=== PATIENT | female | born 1955 | race American Indian/Alaskan Native ===

== ENCOUNTER 2016-07-04 14:18 | Emergency (ER) | payer MEDICAID ==
[2016-07-04 15:14] VITALS: BP 135/65
[2016-07-04] MEDS ORDERED: TORADOL IM ONE (15:30)
[2016-07-04] MEDS ORDERED: NORCO 5/325 PO ONE (16:28)
--- NOTE | 2016-07-04 17:36 | Emergency Department Report ---
Entered by LOIS DOWD, acting as scribe for GRACIELA MART PA. ED Back Pain/Injury HPI - General Chief Complaint: Extremity Injury, Lower Stated Complaint: BODY PAIN Source: patient Limitations: No Limitations - History of Present Illness Initial Comments: 60 year old female with a PMHx of diabetes mellitus, lupus, and fluctuating HTN presents to the ED c/o left low back pain that began this morning at 06:00. Patient states that she was sleeping and was awaken by the pain. Rates the pain a 10/10 in severity and sharp in quality. Notes that the back pain radiates to left foot/toes. Denies any back injury, abdominal pain, numbness, tingling, SOB , nausea, vomiting, fever, and chills. She states the pain worsens with movement and is alleviated by immobilization. Notes taking Tylenol arthritis with no relief. She reports having a Hx of back pain, but this acute episode is worse. ZAK TA Complaint: back pain -: This morning Time: 06:00 Similar Symptoms Previously: No Place: home Radiation: left leg (down to left toes) Severity: moderate Severity scale (0 -10): 10 Quality: sharp Consistency: constant Improves With: immobilization Worsens With: movement Context: other (laying in the bed) Associated Symptoms: denies: chest pain, numbness, cough, incontinence, fever/ chills, headaches, abdominal pain, nausea/vomiting, rash, shortness of breath, other (tingling) Treatments Prior to Arrival: other (Tylenol) - Related Data Previous Rx's Medication Instructions Recorded Last Taken Type Acetaminophen/Codeine [Tylenol 1 tab PO Q6H PRN #10 tab 07/04/16 Unknown Rx /Codeine # 3 tab] Naproxen [Naprosyn TAB] 500 mg PO BID #30 tablet 07/04/16 Unknown Rx Allergies Allergy/AdvReac Type Severity Reaction Status Date / Time No Known Allergies Allergy Verified 01/04/16 20:24 ED Review of Systems ROS: Stated complaint: BODY PAIN Other details as noted in HPI Comment: All other systems reviewed and negative Constitutional: denies: chills, fever, other (tingling) Respiratory: denies: cough, orthopnea, shortness of breath, SOB with exertion, SOB at rest Cardiovascular: denies: chest pain, palpitations, dyspnea on exertion, orthopnea Gastrointestinal: denies: abdominal pain, nausea, vomiting, other (incontinence) Genitourinary: denies: urgency, dysuria, frequency Musculoskeletal: back pain (low left back pain that radiates to left toes) Skin: denies: rash Neurological: denies: headache, numbness ED Past Medical Hx - Past Medical History LUPUS ED Back Pain Physical Exam - Exam General: Vital signs noted. General: Patient is well nourished, well developed, nontoxic in appearance. HEAD: Head is normocephalic and atraumatic. EYES: Extraocular movements are intact. Pupils are equal, round, and reactive to light and accommodation. EARS: Symmetrical, atraumatic, non tender, ear canal clear with moderate cerumen , tympanic membrane non inflamed. NOSE: Nose symmetrical, nontender. Nares appeared normal. MOUTH:Mouth is well hydrated and without lesions. Mucous membranes are moist. NECK: Supple. Non edematous, no carotid bruits. No lymphadenopathy. LUNGS: Symmetrical with respiration. No wheezing, rales or crackles, CTAB. HEART: Regular rate and rhythm with normal S1/S2 present. No murmurs, rubs, or gallops. EXTREMITIES/MUSCULOSKELETAL: No cyanosis, clubbing, rash, lesions or edema. Full ROM bilaterally. UE/LE Pulses 2+ bilaterally. SKIN: Warm and dry. No lesions, ulceration or induration present PSYCHIATRIC: Mood is congruent with affect. Back/Abdomen: Yes Sacroiliac Tenderness (left side), Yes Straight Leg Raise Pain (left leg), No Abdominal Tenderness, No Perithoracic Tenderness, No Perilumbar Tenderness, No Flank Tenderness Neuro: Yes Normal Sensation, Yes Motor Weakness, Yes Normal DTR's, Yes Normal Gait ED Course Vital Signs 07/04/16 15:12 Temperature 98.5 F Pulse Rate 95 H Respiratory 16 Rate Blood Pressure 135/65 O2 Sat by Pulse 100 Oximetry - Reevaluation(s) Reevaluation #1: 07/04/16 17:30 Reports that pain has improved with the Toradol injection and pain medication. Also patient was given a ice pack to place the left sacral notch area to help with the inflammation and irritation. Discussed the patient will refer her to a primary care provider. Patient has verbalized understanding ED Medical Decision Making - Medical Decision Making Patient was evaluated in fast track area of ED by this provider. Patient presented with left low back pain that began this morning at 06:00. In the ED, patient will be given a shot of Toradol 60 mg and an ice pack for pain. Patient is in no acute distress at this time. She will be discharged home. She is encouraged to return to the emergency room for any worsening symptoms. Critical care attestation.: If time is entered above; I have spent that time in minutes in the direct care of this critically ill patient, excluding procedure time. ED Disposition Clinical Impression: Back pain without sciatica Disposition: DISCHARGED TO HOME OR SELFCARE Is pt being admited?: No Does the pt Need Aspirin: No Condition: Stable Instructions: Sciatica (ED), Lumbar Radiculopathy (ED) Additional Instructions: Take pain medication as prescribed. It is very important to follow with the primary care provider. I have listed one below Prescriptions: Acetaminophen/Codeine [Tylenol /Codeine # 3 tab] 1 tab PO Q6H PRN #10 tab PRN Reason: Pain Naproxen [Naprosyn TAB] 500 mg PO BID #30 tablet Referrals: PRIMARY CARE,MD [Primary Care Provider] - 3-5 Days [facility] [Provider Group] - 3-5 Days [facility] [Provider Group] - 3-5 Days This documentation as recorded by the NOEMÍ ruelas RYAN,accurately reflects the service I personally performed and the decisions made by me,GRACIELA MART PA.
== END 2016-07-04 16:55 | disposition home or self-care (01) ==
LOC: ED 14:18
DX: M54.5 Low back pain (principal); E11.9 Type 2 diabetes mellitus without complications; I10 Essential (primary) hypertension
CPT/HCPCS: 96372; 99283; J1885

== ENCOUNTER 2017-03-18 13:36 | Emergency (ER) | payer MEDICAID ==
[2017-03-18 14:43] LABS: BUN/Creatinine Ratio 21; Blood Urea Nitrogen 17 mg/dL (7-17); Calcium 8.9 mg/dL (8.4-10.2); Hemolysis Index 8
[2017-03-18 14:57] LABS: Basophils % (Auto) 0.4 % (0.0-1.8); Eosinophils # (Auto) 0.1 K/mm3 (0.0-0.4); Eosinophils % (Auto) 0.8 % (0.0-4.3); Hematocrit 37.6 % (30.3-42.9); Hemoglobin 12.3 gm/dl (10.1-14.3); Lymphocytes # (Auto) 1.2 K/mm3 (1.2-5.4); Lymphocytes % (Auto) 11.7 % (13.4-35.0); Mean Corpuscular HGB Conc 33 % (30-34); Mean Corpuscular Hemoglobin 30 pg (28-32); Mean Corpuscular Volume 91 fl (79-97); Monocytes # (Auto) 0.5 K/mm3 (0.0-0.8); Monocytes % (Auto) 4.8 % (0.0-7.3); Platelet Count 392 K/mm3 (140-440); Red Blood Count 4.15 M/mm3 (3.65-5.03); Red Cell Distribution Width 15.9 % (13.2-15.2)
--- NOTE | 2017-03-18 15:16 | Emergency Department Report ---
ED Psych HPI - General Chief Complaint: Psych Stated Complaint: SUICIDAL Time Seen by Provider: 03/18/17 15:07 Source: patient Mode of arrival: Ambulatory - History of Present Illness Initial Comments: Patient is 61 years old female brought from [facility]. EMS report patient made a statement that she would rather be than live like this, she is brought in as a 1013. Patient stated that she does not want to hurt herself, she was just very depressed but she does not have a suicidal ideation or attempt. Patient denied any visual or auditory hallucination. MD Complaint: suicidal ideation, feels depressed -: This morning Associated Psychiatric Symptoms: depression, suicidal ideation History of same: Yes - Related Data Previous Rx's Medication Instructions Recorded Last Taken Type Acetaminophen/Codeine [Tylenol 1 tab PO Q6H PRN #10 tab 07/04/16 Unknown Rx /Codeine # 3 tab] Naproxen [Naprosyn TAB] 500 mg PO BID #30 tablet 07/04/16 Unknown Rx Allergies Allergy/AdvReac Type Severity Reaction Status Date / Time No Known Allergies Allergy Verified 01/04/16 20:24 ED Review of Systems ROS: Stated complaint: SUICIDAL Other details as noted in HPI Comment: All other systems reviewed and negative Constitutional: denies: chills, fever Respiratory: denies: cough, shortness of breath Cardiovascular: denies: chest pain, palpitations, dyspnea on exertion Gastrointestinal: denies: abdominal pain, nausea, vomiting, diarrhea, constipation Musculoskeletal: denies: back pain, joint swelling Neurological: denies: headache, weakness, numbness, paresthesias ED Past Medical Hx - Past Medical History Hx Diabetes: Yes Hx Psychiatric Treatment: Yes (DEPRESSION) Additional medical history: LUPUS - Surgical History Hx Appendectomy: Yes Additional Surgical History: BREAST / TONSILS / ABD - Social History Smoking Status: Current Every Day Smoker Substance Use Type: None - Medications Home Medications: Home Medications Medication Instructions Recorded Confirmed Last Taken Type Acetaminophen/Codeine [Tylenol 1 tab PO Q6H PRN #10 tab 07/04/16 Unknown Rx /Codeine # 3 tab] Naproxen [Naprosyn TAB] 500 mg PO BID #30 tablet 07/04/16 Unknown Rx ED Physical Exam - General Limitations: No Limitations General appearance: alert, in no apparent distress, anxious - Head Head exam: Present: atraumatic, normocephalic, normal inspection - Eye Eye exam: Present: normal appearance, PERRL - ENT ENT exam: Present: normal exam, normal orophraynx, mucous membranes moist - Neck Neck exam: Present: normal inspection - Respiratory Respiratory exam: Present: normal lung sounds bilaterally. Absent: respiratory distress, wheezes, rales, rhonchi, chest wall tenderness, accessory muscle use, decreased breath sounds, prolonged expiratory - Cardiovascular Cardiovascular Exam: Present: regular rate, normal rhythm, normal heart sounds - GI/Abdominal GI/Abdominal exam: Present: soft, normal bowel sounds. Absent: distended, tenderness, guarding, rebound, rigid, organomegaly, mass, bruit, pulsatile mass , hernia - Extremities Exam Extremities exam: Present: normal inspection, full ROM, normal capillary refill - Back Exam Back exam: Present: normal inspection, full ROM. Absent: tenderness, CVA tenderness (R), CVA tenderness (L), muscle spasm, paraspinal tenderness - Neurological Exam Neurological exam: Present: alert, oriented X3, CN II-XII intact, normal gait, reflexes normal. Absent: motor sensory deficit - Skin Skin exam: Present: warm, intact, normal color. Absent: cyanosis, diaphoretic, erythema ED Course Vital Signs 03/18/17 13:44 Temperature 98.7 F Pulse Rate 125 H Respiratory 18 Rate Blood Pressure 129/84 O2 Sat by Pulse 95 Oximetry ED Medical Decision Making - Lab Data Result diagrams: 03/18/17 14:03 03/18/17 14:03 Critical care attestation.: If time is entered above; I have spent that time in minutes in the direct care of this critically ill patient, excluding procedure time. ED Disposition Clinical Impression: Suicidal ideation, Depression, Hyperglycemia due to type 2 diabetes mellitus Disposition: DC/TX-65 PSY HOSP/PSY UNIT Is pt being admited?: No Condition: Stable Instructions: Diabetes Mellitus Type 2 in Adults (ED)
[2017-03-19] MEDS ORDERED: GLUCOPHAGE PO ONE (01:20)
[2017-03-19 02:22] LABS: Bacteria,Urine 1+ /HPF (Negative); Bilirubin,Urine NEG (Negative); Blood,Urine NEG (Negative); Color,Urine Yellow (Yellow); Mucus,Urine FEW /HPF; Nitrite,Urine NEG (Negative); Protein,Urine <15 mg/dL mg/dL (Negative)
[2017-03-19 02:26] LABS: Amphetamine Screen,Urine PRESUMPTIVE NEGATIVE; Benzodiazepines Screen,Urine PRESUMPTIVE NEGATIVE; Cannabinoid Screen,Urine PRESUMPTIVE NEGATIVE; Cocaine Screen,Urine PRESUMPTIVE NEGATIVE; Methadone Screen,Urine PRESUMPTIVE NEGATIVE; Opiate Screen,Urine PRESUMPTIVE NEGATIVE
[2017-03-19] MEDS ORDERED: TYLENOL ONE (02:35)
[2017-03-19] MEDS ORDERED: TYLENOL PO ONE (02:36)
[2017-03-19] MEDS ORDERED: GLUCOPHAGE PO SCH (08:00)
--- NOTE | 2017-03-19 10:48 | Consultation ---
History of Present Illness - Reason for Consult Consult date: 03/19/17 Reason for consult: Mental Health Evaluation Requesting physician: LUIS F YEN - Chief Complaint Chief complaint: "I have my reason why I said what I said" - History of Present Psychiatric Illness 61 y.o. white female presenting to [facility] for SI's. Today the patient is calm and cooperative during the assessment. She stated that she made a statement to her counselor about being suicidal. She stated that she "rather be than live the way she is living." She stated that she lost all her money/home to someone and now she is residing at a [facility]. She stated that her life is "up side down" at this time and she hates it. She would not confirm or deny being suicidal when asked. She denies HI's and AVH's. She denies any manic episodes and erratic sleep. She denies recreational drug use and excessive alcohol consumption (etoh). Medications and Allergies Allergies Allergy/AdvReac Type Severity Reaction Status Date / Time No Known Allergies Allergy Verified 01/04/16 20:24 Home Medications Medication Instructions Recorded Confirmed Last Taken Type Acetaminophen/Codeine [Tylenol 1 tab PO Q6H PRN #10 tab 07/04/16 03/18/17 Unknown Rx /Codeine # 3 tab] Naproxen [Naprosyn TAB] 500 mg PO BID #30 tablet 07/04/16 03/18/17 Unknown Rx Active Meds: Active Medications Metformin HCl (Glucophage) 1,000 mg PO BIDDIAB GETACHEW Last Admin: 03/19/17 08:24 Dose: 1,000 mg Past psychiatric history - Past Medical History Past Medical History: diabetes Past Surgical History: tonsillectomy, Other - past Psychiatric treatment and history Psych: Depression psychiatric treatment history: Inpatient recently at [facility]. Patient denies a fam psy hx. - Social History Social history: other (Reside at [place]) Mental Status Exam - Vital signs Last Vital Signs Temp 98.9 F 03/18/17 22:16 Pulse 94 H 03/18/17 22:16 Resp 18 03/18/17 22:16 BP 132/67 03/18/17 22:16 Pulse Ox 96 03/18/17 22:16 - Exam Narrative exam: MSE: Appearance: calm, cooperative Behavior: good eye contact Speech: regular rate and tone Mood: "depressed" Affect: congruent to mood Thought Process: circumstantial Thought Content: denies HI's and AVH's Motor Activity: ambulatory Cognition: A/O x 3 Insight: variable Judgment: variable Results Result Diagrams: 03/18/17 14:03 03/18/17 14:03 Abnormal lab results 03/18/17 03/18/17 03/18/17 Range/Units 00:00 14:03 14:03 RDW 15.9 H (13.2-15.2) % Lymph % (Auto) 11.7 L (13.4-35.0) % Seg Neutrophils % 82.3 H (40.0-70.0) % Seg Neutrophils # 8.4 H (1.8-7.7) K/mm3 Sodium 133 L (137-145) mmol/L Chloride 95.1 L (98-107) mmol/L Carbon Dioxide 17 L (22-30) mmol/L Glucose 459 H (65-100) mg/dL POC Glucose (70-105) Ur Specific [place] 1.033 H (1.003-1.030) Urine WBC (Auto) 16.0 H (0.0-6.0) /HPF U Epithel Cells (Auto) 17.0 H (0-13.0) /HPF 03/19/17 03/19/17 Range/Units 01:22 02:36 RDW (13.2-15.2) % Lymph % (Auto) (13.4-35.0) % Seg Neutrophils % (40.0-70.0) % Seg Neutrophils # (1.8-7.7) K/mm3 Sodium (137-145) mmol/L Chloride (98-107) mmol/L Carbon Dioxide (22-30) mmol/L Glucose (65-100) mg/dL POC Glucose 298 H 257 H (70-105) Ur Specific [place] (1.003-1.030) Urine WBC (Auto) (0.0-6.0) /HPF U Epithel Cells (Auto) (0-13.0) /HPF All other labs normal. Assessment and Plan Assessment and plan: Impression: MDD, Severe Type. Today the patient is calm and cooperative during the assessment. DDx: R/O Bipolar DO Recommendation/Plan: Continue 1013 with placement to [facility] today.
[2017-03-19 11:14] VITALS: BP 130/72
== END 2017-03-19 09:00 ==
LOC: ED 13:36 → EEVIPCON 13:36 → ED 03-19 09:00
DX: F32.9 Major depressive disorder, single episode, unspecified (principal); R45.851 Suicidal ideations; E11.65 Type 2 diabetes mellitus with hyperglycemia; F17.200 Nicotine dependence, unspecified, uncomplicated
CPT/HCPCS: 36415; 80048; 80307; 81001; 82962; 85025; 96372; 99285; G0480; 80320; J1815

== ENCOUNTER 2017-10-16 22:01 | Emergency (ER) | payer MEDICAID ==
[2017-10-17 04:52] VITALS: BP 150/92
[2017-10-17] MEDS ORDERED: MOTRIN PO ONE (05:09)
--- NOTE | 2017-10-17 05:30 | Emergency Department Report ---
ED ENT HPI - General Chief complaint: Earache Stated complaint: EMESIS Time Seen by Provider: 10/17/17 05:06 Source: patient Mode of arrival: Ambulatory Limitations: No Limitations - History of Present Illness Initial comments: Patient is 61-year-old female who presents for intermittent ear pain 6 months for dx of otitis media media val states I will see PCP for next 2 weeks complaint: ear pain Onset/Timin -: month(s) Location: R ear Severity: moderate Severity scale (0 -10): 5 Quality: aching, sharp Consistency: constant Improves with: none Worsens with: none, movement Context- Dental: history of dental caries, poor dental care - Related Data Previous Rx's Medication Instructions Recorded Last Taken Type Acetaminophen/Codeine [Tylenol 1 tab PO Q6H PRN #10 tab 07/04/16 Unknown Rx /Codeine # 3 tab] Naproxen [Naprosyn TAB] 500 mg PO BID #30 tablet 07/04/16 Unknown Rx Acetaminophen [Tylenol Extra 500 mg PO QID PRN #60 tablet 10/17/17 Unknown Rx Strength] Cipro/Dexameth 0.3/0.1% [Ciprodex 4 drops OT BID 7 Days #1 bottle 10/17/17 Unknown Rx OTIC] Allergies Allergy/AdvReac Type Severity Reaction Status Date / Time No Known Allergies Allergy Verified 01/04/16 20:24 ED Dental HPI - General Chief complaint: Earache Stated complaint: EMESIS Time Seen by Provider: 10/17/17 05:06 Source: patient Mode of arrival: Ambulatory Limitations: No Limitations - History of Present Illness complaint: ear pain Onset/Timin - Related Data Previous Rx's Medication Instructions Recorded Last Taken Type Acetaminophen/Codeine [Tylenol 1 tab PO Q6H PRN #10 tab 07/04/16 Unknown Rx /Codeine # 3 tab] Naproxen [Naprosyn TAB] 500 mg PO BID #30 tablet 07/04/16 Unknown Rx Acetaminophen [Tylenol Extra 500 mg PO QID PRN #60 tablet 10/17/17 Unknown Rx Strength] Cipro/Dexameth 0.3/0.1% [Ciprodex 4 drops OT BID 7 Days #1 bottle 10/17/17 Unknown Rx OTIC] Allergies Allergy/AdvReac Type Severity Reaction Status Date / Time No Known Allergies Allergy Verified 01/04/16 20:24 ED Review of Systems ROS: Stated complaint: EMESIS Other details as noted in HPI Constitutional: denies: chills, fever Eyes: denies: eye pain, eye discharge, vision change ENT: ear pain Respiratory: denies: cough, shortness of breath, wheezing Cardiovascular: denies: chest pain, palpitations Endocrine: no symptoms reported Gastrointestinal: denies: abdominal pain, nausea, diarrhea Genitourinary: denies: urgency, dysuria, discharge Musculoskeletal: denies: back pain, joint swelling, arthralgia Skin: denies: rash, lesions Neurological: denies: headache, weakness, numbness, paresthesias, confusion, abnormal gait, vertigo Psychiatric: denies: anxiety, depression Hematological/Lymphatic: denies: easy bleeding, easy bruising ED Past Medical Hx - Past Medical History Previous Medical History?: Yes Hx Diabetes: Yes Hx Psychiatric Treatment: Yes (DEPRESSION) Additional medical history: LUPUS - Surgical History Past Surgical History?: Yes Hx Appendectomy: Yes Additional Surgical History: BREAST / TONSILS / ABD - Social History Smoking Status: Former Smoker Substance Use Type: None - Medications Home Medications: Home Medications Medication Instructions Recorded Confirmed Last Taken Type Acetaminophen/Codeine [Tylenol 1 tab PO Q6H PRN #10 tab 07/04/16 03/18/17 Unknown Rx /Codeine # 3 tab] Naproxen [Naprosyn TAB] 500 mg PO BID #30 tablet 07/04/16 03/18/17 Unknown Rx Acetaminophen [Tylenol Extra 500 mg PO QID PRN #60 tablet 10/17/17 Unknown Rx Strength] Cipro/Dexameth 0.3/0.1% [Ciprodex 4 drops OT BID 7 Days #1 bottle 10/17/17 Unknown Rx OTIC] ED Physical Exam - General Limitations: No Limitations General appearance: alert, in no apparent distress - Head Head exam: Present: atraumatic, normocephalic - Eye Eye exam: Present: normal appearance, PERRL, EOMI Pupils: Present: normal accommodation - ENT ENT exam: Present: mucous membranes moist, normal external ear exam - Expanded ENT Exam Expanded TM/Canal exam: Erythema: Right TM, Canal Tenderness: Right TM Mouth exam: Present: normal external inspection, tongue normal. Absent: trismus Teeth exam: Present: normal inspection Throat exam: Positive: normal inspection, tonsillomegaly. Negative: tonsillar erythema, tonsillar exudate, R peritonsillar mass, L peritonsillar mass - Neck Neck exam: Present: normal inspection, full ROM. Absent: tenderness, meningismus, lymphadenopathy, thyromegaly - Respiratory Respiratory exam: Present: normal lung sounds bilaterally. Absent: respiratory distress, wheezes, stridor, chest wall tenderness - Cardiovascular Cardiovascular Exam: Present: regular rate, normal rhythm. Absent: systolic murmur, diastolic murmur, rubs, gallop - GI/Abdominal GI/Abdominal exam: Absent: distended, tenderness, rebound, organomegaly, mass, bruit, pulsatile mass - Rectal Rectal exam: Present: deferred - Extremities Exam Extremities exam: Present: normal inspection - Back Exam Back exam: Present: normal inspection - Neurological Exam Neurological exam: Present: alert, oriented X3, CN II-XII intact, normal gait, reflexes normal - Psychiatric Psychiatric exam: Present: normal affect, normal mood - Skin Skin exam: Present: warm, dry, intact, normal color. Absent: rash ED Course Vital Signs 10/16/17 10/17/17 10/17/17 22:47 04:51 05:20 Temperature 98.5 F Pulse Rate 100 H 89 Respiratory 20 18 18 Rate Blood Pressure 173/79 Blood Pressure 150/92 [Right] O2 Sat by Pulse 96 97 Oximetry ED Medical Decision Making - Radiology Data Radiology results: report reviewed, image reviewed - Medical Decision Making His otitis externa with URI will tx for same pt will follow up with pcp in 2-3 day for same. pt verbalized agreement and understanding of same. Critical care attestation.: If time is entered above; I have spent that time in minutes in the direct care of this critically ill patient, excluding procedure time. ED Disposition Clinical Impression: Otitis externa Qualifiers: Otitis externa type: noninfectious Noninfectious otitis externa type: reactive Chronicity: acute Laterality: right Qualified Code(s): H60.551 - Acute reactive otitis externa, right ear URI (upper respiratory infection) Qualifiers: URI type: unspecified viral URI Qualified Code(s): J06.9 - Acute upper respiratory infection, unspecified Disposition: TO HOME OR SELFCARE Is pt being admited?: No Does the pt Need Aspirin: No Condition: Good Instructions: Otitis Externa (ED), Upper Respiratory Infection (ED) Prescriptions: Acetaminophen [Tylenol Extra Strength] 500 mg PO QID PRN #60 tablet PRN Reason: Pain , Severe (7-10) Cipro/Dexameth 0.3/0.1% [Ciprodex OTIC] 4 drops OT BID 7 Days #1 bottle Referrals: [facility] [Outside] - 3-5 Days Forms: Work/School Release Form(ED) Time of Disposition: 05:48
== END 2017-10-17 06:10 | disposition home or self-care (01) ==
LOC: ED 22:01
DX: H60.551 Acute reactive otitis externa, right ear (principal); J06.9 Acute upper respiratory infection, unspecified; E11.9 Type 2 diabetes mellitus without complications; F32.9 Major depressive disorder, single episode, unspecified; M32.9 Systemic lupus erythematosus, unspecified; Z90.49 Acquired absence of other specified parts of digestive tract; Z87.891 Personal history of nicotine dependence
CPT/HCPCS: 99282

== ENCOUNTER 2018-04-28 16:12 | Emergency (ER) | payer MEDICAID ==
[2018-04-28 17:04] LABS: Basophils # (Auto) 0.1 K/mm3 (0.0-0.1); Basophils % (Auto) 1.3 % (0.0-1.8); Eosinophils # (Auto) 0.1 K/mm3 (0.0-0.4); Eosinophils % (Auto) 0.8 % (0.0-4.3); Hematocrit 40.5 % (30.3-42.9); Hemoglobin 13.5 gm/dl (10.1-14.3); Lymphocytes # (Auto) 1.7 K/mm3 (1.2-5.4); Lymphocytes % (Auto) 20.1 % (13.4-35.0); Mean Corpuscular HGB Conc 33 % (30-34); Mean Corpuscular Volume 88 fl (79-97); Monocytes # (Auto) 0.4 K/mm3 (0.0-0.8); Monocytes % (Auto) 4.1 % (0.0-7.3); Platelet Count 346 K/mm3 (140-440); Red Blood Count 4.58 M/mm3 (3.65-5.03); Red Cell Distribution Width 14.2 % (13.2-15.2)
[2018-04-28 17:16] LABS: BUN/Creatinine Ratio 20; Blood Urea Nitrogen 12 mg/dL (7-17); Calcium 8.8 mg/dL (8.4-10.2); Hemolysis Index 25
[2018-04-28] MEDS ORDERED: HumuLIN R IV ONE (17:26)
[2018-04-28] MEDS ORDERED: NACL 0.9% 1000 ML 1,000 ML IV ONE (17:26)
[2018-04-28 17:28] LABS: Bilirubin,Urine NEG (Negative); Blood,Urine MOD (Negative); Color,Urine Straw (Yellow); Mucus,Urine FEW /HPF; Protein,Urine <15 mg/dL mg/dL (Negative); Urobilinogen,Urine < 2.0 mg/dL (<2.0)
--- NOTE | 2018-04-28 18:49 | Emergency Department Report ---
ED General Adult HPI - General Chief complaint: Hyperglycemia Stated complaint: HYPERGLYCEMIA Time Seen by Provider: 04/28/18 16:54 Source: EMS Mode of arrival: Stretcher Limitations: No Limitations - History of Present Illness Initial comments: 62-year-old female presents to ED with hyperglycemia. The patient is a resident at [facility], which she says is a rooming house. Patient states that the parcel wrapper of the rooming house just started having a nurse come by to see the residents. Her glucose was checked and it was read as high, so she was brought to the ED. Patient reports history of diabetes, however states she has been off of her insulin for several months. Patient has no complaints, denies nausea, vomiting, fever, recent illness. -: This afternoon Improves with: none Worsens with: none Associated Symptoms: denies other symptoms Treatments Prior to Arrival: none - Related Data Previous Rx's Medication Instructions Recorded Last Taken Type Acetaminophen/Codeine [Tylenol 1 tab PO Q6H PRN #10 tab 07/04/16 Unknown Rx /Codeine # 3 tab] Naproxen [Naprosyn TAB] 500 mg PO BID #30 tablet 07/04/16 Unknown Rx Acetaminophen [Tylenol Extra 500 mg PO QID PRN #60 tablet 10/17/17 Unknown Rx Strength] Cipro/Dexameth 0.3/0.1% [Ciprodex 4 drops OT BID 7 Days #1 bottle 10/17/17 Unknown Rx OTIC] metFORMIN [Glucophage] 500 mg PO BID #60 tablet 04/28/18 Unknown Rx Allergies Allergy/AdvReac Type Severity Reaction Status Date / Time No Known Allergies Allergy Verified 01/04/16 20:24 ED Review of Systems ROS: Stated complaint: HYPERGLYCEMIA Other details as noted in HPI Comment: All other systems reviewed and negative Constitutional: denies: chills, fever Respiratory: denies: cough Cardiovascular: denies: chest pain Gastrointestinal: denies: abdominal pain, nausea, vomiting, diarrhea Neurological: denies: headache ED Past Medical Hx - Past Medical History Hx Diabetes: Yes Hx Psychiatric Treatment: Yes (DEPRESSION) Additional medical history: LUPUS - Surgical History Hx Appendectomy: Yes Additional Surgical History: BREAST / TONSILS / ABD - Social History Smoking Status: Never Smoker - Medications Home Medications: Home Medications Medication Instructions Recorded Confirmed Last Taken Type Acetaminophen/Codeine [Tylenol 1 tab PO Q6H PRN #10 tab 07/04/16 03/18/17 Unknown Rx /Codeine # 3 tab] Naproxen [Naprosyn TAB] 500 mg PO BID #30 tablet 07/04/16 03/18/17 Unknown Rx Acetaminophen [Tylenol Extra 500 mg PO QID PRN #60 tablet 10/17/17 Unknown Rx Strength] Cipro/Dexameth 0.3/0.1% [Ciprodex 4 drops OT BID 7 Days #1 bottle 10/17/17 Unknown Rx OTIC] metFORMIN [Glucophage] 500 mg PO BID #60 tablet 04/28/18 Unknown Rx ED Physical Exam - General Limitations: No Limitations General appearance: alert, in no apparent distress - Head Head exam: Present: atraumatic, normocephalic - Eye Eye exam: Present: normal appearance - ENT ENT exam: Present: mucous membranes moist - Neck Neck exam: Present: normal inspection - Respiratory Respiratory exam: Present: normal lung sounds bilaterally. Absent: respiratory distress - Cardiovascular Cardiovascular Exam: Present: regular rate, normal rhythm - GI/Abdominal GI/Abdominal exam: Present: soft. Absent: distended, tenderness - Extremities Exam Extremities exam: Present: normal inspection - Neurological Exam Neurological exam: Present: alert, oriented X3 - Psychiatric Psychiatric exam: Present: normal affect, normal mood - Skin Skin exam: Present: warm, dry, intact, normal color ED Course Vital Signs 04/28/18 04/28/18 04/28/18 16:21 16:30 16:38 Temperature Pulse Rate 94 H Respiratory 18 18 Rate Blood Pressure O2 Sat by Pulse 99 100 96 Oximetry 04/28/18 04/28/18 04/28/18 16:46 17:01 17:16 Temperature Pulse Rate 93 H 100 H 93 H Respiratory 20 18 16 Rate Blood Pressure 140/80 140/80 O2 Sat by Pulse 98 97 98 Oximetry 04/28/18 04/28/18 04/28/18 17:30 17:46 18:00 Temperature Pulse Rate 92 H 93 H 91 H Respiratory 13 17 22 Rate Blood Pressure 142/91 142/91 151/80 O2 Sat by Pulse 100 99 99 Oximetry 04/28/18 04/28/18 04/28/18 18:16 18:24 18:30 Temperature 98.5 F Pulse Rate 93 H 91 H Respiratory 22 16 Rate Blood Pressure 151/80 150/83 O2 Sat by Pulse 99 97 Oximetry 04/28/18 04/28/18 18:46 19:01 Temperature Pulse Rate 91 H Respiratory 22 Rate Blood Pressure 150/83 150/83 O2 Sat by Pulse 89 100 Oximetry ED Medical Decision Making - Lab Data Result diagrams: 04/28/18 16:47 04/28/18 16:47 - Medical Decision Making 62-year-old female sent to ED for asymptomatic hyperglycemia. Patient reports she isn't out of her insulin for several months. Glucose of 503 here in ED. Anion gap elevated, however, patient not acidotic, bicarbonate of 21, VBG normal. Patient given 1 L bolus of IV fluids and 10 units of insulin. Repeat Accu-Chek 289. Will give prescription for metformin 500 mg twice a day, and advised patient to follow up in outpatient setting to get back on her insulin. - Differential Diagnosis hyperglycemia, DKA Critical care attestation.: If time is entered above; I have spent that time in minutes in the direct care of this critically ill patient, excluding procedure time. ED Disposition Clinical Impression: Hyperglycemia Disposition: DC-01 TO HOME OR SELFCARE Is pt being admited?: No Condition: Stable Instructions: Diabetic Hyperglycemia (ED) Prescriptions: metFORMIN [Glucophage] 500 mg PO BID #60 tablet Referrals: LEONELA MARIE [Primary Care Provider] - 3-5 Days [facility] [Provider Group] - 3-5 Days Time of Disposition: 18:50
[2018-04-28 19:10] VITALS: BP 150/83
== END 2018-04-28 19:11 | disposition home or self-care (01) ==
LOC: ED 16:12
DX: E11.65 Type 2 diabetes mellitus with hyperglycemia (principal); F32.9 Major depressive disorder, single episode, unspecified
CPT/HCPCS: 36415; 80048; 81001; 82805; 82962; 85025; 96361; 96374; 99284; J7030; J1815

== ENCOUNTER 2018-08-30 18:24 | Emergency (ER) | payer MEDICAID ==
[2018-08-30] MEDS ORDERED: TYLENOL PO ONE (18:35)
--- NOTE | 2018-08-30 18:35 | Event Note ---
ED Screening Note Date of service: 08/30/18 Time: 18:31 ED Screening Note: 62 y/o female comes in after having GLF comes in for right knee pain, right ankle pain. This initial assessment/diagnostic orders/clinical plan/treatment(s) is/are subject to change based on patients health status, clinical progression and re- assessment by fellow clinical providers in the ED. Further treatment and workup at subsequent clinical providers discretion. Patient/guardian urged not to elope from the ED as their condition may be serious if not clinically assessed and managed. Initial orders include:
[2018-08-30 19:19] LABS: Hematocrit 36.3 % (30.3-42.9); Hemoglobin 12.7 gm/dl (10.1-14.3); Mean Corpuscular HGB Conc 35 % (30-34); Mean Corpuscular Volume 90 fl (79-97); Platelet Count 351 K/mm3 (140-440); Red Blood Count 4.05 M/mm3 (3.65-5.03); Red Cell Distribution Width 14.3 % (13.2-15.2)
[2018-08-30 19:38] LABS: Alanine Aminotransferase 11 units/L (7-56); Albumin 3.2 g/dL (3.9-5); BUN/Creatinine Ratio 23; Blood Urea Nitrogen 16 mg/dL (7-17); Calcium 9.3 mg/dL (8.4-10.2); Hemolysis Index 2
[2018-08-30 19:56] LABS: Basophils % (Manual) 0 % (0.0-1.8); Eosinophils % (Manual) 0 % (0.0-4.3); Total Cells Counted 100
[2018-08-30 19:57] LABS: Anisocytosis Few
--- NOTE | 2018-08-30 20:10 | XRay Report ---
PROCEDURE: XR ANKLE 3+V RT TECHNIQUE: ankle radiographs, AP, lateral, and oblique views. HISTORY: ankle pain GLF COMPARISONS: None . FINDINGS: There is been prior arthrodesis at the ankle joint. There is bony fusion present. Surgical screws sandra dge the distal tibia and talus. Skeletal structures are osteopenic. No acute fractures are identified . No dislocation seen. Noted is calcification along the course of the Achilles tendon. There is a pro minent plantar calcaneal enthesophyte IMPRESSION: Status post arthrodesis at the tibiotalar joint space Heel spur. Calcification noted along the course of the distal Achilles tendon Osteopenia This document is electronically signed by Bobo Weir MD., August 30 2018 08:08:06 PM ET
[2018-08-30] MEDS ORDERED: NACL 0.9% 1000 ML 1,000 ML IV ONE (21:28)
[2018-08-30] MEDS ORDERED: HumuLIN R IV ONE ×2 (21:29→22:30)
--- NOTE | 2018-08-30 21:41 | XRay Report ---
PROCEDURE: XR KNEE 3V RT TECHNIQUE: Right knee 3 views HISTORY: GLF knee pain COMPARISONS: FINDINGS: There is some mild tibiofemoral medial lateral joint space narrowing there is narrowing at the patell ofemoral joint space. No evidence for joint effusion There are retained pieces of surgical screw within the lateral aspect of the distal femur. At the adj acent lateral condyle there is a somewhat lucent appearance of the bone surrounding the surgical hard devi. No definitive cortical disruption identified. No destructive bony changes are seen. IMPRESSION: Retained hardware within the lateral aspect of the distal femur. There is some lucency surrounding th e hardware and infection cannot be excluded. Three-phase bone scan could be helpful for further evalu ation. This document is electronically signed by Bobo Weir MD., August 30 2018 09:39:23 PM ET
--- NOTE | 2018-08-30 22:04 | Emergency Department Report ---
HPI - General Chief Complaint: Fall Time Seen by Provider: 08/30/18 21:28 - HPI HPI: 62-year-old female presents to the emergency department from [place] with a complaint of right knee and ankle pain after she had a fall yesterday after she slipped on some wet floor. She has been able to ambulate but has pain with doing so. The patient also was found to have elevated blood sugar. She has a known diabetic and says that she is on insulin but has been out of his medication for "a while." She says that she takes Humulin but cannot tell me how many units or exactly what type of insulin. She denies having a primary care physician. Her blood sugar was found to be 480 by EMS. She complains of some increased thirst, increased urination, and some generalized fatigue. She has not taken or received anything for her symptoms prior to arrival. ED Past Medical Hx - Past Medical History Hx Diabetes: Yes Hx Psychiatric Treatment: Yes (DEPRESSION) Additional medical history: LUPUS - Surgical History Hx Appendectomy: Yes Additional Surgical History: BREAST / TONSILS / ABD - Social History Smoking Status: Current Some Day Smoker Substance Use Type: None - Medications Home Medications: Home Medications Medication Instructions Recorded Confirmed Last Taken Type Acetaminophen/Codeine [Tylenol 1 tab PO Q6H PRN #10 tab 07/04/16 03/18/17 Unkno wn Rx /Codeine # 3 tab] Naproxen [Naprosyn TAB] 500 mg PO BID #30 tablet 07/04/16 03/18/17 Unknown Rx Acetaminophen [Tylenol Extra 500 mg PO QID PRN #60 tablet 10/17/17 Unknown Rx Strength] Cipro/Dexameth 0.3/0.1% [Ciprodex 4 drops OT BID 7 Days #1 bottle 10/17/17 Unknown Rx OTIC] metFORMIN [Glucophage] 500 mg PO BID #60 tablet 08/31/18 Unknown Rx ED Review of Systems ROS: Stated complaint: RT KNEE/ANKLE PAIN Other details as noted in HPI Constitutional: other (fatigue). denies: fever Eyes: denies: eye pain, vision change ENT: denies: ear pain, throat pain Respiratory: denies: cough, shortness of breath Cardiovascular: denies: chest pain, palpitations Endocrine: increased thirst, increased urine Gastrointestinal: denies: abdominal pain, vomiting Genitourinary: frequency. denies: dysuria Musculoskeletal: arthralgia. denies: back pain Skin: denies: rash, lesions Neurological: denies: headache, numbness Physical Exam - Physical Exam Vital Signs: Vital Signs 08/30/18 08/30/18 18:34 18:40 Temperature 98.4 F Pulse Rate 115 H Respiratory 20 20 Rate Blood Pressure 111/69 O2 Sat by Pulse 99 Oximetry Physical Exam: GENERAL: The patient is well-developed well-nourished. HENT: Normocephalic. Atraumatic. Patient has moist mucous membranes. EYES: Extraocular motions are intact. NECK: Supple. Trachea is midline. CHEST/LUNGS: Clear to auscultation. There is no respiratory distress noted. HEART/CARDIOVASCULAR: Regular. There is no tachycardia. There is no murmur. ABDOMEN: Abdomen is soft, nontender. Patient has normal bowel sounds. There is no abdominal distention. SKIN: Skin is warm and dry. NEURO: The patient is awake, alert, and oriented. The patient is cooperative. The patient has no focal neurologic deficits. The patient has normal speech. MUSCULOSKELETAL: There is some tenderness to palpation to the anterior right knee and the right ankle but no obvious deformities. Negative anterior and posterior drawer test of the knee. No laxity with valgus or varus stress. ED Course Vital Signs 08/30/18 08/30/18 18:34 18:40 Temperature 98.4 F Pulse Rate 115 H Respiratory 20 20 Rate Blood Pressure 111/69 O2 Sat by Pulse 99 Oximetry ED Medical Decision Making - Lab Data Result diagrams: 08/30/18 19:03 08/31/18 00:12 - Radiology Data Radiology results: report reviewed, image reviewed interpreted by me: X-ray of the right ankle and knee do not show any fractures, dislocations, or any acute process. PROCEDURE: CT LOWER EXTREMITY RT WO CON TECHNIQUE: Routine axial imaging was obtained of the right knee without IV contrast with sagittal and coronal reconstructions. HISTORY: right knee pain, abnormal X-ray, r/o infection COMPARISONS: Right knee radiographs 08/30/2018 FINDINGS: There are 2 threaded screws within the lateral aspect of the distal femoral metaphysis. There is no evidence of osteomyelitis. There is mild to moderate narrowing of all 3 compartments of the knee. There is patellar spurring superiorly. There is no evidence of joint effusion or acute fracture. There is a chronic fracture deformity in the posterior aspect of the tibial metaphysis. The surrounding soft tissues do not show any acute changes. IMPRESSION: Tricompartmental arthritic changes without evidence of acute fracture or joint effusion. Residual hardware in the lateral femoral metaphysis. No evidence of infection. Remote depressed fracture posterior aspect of the tibial metaphysis. This document is electronically signed by Sandip Nassar MD., August 31 2018 12:36:24 AM ET Transcribed By: RB Dictated By: SANDIP NASSAR MD Electronically Authenticated By: SANDIP NASSAR MD Signed Date/Time: 08/31/18 0037 - Medical Decision Making Patient presents to the emergency department with complaint of right knee and ankle pain after having a fall yesterday. She is slightly tender to palpation in these areas but does not have any obvious deformities. There was no obvious fracture or dislocation to the x-ray of the knee or ankle performed. However radiology made some mention that the distal femur had some type of changes and infection could not be ruled out. For this reason a CT scan was done of the right lower extremity that once again does not show any fracture, dislocation, signs of infection, or any other acute process. The patient presented with hyperglycemia. Her first venous pH did not show any signs of acidosis. She had a blood sugar of about 450. I suspect that the patient fell and something to eat because her blood sugar went up to about 600 shortly afterwards. The patient received 2 L of IV fluid and 2 different doses of IV insulin and her blood sugar came down to about 225. The patient is unsure of her normal insulin regiment. We discussed dietary changes to make, keeping her blood sugar log, and the patient will be started on metformin until she is able to follow up outpatient with a medicine doctor to restart her insulin. She was given multiple referrals for local primary care clinics. The patient was given a knee immobilizer and crutches for her right lower extremity pain. She was given a referral for an orthopedist. The patient will return to the ER with any w orsening of her symptoms or any acute distress. - Differential Diagnosis DKA, HHNK, ankle/knee fracture, sprain/strain Critical Care Time: No Critical care attestation.: If time is entered above; I have spent that time in minutes in the direct care of this critically ill patient, excluding procedure time. ED Disposition Clinical Impression: Uncontrolled diabetes mellitus Qualifiers: Diabetes mellitus type: type 1 Glycemic state: with hyperglycemia Qualified Code(s): E10.65 - Type 1 diabetes mellitus with hyperglycemia Right knee pain Qualifiers: Chronicity: acute Qualified Code(s): M25.561 - Pain in right knee Right ankle pain Qualifiers: Chronicity: acute Qualified Code(s): M25.571 - Pain in right ankle and joints of right foot Hypertension Qualifiers: Hypertension type: essential hypertension Qualified Code(s): I10 - Essential (primary) hypertension Disposition: TO HOME OR SELFCARE Is pt being admited?: No Condition: Stable Instructions: Knee Pain (ED), Hypertension (ED), Arthralgia (ED), Diabetic Hyperglycemia (ED) Additional Instructions: Please follow up with a primary care physician in the next few days without fail. I am giving multiple local primary care clinics. I'm also giving him a referral for a local orthopedist, Dr. Evans, to follow up regarding your knee and ankle pains. I'm giving a prescription to restart metformin to help with your hyperglycemia/diabetes until you're able to follow up with a primary care physician and restart your insulin. Try and stay away from foods that are high in sugar, carbohydrates and starches. Keep a blood sugar log. Return to the emergency Department with any worsening of your symptoms or any acute distress. Prescriptions: metFORMIN [Glucophage] 500 mg PO BID #60 tablet Referrals: SANDIP EVANS MD [Staff Physician] - 2-3 Days [facility] [Outside] - 2-3 Days [facility] [Outside] - 2-3 Days [facility] [Outside] - 2-3 Days [facility] [Outside] - 2-3 Days Time of Disposition: 04:38
[2018-08-30 23:06] LABS: Bacteria,Urine 1+ /HPF (Negative); Bilirubin,Urine NEG (Negative); Blood,Urine SM (Negative); Color,Urine Straw (Yellow); Protein,Urine <15 mg/dL mg/dL (Negative); Urobilinogen,Urine < 2.0 mg/dL (<2.0)
[2018-08-31] MEDS ORDERED: NACL 0.9% 1000 ML 1,000 ML IV ONE (00:32)
[2018-08-31] MEDS ORDERED: NACL 0.9% 1000 ML 1,000 ML ONE (00:33)
--- NOTE | 2018-08-31 00:37 | Cat Scan Report ---
PROCEDURE: CT LOWER EXTREMITY RT WO CON TECHNIQUE: Routine axial imaging was obtained of the right knee without IV contrast with sagittal an d coronal reconstructions. HISTORY: right knee pain, abnormal X-ray, r/o infection COMPARISONS: Right knee radiographs 08/30/2018 FINDINGS: There are 2 threaded screws within the lateral aspect of the distal femoral metaphysis. There is no e vidence of osteomyelitis. There is mild to moderate narrowing of all 3 compartments of the knee. Ther e is patellar spurring superiorly. There is no evidence of joint effusion or acute fracture. There is a chronic fracture deformity in the posterior aspect of the tibial metaphysis. The surrounding soft tissues do not show any acute changes. IMPRESSION: Tricompartmental arthritic changes without evidence of acute fracture or joint effusion. Residual hardware in the lateral femoral metaphysis. No evidence of infection. Remote depressed fracture posterior aspect of the tibial metaphysis. This document is electronically signed by Sandip Nassar MD., August 31 2018 12:36:24 AM ET
[2018-08-31 00:54] LABS: BUN/Creatinine Ratio 22; Blood Urea Nitrogen 13 mg/dL (7-17); Calcium 8.9 mg/dL (8.4-10.2); Hemolysis Index 3
[2018-08-31] MEDS ORDERED: HumuLIN R IV ONE (01:02)
[2018-08-31 06:39] VITALS: BP 145/89
== END 2018-08-31 11:24 | disposition home or self-care (01) ==
LOC: ED 18:24
DX: E11.65 Type 2 diabetes mellitus with hyperglycemia (principal); M25.561 Pain in right knee; M25.571 Pain in right ankle and joints of right foot; I10 Essential (primary) hypertension; F32.9 Major depressive disorder, single episode, unspecified; F17.200 Nicotine dependence, unspecified, uncomplicated; Z90.49 Acquired absence of other specified parts of digestive tract; Z79.899 Other long term (current) drug therapy
CPT/HCPCS: 29505; 36415; 73562; 73610; 73700; 80048; 80053; 81001; 82140; 82805; 82947; 82962; 85007; 85025; 87086; 96361; 96374; 96376; 99284; J7030; J1815

== ENCOUNTER 2018-10-15 23:45 | Inpatient (IN) | payer MEDICAID ==
[2018-10-16 00:14] LABS: Basophils % (Auto) 0.5 % (0.0-1.8); Eosinophils # (Auto) 0.1 K/mm3 (0.0-0.4); Eosinophils % (Auto) 0.8 % (0.0-4.3); Hematocrit 36.3 % (30.3-42.9); Hemoglobin 12.5 gm/dl (10.1-14.3); Lymphocytes # (Auto) 1.4 K/mm3 (1.2-5.4); Lymphocytes % (Auto) 18.7 % (13.4-35.0); Mean Corpuscular HGB Conc 35 % (30-34); Mean Corpuscular Volume 91 fl (79-97); Monocytes # (Auto) 0.4 K/mm3 (0.0-0.8); Platelet Count 369 K/mm3 (140-440); Red Cell Distribution Width 14.2 % (13.2-15.2)
[2018-10-16 00:39] LABS: Alanine Aminotransferase 10 units/L (7-56); Albumin 3.6 g/dL (3.9-5); BUN/Creatinine Ratio 26; Blood Urea Nitrogen 18 mg/dL (7-17); Calcium 8.7 mg/dL (8.4-10.2); Hemolysis Index 2
[2018-10-16] MEDS ORDERED: D50W (25GM) Syringe IV PRN ×2 (01:37→11:57)
[2018-10-16] MEDS ORDERED: NACL 0.9% 1000 ML 1,000 ML IV ONE (01:37)
--- NOTE | 2018-10-16 01:39 | Emergency Department Report ---
ED General Adult HPI - General Chief complaint: Hyperglycemia Stated complaint: HIGH BLOOD SUGAR HIP PAIN RT KNEE AND ANKLE PAIN Time Seen by Provider: 10/16/18 01:29 Source: patient, family Mode of arrival: Wheelchair Limitations: Physical Limitation - History of Present Illness Initial comments: Patient is a 62-year-old female presents emergency room for hyperglycemia and fall. Patient states she fell 3 days ago and is complaining of right ankle pa in, right foot pain, right knee pain, right hip pain and lower back pain. 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 Patient states the pain is a 10 out of 10. Patient states the pain is better with rest and worse with movement and palpation. Patient states she been out of her diabetes medications and hasn't been seen for her diabetes for many months. -: Sudden Location: back, right, lower extremity Radiation: non-radiation Severity scale (0 -10): 10 Quality: stabbing Consistency: constant Improves with: rest Worsens with: movement Associated Symptoms: denies other symptoms. denies: confusion, chest pain, cough, diaphoresis, fever/chills, headaches, loss of appetite, malaise, nausea/vomiting, rash, seizure, shortness of breath, syncope, weakness Treatments Prior to Arrival: none - Related Data Home Medications Medication Instructions Recorded Confirmed Last Taken No Known Home Medications [No 10/16/18 10/16/18 Unknown Reported Home Medications] Allergies Allergy/AdvReac Type Severity Reaction Status Date / Time No Known Allergies Allergy Verified 08/30/18 18:27 ED Review of Systems ROS: Stated complaint: HIGH BLOOD SUGAR HIP PAIN RT KNEE AND ANKLE PAIN Other details as noted in HPI Constitutional: denies: chills, fever Eyes: denies: eye pain, eye discharge, vision change ENT: denies: ear pain, throat pain Respiratory: denies: cough, shortness of breath, wheezing Cardiovascular: denies: chest pain, palpitations Endocrine: see HPI, increased thirst, increased urine Gastrointestinal: denies: abdominal pain, nausea, diarrhea Genitourinary: denies: urgency, dysuria, discharge Musculoskeletal: back pain. denies: joint swelling, arthralgia Skin: denies: rash, lesions Neurological: denies: headache, weakness, paresthesias Psychiatric: denies: anxiety, depression Hematological/Lymphatic: denies: easy bleeding, easy bruising ED Past Medical Hx - Past Medical History Previous Medical History?: Yes Hx Diabetes: Yes Hx Psychiatric Treatment: Yes (DEPRESSION) Additional medical history: LUPUS - Surgical History Past Surgical History?: Yes Hx Appendectomy: Yes Additional Surgical History: BREAST / TONSILS / ABD - Family History Family history: no significant - Social History Smoking Status: Current Every Day Smoker Substance Use Type: None - Medications Home Medications: Home Medications Medication Instructions Recorded Confirmed Last Taken Type No Known Home Medications [No 10/16/18 10/16/18 Unknown History Reported Home Medications] ED Physical Exam - General Limitations: Physical Limitation General appearance: alert, in no apparent distress - Head Head exam: Present: atraumatic, normocephalic - Eye Eye exam: Present: normal appearance - ENT ENT exam: Present: mucous membranes moist - Neck Neck exam: Present: normal inspection - Respiratory Respiratory exam: Present: normal lung sounds bilaterally. Absent: respiratory distress - Cardiovascular Cardiovascular Exam: Present: regular rate, normal rhythm. Absent: systolic murmur, diastolic murmur, rubs, gallop - GI/Abdominal GI/Abdominal exam: Present: soft, normal bowel sounds - Extremities Exam Extremities exam: Present: tenderness (tenderness to right knee, right ankle and right hip. Right ankle swollen.) - Back Exam Back exam: Present: normal inspection. Absent: full ROM, tenderness - Neurological Exam Neurological exam: Present: alert, oriented X3 - Psychiatric Psychiatric exam: Present: normal affect, normal mood - Skin Skin exam: Present: warm, dry, intact, normal color. Absent: rash ED Course Vital Signs 10/15/18 23:52 Temperature 98.4 F Pulse Rate 109 H Respiratory 18 Rate Blood Pressure 138/73 O2 Sat by Pulse 96 Oximetry - Reevaluation(s) Reevaluation #1: I discussed chemistry results and patient will be placed on insulin drip. 10/16/18 02:06 Reevaluation #2: I discussed all results with patient. I discussed plan of care patient. Patient agrees with plan of care. Patient will be admitted to the hospitalist service. 10/16/18 03:34 - Consultations Consultation #1: Hospitalist consulted for admission. Hospitalist admit patient. 10/16/18 03:34 ED Medical Decision Making - Lab Data Result diagrams: 10/16/18 00:02 10/16/18 02:29 - Radiology Data Radiology results: report reviewed Lumbar spine-3 views INDICATION: pain. fall. Fall today with generalized low back pain COMPARISON: None. IMPRESSION: Moderate levoscoliosis centered at L3. Straightening of normal lumbar lordosis. Mild multilevel discogenic DJD and moderate multilevel facet arthropathy. No acute osseous or soft tissue abnormality. Right knee-2 views INDICATION: pain. fall. Fall today with generalized right knee pain. COMPARISON: Right knee radiographs from 08/30/2018 IMPRESSION: No acute osseous or soft tissue abnormality. Postoperative change again seen involving the lateral femoral condyle with no hardware complication. Mild tricompartmental DJD. Right hip-2 views INDICATION: pain. fall. Fall today with generalized right hip pain COMPARISON: None. 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 Right ankle-2 views INDICATION: pain. fall. Fall today with generalized right ankle pain COMPARISON: Right ankle series from 08/30/2018 IMPRESSION: Nothing acute identified. Intact tibiotalar arthrodesis with no hardware complication identified. Mature-appearing ankylosis is present. There is an old Achilles tendon injury with heterotopic ossification approximately 3 cm from the distal attachment site. There is also enthesopathic change along the calcaneal tuberosity. - Medical Decision Making Patient is a 60-year-old female presents with multiple musculoskeletal complaints and uncontrolled blood sugars. Patient is noncompliant with her diabetes. Patient found to have hyperglycemia and hyperosmolar syndrome. Patient placed on insulin drip. Patient given fluids. Patient admitted to the hospitalist service. Patient's had multiple x-rays due to her musculoskeletal complaints with a fall. Patient's x-rays were all negative for acute findings. - Differential Diagnosis HHS. Hyperglycemia. DKA. Falls. Fracture. Contusion. Critical Care Time: Yes Critical care attestation.: If time is entered above; I have spent that time in minutes in the direct care of this critically ill patient, excluding procedure time. Critical Care Time: 35 minutes ED Disposition Clinical Impression: Hyperglycemia, Noncompliance, Hip pain, right, Hyperosmolar non-ketotic state in patient with type 2 diabetes mellitus Back pain Qualifiers: Back pain location: low back pain Chronicity: acute Back pain laterality: midline Sciatica presence: without sciatica Qualified Code(s): M54.5 - Low back pain Ankle pain, right Qualifiers: Chronicity: acute Qualified Code(s): M25.571 - Pain in right ankle and joints of right foot Fall Qualifiers: Encounter type: initial encounter Qualified Code(s): W19.XXXA - Unspecified fall, initial encounter Knee pain, right Qualifiers: Chronicity: acute Qualified Code(s): M25.561 - Pain in right knee Disposition: OP ADMIT IP TO THIS HOSP Is pt being admited?: Yes Does the pt Need Aspirin: No Condition: Critical Time of Disposition: 03:37
[2018-10-16] MEDS ORDERED: HumuLIN R 100 UNITS in NACL 0.9% 99 ML IV SCH (02:00)
--- NOTE | 2018-10-16 02:33 | XRay Report ---
Right knee-2 views INDICATION: pain. fall. Fall today with generalized right knee pain. COMPARISON: Right knee radiographs from 08/30/2018 IMPRESSION: No acute osseous or soft tissue abnormality. Postoperative change again seen involvin g the lateral femoral condyle with no hardware complication. Mild tricompartmental DJD. Signer Name: Juan Alberto Donald MD Signed: 10/16/2018 2:28 AM Workstation Name: [id number]
--- NOTE | 2018-10-16 02:33 | XRay Report ---
Right hip-2 views INDICATION: pain. fall. Fall today with generalized right hip pain COMPARISON: None. 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 Signer Name: Juan Alberto Donald MD Signed: 10/16/2018 2:29 AM Workstation Name: [id number]
--- NOTE | 2018-10-16 02:34 | XRay Report ---
Lumbar spine-3 views INDICATION: pain. fall. Fall today with generalized low back pain COMPARISON: None. IMPRESSION: Moderate levoscoliosis centered at L3. Straightening of normal lumbar lordosis. Mild mu ltilevel discogenic DJD and moderate multilevel facet arthropathy. No acute osseous or soft tissue a bnormality. Signer Name: Juan Alberto Donald MD Signed: 10/16/2018 2:30 AM Workstation Name: [id number]
--- NOTE | 2018-10-16 02:36 | XRay Report ---
Right ankle-2 views INDICATION: pain. fall. Fall today with generalized right ankle pain COMPARISON: Right ankle series from 08/30/2018 IMPRESSION: Nothing acute identified. Intact tibiotalar arthrodesis with no hardware complication marissa ntified. Mature-appearing ankylosis is present. There is an old Achilles tendon injury with heterotop ic ossification approximately 3 cm from the distal attachment site. There is also enthesopathic diaz e along the calcaneal tuberosity. Signer Name: Juan Alberto Donald MD Signed: 10/16/2018 2:31 AM Workstation Name: [id number]
[2018-10-16 02:57] LABS: BUN/Creatinine Ratio 27; Blood Urea Nitrogen 16 mg/dL (7-17); Calcium 8.5 mg/dL (8.4-10.2); Hemolysis Index 9
[2018-10-16] MEDS: DILAUDID IV PRN ×4 (04:14→21:47)
[2018-10-16 04:19] LABS: Bacteria,Urine 1+ /HPF (Negative); Bilirubin,Urine NEG (Negative); Blood,Urine SM (Negative); Color,Urine Straw (Yellow); Mucus,Urine FEW /HPF; Protein,Urine <15 mg/dL mg/dL (Negative); Urobilinogen,Urine < 2.0 mg/dL (<2.0)
--- NOTE | 2018-10-16 05:44 | History and Physical Report ---
CHIEF COMPLAINT: Pain in the hip area, right knee and ankle pain. Other complaints include elevated blood sugar level. HISTORY OF PRESENT ILLNESS: The patient is a 62-year-old female who said she tripped and fell and was having pain in the buttocks area and also there was pain in the right knee and right ankle following a fall. There was no history of loss of consciousness. The patient said that prior to the fall, she feels dizzy from time to time. There was no history of chest pain or shortness of breath and the patient presented to the Emergency Room where she was evaluated and found not to have any fractures in the areas where she was having pain, but the patient was noted to have blood sugar of about 600 with no DKA diagnosis and the patient was presented for admission for hyperosmolar state. PAST MEDICAL HISTORY: Pertinent for diabetes mellitus, depression, lupus erythematosus. PAST SURGICAL HISTORY: Pertinent for appendectomy, breast surgery, tonsillar surgery, abdominal surgery. FAMILY HISTORY: Noncontributory. SOCIAL HISTORY: The patient smokes cigarettes daily, does not drink alcohol and does not use illicit drugs. MEDICATIONS: The patient is on Tylenol No. 3 one by mouth every 6 hours as needed for pain, naproxen 500 mg by mouth twice daily, Tylenol Extra Strength 500 mg by mouth q.i.d. The patient is on Ciprodex otic drop 4 drops to the ear twice daily, metformin 500 mg by mouth twice daily. ALLERGIES: There are no known drug allergies. REVIEW OF SYSTEMS: CONSTITUTIONAL: There is no fever, no chills, no diaphoresis. HEENT: There is no headache or sore throat. CARDIOVASCULAR SYSTEM: There is no chest pain or orthopnea. RESPIRATORY SYSTEM: There is no shortness of breath or cough. GASTROINTESTINAL SYSTEM: There is no nausea, no vomiting, no abdominal pain, diarrhea or constipation. NEUROLOGICAL SYSTEM: History of dizziness noted. No altered mental status. No numbness. MUSCULOSKELETAL: Pain in the buttocks area noted. Also, pain in the right knee and right ankle noted. DERMATOLOGICAL SYSTEM: There is no skin rash or itching. GENITOURINARY SYSTEM: There is no dysuria, hematuria, or flank pain. Rest of system review is normal. PHYSICAL EXAMINATION: GENERAL: At the time of exam, the patient was found to be alert, oriented x 3 and in mild to moderate distress due to pain in the buttocks area and right knee as well. VITAL SIGNS: At the initial time of presentation showed temperature of 98.4 degrees Fahrenheit, pulse of 109, respirations 18, blood pressure 138/73, O2 sat of 96% on room air. HEENT: Shows pupils to be equal, round, reactive to light and accommodating. Extraocular muscles are intact. NECK: Supple with no JVD or carotid bruit. CARDIOVASCULAR SYSTEM: Showed normal first and second heart sounds with no gallops or murmurs. RESPIRATORY SYSTEM: Showed good air entry on both sides of the lungs with no abnormal breath sounds. GASTROINTESTINAL SYSTEM: Shows abdomen to be full, soft, nontender with no organomegaly or rigidity. NEUROLOGICAL: Exam shows no focal deficit. MUSCULOSKELETAL SYSTEM: Shows tenderness in the right buttocks area with tenderness in the right knee and right ankle area, but no joint swelling. DERMATOLOGICAL SYSTEM: Showed no skin rash or bruises. GENITOURINARY SYSTEM: Showed no costovertebral angle tenderness. PERTINENT LABORATORY AND IMAGING STUDIES: The patient had x-rays of the right ankle, hip bone, right knee, and lumbar x-rays done that only showed degenerative changes, but no fracture or dislocation was noted. Lab results, the patient has CBC done with normal white count, normal hemoglobin and normal hematocrit with CBC differential showing elevated segmented neutrophil count of 74%. The patient's chemistry showed low sodium level of 130 with normal potassium level and low chloride level of 93.4 with normal CO2 of 24 and normal anion gap of 13. The patient's blood glucose level initially came up with a value of 622. Rest of chemistry shows slight decrease in albumin level of 3.6 and the patient's urine shows straw-colored clear urine with elevated urine specific gravity of 1.031, high urine WBC of 9 with moderate urine leukocyte esterase and 1+ bacteria. DIAGNOSES: 1. Hyperosmolar state or hyperosmolar syndrome. 2. Fall. 3. Sepsis. 4. Waist pain. 5. Urinary tract infection. PLAN OF CARE: 1. The patient will be admitted to ICU because of insulin drip. 2. The patient will continue the insulin drip started in the Emergency Room until blood sugar comes down to a level of below 150. 3. The patient will be on IV Dilaudid 1 mg every 4 hours as needed for pain and IV Zofran 4 mg every 8 hours as needed for nausea and vomiting. 4. The patient will be on Tylenol 650 mg by mouth every 4 hours for fever and headache and DVT prophylaxis will be through heparin 5000 units subcutaneous q.12 hours. 5. The patient will be on maintainance IV normal saline running at 150 mL an hour. 6. The patient will have serial basic metabolic panel done at 2 and 8 hours per insulin drip protocol. 7. The patient will continue normal saline until blood sugar is less than 250 mg/dL and the attending physician will be informed to decide the next fluid treatment. 8. The patient will remain n.p.o. until blood sugar is corrected. 9. The patient will be on IV Rocephin 1 gram daily for treatment of UTI. JOB# [id number] [facility]/SHAYY PARRA
[2018-10-16 06:09] LABS: BUN/Creatinine Ratio 35; Blood Urea Nitrogen 14 mg/dL (7-17); Calcium 8.4 mg/dL (8.4-10.2); Hemolysis Index 3
[2018-10-16] MEDS ORDERED: D5W/0.45% NACL/KCL 20 MEQ 20 MEQ/1,000 ML BAG IV SCH (08:00)
[2018-10-16] MEDS ORDERED: D5/0.45NS 1,000 ML IV ONE (08:09)
[2018-10-16] MEDS ORDERED: TYLENOL ONE (08:10)
[2018-10-16] MEDS: TYLENOL PO PRN (08:22)
[2018-10-16 09:02] LABS: BUN/Creatinine Ratio 43; Blood Urea Nitrogen 13 mg/dL (7-17); Calcium 8.5 mg/dL (8.4-10.2); Hemolysis Index 6
[2018-10-16] MEDS ORDERED: DILAUDID ONE (09:48)
[2018-10-16] MEDS: HEPARIN SUB-Q SCH ×2 (12:27→21:45)
[2018-10-16] MEDS: ROCEPHIN/NS 1 GM/50 ML 1 GM/50 ML BAG IV SCH (12:27)
[2018-10-16] MEDS: ZOFRAN IV PRN ×2 (12:58→21:54)
[2018-10-16 14:26] LABS: BUN/Creatinine Ratio 37; Blood Urea Nitrogen 11 mg/dL (7-17); Calcium 8.3 mg/dL (8.4-10.2); Hemolysis Index 41
[2018-10-16] MEDS: HumaLOG SUB-Q SCH ×3 (17:38→21:59)
[2018-10-16] MEDS: NACL 0.9% 1000 ML 1,000 ML IV SCH (17:40)
[2018-10-16 18:20] LABS: BUN/Creatinine Ratio 22; Blood Urea Nitrogen 11 mg/dL (7-17); Calcium 8.8 mg/dL (8.4-10.2); Hemolysis Index 3
[2018-10-16] MEDS: LANTUS SUB-Q SCH (21:59)
[2018-10-17] MEDS: DILAUDID IV PRN ×5 (01:25→21:49)
[2018-10-17] MEDS: REGLAN IV PRN ×3 (02:24→17:37)
[2018-10-17] MEDS: NACL 0.9% 1000 ML 1,000 ML IV SCH ×3 (02:25→17:37)
--- NOTE | 2018-10-17 02:59 | Progress Note ---
Assessment and Plan Assessment and plan: 62-year-old woman who tripped and fell on her buttock area, that she was feeling dizzy and weak at that time. Chest found to have DKA and admitted to the hospital Past medical history; diabetes, depression, lupus X Hyper glycemic hyperosmolar nonketotic state Continue insulins, glucose goal a1c 15 Status post fall Trauma imaging all negative UTI ruled out, urine culture negative DVT prophylaxis chemical cct 33 mins History Interval history: Review of systems Constitutional: No fevers, no malaise, no joint pains CVS: No chest pain, no orthopnea, no dyspnea on exertion, no pedal edema GI: No abdominal pain, no diarrhea, no vomiting, no constipation Respiratory: no wheezing, no coughing Hospitalist Physical - Physical exam Narrative exam: General.: Appears well, no distress, nontoxic HEENT: Moist mucous membranes, extraocular muscles intact, no lymphadenopathy Neck: supple Cardiac: S1-S2 heard Lungs: clear to auscultation bilaterally Abdomen: soft , nontender, nondistended, bowel sounds positive Extremities: no edema clubbing or cyanosis Skin: no rash or lesions Neurologic: no gross focal deficits Psych: calm, and cooperative - Constitutional Vitals: Temp Pulse Resp BP Pulse Ox 98.5 F 78 18 142/64 95 10/17/18 00:12 10/17/18 00:12 10/17/18 00:12 10/17/18 00:12 10/17/18 00:12 Results - Labs CBC & Chem 7: 10/16/18 00:02 10/17/18 05:47 Labs: Laboratory Last Values WBC 7.4 K/mm3 (4.5-11.0) 10/16/18 00:02 RBC 4.00 M/mm3 (3.65-5.03) 10/16/18 00:02 Hgb 12.5 gm/dl (10.1-14.3) 10/16/18 00:02 Hct 36.3 % (30.3-42.9) 10/16/18 00:02 MCV 91 fl (79-97) 10/16/18 00:02 MCH 31 pg (28-32) 10/16/18 00:02 MCHC 35 % (30-34) H 10/16/18 00:02 RDW 14.2 % (13.2-15.2) 10/16/18 00:02 Plt Count 369 K/mm3 (140-440) 10/16/18 00:02 Lymph % (Auto) 18.7 % (13.4-35.0) 10/16/18 00:02 Early % (Auto) 6.0 % (0.0-7.3) 10/16/18 00:02 Eos % (Auto) 0.8 % (0.0-4.3) 10/16/18 00:02 Baso % (Auto) 0.5 % (0.0-1.8) 10/16/18 00:02 Lymph # 1.4 K/mm3 (1.2-5.4) 10/16/18 00:02 Early # 0.4 K/mm3 (0.0-0.8) 10/16/18 00:02 Eos # 0.1 K/mm3 (0.0-0.4) 10/16/18 00:02 Baso # 0.0 K/mm3 (0.0-0.1) 10/16/18 00:02 Seg Neutrophils % 74.0 % (40.0-70.0) H 10/16/18 00:02 Seg Neutrophils # 5.5 K/mm3 (1.8-7.7) 10/16/18 00:02 VBG pH 7.360 (7.320-7.420) 10/16/18 00:02 Sodium 133 mmol/L (137-145) L 10/16/18 17:47 Potassium 4.2 mmol/L (3.6-5.0) 10/16/18 17:47 Chloride 98.4 mmol/L (98-107) 10/16/18 17:47 Carbon Dioxide 26 mmol/L (22-30) 10/16/18 17:47 13 mmol/L 10/16/18 17:47 BUN 11 mg/dL (7-17) 10/16/18 17:47 0.5 mg/dL (0.7-1.2) L D 10/16/18 17:47 Estimated GFR > 60 ml/min 10/16/18 17:47 22 % 10/16/18 17:47 Glucose 177 mg/dL (65-100) H 10/16/18 17:47 POC Glucose 131 (70-105) H 10/16/18 21:23 15.1 % (4-6) H 10/16/18 13:35 Calcium 8.8 mg/dL (8.4-10.2) 10/16/18 17:47 Phosphorus 3.70 mg/dL (2.5-4.5) 10/16/18 02:29 Magnesium 1.90 mg/dL (1.7-2.3) 10/16/18 02:29 0.20 mg/dL (0.1-1.2) 10/16/18 00:02 AST 8 units/L (5-40) 10/16/18 00:02 ALT 10 units/L (7-56) 10/16/18 00:02 107 units/L (35-129) 10/16/18 00:02 6.5 g/dL (6.3-8.2) 10/16/18 00:02 3.6 g/dL (3.9-5) L 10/16/18 00:02 1.2 % 10/16/18 00:02 Straw (Yellow) 10/15/18 Unknown Clear (Clear) 10/15/18 Unknown 5.0 (5.0-7.0) 10/15/18 Unknown Ur Specific [place] 1.031 (1.003-1.030) H 10/15/18 Unknown <15 mg/dl mg/dL (Negative) 10/15/18 Unknown >=500 mg/dL (Negative) 10/15/18 Unknown Tr mg/dL (Negative) 10/15/18 Unknown Sm (Negative) 10/15/18 Unknown Neg (Negative) 10/15/18 Unknown Neg (Negative) 10/15/18 Unknown < 2.0 mg/dL (<2.0) 10/15/18 Unknown Ur Leukocyte Esterase Mod (Negative) 10/15/18 Unknown 9.0 /HPF (0.0-6.0) H 10/15/18 Unknown 3.0 /HPF (0.0-6.0) 10/15/18 Unknown U Epithel Cells (Auto) 2.0 /HPF (0-13.0) 10/15/18 Unknown 1+ /HPF (Negative) 10/15/18 Unknown Few /HPF 10/15/18 Unknown Active Medications - Current Medications Current Medications: Generic Name Dose Route Start Last Admin Trade Name Freq PRN Reason Stop Dose Admin Acetaminophen 650 mg 10/16/18 04:18 10/16/18 08:22 Tylenol PO 650 mg Q4H PRN Administration Fever >101 Dextrose 50 ml 10/16/18 11:57 D50w (25gm) Syringe IV PRN PRN Hypoglycemia Heparin Sodium (Porcine) 5,000 unit 10/16/18 10:00 10/16/18 21:45 Heparin SUB-Q 5,000 unit Q12HR GETACHEW Administration Hydromorphone HCl 1 mg 10/16/18 04:15 10/17/18 01:25 Dilaudid IV 1 mg Q4H PRN Administration Pain, Moderate (4-6) Insulin Human Regular 100 100 mls @ 1 mls/hr 10/16/18 02:00 10/16/18 13:33 units/ Sodium Chloride IV 0 units/hr TITR GETACHEW 0 mls/hr Titration Protocol 1 UNITS/HR Sodium Chloride 1,000 mls @ 125 mls/hr 10/16/18 05:00 10/17/18 02:25 Nacl 0.9% 1000 Ml IV 125 mls/hr DIRECT GETACHEW Administration Ceftriaxone Sodium 1 gm in 50 mls @ 100 mls/hr 10/16/18 10:00 10/16/18 12:27 Rocephin/Ns 1 Gm/50 Ml IV 100 mls/hr Q24HR GETACHEW Administration Protocol Insulin Glargine 30 units 10/16/18 22:00 10/16/18 21:59 Lantus SUB-Q 30 units QHS GETACHEW Administration Insulin Human Lispro 5 unit 10/16/18 16:30 10/16/18 17:38 Humalog SUB-Q 5 unit AC GETACHEW Administration Insulin Human Lispro 0 unit 10/16/18 16:30 10/16/18 21:59 Humalog SUB-Q Not Given ACHS [facility] Protocol Insulin Human NPH 15 unit 10/16/18 12:00 10/16/18 13:32 Humulin N SUB-Q 15 unit 1200 GETACHEW Administration Metoclopramide HCl 10 mg 10/17/18 01:53 10/17/18 02:24 Reglan IV 10 mg Q6H PRN Administration Nausea And Vomiting Ondansetron HCl 4 mg 10/16/18 04:16 10/16/18 21:54 Zofran IV 4 mg Q8H PRN Administration Nausea And Vomiting
[2018-10-17 06:24] LABS: BUN/Creatinine Ratio 30; Blood Urea Nitrogen 9 mg/dL (7-17); Calcium 8.2 mg/dL (8.4-10.2); Hemolysis Index 8
[2018-10-17] MEDS: ZOFRAN IV PRN ×2 (07:33→18:29)
[2018-10-17] MEDS: TYLENOL PO PRN (09:16)
[2018-10-17] MEDS: HumaLOG SUB-Q SCH ×7 (09:16→21:51)
[2018-10-17] MEDS: HEPARIN SUB-Q SCH ×2 (09:17→21:51)
[2018-10-17] MEDS ORDERED: ATIVAN PO ONE (11:00)
[2018-10-17] MEDS: ROCEPHIN/NS 1 GM/50 ML 1 GM/50 ML BAG IV SCH (13:13)
--- NOTE | 2018-10-17 17:35 | Progress Note ---
Assessment and Plan Assessment and plan: 62-year-old woman who tripped and fell on her buttock area, that she was feeling dizzy and weak at that time. Chest found to have DKA and admitted to the hospital Past medical history; diabetes, depression, lupus X Hyper glycemic hyperosmolar nonketotic state Continue insulin drip, continue IV fluids We'll try to transition to subcutaneous insulin later today. a1c 15 Status post fall Trauma imaging all negative UTI Continue antibiotics, follow up urine cultures DVT prophylaxis chemical cct 33 mins History Interval history: Review of systems Constitutional: No fevers, no malaise, no joint pains CVS: No chest pain, no orthopnea, no dyspnea on exertion, no pedal edema GI: No abdominal pain, no diarrhea, no vomiting, no constipation Respiratory: no wheezing, no coughing Hospitalist Physical - Physical exam Narrative exam: General.: Appears well, no distress, nontoxic HEENT: Moist mucous membranes, extraocular muscles intact, no lymphadenopathy Neck: supple Cardiac: S1-S2 heard Lungs: clear to auscultation bilaterally Abdomen: soft , nontender, nondistended, bowel sounds positive Extremities: no edema clubbing or cyanosis Skin: no rash or lesions Neurologic: no gross focal deficits Psych: calm, and cooperative - Constitutional Vitals: Temp Pulse Resp BP Pulse Ox 98.7 F 90 18 155/62 96 10/17/18 11:29 10/17/18 11:29 10/17/18 11:29 10/17/18 11:29 10/17/18 11:29 Results - Labs CBC & Chem 7: 10/16/18 00:02 10/17/18 05:47 Labs: Laboratory Last Values WBC 7.4 K/mm3 (4.5-11.0) 10/16/18 00:02 RBC 4.00 M/mm3 (3.65-5.03) 10/16/18 00:02 Hgb 12.5 gm/dl (10.1-14.3) 10/16/18 00:02 Hct 36.3 % (30.3-42.9) 10/16/18 00:02 MCV 91 fl (79-97) 10/16/18 00:02 MCH 31 pg (28-32) 10/16/18 00:02 MCHC 35 % (30-34) H 10/16/18 00:02 RDW 14.2 % (13.2-15.2) 10/16/18 00:02 Plt Count 369 K/mm3 (140-440) 10/16/18 00:02 Lymph % (Auto) 18.7 % (13.4-35.0) 10/16/18 00:02 [place] % (Auto) 6.0 % (0.0-7.3) 10/16/18 00:02 Eos % (Auto) 0.8 % (0.0-4.3) 10/16/18 00:02 Baso % (Auto) 0.5 % (0.0-1.8) 10/16/18 00:02 Lymph # 1.4 K/mm3 (1.2-5.4) 10/16/18 00:02 [place] # 0.4 K/mm3 (0.0-0.8) 10/16/18 00:02 Eos # 0.1 K/mm3 (0.0-0.4) 10/16/18 00:02 Baso # 0.0 K/mm3 (0.0-0.1) 10/16/18 00:02 Seg Neutrophils % 74.0 % (40.0-70.0) H 10/16/18 00:02 Seg Neutrophils # 5.5 K/mm3 (1.8-7.7) 10/16/18 00:02 VBG pH 7.360 (7.320-7.420) 10/16/18 00:02 Sodium 136 mmol/L (137-145) L 10/17/18 05:47 Potassium 4.1 mmol/L (3.6-5.0) 10/17/18 05:47 Chloride 101.9 mmol/L (98-107) 10/17/18 05:47 Carbon Dioxide 24 mmol/L (22-30) 10/17/18 05:47 14 mmol/L 10/17/18 05:47 BUN 9 mg/dL (7-17) 10/17/18 05:47 0.3 mg/dL (0.7-1.2) L 10/17/18 05:47 Estimated GFR > 60 ml/min 10/17/18 05:47 30 % 10/17/18 05:47 Glucose 197 mg/dL (65-100) H 10/17/18 05:47 POC Glucose 169 (70-105) H 10/17/18 16:42 15.1 % (4-6) H 10/16/18 13:35 Calcium 8.2 mg/dL (8.4-10.2) L 10/17/18 05:47 Phosphorus 3.70 mg/dL (2.5-4.5) 10/16/18 02:29 Magnesium 1.90 mg/dL (1.7-2.3) 10/16/18 02:29 0.20 mg/dL (0.1-1.2) 10/16/18 00:02 AST 8 units/L (5-40) 10/16/18 00:02 ALT 10 units/L (7-56) 10/16/18 00:02 107 units/L (35-129) 10/16/18 00:02 6.5 g/dL (6.3-8.2) 10/16/18 00:02 3.6 g/dL (3.9-5) L 10/16/18 00:02 1.2 % 10/16/18 00:02 Straw (Yellow) 10/15/18 Unknown Clear (Clear) 10/15/18 Unknown 5.0 (5.0-7.0) 10/15/18 Unknown Ur Specific [place] 1.031 (1.003-1.030) H 10/15/18 Unknown <15 mg/dl mg/dL (Negative) 10/15/18 Unknown >=500 mg/dL (Negative) 10/15/18 Unknown Tr mg/dL (Negative) 10/15/18 Unknown Sm (Negative) 10/15/18 Unknown Neg (Negative) 10/15/18 Unknown Neg (Negative) 10/15/18 Unknown < 2.0 mg/dL (<2.0) 10/15/18 Unknown Ur Leukocyte Esterase Mod (Negative) 10/15/18 Unknown 9.0 /HPF (0.0-6.0) H 10/15/18 Unknown 3.0 /HPF (0.0-6.0) 10/15/18 Unknown U Epithel Cells (Auto) 2.0 /HPF (0-13.0) 10/15/18 Unknown 1+ /HPF (Negative) 10/15/18 Unknown Few /HPF 10/15/18 Unknown Active Medications - Current Medications Current Medications: Generic Name Dose Route Start Last Admin Trade Name Freq PRN Reason Stop Dose Admin Acetaminophen 650 mg 10/16/18 04:18 10/17/18 09:16 Tylenol PO 650 mg Q4H PRN Administration Fever >101 Dextrose 50 ml 10/16/18 11:57 D50w (25gm) Syringe IV PRN PRN Hypoglycemia Heparin Sodium (Porcine) 5,000 unit 10/16/18 10:00 10/17/18 09:17 Heparin SUB-Q 5,000 unit Q12HR GETACHEW Administration Hydromorphone HCl 1 mg 10/16/18 04:15 10/17/18 13:14 Dilaudid IV 1 mg Q4H PRN Administration Pain, Moderate (4-6) Insulin Human Regular 100 100 mls @ 1 mls/hr 10/16/18 02:00 10/16/18 13:33 units/ Sodium Chloride IV 0 units/hr TITR GETACHEW 0 mls/hr Titration Protocol 1 UNITS/HR Sodium Chloride 1,000 mls @ 125 mls/hr 10/16/18 05:00 10/17/18 09:47 Nacl 0.9% 1000 Ml IV 125 mls/hr DIRECT GETACHEW Administration Ceftriaxone Sodium 1 gm in 50 mls @ 100 mls/hr 10/16/18 10:00 10/17/18 13:13 Rocephin/Ns 1 Gm/50 Ml IV 100 mls/hr Q24HR GETACHEW Administration Protocol Insulin Glargine 30 units 10/16/18 22:00 10/16/18 21:59 Lantus SUB-Q 30 units QHS GETACHEW Administration Insulin Human Lispro 5 unit 10/16/18 16:30 10/17/18 13:13 Humalog SUB-Q 5 unit AC GETACHEW Administration Insulin Human Lispro 0 unit 10/16/18 16:30 10/17/18 13:14 Humalog SUB-Q 2 unit ACHS GETACHEW Administration Protocol Insulin Human NPH 15 unit 10/16/18 12:00 10/17/18 13:18 Humulin N SUB-Q 15 unit 1200 GETACHEW Administration Metoclopramide HCl 10 mg 10/17/18 01:53 10/17/18 10:08 Reglan IV 10 mg Q6H PRN Administration Nausea And Vomiting Ondansetron HCl 4 mg 10/16/18 04:16 10/17/18 07:33 Zofran IV 4 mg Q8H PRN Administration Nausea And Vomiting
--- NOTE | 2018-10-17 17:38 | Discharge Summary ---
Providers - Providers Date of Admission: 10/16/18 05:59 Attending physician: SHELRY AGARWAL MD Primary care physician: LEONELA MARIE Hospitalization Condition: Critical Hospital course: 62-year-old woman who tripped and fell on her buttock area, that she was feeling dizzy and weak at that time. Chest found to have DKA and admitted to the hospital Past medical history; diabetes, depression, lupus X Hyper glycemic hyperosmolar nonketotic state Continue insulins, glucose goal a1c 15 Status post fall Trauma imaging all negative UTI ruled out, urine culture negative DVT prophylaxis chemical cct 33 mins Disposition: DC-01 TO HOME OR SELFCARE Time spent for discharge: 33 mins Core Measure Documentation - Palliative Care Palliative Care/ Comfort Measures: Not Applicable - Core Measures Any of the following diagnoses?: none Exam - Constitutional Vitals: Temp Pulse Resp BP Pulse Ox 98.7 F 90 18 155/62 96 10/17/18 11:29 10/17/18 11:29 10/17/18 11:29 10/17/18 11:29 10/17/18 11:29 General appearance: Present: no acute distress, well-nourished - EENT Eyes: Present: PERRL ENT: hearing intact, clear oral mucosa - Neck Neck: Present: supple, normal ROM - Respiratory Respiratory effort: normal Respiratory: bilateral: CTA - Cardiovascular Heart Sounds: Present: S1 & S2. Absent: rub, click - Extremities Extremities: pulses symmetrical, No edema Peripheral Pulses: within normal limits - Abdominal General gastrointestinal: Present: soft, non-tender, non-distended, normal bowel sounds Female genitourinary: Present: normal - Integumentary Integumentary: Present: clear, warm, dry - Musculoskeletal Musculoskeletal: gait normal, strength equal bilaterally - Psychiatric Psychiatric: appropriate mood/affect, intact judgment & insight - Neurologic Neurologic: CNII-XII intact, moves all extremities Plan Follow up with: LEONELA MARIE MD [Primary Care Provider] - 7 Days Prescriptions: Insulin Glargine [Lantus VIAL] 30 units SUB-Q QHS #1 vial metFORMIN XR [Glucophage XR] 500 mg PO QDAY #30 tab Lispro Insulin [HumaLOG] 5 unit SUB-Q AC #1 vial
[2018-10-17] MEDS: ZESTRIL PO SCH (17:52)
[2018-10-17] MEDS: LANTUS SUB-Q SCH (21:51)
[2018-10-18] MEDS: DILAUDID IV PRN ×6 (01:40→23:09)
[2018-10-18] MEDS: TYLENOL PO PRN (07:41)
[2018-10-18] MEDS: HumaLOG SUB-Q SCH ×4 (08:17→21:07)
[2018-10-18] MEDS: ROCEPHIN/NS 1 GM/50 ML 1 GM/50 ML BAG IV SCH (10:05)
[2018-10-18] MEDS: HEPARIN SUB-Q SCH ×2 (10:05→21:05)
[2018-10-18] MEDS: ZESTRIL PO SCH (10:06)
[2018-10-18] MEDS: ZOFRAN IV PRN ×2 (10:06→23:17)
[2018-10-18] MEDS ORDERED: DILAUDID IV STA (13:20)
[2018-10-18] MEDS: NACL 0.9% 1000 ML 1,000 ML IV SCH ×2 (13:39→23:09)
[2018-10-18] MEDS: REGLAN IV PRN (13:46)
[2018-10-18] MEDS: NORCO 10/325 PO PRN ×2 (15:21→20:33)
--- NOTE | 2018-10-18 15:54 | Progress Note ---
Assessment and Plan Assessment and plan: 62-year-old woman who tripped and fell on her buttock area, that she was feeling dizzy and weak at that time. Chest found to have DKA and admitted to the hospital Past medical history; diabetes, depression, lupus X Hyper glycemic hyperosmolar nonketotic state Continue insulins, glucose goal a1c 15 Status post fall Trauma imaging all negative RIght hip pain obtain CT R hip, pain meds UTI ruled out, urine culture negative DVT prophylaxis chemical skin wounds, per pt was spattered with hot grease -cont wound care History Interval history: she is complaining of severe R hip pain Review of systems Constitutional: No fevers, no malaise, no joint pains CVS: No chest pain, no orthopnea, no dyspnea on exertion, no pedal edema GI: No abdominal pain, no diarrhea, no vomiting, no constipation Respiratory: no wheezing, no coughing Hospitalist Physical - Physical exam Narrative exam: General.: Appears well, no distress, nontoxic HEENT: Moist mucous membranes, extraocular muscles intact, no lymphadenopathy Neck: supple Cardiac: S1-S2 heard Lungs: clear to auscultation bilaterally Abdomen: soft , nontender, nondistended, bowel sounds positive Extremities: no edema clubbing or cyanosis, unsteady gait Skin: no rash, multiple wounds scattered on UE and trunk Neurologic: no gross focal deficits Psych: calm, and cooperative - Constitutional Vitals: Temp Pulse Resp BP Pulse Ox 98.5 F 92 H 18 146/44 96 10/18/18 06:54 10/18/18 10:06 10/18/18 06:54 10/18/18 10:06 10/18/18 06:54 General appearance: Present: no acute distress, well-nourished Results - Labs CBC & Chem 7: 10/16/18 00:02 10/17/18 05:47 Labs: Laboratory Last Values WBC 7.4 K/mm3 (4.5-11.0) 10/16/18 00:02 RBC 4.00 M/mm3 (3.65-5.03) 10/16/18 00:02 Hgb 12.5 gm/dl (10.1-14.3) 10/16/18 00:02 Hct 36.3 % (30.3-42.9) 10/16/18 00:02 MCV 91 fl (79-97) 10/16/18 00:02 MCH 31 pg (28-32) 10/16/18 00:02 MCHC 35 % (30-34) H 10/16/18 00:02 RDW 14.2 % (13.2-15.2) 10/16/18 00:02 Plt Count 369 K/mm3 (140-440) 10/16/18 00:02 Lymph % (Auto) 18.7 % (13.4-35.0) 10/16/18 00:02 [place] % (Auto) 6.0 % (0.0-7.3) 10/16/18 00:02 Eos % (Auto) 0.8 % (0.0-4.3) 10/16/18 00:02 Baso % (Auto) 0.5 % (0.0-1.8) 10/16/18 00:02 Lymph # 1.4 K/mm3 (1.2-5.4) 10/16/18 00:02 [place] # 0.4 K/mm3 (0.0-0.8) 10/16/18 00:02 Eos # 0.1 K/mm3 (0.0-0.4) 10/16/18 00:02 Baso # 0.0 K/mm3 (0.0-0.1) 10/16/18 00:02 Seg Neutrophils % 74.0 % (40.0-70.0) H 10/16/18 00:02 Seg Neutrophils # 5.5 K/mm3 (1.8-7.7) 10/16/18 00:02 VBG pH 7.360 (7.320-7.420) 10/16/18 00:02 Sodium 136 mmol/L (137-145) L 10/17/18 05:47 Potassium 4.1 mmol/L (3.6-5.0) 10/17/18 05:47 Chloride 101.9 mmol/L (98-107) 10/17/18 05:47 Carbon Dioxide 24 mmol/L (22-30) 10/17/18 05:47 14 mmol/L 10/17/18 05:47 BUN 9 mg/dL (7-17) 10/17/18 05:47 0.3 mg/dL (0.7-1.2) L 10/17/18 05:47 Estimated GFR > 60 ml/min 10/17/18 05:47 30 % 10/17/18 05:47 Glucose 197 mg/dL (65-100) H 10/17/18 05:47 POC Glucose 231 (70-105) H 10/18/18 11:39 15.1 % (4-6) H 10/16/18 13:35 Calcium 8.2 mg/dL (8.4-10.2) L 10/17/18 05:47 Phosphorus 3.70 mg/dL (2.5-4.5) 10/16/18 02:29 Magnesium 1.90 mg/dL (1.7-2.3) 10/16/18 02:29 0.20 mg/dL (0.1-1.2) 10/16/18 00:02 AST 8 units/L (5-40) 10/16/18 00:02 ALT 10 units/L (7-56) 10/16/18 00:02 107 units/L (35-129) 10/16/18 00:02 6.5 g/dL (6.3-8.2) 10/16/18 00:02 3.6 g/dL (3.9-5) L 10/16/18 00:02 1.2 % 10/16/18 00:02 Straw (Yellow) 10/15/18 Unknown Clear (Clear) 10/15/18 Unknown 5.0 (5.0-7.0) 10/15/18 Unknown Ur Specific [place] 1.031 (1.003-1.030) H 10/15/18 Unknown <15 mg/dl mg/dL (Negative) 10/15/18 Unknown >=500 mg/dL (Negative) 10/15/18 Unknown Tr mg/dL (Negative) 10/15/18 Unknown Sm (Negative) 10/15/18 Unknown Neg (Negative) 10/15/18 Unknown Neg (Negative) 10/15/18 Unknown < 2.0 mg/dL (<2.0) 10/15/18 Unknown Ur Leukocyte Esterase Mod (Negative) 10/15/18 Unknown 9.0 /HPF (0.0-6.0) H 10/15/18 Unknown 3.0 /HPF (0.0-6.0) 10/15/18 Unknown U Epithel Cells (Auto) 2.0 /HPF (0-13.0) 10/15/18 Unknown 1+ /HPF (Negative) 10/15/18 Unknown Few /HPF 10/15/18 Unknown Active Medications - Current Medications Current Medications: Generic Name Dose Route Start Last Admin Trade Name Freq PRN Reason Stop Dose Admin Acetaminophen 650 mg 10/16/18 04:18 10/18/18 07:41 Tylenol PO 650 mg Q4H PRN Administration Fever >101 Acetaminophen/Hydrocodone Bitart 1 each 10/18/18 15:09 10/18/18 15:21 [place] 10/325 PO 1 each Q6H PRN Administration Pain, Moderate (4-6) Dextrose 50 ml 10/16/18 11:57 D50w (25gm) Syringe IV PRN PRN Hypoglycemia Heparin Sodium (Porcine) 5,000 unit 10/16/18 10:00 10/18/18 10:05 Heparin SUB-Q 5,000 unit Q12HR GETACHEW Administration Hydromorphone HCl 1 mg 10/16/18 04:15 10/18/18 10:04 Dilaudid IV 1 mg Q4H PRN Administration Pain, Moderate (4-6) Insulin Human Regular 100 100 mls @ 1 mls/hr 10/16/18 02:00 10/16/18 13:33 units/ Sodium Chloride IV 0 units/hr TITR GETACHEW 0 mls/hr Titration Protocol 1 UNITS/HR Sodium Chloride 1,000 mls @ 125 mls/hr 10/16/18 05:00 10/18/18 13:39 Nacl 0.9% 1000 Ml IV 125 mls/hr DIRECT GETACHEW Administration Ceftriaxone Sodium 1 gm in 50 mls @ 100 mls/hr 10/16/18 10:00 10/18/18 10:05 Rocephin/Ns 1 Gm/50 Ml IV 100 mls/hr Q24HR GETACHEW Administration Protocol Insulin Glargine 30 units 10/16/18 22:00 10/17/18 21:51 Lantus SUB-Q 30 units QHS GETACHEW Administration Insulin Human Lispro 0 unit 10/16/18 16:30 10/18/18 13:16 Humalog SUB-Q 3 unit ACHS GETACHEW Administration Protocol Lisinopril 20 mg 10/17/18 18:00 10/18/18 10:06 Zestril PO 20 mg QDAY GETACHEW Administration Metoclopramide HCl 10 mg 10/17/18 01:53 10/18/18 13:46 Reglan IV 10 mg Q6H PRN Administration Nausea And Vomiting Ondansetron HCl 4 mg 10/16/18 04:16 10/18/18 10:06 Zofran IV 4 mg Q8H PRN Administration Nausea And Vomiting
--- NOTE | 2018-10-18 18:24 | Cat Scan Report ---
CT lower extremity RT w con INDICATION: severe Right hip pain sp fall. TECHNIQUE: All CT scans at this location are performed using the following dose modulation technique: Automated exposure control. CONTRAST: None. COMPARISON: Plain films right hip 10/16/2018. FINDINGS: Alignment is satisfactory without bony injury. Degenerative change at the right hip is mode rate. Swelling is noted at the soft tissues laterally. IMPRESSION: 1. Moderate DJD right hip. 2. Negative for bony injury. 3. Soft tissue injury laterally. Signer Name: Delmar Juarez MD Signed: 10/18/2018 6:19 PM Workstation Name: [id number]
[2018-10-18] MEDS: LANTUS SUB-Q SCH (21:05)
[2018-10-18] MEDS ORDERED: ATIVAN IV ONE (22:36)
[2018-10-19] MEDS ORDERED: ATIVAN ONE (01:10)
[2018-10-19] MEDS: DILAUDID IV PRN ×2 (05:02→18:19)
[2018-10-19] MEDS: REGLAN IV PRN ×2 (05:05→16:43)
[2018-10-19] MEDS: NACL 0.9% 1000 ML 1,000 ML IV SCH (06:32)
[2018-10-19] MEDS: ZOFRAN IV PRN (09:08)
[2018-10-19] MEDS: NORCO 10/325 PO PRN ×2 (09:11→16:43)
--- NOTE | 2018-10-19 10:58 | Progress Note ---
Assessment and Plan Assessment and plan: Patient is a 62 yo woman with a history of bipolar disorder with SI on prior admission here, DM type 2, tobacco dependency and Lupus who presented to ER after mechanical fall. She was found to be in DKA/HONK and admitted to the hospital. She admits to being out of DM medications. Headache, nausea with head turning, vertigo like symptoms: consulted Neurology, added Vertigo Hyperglycemic hyperosmolar nonketotic state: Continue insulins, glucose goal, a1c 15 Status post fall: Trauma imaging all negative Right hip pains: PT pending Skin acharya; wound care following, local treatment initiated UTI ruled out, urine culture negative: stopped iv rocephin DVT prophylaxis chemical: sq heparin Disposition: continue inpatient care, PT evaluation pending, Neurology consulted due to new symptoms. History Interval history: Patient was seen and examined. Follow-up on current diagnosis Uncontrolled DM. No overnight events reported to me. Patient denies any chest pain, shortness breath. Imaging, nursing note, chart, labs and old chart reviewed. Discussed with patient. She c/of left sided frontal headache behind her eyes, room spinning and nausea. Hospitalist Physical - Physical exam Narrative exam: Gen: WDWN, NAD, Awake, Alert, Orientated HEENT: NCAT, EOMI, PERRL, OP Clear Neck: supple, no adenopathy, no thyromegaly, no JVD CVS/Heart: RRR, normal S1S2, pulses present bilaterally Chest/Lungs: CTA B, Symmetrical chest expansion, good air entry bilaterally GI/Abdomen: soft, NTND, good bowel sounds, no guarding or rebound /Bladder: no suprapubic tenderness, no CVA or paraspinal tenderness Extermity/Skin: no c/c/e, multiple glease splatter acharya scattered on UE and trunk MSK: FROM x 4 Neuro: CN 2-12 grossly intact, no new focal deficits Psych: calm - Constitutional Vitals: Temp Pulse Resp BP Pulse Ox 98 F 66 16 122/50 96 10/19/18 05:00 10/19/18 05:00 10/19/18 09:11 10/19/18 05:00 10/19/18 05:00 General appearance: Present: no acute distress, well-nourished Results - Labs CBC & Chem 7: 10/16/18 00:02 10/17/18 05:47 Labs: Laboratory Last Values WBC 7.4 K/mm3 (4.5-11.0) 10/16/18 00:02 RBC 4.00 M/mm3 (3.65-5.03) 10/16/18 00:02 Hgb 12.5 gm/dl (10.1-14.3) 10/16/18 00:02 Hct 36.3 % (30.3-42.9) 10/16/18 00:02 MCV 91 fl (79-97) 10/16/18 00:02 MCH 31 pg (28-32) 10/16/18 00:02 MCHC 35 % (30-34) H 10/16/18 00:02 RDW 14.2 % (13.2-15.2) 10/16/18 00:02 Plt Count 369 K/mm3 (140-440) 10/16/18 00:02 Lymph % (Auto) 18.7 % (13.4-35.0) 10/16/18 00:02 [place] % (Auto) 6.0 % (0.0-7.3) 10/16/18 00:02 Eos % (Auto) 0.8 % (0.0-4.3) 10/16/18 00:02 Baso % (Auto) 0.5 % (0.0-1.8) 10/16/18 00:02 Lymph # 1.4 K/mm3 (1.2-5.4) 10/16/18 00:02 [place] # 0.4 K/mm3 (0.0-0.8) 10/16/18 00:02 Eos # 0.1 K/mm3 (0.0-0.4) 10/16/18 00:02 Baso # 0.0 K/mm3 (0.0-0.1) 10/16/18 00:02 Seg Neutrophils % 74.0 % (40.0-70.0) H 10/16/18 00:02 Seg Neutrophils # 5.5 K/mm3 (1.8-7.7) 10/16/18 00:02 VBG pH 7.360 (7.320-7.420) 10/16/18 00:02 Sodium 136 mmol/L (137-145) L 10/17/18 05:47 Potassium 4.1 mmol/L (3.6-5.0) 10/17/18 05:47 Chloride 101.9 mmol/L (98-107) 10/17/18 05:47 Carbon Dioxide 24 mmol/L (22-30) 10/17/18 05:47 14 mmol/L 10/17/18 05:47 BUN 9 mg/dL (7-17) 10/17/18 05:47 0.3 mg/dL (0.7-1.2) L 10/17/18 05:47 Estimated GFR > 60 ml/min 10/17/18 05:47 30 % 10/17/18 05:47 Glucose 197 mg/dL (65-100) H 10/17/18 05:47 POC Glucose 245 (70-105) H 10/18/18 20:58 15.1 % (4-6) H 10/16/18 13:35 Calcium 8.2 mg/dL (8.4-10.2) L 10/17/18 05:47 Phosphorus 3.70 mg/dL (2.5-4.5) 10/16/18 02:29 Magnesium 1.90 mg/dL (1.7-2.3) 10/16/18 02:29 0.20 mg/dL (0.1-1.2) 10/16/18 00:02 AST 8 units/L (5-40) 10/16/18 00:02 ALT 10 units/L (7-56) 10/16/18 00:02 107 units/L (35-129) 10/16/18 00:02 6.5 g/dL (6.3-8.2) 10/16/18 00:02 3.6 g/dL (3.9-5) L 10/16/18 00:02 1.2 % 10/16/18 00:02 Straw (Yellow) 10/15/18 Unknown Clear (Clear) 10/15/18 Unknown 5.0 (5.0-7.0) 10/15/18 Unknown Ur Specific [place] 1.031 (1.003-1.030) H 10/15/18 Unknown <15 mg/dl mg/dL (Negative) 10/15/18 Unknown >=500 mg/dL (Negative) 10/15/18 Unknown Tr mg/dL (Negative) 10/15/18 Unknown Sm (Negative) 10/15/18 Unknown Neg (Negative) 10/15/18 Unknown Neg (Negative) 10/15/18 Unknown < 2.0 mg/dL (<2.0) 10/15/18 Unknown Ur Leukocyte Esterase Mod (Negative) 10/15/18 Unknown 9.0 /HPF (0.0-6.0) H 10/15/18 Unknown 3.0 /HPF (0.0-6.0) 10/15/18 Unknown U Epithel Cells (Auto) 2.0 /HPF (0-13.0) 10/15/18 Unknown 1+ /HPF (Negative) 10/15/18 Unknown Few /HPF 10/15/18 Unknown Active Medications - Current Medications Current Medications: Generic Name Dose Route Start Last Admin Trade Name Freq PRN Reason Stop Dose Admin Acetaminophen 650 mg 10/16/18 04:18 10/18/18 07:41 Tylenol PO 650 mg Q4H PRN Administration Fever >101 Acetaminophen/Hydrocodone Bitart 1 each 10/18/18 15:09 10/19/18 09:11 [place] 10/325 PO 1 each Q6H PRN Administration Pain, Moderate (4-6) Dextrose 50 ml 10/16/18 11:57 D50w (25gm) Syringe IV PRN PRN Hypoglycemia Heparin Sodium (Porcine) 5,000 unit 10/16/18 10:00 10/18/18 21:05 Heparin SUB-Q 5,000 unit Q12HR GETACHEW Administration Hydralazine HCl 10 mg 10/18/18 22:06 Apresoline IV Q4H PRN Blood Pressure Hydromorphone HCl 1 mg 10/16/18 04:15 10/19/18 05:02 Dilaudid IV 1 mg Q4H PRN Administration Pain, Moderate (4-6) Insulin Human Regular 100 100 mls @ 1 mls/hr 10/16/18 02:00 10/16/18 13:33 units/ Sodium Chloride IV 0 units/hr TITR GETACHEW 0 mls/hr Titration Protocol 1 UNITS/HR Sodium Chloride 1,000 mls @ 125 mls/hr 10/16/18 05:00 10/19/18 06:32 Nacl 0.9% 1000 Ml IV 125 mls/hr DIRECT GETACHEW Administration Ceftriaxone Sodium 1 gm in 50 mls @ 100 mls/hr 10/16/18 10:00 10/18/18 10:05 Rocephin/Ns 1 Gm/50 Ml IV 100 mls/hr Q24HR GETACHEW Administration Protocol Insulin Glargine 30 units 10/16/18 22:00 10/18/18 21:05 Lantus SUB-Q 30 units QHS GETACHEW Administration Insulin Human Lispro 0 unit 10/16/18 16:30 10/18/18 21:07 Humalog SUB-Q 3 unit ACHS GETACHEW Administration Protocol Lisinopril 20 mg 10/17/18 18:00 10/18/18 10:06 Zestril PO 20 mg QDAY GETACHEW Administration Metoclopramide HCl 10 mg 10/17/18 01:53 10/19/18 05:05 Reglan IV 10 mg Q6H PRN Administration Nausea And Vomiting Ondansetron HCl 4 mg 10/16/18 04:16 10/19/18 09:08 Zofran IV 4 mg Q8H PRN Administration Nausea And Vomiting
[2018-10-19] MEDS ORDERED: ANTIVERT PO PRN (11:06)
[2018-10-19] MEDS: HumaLOG SUB-Q SCH ×4 (11:34→22:18)
[2018-10-19] MEDS: HEPARIN SUB-Q SCH ×2 (11:42→22:14)
[2018-10-19] MEDS: ZESTRIL PO SCH (11:42)
--- NOTE | 2018-10-19 16:34 | Consultation ---
Medications and Allergies Allergies Allergy/AdvReac Type Severity Reaction Status Date / Time No Known Allergies Allergy Verified 08/30/18 18:27 Home Medications Medication Instructions Recorded Confirmed Last Taken Type Insulin Glargine [Lantus VIAL] 30 units SUB-Q QHS #1 vial 10/17/18 Unknown Rx Lispro Insulin [HumaLOG] 5 unit SUB-Q AC #1 vial 10/17/18 Unknown Rx metFORMIN XR [Glucophage XR] 500 mg PO QDAY #30 tab 10/17/18 Unknown Rx Active Meds: Active Medications Acetaminophen (Tylenol) 650 mg PO Q4H PRN PRN Reason: Fever >101 Last Admin: 10/18/18 07:41 Dose: 650 mg Documented by: Acetaminophen/Hydrocodone Bitart ([place] 10/325) 1 each PO Q6H PRN PRN Reason: Pain, Moderate (4-6) Last Admin: 10/19/18 09:11 Dose: 1 each Documented by: Dextrose (D50w (25gm) Syringe) 50 ml IV PRN PRN PRN Reason: Hypoglycemia Heparin Sodium (Porcine) (Heparin) 5,000 unit SUB-Q Q12HR [facility] Last Admin: 10/19/18 11:42 Dose: 5,000 unit Documented by: Hydralazine HCl (Apresoline) 10 mg IV Q4H PRN PRN Reason: Blood Pressure Hydromorphone HCl (Dilaudid) 1 mg IV Q4H PRN PRN Reason: Pain, Moderate (4-6) Last Admin: 10/19/18 05:02 Dose: 1 mg Documented by: [facility]ulin [facility]) [facility] Last Admin: 10/18/18 21:05 Dose: 30 units Documented by: Insulin Human Lispro (Humalog) 0 unit SUB-Q [facility]; Protocol Last Admin: 10/19/18 11:42 Dose: Not Given Documented by: Lisinopril (Zestril) 20 mg PO QDAY [facility] Last Admin: 10/19/18 11:42 Dose: 20 mg Documented by: Meclizine HCl (Antivert) 25 mg PO Q8H PRN PRN Reason: Vertigo Metoclopramide HCl (Reglan) 10 mg IV Q6H PRN PRN Reason: Nausea And Vomiting Last Admin: 10/19/18 05:05 Dose: 10 mg Documented by: Ondansetron HCl (Zofran) 4 mg IV Q8H PRN PRN Reason: N/V unrelieved by Cheng Last Admin: 10/19/18 09:08 Dose: 4 mg Documented by: Physical Examination - Vital Signs Vital Signs: Vital Signs Temp Pulse Resp BP Pulse Ox 98.4 F 109 H 18 138/73 96 10/15/18 23:52 10/15/18 23:52 10/15/18 23:52 10/15/18 23:52 10/15/18 23:52 Results - Laboratory Findings CBC and BMP: 10/16/18 00:02 10/17/18 05:47 Abnormal Lab Findings: Abnormal Labs 10/15/18 10/16/18 10/16/18 Unknown 00:02 00:02 MCHC 35 H Seg Neutrophils % 74.0 H Sodium Potassium Chloride BUN Creatinine Glucose POC Glucose > 500 H Hemoglobin A1c Calcium Albumin Ur Specific [place] 1.031 H Urine WBC (Auto) 9.0 H 10/16/18 10/16/18 10/16/18 00:02 02:29 02:30 MCHC Seg Neutrophils % Sodium 129 L 130 L Potassium Chloride 93.1 L 93.4 L BUN 18 H Creatinine 0.6 L Glucose 601 H* 622 H* POC Glucose > 500 H Hemoglobin A1c Calcium Albumin 3.6 L Ur Specific [place] Urine WBC (Auto) 10/16/18 10/16/18 10/16/18 03:41 05:03 05:42 MCHC Seg Neutrophils % Sodium Potassium Chloride BUN Creatinine 0.4 L Glucose 243 H POC Glucose > 500 H 338 H Hemoglobin A1c Calcium Albumin Ur Specific [place] Urine WBC (Auto) 10/16/18 10/16/18 10/16/18 05:58 07:34 08:26 MCHC Seg Neutrophils % Sodium 134 L Potassium 3.4 L Chloride BUN Creatinine 0.3 L Glucose 245 H POC Glucose 280 H 253 H Hemoglobin A1c Calcium Albumin Ur Specific [place] Urine WBC (Auto) 10/16/18 10/16/18 10/16/18 09:03 10:57 12:10 MCHC Seg Neutrophils % Sodium Potassium Chloride BUN Creatinine Glucose POC Glucose 215 H 128 H 149 H Hemoglobin A1c Calcium Albumin Ur Specific [place] Urine WBC (Auto) 10/16/18 10/16/18 10/16/18 13:35 13:35 17:15 MCHC Seg Neutrophils % Sodium 134 L Potassium Chloride BUN Creatinine 0.3 L Glucose 195 H POC Glucose 226 H Hemoglobin A1c 15.1 H Calcium 8.3 L Albumin Ur Specific [place] Urine WBC (Auto) 10/16/18 10/16/18 10/17/18 17:47 21:23 05:47 MCHC Seg Neutrophils % Sodium 133 L 136 L Potassium Chloride BUN Creatinine 0.5 L D 0.3 L Glucose 177 H 197 H POC Glucose 131 H Hemoglobin A1c Calcium 8.2 L Albumin Ur Specific [place] Urine WBC (Auto) 10/17/18 10/17/18 10/17/18 07:57 11:35 16:42 MCHC Seg Neutrophils % Sodium Potassium Chloride BUN Creatinine Glucose POC Glucose 182 H 181 H 169 H Hemoglobin A1c Calcium Albumin Ur Specific [place] Urine WBC (Auto) 10/17/18 10/18/18 10/18/18 21:56 08:03 11:39 MCHC Seg Neutrophils % Sodium Potassium Chloride BUN Creatinine Glucose POC Glucose 225 H 108 H 231 H Hemoglobin A1c Calcium Albumin Ur Specific [place] Urine WBC (Auto) 10/18/18 10/18/18 16:47 20:58 MCHC Seg Neutrophils % Sodium Potassium Chloride BUN Creatinine Glucose POC Glucose 237 H 245 H Hemoglobin A1c Calcium Albumin Ur Specific [place] Urine WBC (Auto) Assessment and Plan Neurology consult report. 62 yr old with history of diabetes,hypertension who was admitted three days ago because of a fall when she hurt her hip and back.Work up after admission showed that she had diabetic ketoacidosis. Patient reported vertigo today on turning her head to the side and persistent back pain with radiation to theback of her left buttock and back of the left thigh.Also complains of rt hip pain and weakness. Physical examination. Patient is alert and appropriate. has insight into her problems and answers questions appropriately. Heart-normal rate and rythm. Carotids- Both palpable, No bruit Cranial nerves . all within normal limit, Motor: weak left plantar flexion reflex : Absent on the left ankle, significantly decreased on the right side. Sensory: Decreased sensation to pin prick on left l5 and s1 dermatomes. Tender right hip Straight leg raising (SLR) limited to 45 degree on the left. Barane's manuver is positive on the right side. IMPRESSION. 1. BENIGN POSITIONAL VERTIGO 2. LEFT LUMBO SACRAL RADICULOPATHY INVOLVING L5 AND S1 NERVE ROOT. 3, pROBABLE RIGHT HIP FRACTURE. RECOMMENDATION. 1. PLEASE START HER ON MECLIZINE 25 MG PO TID 2. MRI OF LUMBO SACRA SPINE AND BOTH HIPS. 3. FLEXERIL 5MG PO BID ALONG WITH DICLOFENAC 300MG PO BID FOR TWO DAYS THEN NEEDED. 4, FURTHER RECOMMENDATION TO FOLLOW AFTER MRI IS DONE
[2018-10-19] MEDS: LANTUS SUB-Q SCH (22:18)
[2018-10-20] MEDS: DILAUDID IV PRN ×3 (00:21→21:47)
[2018-10-20] MEDS: APRESOLINE IV PRN ×3 (00:21→06:58)
[2018-10-20] MEDS: NORCO 10/325 PO PRN ×2 (04:01→10:04)
[2018-10-20] MEDS: TYLENOL PO PRN (08:04)
[2018-10-20] MEDS: ZOFRAN IV PRN (08:06)
[2018-10-20] MEDS: HumaLOG SUB-Q SCH ×4 (09:11→22:32)
[2018-10-20] MEDS: HEPARIN SUB-Q SCH ×2 (09:12→21:53)
[2018-10-20] MEDS: ZESTRIL PO SCH (09:12)
[2018-10-20] MEDS: ROCEPHIN/NS 1 GM/50 ML 1 GM/50 ML BAG IV SCH (10:21)
[2018-10-20] MEDS ORDERED: ATIVAN IV NR (12:12)
--- NOTE | 2018-10-20 12:23 | Progress Note ---
Assessment and Plan Assessment and plan: Patient is a 62 yo woman with a history of bipolar disorder with SI on prior admission here, DM type 2, tobacco dependency and Lupus who presented to ER after mechanical fall. She was found to be in DKA/HONK and admitted to the hospital. She admits to being out of DM medications. Headache, nausea with head turning, BPPV suspected per Neurology: start Antivert, flexeril and diclofenac per Neurologist recommendations Hyperglycemic hyperosmolar nonketotic state: Continue insulins, a1c 15.1 Status post fall with L5, S1 radiculopathy per Neurology: MRI LS spine pending Right hip pains: MRI pelvis/Ls pending Skin acharya; wound care following, local treatment initiated UTI ruled out, urine culture negative: stopped iv rocephin DVT prophylaxis chemical: sq heparin Disposition: continue inpatient care, MRI LS/pelvis pending, anticipate discharge tomorrow IV Ativan for sedation as patient states she is claustrophobic and must have something to know her out for the test. CCT 32 minutes History Interval history: Patient was seen and examined. Follow-up on current diagnosis Uncontrolled DM. No overnight events reported to me. Patient denies any chest pain, shortness breath. Imaging, nursing note, chart, labs and old chart reviewed. Discussed with patient. She c/of left sided frontal headache behind her eyes, room spinning and nausea. Hospitalist Physical - Physical exam Narrative exam: Gen: WDWN, NAD, Awake, Alert, Orientated HEENT: NCAT, EOMI, PERRL, OP Clear Neck: supple, no adenopathy, no thyromegaly, no JVD CVS/Heart: RRR, normal S1S2, pulses present bilaterally Chest/Lungs: CTA B, Symmetrical chest expansion, good air entry bilaterally GI/Abdomen: soft, NTND, good bowel sounds, no guarding or rebound /Bladder: no suprapubic tenderness, no CVA or paraspinal tenderness Extermity/Skin: no c/c/e, multiple glease splatter acharya scattered on UE and trunk MSK: FROM x 4 Neuro: CN 2-12 grossly intact, no new focal deficits Psych: calm - Constitutional Vitals: Temp Pulse Resp BP Pulse Ox 98.1 F 86 20 181/75 96 10/20/18 05:57 10/20/18 06:58 10/20/18 05:57 10/20/18 09:12 10/20/18 05:57 General appearance: Present: no acute distress, well-nourished Results - Labs CBC & Chem 7: 10/16/18 00:02 10/17/18 05:47 Labs: Laboratory Last Values WBC 7.4 K/mm3 (4.5-11.0) 10/16/18 00:02 RBC 4.00 M/mm3 (3.65-5.03) 10/16/18 00:02 Hgb 12.5 gm/dl (10.1-14.3) 10/16/18 00:02 Hct 36.3 % (30.3-42.9) 10/16/18 00:02 MCV 91 fl (79-97) 10/16/18 00:02 MCH 31 pg (28-32) 10/16/18 00:02 MCHC 35 % (30-34) H 10/16/18 00:02 RDW 14.2 % (13.2-15.2) 10/16/18 00:02 Plt Count 369 K/mm3 (140-440) 10/16/18 00:02 Lymph % (Auto) 18.7 % (13.4-35.0) 10/16/18 00:02 [place] % (Auto) 6.0 % (0.0-7.3) 10/16/18 00:02 Eos % (Auto) 0.8 % (0.0-4.3) 10/16/18 00:02 Baso % (Auto) 0.5 % (0.0-1.8) 10/16/18 00:02 Lymph # 1.4 K/mm3 (1.2-5.4) 10/16/18 00:02 [place] # 0.4 K/mm3 (0.0-0.8) 10/16/18 00:02 Eos # 0.1 K/mm3 (0.0-0.4) 10/16/18 00:02 Baso # 0.0 K/mm3 (0.0-0.1) 10/16/18 00:02 Seg Neutrophils % 74.0 % (40.0-70.0) H 10/16/18 00:02 Seg Neutrophils # 5.5 K/mm3 (1.8-7.7) 10/16/18 00:02 VBG pH 7.360 (7.320-7.420) 10/16/18 00:02 Sodium 136 mmol/L (137-145) L 10/17/18 05:47 Potassium 4.1 mmol/L (3.6-5.0) 10/17/18 05:47 Chloride 101.9 mmol/L (98-107) 10/17/18 05:47 Carbon Dioxide 24 mmol/L (22-30) 10/17/18 05:47 14 mmol/L 10/17/18 05:47 BUN 9 mg/dL (7-17) 10/17/18 05:47 0.3 mg/dL (0.7-1.2) L 10/17/18 05:47 Estimated GFR > 60 ml/min 10/17/18 05:47 30 % 10/17/18 05:47 Glucose 197 mg/dL (65-100) H 10/17/18 05:47 POC Glucose 267 (70-105) H 10/20/18 11:29 15.1 % (4-6) H 10/16/18 13:35 Calcium 8.2 mg/dL (8.4-10.2) L 10/17/18 05:47 Phosphorus 3.70 mg/dL (2.5-4.5) 10/16/18 02:29 Magnesium 1.90 mg/dL (1.7-2.3) 10/16/18 02:29 0.20 mg/dL (0.1-1.2) 10/16/18 00:02 AST 8 units/L (5-40) 10/16/18 00:02 ALT 10 units/L (7-56) 10/16/18 00:02 107 units/L (35-129) 10/16/18 00:02 6.5 g/dL (6.3-8.2) 10/16/18 00:02 3.6 g/dL (3.9-5) L 10/16/18 00:02 1.2 % 10/16/18 00:02 Straw (Yellow) 10/15/18 Unknown Clear (Clear) 10/15/18 Unknown 5.0 (5.0-7.0) 10/15/18 Unknown Ur Specific [place] 1.031 (1.003-1.030) H 10/15/18 Unknown <15 mg/dl mg/dL (Negative) 10/15/18 Unknown >=500 mg/dL (Negative) 10/15/18 Unknown Tr mg/dL (Negative) 10/15/18 Unknown Sm (Negative) 10/15/18 Unknown Neg (Negative) 10/15/18 Unknown Neg (Negative) 10/15/18 Unknown < 2.0 mg/dL (<2.0) 10/15/18 Unknown Ur Leukocyte Esterase Mod (Negative) 10/15/18 Unknown 9.0 /HPF (0.0-6.0) H 10/15/18 Unknown 3.0 /HPF (0.0-6.0) 10/15/18 Unknown U Epithel Cells (Auto) 2.0 /HPF (0-13.0) 10/15/18 Unknown 1+ /HPF (Negative) 10/15/18 Unknown Few /HPF 10/15/18 Unknown Active Medications - Current Medications Current Medications: Generic Name Dose Route Start Last Admin Trade Name Freq PRN Reason Stop Dose Admin Acetaminophen 650 mg 10/16/18 04:18 10/20/18 08:04 Tylenol PO 650 mg Q4H PRN Administration Fever >101 Acetaminophen/Hydrocodone Bitart 1 each 10/18/18 15:09 10/20/18 10:04 [place] 10/325 PO 1 each Q6H PRN Administration Pain, Moderate (4-6) Cyclobenzaprine HCl 5 mg 10/20/18 14:00 Flexeril PO 10/21/18 14:01 TID GETACHEW Dextrose 50 ml 10/16/18 11:57 D50w (25gm) Syringe IV PRN PRN Hypoglycemia Diclofenac Sodium 50 mg 10/20/18 14:00 Voltaren PO 10/21/18 14:01 TID GETACHEW Heparin Sodium (Porcine) 5,000 unit 10/16/18 10:00 10/20/18 09:12 Heparin SUB-Q 5,000 unit Q12HR GETACHEW Administration Hydralazine HCl 10 mg 10/18/18 22:06 10/20/18 06:58 Apresoline IV 10 mg Q4H PRN Administration Blood Pressure Hydromorphone HCl 1 mg 10/16/18 04:15 10/20/18 00:21 Dilaudid IV 1 mg Q4H PRN Administration Pain, Moderate (4-6) Insulin Glargine 30 units 10/16/18 22:00 10/19/18 22:18 Lantus SUB-Q 30 units QHS GETACHEW Administration Insulin Human Lispro 0 unit 10/16/18 16:30 10/20/18 09:11 Humalog SUB-Q Not Given [facility] Protocol Lisinopril 20 mg 10/17/18 18:00 10/20/18 09:12 Zestril PO 20 mg QDAY GETACHEW Administration Lorazepam 1 mg 10/20/18 12:12 Ativan IV 10/20/18 12:13 ONCE ONE Meclizine HCl 25 mg 10/20/18 14:00 Antivert PO TID GETACHEW Metoclopramide HCl 10 mg 10/17/18 01:53 10/19/18 16:43 Reglan IV 10 mg Q6H PRN Administration Nausea And Vomiting Ondansetron HCl 4 mg 10/16/18 04:16 10/20/18 08:06 Zofran IV 4 mg Q8H PRN Administration N/V unrelieved by Cheng Pantoprazole Sodium 40 mg 10/20/18 13:[address] [facility]
[2018-10-20] MEDS: PROTONIX PO SCH (12:49)
[2018-10-20] MEDS: REGLAN IV PRN (12:50)
[2018-10-20] MEDS: FLEXERIL PO SCH ×2 (13:27→21:48)
[2018-10-20] MEDS: ANTIVERT PO SCH ×2 (13:29→21:49)
[2018-10-20] MEDS: VOLTAREN PO SCH ×2 (16:04→21:46)
[2018-10-20] MEDS: LANTUS SUB-Q SCH (22:31)
--- NOTE | 2018-10-20 23:19 | Cat Scan Report ---
CT lumbar spine without contrast INDICATION: MAIN: low back pains with neuro deficits, pt states she fell 2 days ago back pain. TECHNIQUE: Axial imaging performed through the lumbar spine without the use of contrast. Sagittal a nd coronal reconstructed images were also reviewed. All CT scans at this location are performed usin g CT dose reduction for ALARA by means of automated exposure control. COMPARISON: None FINDINGS: Alignment: Mild levoscoliosis centered at L3. Normal AP alignment. Bones: There is no acute osseous abnormality. Mild multilevel discogenic DJD is present. There is also moderate multilevel facet arthropathy. Soft tissues: No acute or significant incidental soft tissue abnormality. IMPRESSION: No acute abnormality. Scoliotic curvature and DJD as above. Signer Name: Juan Alberto Donald MD Signed: 10/20/2018 11:14 PM Workstation Name: [id number]
--- NOTE | 2018-10-20 23:29 | Cat Scan Report ---
CT bony pelvis without contrast INDICATION : MAIN: low back pains with neuro deficits patient state she fell 2 days ago and has back pain. TECHNIQUE: Axial imaging performed through the pelvis without the use of contrast. All CT scans at this location are performed using CT dose reduction for ALARA by means of automated exposure control. COMPARISON: CT right hip from 10/18/2018 FINDINGS: There is moderately advanced degenerative arthrosis in both hips and in the lumbar spine, w ith no acute osseous abnormality identified. Normal alignment. There is generalized soft tissue swell ing in the pelvis which is greatest about the right hip. No significant incidental soft tissue findin g within the pelvis. IMPRESSION: Degenerative changes in the pelvis with no acute osseous normality. Generalized soft tiss ue swelling greatest overlying the right hip laterally. Signer Name: Juan Alberto Donald MD Signed: 10/20/2018 11:24 PM Workstation Name: [id number]
[2018-10-21] MEDS: NORCO 10/325 PO PRN ×3 (03:45→20:35)
[2018-10-21 05:09] LABS: Hematocrit 32.3 % (30.3-42.9); Hemoglobin 11.2 gm/dl (10.1-14.3); Mean Corpuscular HGB Conc 35 % (30-34); Mean Corpuscular Volume 90 fl (79-97); Platelet Count 324 K/mm3 (140-440); Red Blood Count 3.58 M/mm3 (3.65-5.03); Red Cell Distribution Width 13.7 % (13.2-15.2)
[2018-10-21 05:30] LABS: BUN/Creatinine Ratio 33; Blood Urea Nitrogen 10 mg/dL (7-17); Calcium 8.5 mg/dL (8.4-10.2); Hemolysis Index 1
[2018-10-21] MEDS: HumaLOG SUB-Q SCH ×4 (08:00→22:36)
[2018-10-21] MEDS ORDERED: ATIVAN IV NR (08:00)
[2018-10-21] MEDS: ZESTRIL PO SCH (10:08)
[2018-10-21] MEDS: FLEXERIL PO SCH ×2 (10:08→14:06)
[2018-10-21] MEDS: PROTONIX PO SCH (10:09)
[2018-10-21] MEDS: HEPARIN SUB-Q SCH ×2 (10:09→22:37)
[2018-10-21] MEDS: ANTIVERT PO SCH ×3 (10:09→22:35)
[2018-10-21] MEDS: REGLAN IV PRN (10:09)
[2018-10-21] MEDS: DILAUDID IV PRN ×3 (10:09→19:10)
[2018-10-21] MEDS: VOLTAREN PO SCH ×2 (10:21→14:06)
--- NOTE | 2018-10-21 16:47 | Progress Note ---
Assessment and Plan Assessment and plan: Patient is a 62 yo woman with a history of bipolar disorder with SI on prior admission here, DM type 2, tobacco dependency and Lupus who presented to ER after mechanical fall. She was found to be in DKA/HONK and admitted to the hospital. She admits to being out of DM medications. Intractable nausea: change reglan to around the clock/ACHS Headache, nausea with head turning, BPPV suspected per Neurology: start Antivert, flexeril and diclofenac per Neurologist recommendations Hyperglycemic hyperosmolar nonketotic state: Continue insulins, a1c 15.1 Status post fall with L5, S1 radiculopathy per Neurology: MRI LS spine pending==>unable to do because of severe clastrophobia even with 1mg iv ativan, CT did not show any fractures Right hip pains: MRI pelvis/Ls ==>unable to do because of severe clastrophobia even with 1mg iv ativan, CT did not show any fractures Skin acharya; wound care following, local treatment initiated UTI ruled out, urine culture negative: stopped iv rocephin DVT prophylaxis chemical: sq heparin Disposition: continue inpatient care, still symptomatic Vertigo, anticipate discharge tomorrow History Interval history: Patient was seen and examined. Follow-up on current diagnosis Uncontrolled DM. No overnight events reported to me. Patient denies any chest pain, shortness breath. Imaging, nursing note, chart, labs and old chart reviewed. Discussed with patient. Still c/o, room spinning and nausea. Hospitalist Physical - Physical exam Narrative exam: Gen: WDWN, NAD, Awake, Alert, Orientated HEENT: NCAT, EOMI, PERRL, OP Clear Neck: supple, no adenopathy, no thyromegaly, no JVD CVS/Heart: RRR, normal S1S2, pulses present bilaterally Chest/Lungs: CTA B, Symmetrical chest expansion, good air entry bilaterally GI/Abdomen: soft, NTND, good bowel sounds, no guarding or rebound /Bladder: no suprapubic tenderness, no CVA or paraspinal tenderness Extermity/Skin: no c/c/e, multiple glease splatter acharya scattered on UE and trunk MSK: FROM x 4 Neuro: CN 2-12 grossly intact, no new focal deficits Psych: calm - Constitutional Vitals: Temp Pulse Resp BP Pulse Ox 98.9 F 85 18 172/85 95 10/21/18 11:36 10/21/18 11:36 10/21/18 11:36 10/21/18 11:36 10/21/18 11:36 General appearance: Present: no acute distress, well-nourished Results - Labs CBC & Chem 7: 10/21/18 04:46 10/21/18 04:46 Labs: Laboratory Last Values WBC 5.0 K/mm3 (4.5-11.0) 10/21/18 04:46 RBC 3.58 M/mm3 (3.65-5.03) L 10/21/18 04:46 Hgb 11.2 gm/dl (10.1-14.3) 10/21/18 04:46 Hct 32.3 % (30.3-42.9) 10/21/18 04:46 MCV 90 fl (79-97) 10/21/18 04:46 MCH 31 pg (28-32) 10/21/18 04:46 MCHC 35 % (30-34) H 10/21/18 04:46 RDW 13.7 % (13.2-15.2) 10/21/18 04:46 Plt Count 324 K/mm3 (140-440) 10/21/18 04:46 Lymph % (Auto) 18.7 % (13.4-35.0) 10/16/18 00:02 [place] % (Auto) 6.0 % (0.0-7.3) 10/16/18 00:02 Eos % (Auto) 0.8 % (0.0-4.3) 10/16/18 00:02 Baso % (Auto) 0.5 % (0.0-1.8) 10/16/18 00:02 Lymph # 1.4 K/mm3 (1.2-5.4) 10/16/18 00:02 [place] # 0.4 K/mm3 (0.0-0.8) 10/16/18 00:02 Eos # 0.1 K/mm3 (0.0-0.4) 10/16/18 00:02 Baso # 0.0 K/mm3 (0.0-0.1) 10/16/18 00:02 Seg Neutrophils % 74.0 % (40.0-70.0) H 10/16/18 00:02 Seg Neutrophils # 5.5 K/mm3 (1.8-7.7) 10/16/18 00:02 VBG pH 7.360 (7.320-7.420) 10/16/18 00:02 Sodium 138 mmol/L (137-145) 10/21/18 04:46 Potassium 3.8 mmol/L (3.6-5.0) 10/21/18 04:46 Chloride 102.6 mmol/L (98-107) 10/21/18 04:46 Carbon Dioxide 29 mmol/L (22-30) 10/21/18 04:46 10 mmol/L 10/21/18 04:46 BUN 10 mg/dL (7-17) 10/21/18 04:46 0.3 mg/dL (0.7-1.2) L 10/21/18 04:46 Estimated GFR > 60 ml/min 10/21/18 04:46 33 % 10/21/18 04:46 Glucose 106 mg/dL (65-100) H 10/21/18 04:46 POC Glucose 185 (70-105) H 10/21/18 16:26 15.1 % (4-6) H 10/16/18 13:35 Calcium 8.5 mg/dL (8.4-10.2) 10/21/18 04:46 Phosphorus 3.70 mg/dL (2.5-4.5) 10/16/18 02:29 Magnesium 1.90 mg/dL (1.7-2.3) 10/16/18 02:29 0.20 mg/dL (0.1-1.2) 10/16/18 00:02 AST 8 units/L (5-40) 10/16/18 00:02 ALT 10 units/L (7-56) 10/16/18 00:02 107 units/L (35-129) 10/16/18 00:02 6.5 g/dL (6.3-8.2) 10/16/18 00:02 3.6 g/dL (3.9-5) L 10/16/18 00:02 1.2 % 10/16/18 00:02 Straw (Yellow) 10/15/18 Unknown Clear (Clear) 10/15/18 Unknown 5.0 (5.0-7.0) 10/15/18 Unknown Ur Specific [place] 1.031 (1.003-1.030) H 10/15/18 Unknown <15 mg/dl mg/dL (Negative) 10/15/18 Unknown >=500 mg/dL (Negative) 10/15/18 Unknown Tr mg/dL (Negative) 10/15/18 Unknown Sm (Negative) 10/15/18 Unknown Neg (Negative) 10/15/18 Unknown Neg (Negative) 10/15/18 Unknown < 2.0 mg/dL (<2.0) 10/15/18 Unknown Ur Leukocyte Esterase Mod (Negative) 10/15/18 Unknown 9.0 /HPF (0.0-6.0) H 10/15/18 Unknown 3.0 /HPF (0.0-6.0) 10/15/18 Unknown U Epithel Cells (Auto) 2.0 /HPF (0-13.0) 10/15/18 Unknown 1+ /HPF (Negative) 10/15/18 Unknown Few /HPF 10/15/18 Unknown Active Medications - Current Medications Current Medications: Generic Name Dose Route Start Last Admin Trade Name Freq PRN Reason Stop Dose Admin Acetaminophen 650 mg 10/16/18 04:18 10/20/18 08:04 Tylenol PO 650 mg Q4H PRN Administration Fever >101 Acetaminophen/Hydrocodone Bitart 1 each 10/18/18 15:09 10/21/18 13:06 [place] 10/325 PO 1 each Q6H PRN Administration Pain, Moderate (4-6) Dextrose 50 ml 10/16/18 11:57 D50w (25gm) Syringe IV PRN PRN Hypoglycemia Heparin Sodium (Porcine) 5,000 unit 10/16/18 10:00 10/21/18 10:09 Heparin SUB-Q 5,000 unit Q12HR GETACHEW Administration Hydralazine HCl 10 mg 10/18/18 22:06 10/20/18 06:58 Apresoline IV 10 mg Q4H PRN Administration Blood Pressure Hydromorphone HCl 1 mg 10/16/18 04:15 10/21/18 14:06 Dilaudid IV 1 mg Q4H PRN Administration Pain, Moderate (4-6) Insulin Glargine 30 units 10/16/18 22:00 10/20/18 22:31 Lantus SUB-Q 30 units QHS GETACHEW Administration Insulin Human Lispro 0 unit 10/16/18 16:30 10/21/18 13:06 Humalog SUB-Q 2 unit ACHS GETACHEW Administration Protocol Lisinopril 20 mg 10/17/18 18:00 10/21/18 10:08 Zestril PO 20 mg QDAY GETACHEW Administration Lorazepam 1 mg 10/21/18 08:00 Ativan IV 10/21/18 23:59 [employer] NR Meclizine HCl 25 mg 10/20/18 14:00 10/21/18 14:07 Antivert PO 25 mg TID GETACHEW Administration Metoclopramide HCl 10 mg 10/21/18 22:00 Reglan PO ACHS GETACHEW Ondansetron HCl 4 mg 10/16/18 04:16 10/20/18 08:06 Zofran IV 4 mg Q8H PRN Administration N/V unrelieved by Reglan Pantoprazole Sodium 40 mg 10/20/18 13:00 10/21/18 10:09 Protonix PO 40 mg QDAY GETACHEW Administration
[2018-10-21] MEDS: APRESOLINE IV PRN (19:10)
[2018-10-21] MEDS: ZOFRAN IV PRN (19:12)
[2018-10-21] MEDS: XANAX PO SCH (22:35)
[2018-10-21] MEDS: REGLAN PO SCH (22:35)
[2018-10-21] MEDS: LANTUS SUB-Q SCH (22:37)
[2018-10-22] MEDS: DILAUDID IV PRN ×2 (00:15→06:41)
[2018-10-22] MEDS: NORCO 10/325 PO PRN (04:43)
[2018-10-22 05:54] LABS: Hematocrit 34.4 % (30.3-42.9); Hemoglobin 11.5 gm/dl (10.1-14.3); Mean Corpuscular HGB Conc 34 % (30-34); Mean Corpuscular Volume 90 fl (79-97); Platelet Count 335 K/mm3 (140-440); Red Blood Count 3.81 M/mm3 (3.65-5.03); Red Cell Distribution Width 13.9 % (13.2-15.2)
[2018-10-22 06:21] LABS: BUN/Creatinine Ratio 28; Blood Urea Nitrogen 11 mg/dL (7-17); Calcium 8.8 mg/dL (8.4-10.2); Hemolysis Index 2
[2018-10-22] MEDS: HumaLOG SUB-Q SCH (08:09)
[2018-10-22] MEDS: XANAX PO SCH (09:38)
[2018-10-22] MEDS: REGLAN PO SCH (09:38)
[2018-10-22 09:39] VITALS: BP 135/62
[2018-10-22] MEDS: PROTONIX PO SCH (09:39)
[2018-10-22] MEDS: HEPARIN SUB-Q SCH (09:39)
[2018-10-22] MEDS: ZESTRIL PO SCH (09:39)
[2018-10-22] MEDS: ANTIVERT PO SCH (09:40)
--- NOTE | 2018-10-22 10:39 | Discharge Summary ---
Providers - Providers Date of Admission: 10/16/18 05:59 Date of discharge: 10/22/18 Attending physician: SABI LEONARDO 10/18/18 08:59 Physical Therapy Evaluation and Treat [CONS] Urgent Comment: Reason For Exam: s/p fall 10/18/18 09:00 Occupational Therapy Evaluate and Treat [CONS] Urgent Comment: Reason For Exam: s/p fall 10/18/18 09:01 Consult to Wound/ET Nurse [CONS] Routine Reason For Exam: wound eval 10/19/18 11:02 Consult to Physician [CONS] Routine Comment: Consulting Provider: VENKATESH NÚÑEZ Physician Instructions: Reason For Exam: Headaches, vertigo symptoms, nausea with head turn Primary care physician: LEONELA MARIE Hospitalization Condition: Stable Hospital course: Patient is a 62 yo woman with a history of bipolar disorder with SI on prior admission here, DM type 2, tobacco dependency and Lupus who presented to ER after mechanical fall. She was found to be in DKA/HONK and admitted to the hospital. She admits to being out of DM medications. Discharge Diagnoses: Intractable nausea: changed reglan to around the clock/ACHS which relieved the nausea, d/w patient the potential side effect of Reglan, she voiced understanding and agrees, she doesn't to take for long Headache, nausea with head turning, BPPV suspected per Neurology: started Antivert, flexeril and diclofenac per Neurologist recommendations Hyperglycemic hyperosmolar nonketotic state: Continue insulins, a1c 15.1, extensive counseling done, Tobacco dependency: counseled on stopping. Status post fall with L5, S1 radiculopathy per Neurology: MRI LS spine pending==>unable to do because of severe clastrophobia even with 1mg iv ativan, CT did not show any fractures Right hip pains: MRI pelvis/Ls ==>unable to do because of severe clastrophobia even with 1mg iv ativan, CT did not show any fractures Skin acharya; wound care following, local treatment initiated UTI ruled out, urine culture negative: stopped iv rocephin Anxiety disorder, helped by Xanax DVT prophylaxis chemical: treated with sq heparin Disposition: TO HOME OR SELFCARE Time spent for discharge: 35 minutes Core Measure Documentation - Palliative Care Palliative Care/ Comfort Measures: Not Applicable - Core Measures Any of the following diagnoses?: none - VTE Discharge Requirements Deep Vein Thrombosis/Pulmonary Embolism Present on Admission: No Has pt received <5 days of overlap therapy or INR<2.0: No Anticoagulant overlap therapy prescribed at discharge: No Contraindication No Overlap Therapy order at DC: Not Indicated Exam - Physical Exam Narrative exam: Gen: WDWN, NAD, Awake, Alert, Orientated HEENT: NCAT, EOMI, PERRL, OP Clear Neck: supple, no adenopathy, no thyromegaly, no JVD CVS/Heart: RRR, normal S1S2, pulses present bilaterally Chest/Lungs: CTA B, Symmetrical chest expansion, good air entry bilaterally GI/Abdomen: soft, NTND, good bowel sounds, no guarding or rebound /Bladder: no suprapubic tenderness, no CVA or paraspinal tenderness Extermity/Skin: no c/c/e, multiple glease splatter acharya scattered on UE and trunk MSK: FROM x 4 Neuro: CN 2-12 grossly intact, no new focal deficits Psych: calm - Constitutional Vitals: Temp Pulse Resp BP Pulse Ox 97.8 F 92 H 18 135/62 98 10/22/18 05:37 10/22/18 09:39 10/22/18 06:41 10/22/18 09:39 10/22/18 05:37 Plan Activity: up only with assistance, fall precautions, other (no strenous activities) Diet: diabetic (take Reglan 30 minutes prior to meals) Special Instructions: physical therapy Additional Instructions: See stomach doctor/GI for chronic nausea, need evaluation for Gastroparesis Follow up with: LEONELA MARIE MD [Primary Care Provider] - 7 Days DERRELL KEMP MD [Staff Physician] - 7 Days Prescriptions: Insulin Glargine [Lantus VIAL] 30 units SUB-Q QHS #1 vial Meclizine [Antivert] 25 mg PO TID PRN #15 tablet PRN Reason: Vertigo Lispro Insulin [HumaLOG] 1 dose SUB-Q ACHS PRN #1000 units PRN Reason: Hyperglycemia Lispro Insulin [HumaLOG] 5 unit SUB-Q AC #1 vial HYDROcodone/APAP 10-325 [Wenden 10-325 mg TAB] 1 each PO Q6H PRN #20 tablet PRN Reason: Pain , Severe (7-10) Pantoprazole [Protonix TAB] 40 mg PO QDAY #30 tablet Metoclopramide [Reglan TAB] 10 mg PO ACHS #30 tablet ALPRAZolam [Xanax TAB] 1 mg PO BID PRN #30 tablet PRN Reason: Anxiety Lisinopril [Zestril TAB] 20 mg PO QDAY #30 tablet
== END 2018-10-22 12:30 | disposition home health service (06) | DRG 871 ==
LOC: ED 23:45 → UNDOADMIN 10-16 05:17 → CC1 10-16 05:17 → 3A 10-16 15:30
PROVIDERS: ADMIT Internal Medicine; ATTEND Internal Medicine
DX: A41.9 Sepsis, unspecified organism (principal); E11.00 Type 2 diabetes mellitus with hyperosmolarity without nonketotic hyperglycemic-hyperosmolar coma (NKHHC); M25.551 Pain in right hip; E87.1 Hypo-osmolality and hyponatremia; I16.0 Hypertensive urgency; F31.9 Bipolar disorder, unspecified; H81.10 Benign paroxysmal vertigo, unspecified ear; M54.17 Radiculopathy, lumbosacral region; F40.240 Claustrophobia; F41.9 Anxiety disorder, unspecified; T30.0 Burn of unspecified body region, unspecified degree; M54.5 Low back pain; F17.210 Nicotine dependence, cigarettes, uncomplicated; W01.0XXA Fall on same level from slipping, tripping and stumbling without subsequent striking against object, initial encounter; Y93.89 Activity, other specified; Z79.4 Long term (current) use of insulin; Z71.89 Other specified counseling; Z71.6 Tobacco abuse counseling; Z79.899 Other long term (current) drug therapy; Z90.49 Acquired absence of other specified parts of digestive tract; Z91.14 Patient's other noncompliance with medication regimen; Y92.89 Other specified places as the place of occurrence of the external cause; Y99.8 Other external cause status
CPT/HCPCS: 36415; 72100; 72131; 72192; 80048; 80053; 81001; 82805; 82962; 83036; 83735; 84100; 85025; 85027; 87086; 87116; 96361; 96365; G0378; J0360; J0696; J1170; J1644; J1815; J2060; J2405; J2765; J7030; Q9967

== ENCOUNTER 2018-10-25 14:27 | Emergency (ER) | payer MEDICAID ==
[2018-10-25 16:13] LABS: Basophils % (Auto) 0.7 % (0.0-1.8); Eosinophils # (Auto) 0.1 K/mm3 (0.0-0.4); Eosinophils % (Auto) 1.1 % (0.0-4.3); Hematocrit 35.4 % (30.3-42.9); Hemoglobin 12.4 gm/dl (10.1-14.3); Lymphocytes # (Auto) 1.3 K/mm3 (1.2-5.4); Lymphocytes % (Auto) 18.5 % (13.4-35.0); Mean Corpuscular HGB Conc 35 % (30-34); Mean Corpuscular Volume 89 fl (79-97); Monocytes # (Auto) 0.4 K/mm3 (0.0-0.8); Monocytes % (Auto) 5.9 % (0.0-7.3); Platelet Count 362 K/mm3 (140-440); Red Blood Count 3.98 M/mm3 (3.65-5.03); Red Cell Distribution Width 13.6 % (13.2-15.2)
[2018-10-25 16:33] LABS: BUN/Creatinine Ratio 35; Blood Urea Nitrogen 14 mg/dL (7-17); Calcium 8.8 mg/dL (8.4-10.2); Hemolysis Index 4
[2018-10-25] MEDS ORDERED: MORPHINE IV ONE (16:55)
[2018-10-25] MEDS ORDERED: ZOFRAN IV ONE (16:55)
[2018-10-25] MEDS ORDERED: HumuLIN R IV ONE (16:55)
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
[2018-10-25 17:15] LABS: Alanine Aminotransferase 24 units/L (7-56); Albumin 3.3 g/dL (3.9-5)
[2018-10-25 17:17] LABS: Bilirubin,Direct < 0.2 mg/dL (0-0.2)
--- NOTE | 2018-10-25 17:53 | XRay Report ---
LEFT FEMUR 2 VIEWS INDICATION / CLINICAL INFORMATION: fall left leg pain COMPARISON: Right hip Stated 10/16/2018 FINDINGS: BONES / JOINT(S): No acute fracture or subluxation. Moderate degenerative changes noted in the left h ip joint. There is mild degenerative change knee joint as well. SOFT TISSUES: No significant abnormality. ADDITIONAL FINDINGS: None. Signer Name: Miguel Mosher MD Signed: 10/25/2018 5:49 PM Workstation Name: [id number]
--- NOTE | 2018-10-25 17:54 | XRay Report ---
LEFT HIP 3 VIEWS INDICATION / CLINICAL INFORMATION: fall left hip pain COMPARISON: Right hip radiographs dated 10/16/2018 FINDINGS: BONES / JOINT(S): No acute fracture or subluxation. Moderate degenerative changes noted in the hip niesha ints. There is degenerative change in the lower lumbar spine. SOFT TISSUES: No significant abnormality. ADDITIONAL FINDINGS: None. Signer Name: Miguel Mosher MD Signed: 10/25/2018 5:50 PM Workstation Name: [id number]
[2018-10-25 18:17] LABS: INR 0.94 (0.87-1.13); Partial Thromboplastin Time 23.9 Sec. (24.2-36.6)
[2018-10-25] MEDS ORDERED: MORPHINE ONE (19:21)
[2018-10-25] MEDS ORDERED: MORPHINE IM ONE (19:26)
--- NOTE | 2018-10-25 19:31 | Cat Scan Report ---
Nonenhanced CT scan of the brain: INDICATION: Fell down; syncope TECHNIQUE: Routine CT head without contrast. Sagittal and coronal reformatted images were obtained. A ll CT scans at this location are performed using CT dose reduction for ALARA by means of automated ex posure control. COMPARISON: CT scan from 07/03/2017 could not be retrieved. FINDINGS: BRAIN / INTRACRANIAL CONTENTS: No acute hemorrhage, mass effect, midline shift, hydrocephalus, or acu te, large territorial infarct. Mild to moderate cortical involution is seen. Volume loss is also seen in the cerebellar hemispheres. Focal area of encephalomalacia is seen near the left postcentral gyru s. Periventricular and deep hemispheric white matter are normal. CRANIOCERVICAL JUNCTION: No significant abnormality. ORBITS: No significant abnormality of visualized orbits. SINUSES / MASTOIDS: No significant abnormality of the visualized paranasal sinuses or mastoid air sonam ls. ADDITIONAL FINDINGS: None. IMPRESSION: I do not see an acute parenchymal lesion in the brain. I do not see intracranial sequela from the tr auma. Signer Name: Xiomara Cheng MD Signed: 10/25/2018 7:27 PM Workstation Name: [id number]
--- NOTE | 2018-10-25 19:43 | Cat Scan Report ---
CTA CHEST WITH IV CONTRAST INDICATION: Acute onset chest pain with dyspnea. Syncope. TECHNIQUE: Axial CT images were obtained through the chest after injection of 100 mL IV contrast. 3 plane MIP re constructions were produced. All CT scans at this location are performed using CT dose reduction for ALARA by means of automated exposure control. COMPARISON: None available. FINDINGS: PULMONARY ARTERIES: No pulmonary emboli. AORTA AND ARTERIES: No acute abnormality. MEDIASTINUM: No mass, lymphadenopathy or other significant abnormality. The heart is normal in size w ithout a pericardial effusion. The trachea and main bronchi are patent and normal in caliber. LUNGS: No suspicious consolidation, nodule or mass. No pneumothorax or pleural effusion. ADDITIONAL FINDINGS: None. IMPRESSION: 1. No CT evidence for pulmonary embolism. 2. No acute intrathoracic findings. Signer Name: Benton Castillo MD Signed: 10/25/2018 7:38 PM Workstation Name: [id number]
--- NOTE | 2018-10-25 19:44 | Cat Scan Report ---
CT ABDOMEN AND PELVIS WITH IV CONTRAST INDICATION: fall syncope, luq pain, left hip pain. COMPARISON: None available. TECHNIQUE: Axial CT images were obtained through the abdomen and pelvis after 100 mL IV contrast. All CT scans a t this location are performed using CT dose reduction for ALARA by means of automated exposure contro l. FINDINGS -- ABDOMEN: Lung Bases: No acute abnormality. Liver: Normal. Gallbladder: Removed. Bile Ducts: Normal. Pancreas: Normal. Spleen: Normal. Adrenals: Normal. Right Kidney and Proximal Ureter: Normal. Left Kidney and Proximal Ureter: Normal. Stomach and Bowel: Normal. Lymph Nodes: No significant adenopathy. Aorta: No significant abnormality. IVC: Normal. Additional Findings: None. FINDINGS -- PELVIS: Urinary Bladder and Distal Ureters: Normal. Reproductive Organs: No acute abnormality. Appendix: Normal. Bowel: Large stool burden identified throughout the colon. Free Fluid: None. Lymph Nodes: No significant adenopathy. Additional Findings: None. Skeletal System: No acute abnormality. IMPRESSION: 1. No acute process in the abdomen or pelvis. Large stool burden identified throughout the colon incl uding severe rectal impaction. No small bowel obstruction. No free intra-abdominal fluid or free air. Signer Name: Benton Castillo MD Signed: 10/25/2018 7:40 PM Workstation Name: [id number]
[2018-10-25] MEDS ORDERED: ZOFRAN ODT PO PRN (22:47)
[2018-10-25] MEDS: LANTUS SUB-Q SCH (23:19)
[2018-10-25] MEDS: TYLENOL PO PRN (23:20)
[2018-10-26] MEDS: IBUPROFEN PO PRN ×3 (01:01→17:45)
[2018-10-26] MEDS: TYLENOL PO PRN (06:50)
[2018-10-26] MEDS: HumaLOG SUB-Q SCH ×3 (09:44→18:47)
[2018-10-26] MEDS: LANTUS SUB-Q SCH (22:40)
[2018-10-27 04:52] VITALS: BP 179/95
== END 2018-10-27 04:53 | disposition other institution (70) ==
LOC: ED 14:27
DX: E11.65 Type 2 diabetes mellitus with hyperglycemia (principal); M79.605 Pain in left leg; R07.89 Other chest pain; R10.12 Left upper quadrant pain; F17.200 Nicotine dependence, unspecified, uncomplicated; I10 Essential (primary) hypertension; F32.9 Major depressive disorder, single episode, unspecified; M32.9 Systemic lupus erythematosus, unspecified; F41.9 Anxiety disorder, unspecified; R55 Syncope and collapse; Z90.49 Acquired absence of other specified parts of digestive tract; Z79.4 Long term (current) use of insulin
CPT/HCPCS: 36415; 70450; 71275; 73502; 73552; 74177; 80048; 80076; 82550; 82962; 83690; 83735; 84484; 85025; 85379; 85610; 85730; 93005; 93010; 96372; 96374; 96375; 99285; J2270; J2405; Q9967; J1815

== ENCOUNTER 2019-03-25 14:58 | Emergency (ER) | payer MEDICAID ==
[2019-03-25] MEDS ORDERED: SODIUM CHLORIDE 0.9% 1000 ML 1,000 ML IV ONE (17:32)
[2019-03-25] MEDS ORDERED: ONDANSETRON 4 MG/2 ML INJ IV ONE (17:32)
--- NOTE | 2019-03-25 17:37 | Emergency Department Report ---
<MARCELINO FERRARO - Last Filed: 03/25/19 21:15> ED General Adult HPI - General Chief complaint: Dental/Oral Stated complaint: JAW PAIN Time Seen by Provider: 03/25/19 16:58 Source: patient Mode of arrival: Wheelchair Limitations: No Limitations - History of Present Illness Initial comments: This is a 63-year-old female who presents to the emergency room with dysphasia, sore throat, nausea, vomiting, and abdominal pain that started this morning. 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 Past medical history history of diabetes, hypertension, major depression, and lupus. Patient states she is currently not taking anything for symptomatic relief. She denies chest pain, shortness of breath, diarrhea. -: This morning Location: abdomen Quality: aching Consistency: constant Improves with: none Worsens with: none Associated Symptoms: diaphoresis, fever/chills, malaise, nausea/vomiting. denies: chest pain, headaches, shortness of breath, syncope Treatments Prior to Arrival: none - Related Data Previous Rx's Medication Instructions Recorded Last Taken Type Insulin Glargine [Lantus VIAL] 30 units SUB-Q QHS #1 vial 10/17/18 Unknown Rx Lispro Insulin [HumaLOG] 5 unit SUB-Q AC #1 vial 10/17/18 Unknown Rx Acetaminophen [Non-Aspirin Extra 500 mg PO Q6HR PRN #30 tablet 10/25/18 Unknown Rx Strength] Ibuprofen [Motrin] 600 mg PO Q8H PRN #30 tablet 10/25/18 Unknown Rx Ondansetron [Zofran Odt] 4 mg PO Q8HR PRN #20 tab.rapdis 10/25/18 Unknown Rx Polyethylene Glycol 3350 [Miralax 17 gm PO QDAY #30 packet 10/25/18 Unknown Rx 3350] Allergies Allergy/AdvReac Type Severity Reaction Status Date / Time No Known Allergies Allergy Verified 03/25/19 15:18 ED Review of Systems Constitutional: chills. denies: fever ENT: throat pain, congestion, other. denies: ear pain Respiratory: denies: cough, shortness of breath, wheezing Cardiovascular: denies: chest pain, palpitations Endocrine: no symptoms reported Gastrointestinal: abdominal pain, nausea, vomiting. denies: diarrhea Musculoskeletal: denies: back pain, joint swelling, arthralgia Skin: denies: rash, lesions Neurological: headache. denies: weakness, paresthesias Psychiatric: denies: anxiety, depression ED Past Medical Hx - Past Medical History Previous Medical History?: Yes Hx Hypertension: Yes Hx Diabetes: Yes Hx Psychiatric Treatment: Yes (DEPRESSION) Additional medical history: LUPUS - Surgical History Past Surgical History?: Yes Hx Appendectomy: Yes Additional Surgical History: BREAST / TONSILS / ABD - Social History Smoking Status: Current Every Day Smoker Substance Use Type: None - Medications Home Medications: Home Medications Medication Instructions Recorded Confirmed Last Taken Type Insulin Glargine [Lantus VIAL] 30 units SUB-Q QHS #1 vial 10/17/18 10/25/18 Unknown Rx Lispro Insulin [HumaLOG] 5 unit SUB-Q AC #1 vial 10/17/18 10/25/18 Unknown Rx Acetaminophen [Non-Aspirin Extra 500 mg PO Q6HR PRN #30 tablet 10/25/18 Unknown Rx Strength] Ibuprofen [Motrin] 600 mg PO Q8H PRN #30 tablet 10/25/18 Unknown Rx Ondansetron [Zofran Odt] 4 mg PO Q8HR PRN #20 tab.rapdis 10/25/18 Unknown Rx Polyethylene Glycol 3350 [Miralax 17 gm PO QDAY #30 packet 10/25/18 Unknown Rx 3350] ED Physical Exam - General Limitations: No Limitations General appearance: alert, in no apparent distress - ENT ENT exam: Present: mucous membranes moist, TM's normal bilaterally, normal external ear exam, other (4-5 cm nodule palpated on the right thyroid, ttp). Absent: normal orophraynx (patient unable to tolerate exam 2/2 pain) - Neck Neck exam: Present: lymphadenopathy (enlarged anterior cervical nodules, mobile, ttp) - Respiratory Respiratory exam: Present: normal lung sounds bilaterally. Absent: respiratory distress - Cardiovascular Cardiovascular Exam: Present: regular rate, normal rhythm. Absent: systolic murmur, diastolic murmur, rubs, gallop - GI/Abdominal GI/Abdominal exam: Present: soft, tenderness (left upper quadrant tenderness), normal bowel sounds. Absent: distended, guarding, rebound, rigid - Back Exam Back exam: Present: normal inspection - Neurological Exam Neurological exam: Present: alert, oriented X3, normal gait - Psychiatric Psychiatric exam: Present: normal affect, normal mood - Skin Skin exam: Present: warm, dry, intact, normal color. Absent: rash ED Medical Decision Making - Lab Data Result diagrams: 03/25/19 17:46 03/25/19 17:46 - Radiology Data Radiology results: report reviewed CT neck w con INDICATION / CLINICAL INFORMATION: 63 years Female; nodule and dysphasia. TECHNIQUE: Contiguous thin cut axial images obtained through the neck following IV contrast. Sagittal and coronal reconstructions performed by the technologist. All CT scans at this location are performed using CT dose reduction for ALARA by means of automated exposure control. COMPARISON: None available. FINDINGS: There appears to be a floor mouth abscess deep to the mylohyoid muscle-greater on the left than the right, located anteriorly just inferior to the sublingual region. Gas bubbles are seen throughout this region, suggesting a gas forming organism. There may be extension through the mylohyoid on the left inferiorly and into the anterior belly of the digastric. The fluid collection extends posteriorly to the anterior margin of the mandibular gland on the left. There are corresponding, mildly enhancing level 1 and level 2 lymph nodes are identified. No signs of suppurative node identified. Cellulitic change seen in the adjacent submental soft tissues. MUCOSAL SPACE: Otherwise, the nasopharynx, oropharynx and vallecula, oral cavity and floor of mouth, hypopharynx, and larynx are grossly normal. LYMPH NODES: Mildly prominent level 3 and level 4 lymph nodes noted as well. SALIVARY GLANDS: Parotid, submandibular, and visualized sublingual glands are within normal limits. THYROID GLAND: There is a well-circumscribed cyst/nodule seen at the junction of the right thyroid lobe and isthmus, measuring 22 mm in maximum dimension. Other cysts/nodules seen in the thyroid lobes - multinodular goiter might be consideration. There is also a nodule along the inferior margin of the left thyroid lobe which demonstrates calcification. This finding could be related to a thyroid lobe nodule or perhaps parathyroid adenoma. Correlation with ultrasound may be of benefit. PARANASAL SINUSES: Visualized paranasal sinuses and mastoid air cells are essentially clear. SPINE: Disc space narrowing seen at C6-7. Mild osseous foraminal narrowing seen bilaterally at this level from uncinate hypertrophy. VASCULAR STRUCTURES: Vascular structures are grossly normal in appearance. Surrounding soft tissues are otherwise grossly normal. IMPRESSION: 1. Findings concerning for a floor of mouth abscess as described above with gas- forming organism present. Reactive adenopathy and cellulitic change noted. 2. Findings in and around the thyroid gland as described above. Ultrasound might be helpful for further evaluation, if clinically warranted. CT of the abdomen and pelvis with contrast INDICATION: Abdominal pain COMPARISON: 10/25/2018 FINDINGS: There are surgical clips at the GE junction and there may have been prior gastric bypass. Gallbladder has been removed. No biliary tree dilation. Small hepatic cyst is noted. The spleen and pancreas are unremarkable. Bilateral adrenal nodules are again noted unchanged. Kidneys show no significant abnormalities. No fluid or adenopathy in the upper abdomen. In the left midabdomen in the region of the prior small bowel surgery presumably for the gastric bypass there is an area of intussusception of small bowel although there is no definite obstruction at this time. CT of the pelvis shows evidence of hysterectomy. There is no pelvic fluid or adenopathy. No diverticulosis or diverticulitis. No significant skeletal lesion. IMPRESSION: Left mid abdominal small bowel intussusception but this is of quest ionable clinical significance as there is no apparent bowel obstruction this time. Otherwise negative study. Automated exposure control was utilized to diminish radiation dose. - Medical Decision Making This is a 63 y.o. F. that presents to the ER with dysphasia, sore throat, nausea, vomiting, and abdominal pain that started this morning. Labs, CT of abdomen, CT of neck obtained. Given regular insulin and normal saline bolus 1L. Reviewed CT of abdomen and neck. Consulted attending Vero Sue who agreed to continue care. ED Disposition Clinical Impression: Submental abscess, Lymphadenitis, acute, Hyperglycemia Disposition: [id number]/TX-70 ANOTHER TYPE HLTHCARE Condition: Stable Referrals: PRIMARY CARE, [Primary Care Provider] - 3-5 Days <DESI BENNETT - Last Filed: 03/25/19 22:20> ED Review of Systems ROS: Stated complaint: JAW PAIN Other details as noted in HPI ED Course Vital Signs 03/25/19 03/25/19 21:57 22:00 Temperature 98.9 F Pulse Rate 113 H Respiratory 18 17 Rate Blood Pressure 154/83 [Left] O2 Sat by Pulse 98 Oximetry ED Medical Decision Making - Lab Data Result diagrams: 03/25/19 17:46 03/25/19 17:46 - Medical Decision Making Patient: JOEL HODGE MR#: [id number] : 1955 Acct:[id number] Age/Sex: 63 / F ADM Date: 03/25/19 Loc: ED Attending Dr: Ordering Physician: NADIYA FAN Date of Service: 03/25/19 Procedure(s): CT neck w con Accession Number(s): [id number] cc: NADIYA FAN CT neck w con INDICATION / CLINICAL INFORMATION: 63 years Female; nodule and dysphasia. TECHNIQUE: Contiguous thin cut axial images obtained through the neck following IV contrast. Sagittal and coronal reconstructions performed by the technologist. All CT scans at this location are performed using CT dose reduction for ALARA by means of automated exposure control. COMPARISON: None available. FINDINGS: There appears to be a floor mouth abscess deep to the mylohyoid muscle-greater on the left than the right, located anteriorly just inferior to the sublingual region. Gas bubbles are seen throughout this region, suggesting a gas forming organism. There may be extension through the mylohyoid on the left inferiorly and into the anterior belly of the digastric. The fluid collection extends posteriorly to the anterior margin of the mandibular gland on the left. There are corresponding, mildly enhancing level 1 and level 2 lymph nodes are identified. No signs of suppurative node identified. Cellulitic change seen in the adjacent submental soft tissues. MUCOSAL SPACE: Otherwise, the nasopharynx, oropharynx and vallecula, oral cavity and floor of mouth, hypopharynx, and larynx are grossly normal. LYMPH NODES: Mildly prominent level 3 and level 4 lymph nodes noted as well. SALIVARY GLANDS: Parotid, submandibular, and visualized sublingual glands are within normal limits. THYROID GLAND: There is a well-circumscribed cyst/nodule seen at the junction of the right thyroid lobe and isthmus, measuring 22 mm in maximum dimension. Other cysts/nodules seen in the thyroid lobes - multinodular goiter might be consideration. There is also a nodule along the inferior margin of the left thyroid lobe which demonstrates calcification. This finding could be related to a thyroid lobe nodule or perhaps parathyroid adenoma. Correlation with ultrasound may be of benefit. PARANASAL SINUSES: Visualized paranasal sinuses and mastoid air cells are essentially clear. SPINE: Disc space narrowing seen at C6-7. Mild osseous foraminal narrowing seen bilaterally at this level from uncinate hypertrophy. VASCULAR STRUCTURES: Vascular structures are grossly normal in appearance. Surrounding soft tissues are otherwise grossly normal. IMPRESSION: 1. Findings concerning for a floor of mouth abscess as described above with gas-forming organism present. Reactive adenopathy and cellulitic change noted. 2. Findings in and around the thyroid gland as described above. Ultrasound might be helpful for further evaluation, if clinically warranted. Signer Name: Shaka Brannon MD, III Signed: 03/25/2019 8:43 PM Workstation Name: [email or web address] Patient is a 63-year-old female with past medical history of diabetes who presented with a sore throat. Per the initial evaluation the patient was not willing or able to open her mouth initially however she did have a large amount of swelling in the submandibular region. Patient did not have a muffled voice so the patient was allowed to go the CT. This week and with the mid-level not worried about the patient's airway since the patient was again not having a muffled voice and was able to drink fluids. Patient's CT does show that she has a abscess to the floor the mouth just deep to the myelo hyoid muscle region greater on the left than the right with some cellulitic changes in the adjacent submental soft tissue. The nasopharynx, oropharynx, vallecula, oral cavity, h ypopharynx, and larynx are grossly normal. There are enhancing lymph nodes present. Patient has been monitored here for approximately 6 hours is again still maintaining her airway and able to swallow fluids. Decision was made not to attempt to intubate the patient at this time. Patient will be transferred to [facility] at the [facility]. Patient was started on vancomycin and Zosyn. Patient given pain medications and IV fluids. Despite the patient being hypoglycemic did think the patient would benefit from a small dose of steroids. Patient given 5 mg of Decadron. Patient be transferred. Patient is having no abdominal pain this time. I think the incidental finding of intussusception is a nonfactor at this time. Critical Care Time: Yes (30) Critical care attestation.: If time is entered above; I have spent that time in minutes in the direct care of this critically ill patient, excluding procedure time. ED Disposition Is pt being admited?: No Does the pt Need Aspirin: No Time of Disposition: 22:20
[2019-03-25 17:53] LABS: Hematocrit 42.4 % (30.3-42.9); Hemoglobin 14.3 gm/dl (10.1-14.3); Mean Corpuscular HGB Conc 34 % (30-34); Mean Corpuscular Volume 91 fl (79-97); Platelet Count 377 K/mm3 (140-440); Red Blood Count 4.68 M/mm3 (3.65-5.03); Red Cell Distribution Width 13.7 % (13.2-15.2)
[2019-03-25 18:16] LABS: Alanine Aminotransferase 8 units/L (7-56); Albumin 3.6 g/dL (3.9-5); BUN/Creatinine Ratio 32; Blood Urea Nitrogen 16 mg/dL (7-17); Calcium 10.4 mg/dL (8.4-10.2); Hemolysis Index 11
[2019-03-25 18:31] LABS: Basophils % (Manual) 0 % (0.0-1.8); Eosinophils % (Manual) 0 % (0.0-4.3); Total Cells Counted 100
[2019-03-25 18:32] LABS: RBC Morphology Normal
[2019-03-25] MEDS ORDERED: INSULIN REGULAR, HUMAN 100 UNITS/1 ML IV ONE (19:27)
--- NOTE | 2019-03-25 20:42 | Cat Scan Report ---
CT of the abdomen and pelvis with contrast INDICATION: Abdominal pain COMPARISON: 10/25/2018 FINDINGS: There are surgical clips at the GE junction and there may have been prior gastric bypass. G allbladder has been removed. No biliary tree dilation. Small hepatic cyst is noted. The spleen and pa ncreas are unremarkable. Bilateral adrenal nodules are again noted unchanged. Kidneys show no signifi cant abnormalities. No fluid or adenopathy in the upper abdomen. In the left midabdomen in the region of the prior small bowel surgery presumably for the gastric bypass there is an area of intussuscepti on of small bowel although there is no definite obstruction at this time. CT of the pelvis shows evidence of hysterectomy. There is no pelvic fluid or adenopathy. No diverticu losis or diverticulitis. No significant skeletal lesion. IMPRESSION: Left mid abdominal small bowel intussusception but this is of questionable clinical signi ficance as there is no apparent bowel obstruction this time. Otherwise negative study. Automated exposure control was utilized to diminish radiation dose. Signer Name: Ivan Honeycutt MD Signed: 03/25/2019 8:37 PM Workstation Name: [id number]
--- NOTE | 2019-03-25 20:47 | Cat Scan Report ---
CT neck w con INDICATION / CLINICAL INFORMATION: 63 years Female; nodule and dysphasia. TECHNIQUE: Contiguous thin cut axial images obtained through the neck following IV contrast. Sagittal and bryant l reconstructions performed by the technologist. All CT scans at this location are performed using CT dose reduction for ALARA by means of automated exposure control. COMPARISON: None available. FINDINGS: There appears to be a floor mouth abscess deep to the mylohyoid muscle-greater on the left than the right, located anteriorly just inferior to the sublingual region. Gas bubbles are seen throu ghout this region, suggesting a gas forming organism. There may be extension through the mylohyoid on the left inferiorly and into the anterior belly of the digastric. The fluid collection extends poste riorly to the anterior margin of the mandibular gland on the left. There are corresponding, mildly enhancing level 1 and level 2 lymph nodes are identified. No signs o f suppurative node identified. Cellulitic change seen in the adjacent submental soft tissues. MUCOSAL SPACE: Otherwise, the nasopharynx, oropharynx and vallecula, oral cavity and floor of mouth, hypopharynx, and larynx are grossly normal. LYMPH NODES: Mildly prominent level 3 and level 4 lymph nodes noted as well. SALIVARY GLANDS: Parotid, submandibular, and visualized sublingual glands are within normal limits. THYROID GLAND: There is a well-circumscribed cyst/nodule seen at the junction of the right thyroid lo be and isthmus, measuring 22 mm in maximum dimension. Other cysts/nodules seen in the thyroid lobes - multinodular goiter might be consideration. There is also a nodule along the inferior margin of the left thyroid lobe which demonstrates calcification. This finding could be related to a thyroid lobe n odule or perhaps parathyroid adenoma. Correlation with ultrasound may be of benefit. PARANASAL SINUSES: Visualized paranasal sinuses and mastoid air cells are essentially clear. SPINE: Disc space narrowing seen at C6-7. Mild osseous foraminal narrowing seen bilaterally at this l evel from uncinate hypertrophy. VASCULAR STRUCTURES: Vascular structures are grossly normal in appearance. Surrounding soft tissues are otherwise grossly normal. IMPRESSION: 1. Findings concerning for a floor of mouth abscess as described above with gas-forming organism pres ent. Reactive adenopathy and cellulitic change noted. 2. Findings in and around the thyroid gland as described above. Ultrasound might be helpful for [facility] er evaluation, if clinically warranted. Signer Name: Shaka Brannon MD, III Signed: 03/25/2019 8:43 PM Workstation Name: [id number]
[2019-03-25] MEDS ORDERED: VANCOMYCIN/NS 1 GM/250 ML 1 GM/250 ML BAG IV ONE (21:10)
[2019-03-25] MEDS ORDERED: SODIUM CHLORIDE 0.9% 1000 ML IV SOLN IV ONE (21:10)
[2019-03-25] MEDS ORDERED: PIPERACIL/TAZOBACTA 4.5/NS 100 4.5 GM/100 ML VIAL IV SCH (21:10)
[2019-03-25] MEDS ORDERED: MORPHINE 4 MG/1 ML INJ IV ONE ×2 (21:18→21:55)
[2019-03-25] MEDS ORDERED: dexAMETHasone 20 MG/5 ML VIAL IV ONE (21:55)
[2019-03-25] MEDS ORDERED: VANCOMYCIN PHARMACY TO DOSE IV SCH (22:00)
[2019-03-25] MEDS ORDERED: HYDROmorphone 1 MG/1 ML INJ IV ONE (22:31)
[2019-03-26 00:49] VITALS: BP 142/82
== END 2019-03-26 00:25 | disposition other institution (70) ==
LOC: ED 14:58
DX: L04.9 Acute lymphadenitis, unspecified (principal); L02.01 Cutaneous abscess of face; I10 Essential (primary) hypertension; E11.65 Type 2 diabetes mellitus with hyperglycemia; F17.200 Nicotine dependence, unspecified, uncomplicated; R11.2 Nausea with vomiting, unspecified; Z79.899 Other long term (current) drug therapy; Z98.890 Other specified postprocedural states; Z90.49 Acquired absence of other specified parts of digestive tract
CPT/HCPCS: 36415; 70491; 74177; 80053; 82140; 82962; 83690; 85007; 85025; 87040; 96361; 96365; 96367; 96375; 99285; J1100; J1170; J2270; J2405; J2543; J3370; J7030; Q9967; J1815

== ENCOUNTER 2019-06-01 23:46 | Emergency (ER) | payer MEDICAID ==
[2019-06-02 00:16] VITALS: BP 183/106
[2019-06-02 01:11] LABS: Basophils # (Auto) 0.1 K/mm3 (0.0-0.1); Basophils % (Auto) 1.3 % (0.0-1.8); Eosinophils # (Auto) 0.1 K/mm3 (0.0-0.4); Eosinophils % (Auto) 1.3 % (0.0-4.3); Hematocrit 34.6 % (30.3-42.9); Hemoglobin 12.4 gm/dl (10.1-14.3); Lymphocytes # (Auto) 2.2 K/mm3 (1.2-5.4); Lymphocytes % (Auto) 38.8 % (13.4-35.0); Mean Corpuscular HGB Conc 36 % (30-34); Mean Corpuscular Volume 90 fl (79-97); Monocytes # (Auto) 0.4 K/mm3 (0.0-0.8); Monocytes % (Auto) 6.4 % (0.0-7.3); Platelet Count 339 K/mm3 (140-440); Red Blood Count 3.87 M/mm3 (3.65-5.03)
[2019-06-02] MEDS ORDERED: ONDANSETRON 4 MG/2 ML INJ IV ONE (01:24)
[2019-06-02] MEDS ORDERED: SODIUM CHLORIDE 0.9% 1000 ML 1,000 ML IV ONE (01:24)
[2019-06-02] MEDS ORDERED: HYDROmorphone 2 MG/1 ML INJ IV ONE (01:24)
--- NOTE | 2019-06-02 01:24 | Emergency Department Report ---
ED Abdominal Pain HPI - General Chief Complaint: Abdominal Pain Stated Complaint: HIGH BLOOD SUGAR Time Seen by Provider: 06/02/19 01:19 Source: patient Mode of arrival: Ambulatory Limitations: No Limitations - History of Present Illness Initial Comments: Patient is a 63-year-old female that presents emergency room with complaints of abdominal pain. Patient states abdominal pain is bilateral lower quadrant. Patient states is a 6 out of 10. Patient states the pain is nonradiating. Patient denies vomiting and diarrhea. Patient denies fever and chills. Patient denies cough. Patient complains of nausea. Patient states the pain is better with rest and worse with palpation and movement. Patient also complains of her blood sugar being high for 2 days. Patient states she is an insulin-dependent diabetic. Patient denies recent travel. Patient denies recent international travel. Patient denies exposure to the novel coronavirus. Patient denies sick contacts. Patient denies fever and chills. Patient denies cough. Patient denies diarr hea. Patient denies coming in contact with anybody with symptoms of the novel coronavirus. MD Complaint: abdominal pain -: Sudden Location: LLQ, RLQ Radiation: none Migration to: no migration Severity: severe Severity scale (0 -10): 6 Quality: stabbing Consistency: constant Improves With: rest Worsens With: movement, other Associated Symptoms: nausea. denies: vomiting, diarrhea, fever, chills, c onstipation, dysuria, hematemesis, hematochezia, melena, hematuria, anorexia, syncope - Related Data LMP (females 10-50): unknown Previous Rx's Medication Instructions Recorded Last Taken Type Insulin Glargine [Lantus VIAL] 30 units SUB-Q QHS #1 vial 10/17/18 Unknown Rx Lispro Insulin [HumaLOG] 5 unit SUB-Q AC #1 vial 10/17/18 Unknown Rx Acetaminophen [Non-Aspirin Extra 500 mg PO Q6HR PRN #30 tablet 10/25/18 Unknown Rx Strength] Ibuprofen [Motrin] 600 mg PO Q8H PRN #30 tablet 10/25/18 Unknown Rx polyethylene glycoL 3350 [Miralax 17 gm PO QDAY #30 packet 10/25/18 Unknown Rx 3350] Acetaminophen/Codeine [Tylenol 1 tab PO Q4HR PRN #12 tablet 06/02/19 Unknown Rx /Codeine # 3 tab] Ondansetron [Zofran ODT TAB] 4 mg PO Q8HR PRN #20 tab.rapdis 06/02/19 Unknown Rx Allergies Allergy/AdvReac Type Severity Reaction Status Date / Time No Known Allergies Allergy Verified 03/25/19 15:18 ED Review of Systems ROS: Stated complaint: HIGH BLOOD SUGAR Other details as noted in HPI Constitutional: denies: chills, fever Eyes: denies: eye pain, eye discharge, vision change ENT: denies: ear pain, throat pain Respiratory: denies: cough, shortness of breath, wheezing Cardiovascular: denies: chest pain, palpitations Endocrine: no symptoms reported Gastrointestinal: abdominal pain, nausea. denies: vomiting, diarrhea Genitourinary: denies: urgency, dysuria, discharge Musculoskeletal: denies: back pain, joint swelling, arthralgia Skin: denies: rash, lesions Neurological: denies: headache, weakness, paresthesias Psychiatric: denies: anxiety, depression Hematological/Lymphatic: denies: easy bleeding, easy bruising ED Past Medical Hx - Past Medical History Previous Medical History?: Yes Hx Hypertension: Yes Hx Diabetes: Yes Hx Psychiatric Treatment: Yes (DEPRESSION) Additional medical history: LUPUS - Surgical History Past Surgical History?: Yes Hx Appendectomy: Yes Additional Surgical History: BREAST / TONSILS / ABD - Family History Family history: no significant - Social History Smoking Status: Never Smoker Substance Use Type: None - Medications Home Medications: Home Medications Medication Instructions Recorded Confirmed Last Taken Type Insulin Glargine [Lantus VIAL] 30 units SUB-Q QHS #1 vial 10/17/18 10/25/18 Unknown Rx Lispro Insulin [HumaLOG] 5 unit SUB-Q AC #1 vial 10/17/18 10/25/18 Unknown Rx Acetaminophen [Non-Aspirin Extra 500 mg PO Q6HR PRN #30 tablet 10/25/18 Unknown Rx Strength] Ibuprofen [Motrin] 600 mg PO Q8H PRN #30 tablet 10/25/18 Unknown Rx polyethylene glycoL 3350 [Miralax 17 gm PO QDAY #30 packet 10/25/18 Unknown Rx 3350] Acetaminophen/Codeine [Tylenol 1 tab PO Q4HR PRN #12 tablet 06/02/19 Unknown Rx /Codeine # 3 tab] Ondansetron [Zofran ODT TAB] 4 mg PO Q8HR PRN #20 tab.rapdis 06/02/19 Unknown Rx ED Physical Exam - General Limitations: No Limitations General appearance: alert, in no apparent distress - Head Head exam: Present: atraumatic, normocephalic - Eye Eye exam: Present: normal appearance - ENT ENT exam: Present: mucous membranes moist - Neck Neck exam: Present: normal inspection - Respiratory Respiratory exam: Present: normal lung sounds bilaterally. Absent: respiratory distress - Cardiovascular Cardiovascular Exam: Present: regular rate, normal rhythm. Absent: systolic murmur, diastolic murmur, rubs, gallop - GI/Abdominal GI/Abdominal exam: Present: soft, tenderness (Bilateral lower quadrant tenderness), normal bowel sounds - Extremities Exam Extremities exam: Present: normal inspection - Back Exam Back exam: Present: normal inspection - Neurological Exam Neurological exam: Present: alert, oriented X3 - Psychiatric Psychiatric exam: Present: normal affect, normal mood - Skin Skin exam: Present: warm, dry, intact, normal color. Absent: rash ED Course Vital Signs 06/02/19 00:15 Temperature 97.6 F Pulse Rate 96 H Respiratory 18 Rate Blood Pressure 183/106 O2 Sat by Pulse 100 Oximetry - Reevaluation(s) Reevaluation #1: Patient states her pain is better. Patient states her nausea is better. I discussed all results and clinical findings with patient. I discussed plan of care with patient. Patient agrees with plan of care. Patient is stable for discharge. Patient will be discharged home. Patient given discharge instructions. Patient voiced understanding of discharge instructions. 06/02/19 04:20 ED Medical Decision Making - Lab Data Result diagrams: 06/02/19 00:26 06/02/19 00:26 - Radiology Data Radiology results: report reviewed CT ABDOMEN AND PELVIS WITH CONTRAST INDICATION / CLINICAL INFORMATION: Pt complains of mid and lower abd pain with nausea and vomiting x 3 days. Omnipaque 300 / 100ml's was used for this exam.. TECHNIQUE: Axial CT images were obtained through the abdomen and pelvis after IV contrast. All CT scans at this location are performed using CT dose reduction for ALARA by means of automated exposure control. COMPARISON: CT dated 05/27/2019 and 03/25/2019 FINDINGS: LOWER CHEST: No significant abnormality. LIVER: No significant abnormality. GALLBLADDER: Surgically absent. BILE DUCTS: No significant abnormality. PANCREAS: No significant abnormality. SPLEEN: No significant abnormality. ADRENALS: Left adrenal nodules are unchanged. RIGHT KIDNEY and URETER: No significant abnormality. LEFT KIDNEY and URETER: No significant abnormality. STOMACH and SMALL BOWEL: Gastric bypass appears unchanged. No small bowel dilation. COLON: No significant abnormality. APPENDIX: No abnormal appendix identified. PERITONEUM: No free fluid. No free air. No fluid collection. LYMPH NODES: No significant adenopathy. AORTA and ARTERIES: No significant abnormality. IVC and VEINS: No significant abnormality. URINARY BLADDER: No significant abnormality. REPRODUCTIVE ORGANS: Uterus is absent. No significant adnexal abnormality. ADDITIONAL FINDINGS: None. SKELETAL SYSTEM: No significant abnormality. IMPRESSION: 1. No inflammatory process or bowel obstruction. No intussusception identified on the current study. - Medical Decision Making Patient is a 63-year-old female that presents emergency room with lower abdominal pain. Patient clinical findings are consistent with a gastroenteritis. Patient labs are unremarkable except for dehydration. Patient given fluids and nausea medication in the ER. Patient's symptoms improved. Patient responded well to treatment. Patient CT is negative for acute findings. Patient stable for discharge. Patient discharged home. Patient given discharge instructions. Critical care attestation.: If time is entered above; I have spent that time in minutes in the direct care of this critically ill patient, excluding procedure time. ED Disposition Clinical Impression: Hyperglycemia, Gastroenteritis, Dehydration Abdominal pain Qualifiers: Abdominal location: lower abdomen, unspecified Qualified Code(s): R10.30 - Lo wer abdominal pain, unspecified Disposition: - TO HOME OR SELFCARE Is pt being admited?: No Does the pt Need Aspirin: No Condition: Stable Instructions: Traveler's Diarrhea (ED), Gastroenteritis (ED), Acute Nausea and Vomiting (ED), Abdominal Pain (ED), Diabetes Mellitus Type 2 in Adults (ED) Additional Instructions: Patient to follow-up with primary care in 2 to 3 days. Patient to rest. Patient to increase water. Patient to eat a brat diet. patient to take Tylenol or ibuprofen as needed for pain. Patient to take meds as directed. Patient to return to the ER if condition worsens, changes or new symptoms arise.. Patient to continue her diabetes medications. Patient to monitor blood sugars at home. Patient to take blood sugar logs to her follow-ups. Patient to eat a diabetic diet. Prescriptions: Acetaminophen/Codeine [Tylenol /Codeine # 3 tab] 1 tab PO Q4HR PRN #12 tablet PRN Reason: Pain Ondansetron [Zofran ODT TAB] 4 mg PO Q8HR PRN #20 tab.rapdis PRN Reason: Nausea Referrals: PRIMARY CARE,MD [Primary Care Provider] - 2-3 Days Time of Disposition: 04:20
[2019-06-02 01:31] LABS: Alanine Aminotransferase 8 units/L (7-56); BUN/Creatinine Ratio 40; Blood Urea Nitrogen 24 mg/dL (7-17); Hemolysis Index 10
--- NOTE | 2019-06-02 04:15 | Cat Scan Report ---
CT ABDOMEN AND PELVIS WITH CONTRAST INDICATION / CLINICAL INFORMATION: Pt complains of mid and lower abd pain with nausea and vomiting x 3 days. Omnipaque 300 / 100ml's was used for this exam.. TECHNIQUE: Axial CT images were obtained through the abdomen and pelvis after IV contrast. All CT scans at this location are performed using CT dose reduction for ALARA by means of automated exposure control. COMPARISON: CT dated 05/27/2019 and 03/25/2019 FINDINGS: LOWER CHEST: No significant abnormality. LIVER: No significant abnormality. GALLBLADDER: Surgically absent. BILE DUCTS: No significant abnormality. PANCREAS: No significant abnormality. SPLEEN: No significant abnormality. ADRENALS: Left adrenal nodules are unchanged. RIGHT KIDNEY and URETER: No significant abnormality. LEFT KIDNEY and URETER: No significant abnormality. STOMACH and SMALL BOWEL: Gastric bypass appears unchanged. No small bowel dilation. COLON: No significant abnormality. APPENDIX: No abnormal appendix identified. PERITONEUM: No free fluid. No free air. No fluid collection. LYMPH NODES: No significant adenopathy. AORTA and ARTERIES: No significant abnormality. IVC and VEINS: No significant abnormality. URINARY BLADDER: No significant abnormality. REPRODUCTIVE ORGANS: Uterus is absent. No significant adnexal abnormality. ADDITIONAL FINDINGS: None. SKELETAL SYSTEM: No significant abnormality. IMPRESSION: 1. No inflammatory process or bowel obstruction. No intussusception identified on the current study. Signer Name: Ria Bah MD Signed: 06/02/2019 4:11 AM Workstation Name: [id number]
== END 2019-06-02 06:00 | disposition home or self-care (01) ==
LOC: ED 23:46
DX: E86.0 Dehydration (principal); K52.9 Noninfective gastroenteritis and colitis, unspecified; E11.65 Type 2 diabetes mellitus with hyperglycemia; I10 Essential (primary) hypertension; F32.9 Major depressive disorder, single episode, unspecified; M32.9 Systemic lupus erythematosus, unspecified; Z79.4 Long term (current) use of insulin; Z79.899 Other long term (current) drug therapy
CPT/HCPCS: 36415; 74177; 80053; 83690; 85025; 96361; 96374; 96375; 99284; J1170; J2405; J7030; Q9967

== ENCOUNTER 2019-11-21 07:53 | Inpatient (IN) | payer MEDICAID ==
[2019-11-21] MEDS ORDERED: MORPHINE 4 MG/1 ML INJ IV ONE ×2 (08:52→12:16)
[2019-11-21] MEDS ORDERED: ONDANSETRON 4 MG/2 ML INJ IV ONE ×2 (08:52→12:16)
[2019-11-21] MEDS ORDERED: SODIUM CHLORIDE 0.9% 1000 ML 1,000 ML IV ONE (08:52)
--- NOTE | 2019-11-21 08:57 | Emergency Department Report ---
ED Abdominal Pain HPI - General Chief Complaint: Weakness Stated Complaint: WEAKNESS 3XDAYS Time Seen by Provider: 11/21/19 08:41 Source: patient Mode of arrival: Stretcher Limitations: No Limitations - History of Present Illness Initial Comments: 64-year-old female with a past medical history of diabetes on insulin and pills, hypertension, depression, lupus, previous gastric bypass, appendectomy, and cholecystectomy presents to the hospital complains of 1 week of mid abdominal pain, nausea and vomiting with decreased food intake. Patient is tolerating water. She complains of having generalized weakness. Pain is in the mid to lower abdomen described as a constant sharp stabbing pain with periods of dull aching that fluctuates in intensity. Pain is a 10/10 in intensity at times. She denies fever, diarrhea, or dysuria. Patient has not able to check her glucose levels because she does not have a glucometer. Patient denies previous history of bowel obstruction. - Related Data Previous Rx's Medication Instructions Recorded Last Taken Type Insulin Glargine [Lantus VIAL] 30 units SUB-Q QHS #1 vial 10/17/18 Unknown Rx Lispro Insulin [HumaLOG] 5 unit SUB-Q AC #1 vial 10/17/18 Unknown Rx Acetaminophen [Non-Aspirin Extra 500 mg PO Q6HR PRN #30 tablet 10/25/18 Unknown Rx Strength] Ibuprofen [Motrin] 600 mg PO Q8H PRN #30 tablet 10/25/18 Unknown Rx polyethylene glycoL 3350 [Miralax 17 gm PO QDAY #30 packet 10/25/18 Unknown Rx 3350] Acetaminophen/Codeine [Tylenol 1 tab PO Q4HR PRN #12 tablet 06/02/19 Unknown Rx /Codeine # 3 tab] Ondansetron [Zofran ODT TAB] 4 mg PO Q8HR PRN #20 tab.rapdis 06/02/19 Unknown Rx Allergies Allergy/AdvReac Type Severity Reaction Status Date / Time No Known Allergies Allergy Verified 03/25/19 15:18 ED Review of Systems ROS: Stated complaint: WEAKNESS 3XDAYS Other details as noted in HPI Comment: All other systems reviewed and negative ED Past Medical Hx - Past Medical History Previous Medical History?: Yes Hx Hypertension: Yes Hx Diabetes: Yes Hx Psychiatric Treatment: Yes (DEPRESSION) Additional medical history: LUPUS - Surgical History Past Surgical History?: Yes Hx Cholecystectomy: Yes Hx Appendectomy: Yes Additional Surgical History: BREAST / TONSILS / ABD. Hysterectomy, gastric bypass - Social History Smoking Status: Current Some Day Smoker Substance Use Type: None - Medications Home Medications: Home Medications Medication Instructions Recorded Confirmed Last Taken Type Insulin Glargine [Lantus VIAL] 30 units SUB-Q QHS #1 vial 10/17/18 10/25/18 Unknown Rx Lispro Insulin [HumaLOG] 5 unit SUB-Q AC #1 vial 10/17/18 10/25/18 Unknown Rx Acetaminophen [Non-Aspirin Extra 500 mg PO Q6HR PRN #30 tablet 10/25/18 Unknown Rx Strength] Ibuprofen [Motrin] 600 mg PO Q8H PRN #30 tablet 10/25/18 Unknown Rx polyethylene glycoL 3350 [Miralax 17 gm PO QDAY #30 packet 10/25/18 Unknown Rx 3350] Acetaminophen/Codeine [Tylenol 1 tab PO Q4HR PRN #12 tablet 06/02/19 Unknown Rx /Codeine # 3 tab] Ondansetron [Zofran ODT TAB] 4 mg PO Q8HR PRN #20 tab.rapdis 06/02/19 Unknown Rx ED Physical Exam - General Limitations: No Limitations - Other Other exam information: General: Moderate distress secondary to pain Head: Atraumatic Eyes: normal appearance ENT: Moist mucous membranes Neck: Normal appearance, no midline tenderness Chest: Clear to auscultation bilaterally CV: Regular rate and rhythm Abdomen: Soft, normal bowel sounds, right upper quadrant and mid abdominal scars noted from previous surgeries. Mid abdominal tenderness to palpation without rebound or guarding. Abdomen is soft and nondistended Back: Normal inspection Extremity: Normal inspection, full range of motion Neuro: Alert O x 3, no facial asymmetry, speech clear, no gross motor sensory deficit Psych: Appropriate behavior Skin: No rash ED Course Vital Signs 11/21/19 11/21/19 08:10 09:43 Temperature 98.4 F Pulse Rate 95 H Respiratory 16 18 Rate Blood Pressure 200/99 [Left] O2 Sat by Pulse 98 99 Oximetry - Reevaluation(s) Reevaluation #1: 11/21/19 12:16 Patient has had some improvement in pain after morphine and Zofran but has persistent nausea and still having intermittent sharp abdominal pain. ED Medical Decision Making - Lab Data Result diagrams: 11/21/19 09:08 11/21/19 09:05 Lab Results 11/21/19 11/21/19 11/21/19 Range/Units 08:59 09:05 09:08 WBC 7.7 (4.5-11.0) K/mm3 RBC 3.65 (3.65-5.03) M/mm3 Hgb 12.3 (10.1-14.3) gm/dl Hct 33.1 (30.3-42.9) % MCV 91 (79-97) fl MCH 34 H (28-32) pg MCHC 37 H (30-34) % RDW 12.3 L (13.2-15.2) % Plt Count 296 (140-440) K/mm3 Lymph % (Auto) 23.4 (13.4-35.0) % Floyd % (Auto) 5.7 (0.0-7.3) % Eos % (Auto) 1.4 (0.0-4.3) % Baso % (Auto) 1.1 (0.0-1.8) % Lymph # 1.8 (1.2-5.4) K/mm3 Floyd # 0.4 (0.0-0.8) K/mm3 Eos # 0.1 (0.0-0.4) K/mm3 Baso # 0.1 (0.0-0.1) K/mm3 Seg Neutrophils % 68.4 (40.0-70.0) % Seg Neutrophils # 5.3 (1.8-7.7) K/mm3 Sodium 135 L (137-145) mmol/L Potassium 4.4 (3.6-5.0) mmol/L Chloride 100.8 (98-107) mmol/L Carbon Dioxide 21 L (22-30) mmol/L Anion Gap 18 mmol/L BUN 7 (7-17) mg/dL Creatinine 0.4 L (0.6-1.2) mg/dL Estimated GFR > 60 ml/min BUN/Creatinine Ratio 18 % Glucose 199 H (65-100) mg/dL POC Glucose 213 H (70-105) Calcium 8.9 (8.4-10.2) mg/dL Magnesium 1.80 (1.7-2.3) mg/dL Total Bilirubin 0.20 (0.1-1.2) mg/dL AST 12 (5-40) units/L ALT 12 (7-56) units/L Alkaline Phosphatase 76 (35-129) units/L Troponin T < 0.010 (0.00-0.029) ng/mL Total Protein 6.3 (6.3-8.2) g/dL Albumin 3.3 L (3.9-5) g/dL Albumin/Globulin Ratio 1.1 % Lipase 22 (13-60) units/L Urine Color (Yellow) Urine Turbidity (Clear) Urine pH (5.0-7.0) Ur Specific [place] (1.003-1.030) Urine Protein (Negative) mg/dL Urine Glucose (UA) (Negative) mg/dL Urine Ketones (Negative) mg/dL Urine Blood (Negative) Urine Nitrite (Negative) Urine Bilirubin (Negative) Urine Urobilinogen (<2.0) mg/dL Ur Leukocyte Esterase (Negative) Urine WBC (Auto) (0.0-6.0) /HPF Urine RBC (Auto) (0.0-6.0) /HPF U Epithel Cells (Auto) (0-13.0) /HPF Urine Mucus /HPF // Range/Units 09:43 WBC (4.5-11.0) K/mm3 RBC (3.65-5.03) M/mm3 Hgb (10.1-14.3) gm/dl Hct (30.3-42.9) % MCV (79-97) fl MCH (28-32) pg MCHC (30-34) % RDW (13.2-15.2) % Plt Count (140-440) K/mm3 Lymph % (Auto) (13.4-35.0) % Floyd % (Auto) (0.0-7.3) % Eos % (Auto) (0.0-4.3) % Baso % (Auto) (0.0-1.8) % Lymph # (1.2-5.4) K/mm3 Floyd # (0.0-0.8) K/mm3 Eos # (0.0-0.4) K/mm3 Baso # (0.0-0.1) K/mm3 Seg Neutrophils % (40.0-70.0) % Seg Neutrophils # (1.8-7.7) K/mm3 Sodium (137-145) mmol/L Potassium (3.6-5.0) mmol/L Chloride (98-107) mmol/L Carbon Dioxide (22-30) mmol/L Anion Gap mmol/L BUN (7-17) mg/dL Creatinine (0.6-1.2) mg/dL Estimated GFR ml/min BUN/Creatinine Ratio % Glucose (65-100) mg/dL POC Glucose (70-105) Calcium (8.4-10.2) mg/dL Magnesium (1.7-2.3) mg/dL Total Bilirubin (0.1-1.2) mg/dL AST (5-40) units/L ALT (7-56) units/L Alkaline Phosphatase (35-129) units/L Troponin T (0.00-0.029) ng/mL Total Protein (6.3-8.2) g/dL Albumin (3.9-5) g/dL Albumin/Globulin Ratio % Lipase (13-60) units/L Urine Color Straw (Yellow) Urine Turbidity Clear (Clear) Urine pH 7.0 (5.0-7.0) Ur Specific [place] 1.004 (1.003-1.030) Urine Protein <15 mg/dl (Negative) mg/dL Urine Glucose (UA) Neg (Negative) mg/dL Urine Ketones Neg (Negative) mg/dL Urine Blood Neg (Negative) Urine Nitrite Neg (Negative) Urine Bilirubin Neg (Negative) Urine Urobilinogen < 2.0 (<2.0) mg/dL Ur Leukocyte Esterase Neg (Negative) Urine WBC (Auto) < 1.0 (0.0-6.0) /HPF Urine RBC (Auto) 3.0 (0.0-6.0) /HPF U Epithel Cells (Auto) < 1.0 (0-13.0) /HPF Urine Mucus Few /HPF - EKG Data -: EKG Interpreted by [place] EKG shows normal: sinus rhythm, ST-T waves (No STEMI) Rate: normal (93) - Radiology Data Radiology results: report reviewed CT ABDOMEN AND PELVIS WITH CONTRAST INDICATION / CLINICAL INFORMATION: MAIN. TECHNIQUE: Axial CT images were obtained through the abdomen and pelvis after 100 cc Omni [address] scans at this location are performed using CT dose reduction for ALARA by means of automated exposure control. COMPARISON: CT abdomen pelvis 06/02/2019 and priors FINDINGS: LOWER CHEST: Mild small airways infection or inflammation in the left lung base overall stable when compared to 06/02/2019. HEPATOBILIARY: No significant abnormality. PANCREAS: No significant abnormality. SPLEEN: No significant abnormality. ADRENALS: Unchanged left adrenal nodules. Unchanged mild nodular thickening of the right adrenal gland. GENITOURINARY: No significant abnormality. GASTROINTESTINAL/MESENTERY: Postoperative change of gastric bypass with small hiatal hernia. There is mild dilatation of the distal small bowel loops with air-fluid levels. No significant bowel inflammation. Appendix is surgically absent. No free air or free fluid. RETROPERITONEUM: No significant adenopathy. REPRODUCTIVE ORGANS: No significant abnormality. VASCULAR: Mild atherosclerotic calcification without acute abnormality. SKELETAL SYSTEM: Mild levoconvex lumbar scoliosis. ADDITIONAL FINDINGS: Mild anasarca. IMPRESSION: 1. Findings concerning for early/developing ileus or small bowel obstruction in the distal small bowel, as detailed above. 2. Additional findings as above. - Medical Decision Making Patient has had multiple previous abdominal surgeries and has persistent nausea and vomiting as well as pain. CT suggestive of ileus versus small bowel obstruction. Case discussed with general surgeon who will consult during admission. Hospitalist to admit. Critical Care Time: No Critical care attestation.: If time is entered above; I have spent that time in minutes in the direct care of this critically ill patient, excluding procedure time. ED Disposition Clinical Impression: Small bowel obstruction, History of gastric bypass, Diabetes Disposition: OP ADMIT IP TO THIS HOSP Is pt being admited?: Yes Condition: Stable Time of Disposition: 12:23 (Dr Trevino/[facility])
[2019-11-21 09:57] LABS: Basophils # (Auto) 0.1 K/mm3 (0.0-0.1); Basophils % (Auto) 1.1 % (0.0-1.8); Eosinophils # (Auto) 0.1 K/mm3 (0.0-0.4); Eosinophils % (Auto) 1.4 % (0.0-4.3); Lymphocytes # (Auto) 1.8 K/mm3 (1.2-5.4); Lymphocytes % (Auto) 23.4 % (13.4-35.0); Mean Corpuscular HGB Conc 37 % (30-34); Mean Corpuscular Volume 91 fl (79-97); Monocytes # (Auto) 0.4 K/mm3 (0.0-0.8); Monocytes % (Auto) 5.7 % (0.0-7.3); Platelet Count 296 K/mm3 (140-440); Red Blood Count 3.65 M/mm3 (3.65-5.03); Red Cell Distribution Width 12.3 % (13.2-15.2)
[2019-11-21 09:58] LABS: Bilirubin,Urine NEG (Negative); Blood,Urine NEG (Negative); Color,Urine Straw (Yellow); Mucus,Urine FEW /HPF; Protein,Urine <15 mg/dL mg/dL (Negative); Urobilinogen,Urine < 2.0 mg/dL (<2.0); WBC,Urine < 1.0 /HPF (0.0-6.0)
[2019-11-21 10:01] LABS: Hematocrit 33.1 % (30.3-42.9); Hemoglobin 12.3 gm/dl (10.1-14.3)
[2019-11-21 10:21] LABS: Alanine Aminotransferase 12 units/L (7-56); Albumin 3.3 g/dL (3.9-5)
[2019-11-21 11:03] LABS: Blood Urea Nitrogen 7 mg/dL (7-17); Calcium 8.9 mg/dL (8.4-10.2); Hemolysis Index 29
[2019-11-21 11:07] LABS: BUN/Creatinine Ratio 18
--- NOTE | 2019-11-21 12:11 | Cat Scan Report ---
CT ABDOMEN AND PELVIS WITH CONTRAST INDICATION / CLINICAL INFORMATION: MAIN. TECHNIQUE: Axial CT images were obtained through the abdomen and pelvis after 100 cc Omni [address] scans at this location are performed using CT dose reduction for ALARA by means of automated expos ure control. COMPARISON: CT abdomen pelvis 06/02/2019 and priors FINDINGS: LOWER CHEST: Mild small airways infection or inflammation in the left lung base overall stable when c ompared to 06/02/2019. HEPATOBILIARY: No significant abnormality. PANCREAS: No significant abnormality. SPLEEN: No significant abnormality. ADRENALS: Unchanged left adrenal nodules. Unchanged mild nodular thickening of the right adrenal glan d. GENITOURINARY: No significant abnormality. GASTROINTESTINAL/MESENTERY: Postoperative change of gastric bypass with small hiatal hernia. There is mild dilatation of the distal small bowel loops with air-fluid levels. No significant bowel inflamma tion. Appendix is surgically absent. No free air or free fluid. RETROPERITONEUM: No significant adenopathy. REPRODUCTIVE ORGANS: No significant abnormality. VASCULAR: Mild atherosclerotic calcification without acute abnormality. SKELETAL SYSTEM: Mild levoconvex lumbar scoliosis. ADDITIONAL FINDINGS: Mild anasarca. IMPRESSION: 1. Findings concerning for early/developing ileus or small bowel obstruction in the distal small alejandro l, as detailed above. 2. Additional findings as above. Signer Name: Sandip Rebolledo MD Signed: 11/21/2019 12:06 PM Workstation Name: [id number]
--- NOTE | 2019-11-21 15:10 | History and Physical Report ---
History of Present Illness Date of examination: 11/21/19 Date of admission: 11/21/19 12:26 Chief complaint: Abdominal pain History of present illness: 64 year-old female with a past medical history of diabetes on insulin and pills, hypertension, depression, lupus, previous gastric bypass, appendectomy, and cholecystectomy presents to the hospital complains of 1 week of mid abdominal pain, nausea and vomiting with decreased food intake. She complains of having generalized weakness. Pain is in the mid to lower abdomen described as a constant sharp stabbing pain with periods of dull aching that fluctuates in intensity. Pain is a 10/10 in intensity at times. She denies fever, diarrhea, or dysuria. Patient has not able to check her glucose levels because she does not have a glucometer. Patient denies previous history of bowel obstruction. Here in the ED, she was hemodynamically stable. her CT abdomen shows ileus vs partial small bowel obstruction and she was admitted. Surgery was consulted in the ED> Past History Past Medical History: diabetes Past Surgical History: bowel surgery, Other Medications and Allergies Allergies Allergy/AdvReac Type Severity Reaction Status Date / Time No Known Allergies Allergy Verified 03/25/19 15:18 Home Medications Medication Instructions Recorded Confirmed Last Taken Type Insulin Glargine [Lantus VIAL] 30 units SUB-Q QHS #1 vial 10/17/18 10/25/18 Unknown Rx Lispro Insulin [HumaLOG] 5 unit SUB-Q AC #1 vial 10/17/18 10/25/18 Unknown Rx Acetaminophen [Non-Aspirin Extra 500 mg PO Q6HR PRN #30 tablet 10/25/18 Unknown Rx Strength] Ibuprofen [Motrin] 600 mg PO Q8H PRN #30 tablet 10/25/18 Unknown Rx polyethylene glycoL 3350 [Miralax 17 gm PO QDAY #30 packet 10/25/18 Unknown Rx 3350] Acetaminophen/Codeine [Tylenol 1 tab PO Q4HR PRN #12 tablet 06/02/19 Unknown Rx /Codeine # 3 tab] Ondansetron [Zofran ODT TAB] 4 mg PO Q8HR PRN #20 tab.rapdis 06/02/19 Unknown Rx Active Meds: Active Medications Acetaminophen (Tylenol) 650 mg PO Q4H PRN PRN Reason: Pain MILD(1-3)/Fever >100.5/LEONG Ondansetron HCl (Zofran) 4 mg IV Q8H PRN PRN Reason: Nausea And Vomiting Sodium Chloride (Sodium Chloride Flush Syringe 10 Ml) 10 ml IV BID GETACHEW Sodium Chloride (Sodium Chloride Flush Syringe 10 Ml) 10 ml IV PRN PRN PRN Reason: LINE FLUSH Review of Systems Gastrointestinal: abdominal pain Exam - Constitutional Vitals: Temp Pulse Resp BP Pulse Ox 98.4 F 95 H 18 200/99 99 11/21/19 08:10 11/21/19 08:10 11/21/19 09:43 11/21/19 08:10 11/21/19 09:43 General appearance: Present: no acute distress, well-nourished - EENT Eyes: Present: PERRL ENT: hearing intact, clear oral mucosa - Neck Neck: Present: supple, normal ROM - Respiratory Respiratory effort: normal Respiratory: bilateral: CTA - Cardiovascular Heart Sounds: Present: S1 & S2. Absent: rub, click - Extremities Extremities: pulses symmetrical, No edema Peripheral Pulses: within normal limits - Abdominal General gastrointestinal: Present: soft, tender (periumbilical region), non- distended, normal bowel sounds Female genitourinary: Present: normal - Integumentary Integumentary: Present: clear, warm, dry - Musculoskeletal Musculoskeletal: gait normal, strength equal bilaterally - Psychiatric Psychiatric: appropriate mood/affect, intact judgment & insight - Neurologic Neurologic: CNII-XII intact, moves all extremities HEART Score - HEART Score Troponin: Troponin T < 0.010 ng/mL (0.00-0.029) 11/21/19 09:05 Results - Labs CBC & Chem 7: 11/21/19 09:08 11/21/19 09:05 Labs: Laboratory Last Values WBC 7.7 K/mm3 (4.5-11.0) 11/21/19 09:08 RBC 3.65 M/mm3 (3.65-5.03) 11/21/19 09:08 Hgb 12.3 gm/dl (10.1-14.3) 11/21/19 09:08 Hct 33.1 % (30.3-42.9) 11/21/19 09:08 MCV 91 fl (79-97) 11/21/19 09:08 MCH 34 pg (28-32) H 11/21/19 09:08 MCHC 37 % (30-34) H 11/21/19 09:08 RDW 12.3 % (13.2-15.2) L 11/21/19 09:08 Plt Count 296 K/mm3 (140-440) 11/21/19 09:08 Lymph % (Auto) 23.4 % (13.4-35.0) 11/21/19 09:08 [place] % (Auto) 5.7 % (0.0-7.3) 11/21/19 09:08 Eos % (Auto) 1.4 % (0.0-4.3) 11/21/19 09:08 Baso % (Auto) 1.1 % (0.0-1.8) 11/21/19 09:08 Lymph # 1.8 K/mm3 (1.2-5.4) 11/21/19 09:08 [place] # 0.4 K/mm3 (0.0-0.8) 11/21/19 09:08 Eos # 0.1 K/mm3 (0.0-0.4) 11/21/19 09:08 Baso # 0.1 K/mm3 (0.0-0.1) 11/21/19 09:08 Seg Neutrophils % 68.4 % (40.0-70.0) 11/21/19 09:08 Seg Neutrophils # 5.3 K/mm3 (1.8-7.7) 11/21/19 09:08 Sodium 135 mmol/L (137-145) L 11/21/19 09:05 Potassium 4.4 mmol/L (3.6-5.0) 11/21/19 09:05 Chloride 100.8 mmol/L (98-107) 11/21/19 09:05 Carbon Dioxide 21 mmol/L (22-30) L 11/21/19 09:05 Anion Gap 18 mmol/L 11/21/19 09:05 BUN 7 mg/dL (7-17) 11/21/19 09:05 Creatinine 0.4 mg/dL (0.6-1.2) L 11/21/19 09:05 Estimated GFR > 60 ml/min 11/21/19 09:05 BUN/Creatinine Ratio 18 % 11/21/19 09:05 Glucose 199 mg/dL (65-100) H 11/21/19 09:05 POC Glucose 213 (70-105) H 11/21/19 08:59 Calcium 8.9 mg/dL (8.4-10.2) 11/21/19 09:05 Magnesium 1.80 mg/dL (1.7-2.3) 11/21/19 09:05 Total Bilirubin 0.20 mg/dL (0.1-1.2) 11/21/19 09:05 AST 12 units/L (5-40) 11/21/19 09:05 ALT 12 units/L (7-56) 11/21/19 09:05 Alkaline Phosphatase 76 units/L (35-129) 11/21/19 09:05 Troponin T < 0.010 ng/mL (0.00-0.029) 11/21/19 09:05 Total Protein 6.3 g/dL (6.3-8.2) 11/21/19 09:05 Albumin 3.3 g/dL (3.9-5) L 11/21/19 09:05 Albumin/Globulin Ratio 1.1 % 11/21/19 09:05 Lipase 22 units/L (13-60) 11/21/19 09:05 Urine Color Straw (Yellow) 11/21/19 09:43 Urine Turbidity Clear (Clear) 11/21/19 09:43 Urine pH 7.0 (5.0-7.0) 11/21/19 09:43 Ur Specific [place] 1.004 (1.003-1.030) 11/21/19 09:43 Urine Protein <15 mg/dl mg/dL (Negative) 11/21/19 09:43 Urine Glucose (UA) Neg mg/dL (Negative) 11/21/19 09:43 Urine Ketones Neg mg/dL (Negative) 11/21/19 09:43 Urine Blood Neg (Negative) 11/21/19 09:43 Urine Nitrite Neg (Negative) 11/21/19 09:43 Urine Bilirubin Neg (Negative) 11/21/19 09:43 Urine Urobilinogen < 2.0 mg/dL (<2.0) 11/21/19 09:43 Ur Leukocyte Esterase Neg (Negative) 11/21/19 09:43 Urine WBC (Auto) < 1.0 /HPF (0.0-6.0) 11/21/19 09:43 Urine RBC (Auto) 3.0 /HPF (0.0-6.0) 11/21/19 09:43 U Epithel Cells (Auto) < 1.0 /HPF (0-13.0) 11/21/19 09:43 Urine Mucus Few /HPF 11/21/19 09:43 Assessment and Plan - Patient Problems (1) Small bowel obstruction Current Visit: Yes Status: Acute Plan to address problem: She is tolerating liquid. Will continue clear liquid diet for now If she vomits, will place NG tube and make NPO Surgery consulted. (2) Diabetes Current Visit: Yes Status: Acute Plan to address problem: Lispro sliding scale for now (3) Hypertension Current Visit: Yes Status: Acute Plan to address problem: She is not sure about her medications. Called her contact Macario on [phone] and did not get a response Will start her on amlodipine for now (4) DVT prophylaxis Current Visit: Yes Status: Acute Plan to address problem: Heparin
[2019-11-21] MEDS ORDERED: DEXTROSE 50% IN WATER (25GM) 50 ML SYRINGE IV PRN (15:18)
[2019-11-21] MEDS: ACETAMINOPHEN 325 MG TAB PO PRN (15:52)
[2019-11-21] MEDS: PROCHLORPERAZINE EDISYLATE 10 MG/2 ML VIAL IV PRN (15:53)
[2019-11-21] MEDS: INSULIN LISPRO 100 UNIT/ML VIAL 3 mL SUB-Q SCH (15:57)
[2019-11-21] MEDS: D5W/0.9% NACL 1,000 ML IV SCH (16:01)
--- NOTE | 2019-11-21 16:24 | Consultation ---
History of Present Illness Consult date: 11/21/19 Reason for consult: other (Nausea) Chief complaint: Nausea, abdominal pain - History of present illness History of present illness: 64-year-old female with a past surgical history of appendectomy, open ch olecystectomy, open Alexandra-en-Y gastric bypass who presents to the emergency room with 7 days of ongoing nausea and retching. The patient states she is also experiencing point tenderness at the periumbilical region. The pain is sharp and does not radiate. Is made worse by palpation. She denies fevers or chills, chest pain, shortness of breath. She does have a headache. She feels like she may have had symptoms like this in the past but not does not remember when. She has been having normal bowel movements without constipation, diarrhea, hematochezia, melena. She states that even though she is nauseated, she feels hungry and is requesting for something to eat or drink. She denies any sick contacts or inciting events leading up to this illness. CT scan performed in the emergency room showed the possibility of a small bowel obstruction versus ileus. Surgery consulted for evaluation. Past History Past Medical History: diabetes, GERD, other (Peptic ulcer disease) Past Surgical History: appendectomy, cholecystectomy, Other (Gastric bypass) Social history: smoking Family history: no significant family history Medications and Allergies Allergies Allergy/AdvReac Type Severity Reaction Status Date / Time No Known Allergies Allergy Verified 03/25/19 15:18 Home Medications Medication Instructions Recorded Confirmed Last Taken Type Insulin Glargine [Lantus VIAL] 30 units SUB-Q QHS #1 vial 10/17/18 10/25/18 Unknown Rx Lispro Insulin [HumaLOG] 5 unit SUB-Q AC #1 vial 10/17/18 10/25/18 Unknown Rx Acetaminophen [Non-Aspirin Extra 500 mg PO Q6HR PRN #30 tablet 10/25/18 Unknown Rx Strength] Ibuprofen [Motrin] 600 mg PO Q8H PRN #30 tablet 10/25/18 Unknown Rx polyethylene glycoL 3350 [Miralax 17 gm PO QDAY #30 packet 10/25/18 Unknown Rx 3350] Acetaminophen/Codeine [Tylenol 1 tab PO Q4HR PRN #12 tablet 06/02/19 Unknown Rx /Codeine # 3 tab] Ondansetron [Zofran ODT TAB] 4 mg PO Q8HR PRN #20 tab.rapdis 06/02/19 Unknown Rx Active Meds: Active Medications Acetaminophen (Tylenol) 650 mg PO Q4H PRN PRN Reason: Pain MILD(1-3)/Fever >100.5/LEONG Last Admin: 11/21/19 15:52 Dose: 650 mg Documented by: Dextrose (D50w (25gm) Syringe) 50 ml IV Q30MIN PRN; Protocol PRN Reason: Hypoglycemia Dextrose/Sodium Chloride (D5ns) 1,000 mls @ 125 mls/hr IV DIRECT GETACHEW Last Admin: 11/21/19 16:01 Dose: 125 mls/hr Documented by: Insulin Human Lispro (Humalog) 0 unit SUB-Q AC EGTACHEW; Protocol Last Admin: 11/21/19 15:57 Dose: Not Given Documented by: Ondansetron HCl (Zofran) 4 mg IV Q8H PRN PRN Reason: Nausea And Vomiting Prochlorperazine Edisylate (Compazine) 5 mg IV Q6H PRN PRN Reason: Nausea And Vomiting Last Admin: 11/21/19 15:53 Dose: 5 mg Documented by: Sodium Chloride (Sodium Chloride Flush Syringe 10 Ml) 10 ml IV BID GETACHEW Sodium Chloride (Sodium Chloride Flush Syringe 10 Ml) 10 ml IV PRN PRN PRN Reason: LINE FLUSH Review of Systems All systems: negative (10 point ROS performed and negative except for that listed in HPI) Exam Vital Signs Temp Pulse Resp BP Pulse Ox 98.4 F 95 H 16 200/99 98 11/21/19 08:10 11/21/19 08:10 11/21/19 08:10 11/21/19 08:10 11/21/19 08:10 Narrative exam: Gen.: Awake, alert, oriented 3. No apparent distress ENT: Trachea midline. No lymphadenopathy. No scleral icterus or conjunctival pallor CV: S1, S2 present Respiratory: No audible wheezes Abdomen: Soft, nondistended, point tenderness at umbilicus. No hernia, rash, masses seen. Well-healed surgical scars. No rebound, rigidity, guarding Extremities: No clubbing, cyanosis, edema Results - Labs 11/21/19 09:08 11/21/19 09:05 Abnormal lab results 09/11/21/19 11/21/19 Range/Units 08:59 09:05 09:08 MCH 34 H (28-32) pg MCHC 37 H (30-34) % RDW 12.3 L (13.2-15.2) % Sodium 135 L (137-145) mmol/L Carbon Dioxide 21 L (22-30) mmol/L Creatinine 0.4 L (0.6-1.2) mg/dL Glucose 199 H (65-100) mg/dL POC Glucose 213 H (70-105) Albumin 3.3 L (3.9-5) g/dL 11/21/19 Range/Units 16:12 MCH (28-32) pg MCHC (30-34) % RDW (13.2-15.2) % Sodium (137-145) mmol/L Carbon Dioxide (22-30) mmol/L Creatinine (0.6-1.2) mg/dL Glucose (65-100) mg/dL POC Glucose 137 H (70-105) Albumin (3.9-5) g/dL Diabetes panel 11/21/19 Range/Units 09:05 Sodium 135 L (137-145) mmol/L Potassium 4.4 (3.6-5.0) mmol/L Chloride 100.8 (98-107) mmol/L Carbon Dioxide 21 L (22-30) mmol/L BUN 7 (7-17) mg/dL Creatinine 0.4 L (0.6-1.2) mg/dL Glucose 199 H (65-100) mg/dL Calcium 8.9 (8.4-10.2) mg/dL AST 12 (5-40) units/L ALT 12 (7-56) units/L Alkaline Phosphatase 76 (35-129) units/L Total Protein 6.3 (6.3-8.2) g/dL Albumin 3.3 L (3.9-5) g/dL Calcium panel 11/21/19 Range/Units 09:05 Calcium 8.9 (8.4-10.2) mg/dL Albumin 3.3 L (3.9-5) g/dL Pituitary panel 11/21/19 Range/Units 09:05 Sodium 135 L (137-145) mmol/L Potassium 4.4 (3.6-5.0) mmol/L Chloride 100.8 (98-107) mmol/L Carbon Dioxide 21 L (22-30) mmol/L BUN 7 (7-17) mg/dL Creatinine 0.4 L (0.6-1.2) mg/dL Glucose 199 H (65-100) mg/dL Calcium 8.9 (8.4-10.2) mg/dL Adrenal panel 11/21/19 Range/Units 09:05 Sodium 135 L (137-145) mmol/L Potassium 4.4 (3.6-5.0) mmol/L Chloride 100.8 (98-107) mmol/L Carbon Dioxide 21 L (22-30) mmol/L BUN 7 (7-17) mg/dL Creatinine 0.4 L (0.6-1.2) mg/dL Glucose 199 H (65-100) mg/dL Calcium 8.9 (8.4-10.2) mg/dL Total Bilirubin 0.20 (0.1-1.2) mg/dL AST 12 (5-40) units/L ALT 12 (7-56) units/L Alkaline Phosphatase 76 (35-129) units/L Total Protein 6.3 (6.3-8.2) g/dL Albumin 3.3 L (3.9-5) g/dL - Imaging CT scan - abdomen: report reviewed, image reviewed CT scan - pelvis: report reviewed, image reviewed Assessment and Plan 64-year-old female with abdominal pain, history of multiple abdominal surgeries Patient is stable. Her CT scan abdomen and pelvis was reviewed with radiologist Dr. Villa -very mildly dilated small bowel loops up to 2.8 cm in diameter in the right lower quadrant without surrounding inflammation. The colon is filled with air and stool. There is no mesenteric swirling or pathology at the Alexandra-en-Y anastomoses. Plan: 1. start CLD 2. IVF 3. prn pain control 4. prn nausea control 5. PPI IV - Pt with hx of gastric ulcers, now with smoking for last 1 year, making her high risk for ulcers. 6. Smoking cessation discussed with patient Further recommendations pending clinical course. Thank you for this consultation. Please call with any questions or concerns. Evaluation and treatment of this patient was during the time of the national and state emergency arising from COVID19 coronavirus pandemic. Treatment and procedures performed meet the current and available best practice and guidelines for patient during the COVID pandemic.
[2019-11-21] MEDS: PANTOPRAZOLE 40 MG INJ IV SCH (20:17)
[2019-11-21] MEDS: amLODIPine 10 MG TAB PO SCH (22:44)
[2019-11-22] MEDS: ACETAMINOPHEN 325 MG TAB PO PRN (01:41)
[2019-11-22] MEDS: D5W/0.9% NACL 1,000 ML IV SCH ×2 (01:46→09:10)
[2019-11-22 06:30] LABS: Basophils # (Auto) 0.1 K/mm3 (0.0-0.1); Basophils % (Auto) 1.1 % (0.0-1.8); Eosinophils # (Auto) 0.1 K/mm3 (0.0-0.4); Eosinophils % (Auto) 2.1 % (0.0-4.3); Hematocrit 31.7 % (30.3-42.9); Hemoglobin 11.2 gm/dl (10.1-14.3); Lymphocytes # (Auto) 1.7 K/mm3 (1.2-5.4); Lymphocytes % (Auto) 28.3 % (13.4-35.0); Mean Corpuscular HGB Conc 35 % (30-34); Mean Corpuscular Volume 92 fl (79-97); Monocytes # (Auto) 0.5 K/mm3 (0.0-0.8); Monocytes % (Auto) 7.9 % (0.0-7.3); Platelet Count 271 K/mm3 (140-440); Red Blood Count 3.44 M/mm3 (3.65-5.03); Red Cell Distribution Width 12.8 % (13.2-15.2)
[2019-11-22 06:38] LABS: Alanine Aminotransferase 14 units/L (7-56); Albumin 3.3 g/dL (3.9-5); BUN/Creatinine Ratio 13; Blood Urea Nitrogen 5 mg/dL (7-17); Calcium 8.5 mg/dL (8.4-10.2); Hemolysis Index 10
[2019-11-22] MEDS: ONDANSETRON 4 MG/2 ML INJ IV PRN ×2 (09:10→22:25)
[2019-11-22] MEDS: PANTOPRAZOLE 40 MG INJ IV SCH ×2 (09:12→22:13)
[2019-11-22] MEDS ORDERED: HYDROmorphone 1 MG/1 ML INJ IV ONE (09:30)
--- NOTE | 2019-11-22 10:15 | Progress Note ---
Assessment and Plan 64 yo F with abdominal pain Pt stable. Having BMs and passing flatus. Ct reviewed - no bowel obstruction. Pt with hx of gastric bypass and is a persistent smoker. Plan: 1. CLD 2. PPI 3. GI consult. Pt high risk for ulcer disease considering smoking and hx of RNYGB 4. prn pain and nausea control Further recs pending clinical course. Thank you, please call with questions. Subjective Date of service: 11/22/19 Narrative: Pt seen and examined. States she tolerated a clear liquid diet. However, she still c/o nausea. She is now having pain on the left side of her abdomen which does not radiate, stabbing in nature. Pain seems to improve with dilaudid. No f/c. She is having Bms and passing flatus. Patient was found to be smoking in her room last night. Objective Vital Signs - 12hr 11/21/19 11/22/19 11/22/19 23:18 00:37 05:13 Temperature 98.9 F 98.7 F Pulse Rate 87 100 H Pulse Rate [ 81 Right Brachial] Respiratory 18 18 18 Rate Blood Pressure 153/64 166/76 O2 Sat by Pulse 98 96 97 Oximetry 11/22/19 07:09 Temperature 98.6 F Pulse Rate 97 H Pulse Rate [ Right Brachial] Respiratory 18 Rate Blood Pressure 178/77 O2 Sat by Pulse 99 Oximetry - General physical appearance Narrative Exam: Gen: AAOx3. NAD ENT: poor dentition CV: S1, S2+ Resp: even and unlabored Abd: soft, ND, + LUQ TTP. No r/r/g. Well healed surgical scars Ext: no c/c/e - Labs 11/22/19 05:32 11/22/19 05:32 Diabetes panel 11/21/19 11/22/19 Range/Units 09:05 05:32 Sodium 135 L 137 (137-145) mmol/L Potassium 4.4 4.0 (3.6-5.0) mmol/L Chloride 100.8 101.4 (98-107) mmol/L Carbon Dioxide 21 L 25 (22-30) mmol/L BUN 7 5 L (7-17) mg/dL Creatinine 0.4 L 0.4 L (0.6-1.2) mg/dL Glucose 199 H 188 H (65-100) mg/dL Calcium 8.9 8.5 (8.4-10.2) mg/dL AST 12 13 (5-40) units/L ALT 12 14 (7-56) units/L Alkaline Phosphatase 76 72 (35-129) units/L Total Protein 6.3 5.6 L (6.3-8.2) g/dL Albumin 3.3 L 3.3 L (3.9-5) g/dL Calcium panel 11/21/19 11/22/19 Range/Units 09:05 05:32 Calcium 8.9 8.5 (8.4-10.2) mg/dL Albumin 3.3 L 3.3 L (3.9-5) g/dL Pituitary panel 11/21/19 11/22/19 Range/Units 09:05 05:32 Sodium 135 L 137 (137-145) mmol/L Potassium 4.4 4.0 (3.6-5.0) mmol/L Chloride 100.8 101.4 (98-107) mmol/L Carbon Dioxide 21 L 25 (22-30) mmol/L BUN 7 5 L (7-17) mg/dL Creatinine 0.4 L 0.4 L (0.6-1.2) mg/dL Glucose 199 H 188 H (65-100) mg/dL Calcium 8.9 8.5 (8.4-10.2) mg/dL Adrenal panel 11/21/19 11/22/19 Range/Units 09:05 05:32 Sodium 135 L 137 (137-145) mmol/L Potassium 4.4 4.0 (3.6-5.0) mmol/L Chloride 100.8 101.4 (98-107) mmol/L Carbon Dioxide 21 L 25 (22-30) mmol/L BUN 7 5 L (7-17) mg/dL Creatinine 0.4 L 0.4 L (0.6-1.2) mg/dL Glucose 199 H 188 H (65-100) mg/dL Calcium 8.9 8.5 (8.4-10.2) mg/dL Total Bilirubin 0.20 0.30 (0.1-1.2) mg/dL AST 12 13 (5-40) units/L ALT 12 14 (7-56) units/L Alkaline Phosphatase 76 72 (35-129) units/L Total Protein 6.3 5.6 L (6.3-8.2) g/dL Albumin 3.3 L 3.3 L (3.9-5) g/dL
[2019-11-22] MEDS ORDERED: HYDROmorphone 1 MG/1 ML INJ IV STA (10:35)
[2019-11-22] MEDS: amLODIPine 10 MG TAB PO SCH (10:47)
[2019-11-22] MEDS: INSULIN LISPRO 100 UNIT/ML VIAL 3 mL SUB-Q SCH ×3 (10:47→17:18)
[2019-11-22] MEDS: SUCRALFATE 1 GM/10 ML ORAL LIQD PO SCH ×2 (12:47→17:17)
--- NOTE | 2019-11-22 13:58 | Gastroenterology Consultation ---
History of Present Illness - Reason for Consult Consult date: 11/22/19 Abdominal pain Requesting physician: ADITI ISABEL - History of Present Illness Is a pleasant 64-year-old female who presents for abdominal pain She reports for the last few days she has been having abdominal pain which is severe, sharp, constant, worse with eating and palpation, better with nothing, located in the upper/right upper quadrant as well as mid abdomen, nonradiating, associate with nausea but no vomiting denies fevers chills diarrhea and no abdominal distention. Of note patient is a smoker and has a history gastric surgery and reports a history of peptic ulcer disease Obtained/updated/reviewed patient's current medications Past History Past Medical History: diabetes, other (Peptic ulcer disease) Past Surgical History: bowel surgery, Other Social history: smoking Family history: no significant family history Medications and Allergies Allergies Allergy/AdvReac Type Severity Reaction Status Date / Time No Known Allergies Allergy Verified 03/25/19 15:18 Home Medications Medication Instructions Recorded Confirmed Last Taken Type Insulin Glargine [Lantus VIAL] 30 units SUB-Q QHS #1 vial 10/17/18 10/25/18 Unknown Rx Lispro Insulin [HumaLOG] 5 unit SUB-Q AC #1 vial 10/17/18 10/25/18 Unknown Rx Acetaminophen [Non-Aspirin Extra 500 mg PO Q6HR PRN #30 tablet 10/25/18 Unknown Rx Strength] Ibuprofen [Motrin] 600 mg PO Q8H PRN #30 tablet 10/25/18 Unknown Rx polyethylene glycoL 3350 [Miralax 17 gm PO QDAY #30 packet 10/25/18 Unknown Rx 3350] Acetaminophen/Codeine [Tylenol 1 tab PO Q4HR PRN #12 tablet 06/02/19 Unknown Rx /Codeine # 3 tab] Ondansetron [Zofran ODT TAB] 4 mg PO Q8HR PRN #20 tab.rapdis 06/02/19 Unknown Rx Active Meds: Active Medications Acetaminophen (Tylenol) 650 mg PO Q4H PRN PRN Reason: Pain MILD(1-3)/Fever >100.5/LEONG Last Admin: 11/22/19 01:41 Dose: 650 mg Documented by: Amlodipine Besylate (Amlodipine) 10 mg PO QDAY GETACHEW Last Admin: 11/22/19 10:47 Dose: 10 mg Documented by: Dextrose (D50w (25gm) Syringe) 50 ml IV Q30MIN PRN; Protocol PRN Reason: Hypoglycemia Hydromorphone HCl (Dilaudid) 0.5 mg IV Q3H PRN PRN Reason: Pain , Severe (7-10) Dextrose/Sodium Chloride (D5ns) 1,000 mls @ 125 mls/hr IV DIRECT [facility] Last Admin: 11/22/19 09:10 Dose: 125 mls/hr Documented by: Insulin Human Lispro (Humalog) 0 unit SUB-Q AC [facility]; Protocol Last Admin: 11/22/19 12:51 Dose: Not Given Documented by: Ondansetron HCl (Zofran) 4 mg IV Q8H PRN PRN Reason: Nausea And Vomiting Last Admin: 11/22/19 09:10 Dose: 4 mg Documented by: Pantoprazole Sodium (Protonix) 40 mg IV QDAY [facility] Last Admin: 11/22/19 09:12 Dose: 40 mg Documented by: Prochlorperazine Edisylate (Compazine) 5 mg IV Q6H PRN PRN Reason: Nausea And Vomiting Last Admin: 11/21/19 15:53 Dose: 5 mg Documented by: Sodium Chloride (Sodium Chloride Flush Syringe 10 Ml) 10 ml IV BID [facility] Last Admin: 11/22/19 10:51 Dose: 10 ml Documented by: Sodium Chloride (Sodium Chloride Flush Syringe 10 Ml) 10 ml IV PRN PRN PRN Reason: LINE FLUSH Sucralfate (Carafate) 1 gm PO Q6HR [facility] Last Admin: 11/22/19 12:47 Dose: 1 gm Documented by: Review of Systems - Review of Systems All systems: negative (10 Systems reviewed and negative except as mentioned above in the history of present illness) Exam - Constitutional Vital Signs: Temp Pulse Resp BP Pulse Ox 98.0 F 81 18 138/64 98 11/22/19 11:09 11/22/19 11:09 11/22/19 11:18 11/22/19 11:09 11/22/19 11:09 General appearance: no acute distress - EENT Eyes: EOM intact ENT: hearing intact - Neck Neck: supple - Respiratory Respiratory effort: normal - Cardiovascular Rhythm: regular - Gastrointestinal General gastrointestinal: Present: soft, tender - Integumentary Integumentary: Present: dry - Musculoskeletal Musculoskeletal: normal - Neurologic Neurological: alert and oriented x3 - Psychiatric Psychiatric: appropriate mood/affect - Labs CBC & Chem 7: 11/22/19 05:32 11/22/19 05:32 Lab Results: Laboratory Results - last 24 hr 11/21/19 11/21/19 11/22/19 16:12 22:23 05:32 WBC 6.0 RBC 3.44 L Hgb 11.2 Hct 31.7 MCV 92 MCH 33 H MCHC 35 H RDW 12.8 L Plt Count 271 Lymph % (Auto) 28.3 [place] % (Auto) 7.9 H Eos % (Auto) 2.1 Baso % (Auto) 1.1 Lymph # 1.7 [place] # 0.5 Eos # 0.1 Baso # 0.1 Seg Neutrophils % 60.6 Seg Neutrophils # 3.6 Sodium Potassium Chloride Carbon Dioxide Anion Gap BUN Creatinine Estimated GFR BUN/Creatinine Ratio Glucose POC Glucose 137 H 173 H Calcium Total Bilirubin AST ALT Alkaline Phosphatase Total Protein Albumin Albumin/Globulin Ratio 11/22/19 11/22/19 05:32 07:23 WBC RBC Hgb Hct MCV MCH MCHC RDW Plt Count Lymph % (Auto) [place] % (Auto) Eos % (Auto) Baso % (Auto) Lymph # [place] # Eos # Baso # Seg Neutrophils % Seg Neutrophils # Sodium 137 Potassium 4.0 Chloride 101.4 Carbon Dioxide 25 Anion Gap 15 BUN 5 L Creatinine 0.4 L Estimated GFR > 60 BUN/Creatinine Ratio 13 Glucose 188 H POC Glucose 206 H Calcium 8.5 Total Bilirubin 0.30 AST 13 ALT 14 Alkaline Phosphatase 72 Total Protein 5.6 L Albumin 3.3 L Albumin/Globulin Ratio 1.4 Assessment and Plan Given physical exam it is not classic for bowel obstruction and she has multiple risk factors for peptic ulcer disease agree with further evaluation with upper endoscopy given severity patient symptoms. We will arrange next available In meantime continue proton pump inhibitor - Patient Problems (1) Upper abdominal pain Current Visit: Yes Status: Acute (2) Epigastric abdominal pain Current Visit: Yes Status: Acute (3) History of gastric bypass Current Visit: Yes Status: Acute
[2019-11-22] MEDS ORDERED: LIDOCAINE MPF (2%) 20 MG/1 ML VIAL 5 ML ONE (15:00)
--- NOTE | 2019-11-22 15:04 | Anesthesia Consultation ---
Anesthesia Consult and Med Hx Date of service: 11/22/19 - Airway Anesthetic Teeth Evaluation: Poor ROM Head & Neck: Adequate Mental/Hyoid Distance: Adequate Mallampati Class: Class II Intubation Access Assessment: Probably Good - Pulmonary Exam CTA: Yes - Cardiac Exam Cardiac Exam: RRR - Pre-Operative Health Status ASA Pre-Surgery Classification: ASA3 Proposed Anesthetic Plan: MAC - Pulmonary Hx Smoking: Yes (quit for 25yrs then restarted recently <1/2PPD) Hx Respiratory Symptoms: No - Cardiovascular System Hx Hypertension: Yes (received amlodipine today) Hx Heart Attack/AMI: No Hx Percutaneous Transluminal Coronary Angioplasty (PTCA): No Hx Cardia Arrhythmia: No - Central Nervous System CVA: No Hx Psychiatric Problems: Yes - Gastrointestinal Hx Ulcer: Yes Hx Gastroesophageal Reflux Disease: Yes - Endocrine Hx Renal Disease: No Hx Liver Disease: No Hx Non-Insulin Dependent Diabetes: Yes Hx Thyroid Disease: No - Hematic Hx Anemia: Yes - Other Systems Hx Obesity: No - Additional Comments Anesthesia Medical History Comments: No hx anesthetic complications.
--- NOTE | 2019-11-22 15:04 | Anesthesia Day of Surgery ---
Anesthesia Day of Surgery - Day of Surgery Patient Examined: Yes Patient H&P Reviewed: Yes Patient is NPO: Yes
[2019-11-22] MEDS ORDERED: SODIUM CHLORIDE 0.9% 1000 ML 1,000 ML ONE (15:09)
[2019-11-22] MEDS ORDERED: MIDAZOLAM 2 MG/2 ML INJ ONE (15:23)
[2019-11-22] MEDS ORDERED: fentaNYL 100 MCG/2 ML INJ ONE (15:23)
[2019-11-22] MEDS ORDERED: propofoL 200 MG/20 ML VIAL IV ONE (15:35)
--- NOTE | 2019-11-22 15:51 | Operative Report ---
Operative Report Operative Report: DOS: 11/22/19 SURGEON: Cristofer Scott MD EGD REPORT PREOPERATIVE DIAGNOSIS and POSTOPERATIVE DIAGNOSIS: Abdominal pain ESTIMATED BLOOD LOSS: None DESCRIPTION OF PROCEDURE: A high-resolution EGD scope was passed through the oropharynx, esophagus, stomach, and second portion of duodenum. The scope was carefully withdrawn. Retroflexion was performed in the stomach. At the end of the procedure, the scope was cleaned using normal technique. Vital signs monitored continuously throughout. SEDATION: Provided by Anesthesiology Services. COMPLICATIONS: None. FINDINGS: * Anatomy consistent with history of gastric bypass surgery * Visualized small bowel normal with no abnormalities * Gastroenteric anastomosis healthy with no ulcers. A single visible suture was present with some mild surrounding irritation otherwise normal * Gastric remnant was normal with no ulcers and no significant gastritis * Irregular Z line 41 cm in the incisors * Remainder of exam was unremarkable RECOMMENDATIONS: * Resume clear liquid diet and supportive care will reassess patient in the morning * No peptic ulcer disease as source of patient's symptoms may be simple enteritis versus less likely adhesion related process but clinically patient is not obstructed * Patient is already status post cholecystectomy and LFTs normal so biliary source unlikely
--- NOTE | 2019-11-22 17:43 | Post Anesthesia Evaluation ---
- Post Anesthesia Evaluation Patient Participated: Yes Airway Patent: Yes Stable Respiratory Function: Yes Nausea/Vomiting: No Temp > 96.8F: Yes Pain Manageable: Yes Adequeate Hydration: Yes Anesthesia Complications: No
--- NOTE | 2019-11-22 18:02 | Progress Note ---
Assessment and Plan Day #2 (1) Small bowel obstruction Current Visit: Yes Status: Acute Plan to address problem: She is tolerating liquid. Will continue clear liquid diet for now If she vomits, will place NG tube and make NPO Surgery consulted. Patient had bariatric surgery in the past Patient does not know who the bariatric surgeon was or weight that she had the bariatric surgery. (2) Diabetes Current Visit: Yes Status: Acute Plan to address problem: Lispro sliding scale for now (3) Hypertension Current Visit: Yes Status: Acute Plan to address problem: She is not sure about her medications. Called her contact Macario on [phone] and did not get a response Will start her on amlodipine for now (4) DVT prophylaxis Current Visit: Yes Status: Acute Plan to address problem: Heparin Subjective Date of service: 11/22/19 Principal diagnosis: Small bowel obstruction Interval history: 64 year-old female with a past medical history of diabetes on insulin and pills, hypertension, depression, lupus, previous gastric bypass, appendectomy, and cholecystectomy presents to the hospital complains of 1 week of mid abdominal pain, nausea and vomiting with decreased food intake. She complains of having generalized weakness. Pain is in the mid to lower abdomen described as a constant sharp stabbing pain with periods of dull aching that fluctuates in intensity. Pain is a 10/10 in intensity at times. She denies fever, diarrhea, or dysuria. Patient has not able to check her glucose levels because she does not have a glucometer. Patient denies previous history of bowel obstruction. Patient continues to be in abdominal pain and nauseous Objective - Constitutional Vitals: Vital Signs - 12hr 11/22/19 11/22/19 11/22/19 07:09 11:09 11:18 Temperature 98.6 F 98.0 F Pulse Rate 97 H 81 Respiratory 18 18 18 Rate Blood Pressure 178/77 138/64 O2 Sat by Pulse 99 98 Oximetry 11/22/19 11/22/19 11/22/19 14:45 15:39 15:45 Temperature 97.7 F 97.8 F Pulse Rate 92 H 67 68 Respiratory 22 20 21 Rate Blood Pressure 173/81 143/59 110/59 O2 Sat by Pulse 97 100 100 Oximetry 11/22/19 11/22/19 16:00 16:11 Temperature 98.4 F Pulse Rate 78 89 Respiratory 15 19 Rate Blood Pressure 117/58 153/71 O2 Sat by Pulse 96 84 Oximetry General appearance: Present: no acute distress, well-nourished - EENT Eyes: PERRL, EOM intact ENT: hearing intact, clear oral mucosa Ears: bilateral: normal - Neck Neck: supple, normal ROM - Respiratory Respiratory effort: normal Respiratory: bilateral: CTA - Breasts Breasts: normal - Cardiovascular Heart rate: 78 Rhythm: regular Heart Sounds: Present: S1 & S2. Absent: gallop, rub Extremities: pulses intact, No edema, normal color, Full ROM - Gastrointestinal General gastrointestinal: Present: soft, non-tender, non-distended, normal bowel sounds - Genitourinary Female genitourinary: normal - Integumentary Integumentary: clear, warm, dry - Musculoskeletal Musculoskeletal: 1, strength equal bilaterally - Neurologic Neurologic: moves all extremities - Psychiatric Psychiatric: memory intact, appropriate mood/affect, intact judgment & insight - Labs CBC & Chem 7: 11/25/19 09:51 11/25/19 09:51 Labs: Abnormal lab results 11/21/19 11/22/19 11/22/19 Range/Units 22:23 05:32 05:32 RBC 3.44 L (3.65-5.03) M/mm3 MCH 33 H (28-32) pg MCHC 35 H (30-34) % RDW 12.8 L (13.2-15.2) % Forrest % (Auto) 7.9 H (0.0-7.3) % BUN 5 L (7-17) mg/dL Creatinine 0.4 L (0.6-1.2) mg/dL Glucose 188 H (65-100) mg/dL POC Glucose 173 H (70-105) Total Protein 5.6 L (6.3-8.2) g/dL Albumin 3.3 L (3.9-5) g/dL 11/22/19 Range/Units 07:23 RBC (3.65-5.03) M/mm3 MCH (28-32) pg MCHC (30-34) % RDW (13.2-15.2) % Forrest % (Auto) (0.0-7.3) % BUN (7-17) mg/dL Creatinine (0.6-1.2) mg/dL Glucose (65-100) mg/dL POC Glucose 206 H (70-105) Total Protein (6.3-8.2) g/dL Albumin (3.9-5) g/dL HEART Score - HEART Score Troponin: Troponin T < 0.010 ng/mL (0.00-0.029) 11/21/19 09:05
[2019-11-22] MEDS: SODIUM CHLORIDE 0.9% 1000 ML 1,000 ML IV SCH (22:13)
[2019-11-22] MEDS: HYDROmorphone 1 MG/1 ML INJ IV PRN (22:25)
[2019-11-23] MEDS: SUCRALFATE 1 GM/10 ML ORAL LIQD PO SCH ×5 (00:54→23:30)
[2019-11-23] MEDS: HYDROmorphone 1 MG/1 ML INJ IV PRN ×3 (04:36→23:30)
[2019-11-23] MEDS: PROCHLORPERAZINE EDISYLATE 10 MG/2 ML VIAL IV PRN (04:37)
[2019-11-23] MEDS: PANTOPRAZOLE 40 MG INJ IV SCH ×3 (05:40→18:32)
[2019-11-23 06:35] LABS: Basophils % (Auto) 0.2 % (0.0-1.8); Eosinophils # (Auto) 0.1 K/mm3 (0.0-0.4); Eosinophils % (Auto) 2.3 % (0.0-4.3); Hematocrit 32.8 % (30.3-42.9); Hemoglobin 11.7 gm/dl (10.1-14.3); Lymphocytes # (Auto) 1.7 K/mm3 (1.2-5.4); Lymphocytes % (Auto) 28.1 % (13.4-35.0); Mean Corpuscular HGB Conc 36 % (30-34); Mean Corpuscular Volume 92 fl (79-97); Monocytes # (Auto) 0.4 K/mm3 (0.0-0.8); Monocytes % (Auto) 7.5 % (0.0-7.3); Platelet Count 286 K/mm3 (140-440); Red Blood Count 3.58 M/mm3 (3.65-5.03); Red Cell Distribution Width 12.9 % (13.2-15.2)
[2019-11-23 06:59] LABS: Alanine Aminotransferase 15 units/L (7-56); Albumin 3.5 g/dL (3.9-5); Blood Urea Nitrogen 4 mg/dL (7-17); Calcium 8.8 mg/dL (8.4-10.2); Hemolysis Index 5
[2019-11-23 07:07] LABS: BUN/Creatinine Ratio 8
[2019-11-23] MEDS: INSULIN LISPRO 100 UNIT/ML VIAL 3 mL SUB-Q SCH ×3 (08:22→17:53)
--- NOTE | 2019-11-23 10:45 | Gastroenterology Progress Note ---
Assessment and Plan Unclear etiology for the patient's symptoms as no source on EGD yesterday Given pain is focused in the right upper quadrant even though LFT and CT were negative will order right upper quadrant ultrasound to ensure no evidence for biliary obstruction to be thorough Also in differential diagnosis is progressing ileus/partial obstruction that is not apparent on PE, so will order acute abdominal series In the meantime regarding patient's pain that is uncontrolled we will add on baclofen in case there is a functional component - Patient Problems (1) Upper abdominal pain Current Visit: Yes Status: Acute (2) Epigastric abdominal pain Current Visit: Yes Status: Acute (3) History of gastric bypass Current Visit: Yes Status: Acute Subjective Date of service: 11/23/19 Principal diagnosis: abd pain Interval history: Patient reports still having severe abdominal pain right upper quadrant radiating to the entire belly associated with nausea constant severe worse with eating and palpation better with nothing duration days stable Objective - Constitutional Vitals: Temp Pulse Resp BP Pulse Ox 98.6 F 76 18 144/74 100 11/23/19 07:00 11/23/19 07:00 11/23/19 07:00 11/23/19 07:00 11/23/19 07:00 General appearance: other (Mildly uncomfortable) - EENT Eyes: EOM intact ENT: hearing intact - Neck Neck: supple - Respiratory Respiratory effort: normal - Gastrointestinal General gastrointestinal: Present: tender - Labs CBC & Chem 7: 11/23/19 06:04 11/23/19 06:04 Labs: Laboratory Results - last 24 hr 11/22/19 11/22/19 11/23/19 16:24 21:30 06:04 WBC 6.0 RBC 3.58 L Hgb 11.7 Hct 32.8 MCV 92 MCH 33 H MCHC 36 H RDW 12.9 L Plt Count 286 Lymph % (Auto) 28.1 Walton % (Auto) 7.5 H Eos % (Auto) 2.3 Baso % (Auto) 0.2 Lymph # 1.7 Walton # 0.4 Eos # 0.1 Baso # 0.0 Seg Neutrophils % 61.9 Seg Neutrophils # 3.7 Sodium Potassium Chloride Carbon Dioxide Anion Gap BUN Creatinine Estimated GFR BUN/Creatinine Ratio Glucose POC Glucose 134 H 165 H Calcium Total Bilirubin AST ALT Alkaline Phosphatase Total Protein Albumin Albumin/Globulin Ratio 09/16/20 06:04 WBC RBC Hgb Hct MCV MCH MCHC RDW Plt Count Lymph % (Auto) Walton % (Auto) Eos % (Auto) Baso % (Auto) Lymph # Walton # Eos # Baso # Seg Neutrophils % Seg Neutrophils # Sodium 137 Potassium 3.8 Chloride 100.4 Carbon Dioxide 26 Anion Gap 14 BUN 4 L Creatinine 0.5 L Estimated GFR > 60 BUN/Creatinine Ratio 8 Glucose 144 H POC Glucose Calcium 8.8 Total Bilirubin 0.30 AST 14 ALT 15 Alkaline Phosphatase 87 Total Protein 6.3 Albumin 3.5 L Albumin/Globulin Ratio 1.3
--- NOTE | 2019-11-23 13:17 | XRay Report ---
ABDOMEN 2 VIEW(S) INDICATION / CLINICAL INFORMATION: abd pain. COMPARISON: Multiple previous CTs of the abdomen and pelvis FINDINGS: TUBES / LINES: None. BOWEL GAS PATTERN: No significant abnormality. Slightly prominent loops of jejunum in the left upper quadrant that previous to jejunal anastomosis is noted and unchanged since previous exam. Slightly pr ominent distal small bowel loops have resolved. There is normal gas throughout the colon. No convinci ng obstructive pattern is appreciated. FREE AIR / EXTRALUMINAL GAS: None seen. ADDITIONAL FINDINGS: No significant additional findings. IMPRESSION: No significant abnormality. Signer Name: Gaston Villa Jr, MD Signed: 11/23/2019 1:13 PM Workstation Name: [id number]
--- NOTE | 2019-11-23 13:38 | Progress Note ---
Assessment and Plan 64 yo F with abdominal pain, history of Alexandra-en-Y gastric bypass Patient with persistent pain. EGD yesterday was unremarkable. Reviewed abdominal x-ray done today along with a CT scan of the abdomen and pelvis from 2019 independently and with in-house radiologist Dr. Villa. 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 She does have mild dilatation of the s mall bowel proximal to that anastomosis without evidence of obstruction. Plan: 1. CLD 2. PPI 3. It is likely that the patient has been having transient deception at the JJ anastomosis of her Alexandra-en-Y gastric bypass. This is likely causing her pain. As the pain has not resolved, recommend transfer to facility with bariatric surgery to evaluate the patient for a exploration and possible revision of her anastomosis. 4. GI recommendations appreciated Discussed with Dr. Aldana who will start the transfer process. Patient notified of recommendations. Patient asked me to call her friends in the building that she lives in as she has no NOK. I called Mr. Macario Murphy at the number listed in [employer] as patient does not have the phone number on hand. The phone number is nonfunctional. Thank you, please call with questions. Subjective Date of service: 11/23/19 Narrative: Patient seen and examined. States that her pain is persistent, sharp, localized to the upper abdomen. It starts in the periumbilical area and then radiates across bilateral upper quadrants. The pain is quite severe at times. She has not had any vomiting but complains of persistent nausea. However she is tolerating small portions of the clear liquid diet. No fevers or chills. Complains of a headache. Objective Vital Signs - 12hr 11/23/19 11/23/19 11/23/19 04:22 07:00 11:14 Temperature 98.2 F 98.6 F 98.2 F Pulse Rate 94 H 76 100 H Respiratory 16 18 20 Rate Blood Pressure 157/78 144/74 Blood Pressure 144/86 [Left] O2 Sat by Pulse 100 100 98 Oximetry - General physical appearance Narrative Exam: Gen.: Awake, alert, oriented 3. In moderate distress due to pain ENT: Trachea midline. No lymphadenopathy. No scleral icterus or conjunctival pallor CV: S1, S2 present Respiratory: No audible wheezes Abdomen: Soft, nondistended, tenderness to palpation in the left upper quadrant periumbilical area and right upper quadrant. Positive voluntary guardin, no rebound, rigidity. Well-healed surgical scars Extremities: No clubbing, cyanosis, edema - Labs 11/23/19 06:04 11/23/19 06:04 Diabetes panel 11/23/19 Range/Units 06:04 Sodium 137 (137-145) mmol/L Potassium 3.8 (3.6-5.0) mmol/L Chloride 100.4 (98-107) mmol/L Carbon Dioxide 26 (22-30) mmol/L BUN 4 L (7-17) mg/dL Creatinine 0.5 L (0.6-1.2) mg/dL Glucose 144 H (65-100) mg/dL Calcium 8.8 (8.4-10.2) mg/dL AST 14 (5-40) units/L ALT 15 (7-56) units/L Alkaline Phosphatase 87 (35-129) units/L Total Protein 6.3 (6.3-8.2) g/dL Albumin 3.5 L (3.9-5) g/dL Calcium panel 11/23/19 Range/Units 06:04 Calcium 8.8 (8.4-10.2) mg/dL Albumin 3.5 L (3.9-5) g/dL Pituitary panel 11/23/19 Range/Units 06:04 Sodium 137 (137-145) mmol/L Potassium 3.8 (3.6-5.0) mmol/L Chloride 100.4 (98-107) mmol/L Carbon Dioxide 26 (22-30) mmol/L BUN 4 L (7-17) mg/dL Creatinine 0.5 L (0.6-1.2) mg/dL Glucose 144 H (65-100) mg/dL Calcium 8.8 (8.4-10.2) mg/dL Adrenal panel 11/23/19 Range/Units 06:04 Sodium 137 (137-145) mmol/L Potassium 3.8 (3.6-5.0) mmol/L Chloride 100.4 (98-107) mmol/L Carbon Dioxide 26 (22-30) mmol/L BUN 4 L (7-17) mg/dL Creatinine 0.5 L (0.6-1.2) mg/dL Glucose 144 H (65-100) mg/dL Calcium 8.8 (8.4-10.2) mg/dL Total Bilirubin 0.30 (0.1-1.2) mg/dL AST 14 (5-40) units/L ALT 15 (7-56) units/L Alkaline Phosphatase 87 (35-129) units/L Total Protein 6.3 (6.3-8.2) g/dL Albumin 3.5 L (3.9-5) g/dL
[2019-11-23] MEDS: BACLOFEN 10 MG TAB PO SCH ×2 (14:16→21:18)
[2019-11-23] MEDS: amLODIPine 10 MG TAB PO SCH (14:17)
[2019-11-23] MEDS ORDERED: LORazepam 2 MG/ML VIAL IV PRN (20:08)
[2019-11-23] MEDS: ONDANSETRON 4 MG/2 ML INJ IV PRN (23:30)
[2019-11-24] MEDS: HYDROmorphone 1 MG/1 ML INJ IV PRN (05:41)
[2019-11-24] MEDS: SUCRALFATE 1 GM/10 ML ORAL LIQD PO SCH ×4 (05:43→23:30)
[2019-11-24] MEDS: PANTOPRAZOLE 40 MG INJ IV SCH (06:04)
--- NOTE | 2019-11-24 07:36 | Progress Note ---
Assessment and Plan (1) Small bowel obstruction Current Visit: Yes Status: Acute Plan to address problem: Patient continues to be in pain Surgery follow-up appreciated Patient is transferred to [facility] system for further care of her bariatric surgery problem Dr. Dela Cruz is out of town for active duty with the bariatric surgeon in the [facility] (2) Diabetes Current Visit: Yes Status: Acute Plan to address problem: Lispro sliding scale for now (3) Hypertension Current Visit: Yes Status: Acute Plan to address problem: She is not sure about her medications. Called her contact Macario on [phone] and did not get a response Will start her on amlodipine for now (4) DVT prophylaxis Current Visit: Yes Status: Acute Plan to address problem: Heparin Subjective Date of service: 11/23/19 Principal diagnosis: abd pain Interval history: 64 year-old female with a past medical history of diabetes on insulin and pills, hypertension, depression, lupus, previous gastric bypass, appendectomy, and cholecystectomy presents to the hospital complains of 1 week of mid abdominal pain, nausea and vomiting with decreased food intake. She complains of having generalized weakness. Pain is in the mid to lower abdomen described as a constant sharp stabbing pain with periods of dull aching that fluctuates in intensity. Pain is a 10/10 in intensity at times. She denies fever, diarrhea, or dysuria. Patient has not able to check her glucose levels because she does not have a glucometer. Patient denies previous history of bowel obstruction. Patient continues to be in abdominal pain and nauseous Patient continues to be in pain Patient has intermittent JJ intussusception Patient needs bariatric surgery follow-up Try transferring the patient to [place] but bradycardia is on diversion Objective - Constitutional Vitals: Vital Signs - 12hr 11/23/19 11/24/19 21:21 05:13 Temperature 97.8 F 97.4 F L Pulse Rate 100 H 86 Respiratory 18 18 Rate Blood Pressure 167/73 Blood Pressure 146/75 [Left] O2 Sat by Pulse 98 99 Oximetry General appearance: Present: no acute distress, well-nourished - EENT Eyes: PERRL, EOM intact ENT: hearing intact, clear oral mucosa Ears: bilateral: normal - Neck Neck: supple, normal ROM - Respiratory Respiratory effort: normal Respiratory: bilateral: CTA - Breasts Breasts: normal - Cardiovascular Rhythm: regular Heart Sounds: Present: S1 & S2. Absent: gallop, rub Extremities: pulses intact, No edema, normal color, Full ROM - Gastrointestinal General gastrointestinal: Present: soft, non-tender, non-distended, normal bowel sounds - Genitourinary Female genitourinary: normal - Integumentary Integumentary: clear, warm, dry - Musculoskeletal Musculoskeletal: 1, strength equal bilaterally - Neurologic Neurologic: moves all extremities - Psychiatric Psychiatric: memory intact, appropriate mood/affect, intact judgment & insight - Labs CBC & Chem 7: 11/25/19 09:51 11/25/19 09:51 Labs: Abnormal lab results 11/23/19 11/23/19 11/23/19 Range/Units 07:16 11:39 16:34 POC Glucose 146 H 185 H 168 H (70-105) 11/23/19 Range/Units 23:42 POC Glucose 133 H (70-105) HEART Score - HEART Score Troponin: Troponin T < 0.010 ng/mL (0.00-0.029) 11/21/19 09:05
--- NOTE | 2019-11-24 08:37 | Ultrasound Report ---
LIMITED RUQ ABDOMINAL ULTRASOUND INDICATION: ruq abd pain. COMPARISON: CT abdomen pelvis 11/21/2019. FINDINGS: Pancreas: Visualized portions show no significant abnormality. Abdominal Aorta: No significant abnormality. IVC: No significant abnormality. Liver: The liver measures 12.6 cm in length. No significant abnormality. Normal hepatopedal blood fl ow in the main portal vein. Gallbladder: Surgically absent. Bile ducts: No significant abnormality. Common bile duct measures 6.6 mm. Right kidney: No significant abnormality visualized.. Free fluid: None. Additional Findings: None. IMPRESSION: No abnormality identified.. Signer Name: Gaston Villa Jr, MD Signed: 11/24/2019 8:33 AM Workstation Name: [id number]
--- NOTE | 2019-11-24 09:19 | Gastroenterology Progress Note ---
Assessment and Plan Negative EGD Appreciated Surgery input, patient to be transferred to facility with bariatric service for further management for poss surgical issue - Patient Problems (1) Upper abdominal pain Current Visit: Yes Status: Acute (2) Epigastric abdominal pain Current Visit: Yes Status: Acute (3) History of gastric bypass Current Visit: Yes Status: Acute Subjective Principal diagnosis: abd pain Interval history: Patient reports still having severe abdominal pain right upper quadrant radiating to the entire belly associated with nausea constant severe worse with eating and palpation better with nothing duration days stable, not better with the meds I have given her Xray neg. US read pending Appreciate surgery input Objective - Constitutional Vitals: Temp Pulse Resp BP Pulse Ox 98.3 F 86 18 126/67 98 11/24/19 07:33 11/24/19 07:33 11/24/19 07:33 11/24/19 07:33 11/24/19 07:33 General appearance: mild distress - EENT Eyes: EOM intact - Respiratory Respiratory effort: normal - Cardiovascular Rhythm: regular - Gastrointestinal General gastrointestinal: Present: soft, tender - Labs CBC & Chem 7: 11/23/19 06:04 11/23/19 06:04 Labs: Laboratory Results - last 24 hr 11/23/19 11/23/19 11/23/19 07:16 11:39 15:55 POC Glucose 146 H 185 H Lipase 14 11/23/19 11/23/19 11/24/19 16:34 23:42 07:49 POC Glucose 168 H 133 H 165 H Lipase
[2019-11-24] MEDS: INSULIN LISPRO 100 UNIT/ML VIAL 3 mL SUB-Q SCH ×3 (10:05→17:06)
[2019-11-24] MEDS: BACLOFEN 10 MG TAB PO SCH ×3 (10:07→19:46)
[2019-11-24] MEDS: amLODIPine 10 MG TAB PO SCH (10:07)
[2019-11-24] MEDS ORDERED: LORazepam 1 MG TAB PO PRN (12:43)
[2019-11-24] MEDS: oxyCODONE /ACETAMINOPHEN 5-325MG TAB PO PRN ×2 (13:42→19:46)
--- NOTE | 2019-11-24 16:05 | Progress Note ---
Assessment and Plan (1) Small bowel obstruction Current Visit: Yes Status: Acute Plan to address problem: Transfer initiated to [facility] in [place]. No bariatric surgeon is willing to accept. They want her to go to her original bariatric surgeon. Patient is not aware of her bariatric surgery's name and also the facility at which she got the bariatric surgery. (2) Diabetes Current Visit: Yes Status: Acute Plan to address problem: Lispro sliding scale for now (3) Hypertension Current Visit: Yes Status: Acute Plan to address problem: She is not sure about her medications. Called her contact Macario on [phone] and did not get a response Will start her on amlodipine for now (4) DVT prophylaxis Current Visit: Yes Status: Acute Plan to address problem: Heparin Subjective Date of service: 11/24/19 Principal diagnosis: abd pain Interval history: Transfer initiated to [facility], [place] and with no avail. [place] patient continues to be in pain because of the JJ intussusception which is intermittent in nature. But not in much pain. Pain is about 5 on a scale of 1- 10. Responding to pain medication. Objective - Constitutional Vitals: Vital Signs - 12hr 11/24/19 11/24/19 11/24/19 05:13 07:33 10:07 Temperature 97.4 F L 98.3 F Pulse Rate 86 86 86 Respiratory 18 18 Rate Blood Pressure 167/73 126/67 126/67 O2 Sat by Pulse 99 98 Oximetry 11/24/19 11:06 Temperature 98.7 F Pulse Rate 87 Respiratory 18 Rate Blood Pressure 150/69 O2 Sat by Pulse 98 Oximetry General appearance: Present: no acute distress, well-nourished - EENT Eyes: PERRL, EOM intact ENT: hearing intact, clear oral mucosa Ears: bilateral: normal - Neck Neck: supple, normal ROM - Respiratory Respiratory effort: normal Respiratory: bilateral: CTA - Breasts Breasts: normal - Cardiovascular Heart rate: 78 Rhythm: regular Heart Sounds: Present: S1 & S2. Absent: gallop, rub Extremities: pulses intact, No edema, normal color, Full ROM - Gastrointestinal General gastrointestinal: Present: soft, non-tender, non-distended, normal bowel sounds - Genitourinary Female genitourinary: normal - Integumentary Integumentary: clear, warm, dry - Musculoskeletal Musculoskeletal: 1, strength equal bilaterally - Neurologic Neurologic: moves all extremities - Psychiatric Psychiatric: memory intact, appropriate mood/affect, intact judgment & insight - Labs CBC & Chem 7: 11/25/19 09:51 11/25/19 09:51 Labs: Abnormal lab results 11/23/19 11/23/19 11/24/19 Range/Units 16:34 23:42 07:49 POC Glucose 168 H 133 H 165 H (70-105) 11/24/19 Range/Units 11:22 POC Glucose 224 H (70-105) HEART Score - HEART Score Troponin: Troponin T < 0.010 ng/mL (0.00-0.029) 11/21/19 09:05
[2019-11-24] MEDS: PANTOPRAZOLE 40 MG TAB PO SCH (21:26)
[2019-11-25] MEDS: SUCRALFATE 1 GM/10 ML ORAL LIQD PO SCH ×3 (05:42→18:23)
[2019-11-25] MEDS: oxyCODONE /ACETAMINOPHEN 5-325MG TAB PO PRN ×2 (05:47→16:25)
[2019-11-25] MEDS: BACLOFEN 10 MG TAB PO SCH (08:38)
[2019-11-25] MEDS: INSULIN LISPRO 100 UNIT/ML VIAL 3 mL SUB-Q SCH ×2 (08:39→12:36)
[2019-11-25] MEDS ORDERED: oxyCODONE /ACETAMINOPHEN 5-325MG TAB PO PRN (09:28)
[2019-11-25] MEDS: PANTOPRAZOLE 40 MG TAB PO SCH (10:15)
[2019-11-25] MEDS: ONDANSETRON 4 MG/2 ML INJ IV PRN ×2 (10:15→18:22)
[2019-11-25] MEDS: HYDROmorphone 1 MG/1 ML INJ IV PRN ×2 (10:16→18:22)
--- NOTE | 2019-11-25 10:18 | Progress Note ---
Assessment and Plan 64 yo F with abdominal pain, history of Alexandra-en-Y gastric bypass s/p EGD- unremarkable Pt stable. Tolerating diet, no evidence of obstruction. Pt not accepted for transfer to [facility]. Plan: 1. continue Full liquid diet 2. c/w PPI 3. GI recommendations appreciated 4. prn pain control - continue oral percocet, bentyl 5. Patient will need evaluation by bariatric surgeon for possible exploration and revision of anastamosis. We do not have bariatric surgery available at [facility] at this time. She is not obstructed. If patient's pain is better controlled on oral pain medications, ok to dc and have patient follow up at facility with bariatrics. I have made an appointment to have patient follow up with Bariatric surgery at [place] at next available appt - December 12@830am. Dr Dye[address], [place] [address], [phone] 6. social work consult - pt states she is unable to arrange transportation on her own for doctors appointments 7. smoking cessation D/W Dr. Aldana Thank you, please call with questions. Subjective Date of service: 11/25/19 Narrative: Pt seen and examined. Tolerating full liquid diet. NO n/v. Still c/o abdominal discomfort mainly in upper abdomen. No f/c. States pain is somewhat controlled with pain medications. Objective Vital Signs - 12hr 11/24/19 11/25/19 11/25/19 23:13 05:59 06:55 Temperature 97.5 F L 97.7 F 97.7 F Pulse Rate 87 95 H 84 Respiratory 18 18 18 Rate Blood Pressure 180/81 181/82 170/86 O2 Sat by Pulse 99 97 98 Oximetry - General physical appearance Narrative Exam: Gen: AAOx3. CV: S1, S2+ Resp: even and unlabored Abd: soft, ND, mild TTP in LUQ and epigastrum. No r/r/g Ext: no c/c/e. Multiple scabs and abrasions over b/l UE and LE - Labs 11/23/19 06:04 11/23/19 06:04
[2019-11-25] MEDS: SODIUM CHLORIDE 0.9% 1000 ML 1,000 ML IV SCH (10:19)
[2019-11-25] MEDS: amLODIPine 10 MG TAB PO SCH (10:19)
--- NOTE | 2019-11-25 10:19 | Event Note ---
Date: 11/25/19 Late note: Pt was seen and examined on 11/24/19. Note not charted. Pt was having discomfort in her abdomen, unchanged. No n/v. Tolerating clear liquid diet and asking for something more substantial to eat. No f/c. VSS. Labs unremarkable. Abdominal exam was unchanged. Patient not accepted for transfer to [place] as hospital is on diversion. Dr. Aldana attempted to transfer to [facility].
[2019-11-25 11:10] LABS: Basophils % (Auto) 1.1 % (0.0-1.8); Eosinophils # (Auto) 0.1 K/mm3 (0.0-0.4); Eosinophils % (Auto) 1.8 % (0.0-4.3); Hematocrit 35.2 % (30.3-42.9); Hemoglobin 12.3 gm/dl (10.1-14.3); Lymphocytes % (Auto) 24.8 % (13.4-35.0); Mean Corpuscular HGB Conc 35 % (30-34); Mean Corpuscular Volume 94 fl (79-97); Monocytes # (Auto) 0.4 K/mm3 (0.0-0.8); Monocytes % (Auto) 9.2 % (0.0-7.3); Platelet Count 268 K/mm3 (140-440); Red Blood Count 3.73 M/mm3 (3.65-5.03); Red Cell Distribution Width 13.2 % (13.2-15.2)
[2019-11-25 11:34] LABS: Alanine Aminotransferase 13 units/L (7-56); Albumin 3.2 g/dL (3.9-5); BUN/Creatinine Ratio 10; Blood Urea Nitrogen 4 mg/dL (7-17); Calcium 8.7 mg/dL (8.4-10.2); Hemolysis Index 17
--- NOTE | 2019-11-25 14:24 | Discharge Summary ---
Providers - Providers Date of Admission: 11/23/19 08:10 Date of discharge: 11/25/19 Attending physician: BENITA MULLER 11/21/19 12:17 Consult to Physician [CONS] Urgent Comment: Consulting Provider: ADITI ISABEL Physician Instructions: Reason For Exam: illeus vs sbo 11/22/19 10:46 Consult to Physician [CONS] Routine Comment: Hx gastric bypass Consulting Provider: MANPREET RYAN Physician Instructions: Reason For Exam: LUQ abdominal pain, ?ulcer 11/25/19 10:11 Consult to Case Management [CONS] Routine Services Needed at Discharge: [facility] Notified:: n/a Additional Physician Instructions: needs assistance with making appointments and obtaining transportation to appointments. [facility] Condition: Stable Hospital course: (1) Small bowel obstruction Current Visit: Yes Status: Acute Plan to address problem: She is tolerating liquid. Will continue clear liquid diet for now Patient is intermittent JJ intussusception. Past CAT scan was reviewed. Tried transferring to [facility] and [facility]. The hospitals refused Patient tolerating clear liquids Patient is doing well on pain medications Patient to follow-up with Dr. Dye at [place]. Appointment was made for December 12 at 8:30 AM. Patient to be given information. (2) Diabetes Current Visit: Yes Status: Acute Plan to address problem: Reasonably well-controlled (3) Hypertension Current Visit: Yes Status: Acute Plan to address problem: Blood pressure well controlled (4) DVT prophylaxis Current Visit: Yes Status: Acute Plan to address problem: Heparin Disposition: - TO HOME OR SELFCARE - Discharge Diagnoses (1) Small bowel obstruction Status: Acute (2) History of gastric bypass Status: Chronic Comment: Patient has intermittent JJ intussusception which needs to be resolved by bariatric surgeon Dr. Dela Cruz the bariatric surgeon at [facility] is on active duty. However patient is to be referred to Dr. Dye at [facility]. (3) T2DM (type 2 diabetes mellitus) Status: Acute (4) DVT prophylaxis Status: Acute Core Measure Documentation - Palliative Care Palliative Care/ Comfort Measures: Not Applicable - Core Measures Any of the following diagnoses?: none Exam - Constitutional Vitals: Temp Pulse Resp BP Pulse Ox 98.3 F 89 18 152/79 97 11/25/19 12:48 11/25/19 12:48 11/25/19 12:48 11/25/19 12:48 11/25/19 12:48 General appearance: Present: no acute distress, well-nourished - EENT Eyes: Present: PERRL ENT: hearing intact, clear oral mucosa - Neck Neck: Present: supple, normal ROM - Respiratory Respiratory effort: normal Respiratory: bilateral: CTA - Cardiovascular Heart rate: 78 Rhythm: regular Heart Sounds: Present: S1 & S2. Absent: rub, click - Extremities Extremities: pulses symmetrical, No edema Peripheral Pulses: within normal limits - Abdominal General gastrointestinal: Present: soft, non-tender, non-distended, normal bowel sounds Female genitourinary: Present: normal - Integumentary Integumentary: Present: clear, warm, dry - Musculoskeletal Musculoskeletal: gait normal, strength equal bilaterally - Psychiatric Psychiatric: appropriate mood/affect, intact judgment & insight - Neurologic Neurologic: CNII-XII intact, moves all extremities Plan Activity: no restrictions Diet: clear liquids Care Plan Goals: Patient to follow-up with Dr. Dye bariatric surgeon at [facility] on December 12 at 8:[address] Isabel made an appointment to have patient follow up with Bariatric surgery at [place] at next available appt - December 12@830am. Dr Dye,[address] [place], [place] [address], [phone] Follow up with: PEÑA MODI MD [Primary Care Provider] - 7 Days
[2019-11-25 16:34] VITALS: BP 148/76
== END 2019-11-25 18:20 | disposition home or self-care (01) | DRG 389 ==
LOC: ED 07:53 → 3B-SURG 12:26 → OBSVTOIN 11-23 08:10
PROVIDERS: ADMIT Internal Medicine; ATTEND Internal Medicine
PROC: 0DJ08ZZ Inspection of Upper Intestinal Tract, Via Natural or Artificial Opening Endoscopic (ICD-10-PCS; principal; 2019-11-22)
DX: K56.609 Unspecified intestinal obstruction, unspecified as to partial versus complete obstruction (principal); E87.1 Hypo-osmolality and hyponatremia; Z98.84 Bariatric surgery status; E11.9 Type 2 diabetes mellitus without complications; I10 Essential (primary) hypertension; F32.9 Major depressive disorder, single episode, unspecified; Z90.49 Acquired absence of other specified parts of digestive tract; Z90.710 Acquired absence of both cervix and uterus; M32.9 Systemic lupus erythematosus, unspecified; F17.200 Nicotine dependence, unspecified, uncomplicated; Z79.4 Long term (current) use of insulin
CPT/HCPCS: 36415; 74019; 74177; 76705; 80053; 81001; 82962; 83690; 83735; 84484; 85025; 93005; 96374; 96375; G0378; C9113; J0780; J1170; J2060; J2250; J2270; J2405; J2704; J3010; J7030; J7042; Q9967

== ENCOUNTER 2019-12-01 04:26 | Observation (INO) | payer MEDICAID ==
[2019-12-01] MEDS ORDERED: ONDANSETRON 4 MG/2 ML INJ IV ONE ×2 (04:47→12:46)
[2019-12-01] MEDS ORDERED: SODIUM CHLORIDE 0.9% 1000 ML 1,000 ML IV ONE ×3 (04:47→08:55)
[2019-12-01] MEDS ORDERED: HYDROmorphone 1 MG/1 ML INJ IV ONE ×3 (04:47→12:10)
--- NOTE | 2019-12-01 04:48 | Emergency Department Report ---
Chief Complaint: Abdominal Pain Stated Complaint: ABD PAIN - HPI History of Present Illness: Patient is a 64-year-old female that presents emergency room with complaints of upper abdominal pain x1 week. Patient states that the abdominal pain is a 10 out of 10. Patient states the pain is better with rest and worse with movement. Patient states she has history of lupus and diabetes. Patient states that she is not able to be on her lupus medication because she does not have a doctor. - ROS Review of Systems: ROS done - Exam Vital Signs: Vital Signs 12/01/19 12/01/19 04:49 05:21 Temperature 98.9 F Pulse Rate 96 H Respiratory 16 Rate Blood Pressure 192/112 O2 Sat by Pulse 98 99 Oximetry Physical Exam: The patient appeared well nourished and normally developed. Vital signs as documented. Head exam is unremarkable. No scleral icterus or corneal arcus noted. Neck is without jugular venous distension, thyromegaly, supple neck. Lungs are clear to auscultation and percussion. Cardiac exam reveals the Rhythm is regular. First and second heart sounds normal. No murmurs, rubs or gallops. Abdominal exam reveals normal bowel sounds, upper abdomen tenderness to palpation.. MSE screening note: Focused history and physical exam performed. Due to findings the following was ordered: Patient will have an IV started, given fluids, Dilaudid and Zofran. , CBC CMP and UA will be ordered. ED Medical Decision Making - Lab Data Result diagrams: 12/01/19 04:50 ED Disposition for MSE Condition: Stable Instructions: Abdominal Pain (ED) Referrals: PRIMARY CARE, [Primary Care Provider] - 3-5 Days
[2019-12-01 05:24] LABS: Basophils % (Auto) 0.5 % (0.0-1.8); Eosinophils # (Auto) 0.1 K/mm3 (0.0-0.4); Eosinophils % (Auto) 1.6 % (0.0-4.3); Hematocrit 33.1 % (30.3-42.9); Hemoglobin 11.4 gm/dl (10.1-14.3); Lymphocytes # (Auto) 2.1 K/mm3 (1.2-5.4); Lymphocytes % (Auto) 29.3 % (13.4-35.0); Mean Corpuscular HGB Conc 35 % (30-34); Mean Corpuscular Volume 93 fl (79-97); Monocytes # (Auto) 0.5 K/mm3 (0.0-0.8); Monocytes % (Auto) 6.7 % (0.0-7.3); Platelet Count 276 K/mm3 (140-440); Red Blood Count 3.57 M/mm3 (3.65-5.03); Red Cell Distribution Width 12.7 % (13.2-15.2)
[2019-12-01 05:37] LABS: Alanine Aminotransferase 18 units/L (7-56); Albumin 3.8 g/dL (3.9-5); Blood Urea Nitrogen 16 mg/dL (7-17); Calcium 7.9 mg/dL (8.4-10.2); Hemolysis Index 5
[2019-12-01 05:46] LABS: BUN/Creatinine Ratio 32
[2019-12-01] MEDS ORDERED: PANTOPRAZOLE 40 MG INJ IV ONE (06:49)
[2019-12-01] MEDS ORDERED: PIPERACILLIN/TAZOBACTAM 3.375 3.375 GM/50 ML BAG IV ONE (06:49)
[2019-12-01 07:15] LABS: Bilirubin,Urine NEG (Negative); Blood,Urine MOD (Negative); Color,Urine Yellow (Yellow); Mucus,Urine FEW /HPF; Protein,Urine <15 mg/dL mg/dL (Negative)
--- NOTE | 2019-12-01 07:22 | XRay Report ---
CHEST 1 VIEW 12/01/2019 6:59 AM INDICATION / CLINICAL INFORMATION: hypertension. COMPARISON: 05/27/2019 FINDINGS: SUPPORT DEVICES: None. HEART / MEDIASTINUM: Cardiac silhouette remains enlarged. LUNGS / PLEURA: No significant pulmonary or pleural abnormality. No pneumothorax. ADDITIONAL FINDINGS: No significant additional findings. IMPRESSION: 1. Stable cardiomegaly without CHF Signer Name: Deon Smith MD Signed: 12/01/2019 7:18 AM Workstation Name: [id number]
[2019-12-01 08:12] LABS: Creatine Kinase MB 1.9 ng/mL (0.0-4.0)
[2019-12-01 08:21] LABS: INR 0.94 (0.87-1.13)
[2019-12-01 08:22] LABS: Partial Thromboplastin Time 26.3 Sec. (24.2-36.6)
--- NOTE | 2019-12-01 08:35 | Cat Scan Report ---
CT ABDOMEN AND PELVIS WITH CONTRAST HISTORY: Diffuse abd pain mult prior surgs. COMPARISON: CT abdomen/pelvis from 11/21/2019 TECHNIQUE: CT images of the abdomen and pelvis were obtained following administration of intravenous contrast. All CT scans at this location are performed using CT dose reduction for ALARA by means of automated exposure control. CONTRAST: 100 ml of intravenous contrast administered. FINDINGS: Lungs/bones: There is minimal basilar atelectasis. Degenerative changes are present in the spine and pelvis with no acute osseous abnormality identified. Abdomen/pelvis: The gallbladder is surgically absent. There is mild intrahepatic and extrahepatic bi liary duct dilatation which is stable and can be seen postcholecystectomy. No obstructing stone or ob vious mass is identified. The liver is otherwise unremarkable. Gastric bypass changes are also noted. The spleen, pancreas, and kidneys appear unremarkable. Left adrenal angiomyolipoma again noted and th ere is mild bilateral nodular thickening. Urinary bladder is unremarkable. Uterus is surgically absent. No pelvic free fluid. No acute colonic abnormality identified. A few mildly prominent distal small bowel loops are present but these loops c ontain contrast and there is no obvious obstruction. IMPRESSION: 1. No acute abnormality identified. 2. Incidental and postoperative findings as above. Signer Name: Juan Alberto Donald MD Signed: 12/01/2019 8:31 AM Workstation Name: [id number]
--- NOTE | 2019-12-01 08:51 | Emergency Department Report ---
ED General Adult HPI - General Chief complaint: Abdominal Pain Stated complaint: ABD PAIN Time Seen by Provider: 12/01/19 05:06 Source: patient, EMS Mode of arrival: Stretcher Limitations: No Limitations - History of Present Illness Initial comments: This is a 64-year-old lady who is a terrible historian. She states that she has had multiple abdominal surgeries for unknown indication. She has had no recent surgery. She cannot tell me how long ago the surgeries were but they were apparently distant. She complains of intermittent upper abdominal pain of one- week duration. Pain is dull. She has been able to eat. She denies fever or chills. She denies vomiting or diarrhea she states she has had a normal bowel movement last. She does not complain of abdominal distention. She denies hematochezia or hematemesis. She does not give a history of GI bleeding. She is apparently a type II diabetic and noncompliant with medication. Blood press ure was elevated. She states she is noncompliant with treatment. She takes no current medications. -: week(s) Location: abdomen Radiation: non-radiation Severity scale (0 -10): 9 Quality: aching Consistency: intermittent Improves with: none Worsens with: none Associated Symptoms: denies other symptoms Treatments Prior to Arrival: none - Related Data Previous Rx's Medication Instructions Recorded Last Taken Type Insulin Glargine [Lantus VIAL] 30 units SUB-Q QHS #1 vial 10/17/18 Unknown Rx Baclofen [Lioresal] 5 mg PO TID #90 tablet 11/25/19 Unknown Rx Lispro Insulin [HumaLOG] 5 unit SUB-Q AC 30 Days #1 vial 11/25/19 Unknown Rx Metoclopramide [Reglan] 10 mg PO TID #60 tab 11/25/19 Unknown Rx Ondansetron [Zofran ODT TAB] 4 mg PO Q8HR PRN #20 tab.rapdis 11/25/19 Unknown Rx Oxycodone HCl/Acetaminophen 1 each PO Q6HR PRN #24 tablet 11/25/19 Unknown Rx [Percocet 7.5/325 mg] amLODIPine 10 mg PO QDAY #30 tablet 11/25/19 Unknown Rx polyethylene glycoL 3350 [Miralax 17 gm PO QDAY #30 packet 11/25/19 Unknown Rx 3350] Allergies Allergy/AdvReac Type Severity Reaction Status Date / Time No Known Allergies Allergy Verified 03/25/19 15:18 ED Review of Systems ROS: Stated complaint: ABD PAIN Other details as noted in HPI Constitutional: denies: chills, fever Eyes: denies: eye pain, eye discharge, vision change ENT: denies: ear pain, throat pain Respiratory: denies: cough, shortness of breath, wheezing Cardiovascular: denies: chest pain, palpitations Endocrine: no symptoms reported Gastrointestinal: abdominal pain. denies: nausea, vomiting, diarrhea Genitourinary: denies: urgency, dysuria, discharge Musculoskeletal: denies: back pain, joint swelling, arthralgia Skin: denies: rash, lesions Neurological: denies: headache, weakness, paresthesias Psychiatric: denies: anxiety, depression Hematological/Lymphatic: denies: easy bleeding, easy bruising ED Past Medical Hx - Past Medical History Previous Medical History?: Yes Hx Hypertension: Yes (received amlodipine today) Hx Heart Attack/AMI: No Hx Congestive Heart Failure: No Hx Diabetes: Yes Hx Liver Disease: No Hx Renal Disease: No Hx Psychiatric Treatment: Yes (DEPRESSION) Hx Asthma: No Hx COPD: No Additional medical history: LUPUS - Surgical History Past Surgical History?: Yes Hx Cholecystectomy: Yes Hx Appendectomy: Yes Additional Surgical History: BREAST / TONSILS / ABD. Hysterectomy, gastric bypass - Social History Smoking Status: Current Every Day Smoker - Medications Home Medications: Home Medications Medication Instructions Recorded Confirmed Last Taken Type Insulin Glargine [Lantus VIAL] 30 units SUB-Q QHS #1 vial 10/17/18 11/22/19 Unknown Rx Baclofen [Lioresal] 5 mg PO TID #90 tablet 11/25/19 Unknown Rx Lispro Insulin [HumaLOG] 5 unit SUB-Q AC 30 Days #1 vial 11/25/19 Unknown Rx Metoclopramide [Reglan] 10 mg PO TID #60 tab 11/25/19 Unknown Rx Ondansetron [Zofran ODT TAB] 4 mg PO Q8HR PRN #20 tab.rapdis 11/25/19 Unknown Rx Oxycodone HCl/Acetaminophen 1 each PO Q6HR PRN #24 tablet 11/25/19 Unknown Rx [Percocet 7.5/325 mg] amLODIPine 10 mg PO QDAY #30 tablet 11/25/19 Unknown Rx polyethylene glycoL 3350 [Miralax 17 gm PO QDAY #30 packet 11/25/19 Unknown Rx 3350] ED Physical Exam - General Limitations: No Limitations General appearance: alert, in no apparent distress - Head Head exam: Present: atraumatic, normocephalic - Eye Eye exam: Present: normal appearance. Absent: scleral icterus - ENT ENT exam: Present: mucous membranes moist - Neck Neck exam: Present: normal inspection - Respiratory Respiratory exam: Present: normal lung sounds bilaterally. Absent: respiratory distress - Cardiovascular Cardiovascular Exam: Present: regular rate, normal rhythm. Absent: systolic murmur, diastolic murmur, rubs, gallop - GI/Abdominal GI/Abdominal exam: Present: soft, normal bowel sounds, other (Multiple previous surgical scars). Absent: distended, tenderness, guarding, rebound, rigid - Extremities Exam Extremities exam: Present: normal inspection - Back Exam Back exam: Present: normal inspection - Neurological Exam Neurological exam: Present: alert, oriented X3, CN II-XII intact. Absent: motor sensory deficit - Psychiatric Psychiatric exam: Present: normal affect, normal mood - Skin Skin exam: Present: warm, dry, intact, normal color. Absent: rash ED Course Vital Signs 12/01/19 12/01/19 12/01/19 04:49 05:21 05:46 Temperature 98.9 F Pulse Rate 96 H Respiratory 16 18 Rate Blood Pressure 192/112 Blood Pressure [Right] O2 Sat by Pulse 98 99 Oximetry 12/01/19 12/01/19 12/01/19 06:05 06:30 07:30 Temperature Pulse Rate 85 73 92 H Respiratory 16 12 18 Rate Blood Pressure 158/72 Blood Pressure 167/82 146/50 [Right] O2 Sat by Pulse 99 98 96 Oximetry 12/01/19 08:06 Temperature Pulse Rate Respiratory 20 Rate Blood Pressure Blood Pressure [Right] O2 Sat by Pulse 96 Oximetry - Reevaluation(s) Reevaluation #1: Patient was given Protonix and empiric IV antibiotics to cover intra-abdominal infection. She was given analgesia. Her pain was relieved. CT showed nothing acute. Chest x-ray showed nothing acute. Urinalysis showed a trace leukoesterase but an unimpressive sediment. Her lactic acid level was found to be 3.4. We are left with a lady with a benign abdominal exam and a substantially elevated lactic acid level. I do not think she has mesenteric ischemia. However she does have some risk factors. She has been cultured. I discussed her case with the hospitalist staff. They will admit her on observation status. I will order a repeat lactic acid level and give her a fluid bolus. 12/01/19 08:59 ED Medical Decision Making - Lab Data Result diagrams: 12/01/19 04:50 12/01/19 04:50 Laboratory Results - last 24 hr 12/01/19 12/01/19 12/01/19 04:50 04:50 07:06 WBC 7.1 RBC 3.57 L Hgb 11.4 Hct 33.1 MCV 93 MCH 32 MCHC 35 H RDW 12.7 L Plt Count 276 Lymph % (Auto) 29.3 [place] % (Auto) 6.7 Eos % (Auto) 1.6 Baso % (Auto) 0.5 Lymph # (Auto) 2.1 [place] # (Auto) 0.5 Eos # (Auto) 0.1 Baso # (Auto) 0.0 Seg Neutrophils % 61.9 Seg Neutrophils # 4.4 PT INR APTT Sodium 140 Potassium 3.5 L Chloride 105.0 Carbon Dioxide 24 Anion Gap 15 BUN 16 Creatinine 0.5 L Estimated GFR > 60 BUN/Creatinine Ratio 32 Glucose 167 H Lactic Acid Calcium 7.9 L Total Bilirubin 0.20 AST 20 ALT 18 Alkaline Phosphatase 80 Total Creatine Kinase CK-MB (CK-2) CK-MB (CK-2) Rel Index Troponin T NT-Pro-B Natriuret Pep Total Protein 5.6 L Albumin 3.8 L Albumin/Globulin Ratio 2.1 Urine Color Yellow Urine Turbidity Clear Urine pH 5.0 Ur Specific [place] 1.015 Urine Protein <15 mg/dl Urine Glucose (UA) Neg Urine Ketones Neg Urine Blood Mod Urine Nitrite Neg Urine Bilirubin Neg Urine Urobilinogen 2.0 Ur Leukocyte Esterase Tr Urine WBC (Auto) 2.0 Urine RBC (Auto) 3.0 U Epithel Cells (Auto) 4.0 Urine Mucus Few Blood Type Antibody Screen 12/01/19 12/01/19 12/01/19 07:28 07:28 07:28 WBC RBC Hgb Hct MCV MCH MCHC RDW Plt Count Lymph % (Auto) [place] % (Auto) Eos % (Auto) Baso % (Auto) Lymph # (Auto) [place] # (Auto) Eos # (Auto) Baso # (Auto) Seg Neutrophils % Seg Neutrophils # PT 12.7 INR 0.94 APTT 26.3 Sodium Potassium Chloride Carbon Dioxide Anion Gap BUN Creatinine Estimated GFR BUN/Creatinine Ratio Glucose Lactic Acid 3.40 H* Calcium Total Bilirubin AST ALT Alkaline Phosphatase Total Creatine Kinase CK-MB (CK-2) CK-MB (CK-2) Rel Index Troponin T NT-Pro-B Natriuret Pep 660.5 Total Protein Albumin Albumin/Globulin Ratio Urine Color Urine Turbidity Urine pH Ur Specific [place] Urine Protein Urine Glucose (UA) Urine Ketones Urine Blood Urine Nitrite Urine Bilirubin Urine Urobilinogen Ur Leukocyte Esterase Urine WBC (Auto) Urine RBC (Auto) U Epithel Cells (Auto) Urine Mucus Blood Type Antibody Screen 12/01/19 12/01/19 07:28 07:37 WBC RBC Hgb Hct MCV MCH MCHC RDW Plt Count Lymph % (Auto) [place] % (Auto) Eos % (Auto) Baso % (Auto) Lymph # (Auto) Dade # (Auto) Eos # (Auto) Baso # (Auto) Seg Neutrophils % Seg Neutrophils # PT INR APTT Sodium Potassium Chloride Carbon Dioxide Anion Gap BUN Creatinine Estimated GFR BUN/Creatinine Ratio Glucose Lactic Acid Calcium Total Bilirubin AST ALT Alkaline Phosphatase Total Creatine Kinase 51 CK-MB (CK-2) 1.9 CK-MB (CK-2) Rel Index 3.7 Troponin T < 0.010 NT-Pro-B Natriuret Pep Total Protein Albumin Albumin/Globulin Ratio Urine Color Urine Turbidity Urine pH Ur Specific [place] Urine Protein Urine Glucose (UA) Urine Ketones Urine Blood Urine Nitrite Urine Bilirubin Urine Urobilinogen Ur Leukocyte Esterase Urine WBC (Auto) Urine RBC (Auto) U Epithel Cells (Auto) Urine Mucus Blood Type A POSITIVE Antibody Screen Negative - EKG Data -: EKG Interpreted by De EKG shows normal: sinus rhythm, axis (Somewhat right axis deviation), intervals, QRS complexes, ST-T waves Rate: normal - EKG Data When compared to previous EKG there are: no significant change Interpretation: no acute changes - Radiology Data Radiology results: report reviewed, image reviewed FINDINGS: Lungs/bones: There is minimal basilar atelectasis. Degenerative changes are present in the spine and pelvis with no acute osseous abnormality identified. Abdomen/pelvis: The gallbladder is surgically absent. There is mild intrahepatic and extrahepatic biliary duct dilatation which is stable and can be seen postcholecystectomy. No obstructing stone or obvious mass is identified. The liver is otherwise unremarkable. Gastric bypass changes are also noted. The spleen, pancreas, and kidneys appear unremarkable. Left adrenal angiom yolipoma again noted and there is mild bilateral nodular thickening. Urinary bladder is unremarkable. Uterus is surgically absent. No pelvic free fluid. No acute colonic abnormality identified. A few mildly prominent distal small bowel loops are present but these loops contain contrast and there is no obvious obstruction. IMPRESSION: 1. No acute abnormality identified. 2. Incidental and postoperative findings as above. Critical care attestation.: If time is entered above; I have spent that time in minutes in the direct care of this critically ill patient, excluding procedure time. ED Disposition Clinical Impression: Lactic acidosis, Uncontrolled hypertension Abdominal pain Qualifiers: Abdominal location: upper abdomen, unspecified Qualified Code(s): R10.10 - Upper abdominal pain, unspecified Hyperglycemia due to type 2 diabetes mellitus Qualifiers: Diabetes mellitus termite technician insulin use: without termite technician use Qualified Code(s): E11.65 - Type 2 diabetes mellitus with hyperglycemia Disposition: OP ADMIT IP TO THIS HOSP Is pt being admited?: Yes Does the pt Need Aspirin: No Condition: Stable Instructions: Diabetes Mellitus Type 2 in Adults (ED), Abdominal Pain (ED), Hypertension (ED) Referrals: PRIMARY CARE, [Primary Care Provider] - 3-5 Days Time of Disposition: 09:02
--- NOTE | 2019-12-01 09:04 | History and Physical Report ---
History of Present Illness Date of examination: 12/01/19 Date of admission: 12/01/19 Chief complaint: Abdominal pain History of present illness: 64-year-old morbidly obese female patient with significant past medical history of gastric bypass surgery , recently admitted with small bowel obstruction , presented to the emergency room with intermittent upper abdominal pain of one- week duration . Planes of nausea no vomiting or diarrhea history of hematemesis melena or GI bleeding. No history suggestive of fever with chills or rigors no urinary symptoms Initial work-up in the emergency room with CT abdomen and pelvis,no acute abnormality, incidental and postoperative findings noted Chest x-ray stable cardiomegaly without CHF, lactic acidosis Patient was recently admitted with small bowel obstruction-like symptoms , was advised to see bariatric surgeon in [facility] Has an appointment on 12/13/2019. patient denies any abdominal distention, complains of mild discomfort Patient also has history of diabetes mellitus on insulin Past History Past Medical History: diabetes, hypertension, other (History of small bowel obstruction) Past Surgical History: Other (Gastric bypass surgery) Social history: smoking. denies: alcohol abuse, IV drug use Family history: no significant family history Medications and Allergies Allergies Allergy/AdvReac Type Severity Reaction Status Date / Time No Known Allergies Allergy Verified 03/25/19 15:18 Home Medications Medication Instructions Recorded Confirmed Last Taken Type Insulin Glargine [Lantus VIAL] 30 units SUB-Q QHS #1 vial 10/17/18 11/22/19 Unknown Rx Baclofen [Lioresal] 5 mg PO TID #90 tablet 11/25/19 Unknown Rx Lispro Insulin [HumaLOG] 5 unit SUB-Q AC 30 Days #1 vial 11/25/19 Unknown Rx Metoclopramide [Reglan] 10 mg PO TID #60 tab 11/25/19 Unknown Rx Ondansetron [Zofran ODT TAB] 4 mg PO Q8HR PRN #20 tab.rapdis 11/25/19 Unknown Rx Oxycodone HCl/Acetaminophen 1 each PO Q6HR PRN #24 tablet 11/25/19 Unknown Rx [Percocet 7.5/325 mg] amLODIPine 10 mg PO QDAY #30 tablet 11/25/19 Unknown Rx polyethylene glycoL 3350 [Miralax 17 gm PO QDAY #30 packet 11/25/19 Unknown Rx 3350] Active Meds: Active Medications Sodium Chloride (Nacl 0.9% 1000 Ml) 1,000 mls @ 125 mls/hr IV ONCE ONE Stop: 12/01/19 14:48 Last Admin: 12/01/19 07:48 Dose: 125 mls/hr Documented by: Sodium Chloride (Nacl 0.9% 1000 Ml) 1,000 mls @ 999 mls/hr IV BOLUS ONE Stop: 12/01/19 09:55 Review of Systems Constitutional: weakness, no weight loss, no weight gain, no fever, no chills Ears, nose, mouth and throat: no nasal congestion, no nasal discharge Cardiovascular: no chest pain, no orthopnea, no palpitations, no shortness of breath Respiratory: no cough, no shortness of breath Gastrointestinal: abdominal pain, nausea, no vomiting, no diarrhea, no hematemesis, no melena Genitourinary Female: no pelvic pain, no dysuria Musculoskeletal: no myalgias, no arthritis Integumentary: no rash, no lesions Neurological: weakness, no paralysis, no seizures, no syncope Psychiatric: no anxiety, no depression Endocrine: no cold intolerance, no heat intolerance, no polydipsia, no polyuria Hematologic/Lymphatic: no easy bruising, no easy bleeding Allergic/Immunologic: no urticaria, no allergic rhinitis Exam - Constitutional Vitals: Temp Pulse Resp BP Pulse Ox 98.9 F 92 H 20 146/50 96 12/01/19 04:49 12/01/19 07:30 12/01/19 08:06 12/01/19 07:30 12/01/19 08:06 General appearance: Present: mild distress, well-nourished - EENT Eyes: Present: PERRL, EOM intact - Neck Neck: Present: supple, normal ROM - Respiratory Respiratory effort: normal Respiratory: bilateral: diminished, negative: rales, rhonchi, wheezing - Cardiovascular Rhythm: regular Heart Sounds: Present: S1 & S2 - Extremities Extremities: no ischemia, No edema - Abdominal General gastrointestinal: Present: soft, tender (Vague tenderness no guarding no rigidity), non-distended, normal bowel sounds - Integumentary Integumentary: Present: clear, warm - Musculoskeletal Musculoskeletal: strength equal bilaterally, generalized weakness - Psychiatric Psychiatric: appropriate mood/affect, cooperative - Neurologic Neurologic: moves all extremities HEART Score - HEART Score Troponin: Troponin T < 0.010 ng/mL (0.00-0.029) 12/01/19 07:28 Results - Labs CBC & Chem 7: 12/01/19 04:50 12/01/19 04:50 Labs: Abnormal lab results 12/01/19 12/01/19 12/01/19 Range/Units 04:50 04:50 07:28 RBC 3.57 L (3.65-5.03) M/mm3 MCHC 35 H (30-34) % RDW 12.7 L (13.2-15.2) % Potassium 3.5 L (3.6-5.0) mmol/L Creatinine 0.5 L (0.6-1.2) mg/dL Glucose 167 H (65-100) mg/dL Lactic Acid 3.40 H* (0.7-2.0) mmol/L Calcium 7.9 L (8.4-10.2) mg/dL Total Protein 5.6 L (6.3-8.2) g/dL Albumin 3.8 L (3.9-5) g/dL Assessment and Plan --Abdominal pain; History of gastric bypass surgery in the past History of small bowel obstruction during previous admission CT abdomen and pelvis no acute abnormalities Clear liquid diet, advance as tolerated Surgery/GI consult if needed --Type 2 diabetes mellitus; Accu-Chek sliding scale coverage ADA diet Long-acting insulin as needed --Lactic acidosis; IV fluids No evidence of infection, no fever, no WBC Urinalysis within normal limits --Hypertension; moderate control Closely monitor blood pressures, adjust antihypertensives PRN medications --Ongoing tobacco use; Smoking cessation counseling, advised nicotine patch as needed --Possible obstructive sleep apnea; CPAP/BiPAP at night as needed Patient needs outpatient sleep studies to rule out IVELISSE if not already done --DVT prophylaxis; Lovenox We will closely monitor the patient and adjust the management as needed Possible discharge in 1 to 2 days if symptoms resolve and is stable Plan of care reviewed with the patient and her nurse
[2019-12-01] MEDS ORDERED: HYDROmorphone 1 MG/1 ML INJ ONE (12:11)
[2019-12-01] MEDS ORDERED: ONDANSETRON 4 MG/2 ML INJ ONE (12:49)
[2019-12-01] MEDS ORDERED: MORPHINE 2 MG/1 ML INJ ONE (12:54)
[2019-12-01] MEDS: MORPHINE 2 MG/1 ML INJ IV PRN ×2 (12:55→22:30)
[2019-12-01] MEDS ORDERED: ONDANSETRON 4 MG/2 ML INJ IV PRN (12:56)
[2019-12-01] MEDS: METOCLOPRAMIDE 10 MG TAB PO SCH ×2 (14:15→22:30)
[2019-12-01] MEDS: oxyCODONE /ACETAMINOPHEN 5-325MG TAB PO PRN ×2 (14:16→22:41)
[2019-12-01] MEDS: INSULIN LISPRO 100 UNIT/ML VIAL 3 mL SUB-Q SCH ×3 (14:16→22:43)
[2019-12-01] MEDS: SODIUM CHLORIDE 0.9% 1000 ML 1,000 ML IV SCH (14:24)
[2019-12-01] MEDS: amLODIPine 10 MG TAB PO SCH (14:30)
[2019-12-02] MEDS: MORPHINE 2 MG/1 ML INJ IV PRN ×2 (00:04→10:11)
[2019-12-02] MEDS: oxyCODONE /ACETAMINOPHEN 5-325MG TAB PO PRN ×2 (06:36→12:56)
[2019-12-02] MEDS: SODIUM CHLORIDE 0.9% 1000 ML 1,000 ML IV SCH (06:39)
[2019-12-02] MEDS: INSULIN LISPRO 100 UNIT/ML VIAL 3 mL SUB-Q SCH ×2 (07:57→13:35)
[2019-12-02] MEDS: METOCLOPRAMIDE 10 MG TAB PO SCH ×3 (08:40→17:29)
[2019-12-02] MEDS ORDERED: POLYETHYLENE GLYCOL 3350 17 GM POWDER PO SCH (10:00)
[2019-12-02] MEDS: amLODIPine 10 MG TAB PO SCH (10:12)
--- NOTE | 2019-12-02 10:12 | Discharge Summary ---
Providers - Providers Date of Admission: 12/01/19 09:04 Date of discharge: 12/02/19 Attending physician: CAT DOMINGO Primary care physician: SLEEVE SETTER LOCKSTITCH Hospitalization Condition: Stable Disposition: DC-01 TO HOME OR SELFCARE Time spent for discharge: 32 min Core Measure Documentation - Palliative Care Palliative Care/ Comfort Measures: Not Applicable - Core Measures Any of the following diagnoses?: none Exam - Constitutional Vitals: Temp Pulse Resp BP Pulse Ox 98.9 F 103 H 20 184/86 99 12/02/19 05:23 12/02/19 05:23 12/02/19 05:23 12/02/19 05:23 12/02/19 05:23 Plan Additional Instructions: Patient to follow-up with Dr. Dye bariatric surgeon at [facility] on December 12 at 8:[address] Alcantar made an appointment to have patient follow up with Bariatric surgery at [place] at next available appt - December 12@830am. Dr Dye,[address] [place] [address] Dr DIAZ, [place] [address], [phone] Follow up with: PRIMARY CARE, [Primary Care Provider] - 3-5 Days Prescriptions: amLODIPine 10 mg PO QDAY #30 tablet oxyCODONE /ACETAMINOPHEN [Percocet 5/325 mg] 1 tab PO BID PRN #6 tablet PRN Reason: Pain, Moderate (4-6) Ondansetron [Zofran ODT TAB] 4 mg PO Q8HR PRN #20 tab.rapdis PRN Reason: Nausea
[2019-12-02 10:17] VITALS: BP 168/70
== END 2019-12-02 18:15 | disposition home or self-care (01) ==
LOC: ED 04:26 → 3A 09:04
PROVIDERS: ADMIT Internal Medicine; ATTEND Internal Medicine
DX: R10.9 Unspecified abdominal pain (principal); E11.65 Type 2 diabetes mellitus with hyperglycemia; I10 Essential (primary) hypertension; E87.2 Acidosis; F32.9 Major depressive disorder, single episode, unspecified; F17.200 Nicotine dependence, unspecified, uncomplicated; Z98.84 Bariatric surgery status; Z98.890 Other specified postprocedural states; Z79.4 Long term (current) use of insulin; Z90.49 Acquired absence of other specified parts of digestive tract; Z79.899 Other long term (current) drug therapy
CPT/HCPCS: 36415; 71045; 74177; 80053; 81001; 82140; 82550; 82553; 82962; 83880; 84484; 85025; 85610; 85730; 86850; 86900; 86901; 93005; 96361; 96365; 96372; 96375; 96376; 99285; C9113; G0378; J1170; J2270; J2405; J2543; J7030; Q9967; 96374

== ENCOUNTER 2019-12-15 05:07 | Emergency (ER) | payer MEDICAID ==
[2019-12-15 06:21] LABS: Basophils # (Auto) 0.1 K/mm3 (0.0-0.1); Basophils % (Auto) 0.8 % (0.0-1.8); Eosinophils # (Auto) 0.1 K/mm3 (0.0-0.4); Eosinophils % (Auto) 1.6 % (0.0-4.3); Hematocrit 34.7 % (30.3-42.9); Hemoglobin 11.9 gm/dl (10.1-14.3); Lymphocytes # (Auto) 2.1 K/mm3 (1.2-5.4); Lymphocytes % (Auto) 27.6 % (13.4-35.0); Mean Corpuscular HGB Conc 34 % (30-34); Mean Corpuscular Volume 93 fl (79-97); Monocytes # (Auto) 0.4 K/mm3 (0.0-0.8); Monocytes % (Auto) 5.9 % (0.0-7.3); Platelet Count 364 K/mm3 (140-440); Red Blood Count 3.74 M/mm3 (3.65-5.03); Red Cell Distribution Width 13.3 % (13.2-15.2)
[2019-12-15 06:31] LABS: Bilirubin,Urine NEG (Negative); Blood,Urine NEG (Negative); Color,Urine Straw (Yellow); Mucus,Urine FEW /HPF; Protein,Urine <15 mg/dL mg/dL (Negative); Urobilinogen,Urine < 2.0 mg/dL (<2.0)
[2019-12-15 06:39] LABS: Alanine Aminotransferase 15 units/L (7-56); Albumin 3.7 g/dL (3.9-5); Blood Urea Nitrogen 14 mg/dL (7-17); Calcium 9.4 mg/dL (8.4-10.2); Hemolysis Index 8
[2019-12-15 06:41] LABS: BUN/Creatinine Ratio 28
[2019-12-15] MEDS ORDERED: SODIUM CHLORIDE 0.9% 1000 ML 1,000 ML IV ONE (08:57)
[2019-12-15] MEDS ORDERED: METOCLOPRAMIDE 10 MG/2 ML INJ IV ONE (08:57)
[2019-12-15] MEDS ORDERED: diphenhydrAMINE 50 MG/ML VIAL IV ONE ×2 (08:57→12:14)
[2019-12-15] MEDS ORDERED: KETOROLAC 30 MG/1 ML INJ IV ONE (08:57)
--- NOTE | 2019-12-15 09:04 | Emergency Department Report ---
ED General Adult HPI - General Chief complaint: Abdominal Pain Stated complaint: EMESIS Time Seen by Provider: 12/15/19 08:48 Source: patient, EMS Mode of arrival: Ambulatory Limitations: No Limitations - History of Present Illness Initial comments: Patient is a 64-year-old female presents emergency room with complaints of a frontal headache that began yesterday. She states that she has associated nausea and had approximately 2-3 episodes of vomiting. She states that she took some Tylenol with some relief but the headache returned. She denies any diarrhea, fever, neck stiffness, vision changes, numbness, weakness. She states that she had a normal bowel movement yesterday and has been having normal bowel movements. She is able to pass gas without difficulty. She has a past medical history of DM, hypertension, depression, lupus, previous gastric bypass, appendectomy, and cholecystectomy. pt is non complaint with her medications, she states she does not know what she is supposed to take for her blood pressure, in her MAR it states she is on amlodipine 10 mg daily. She denies any allergies to medications. - Related Data Previous Rx's Medication Instructions Recorded Last Taken Type Insulin Glargine [Lantus VIAL] 30 units SUB-Q QHS #1 vial 10/17/18 Unknown Rx Baclofen [Lioresal] 5 mg PO TID #90 tablet 11/25/19 Unknown Rx Lispro Insulin [HumaLOG] 5 unit SUB-Q AC 30 Days #1 vial 11/25/19 Unknown Rx Metoclopramide [Reglan TAB] 10 mg PO TID #60 tab 11/25/19 Unknown Rx Oxycodone HCl/Acetaminophen 1 each PO Q6HR PRN #24 tablet 11/25/19 Unknown Rx [Percocet 7.5/325 mg] polyethylene glycoL 3350 [Miralax 17 gm PO QDAY #30 packet 11/25/19 Unknown Rx 3350] Ondansetron [Zofran ODT TAB] 4 mg PO Q8HR PRN #20 tab.rapdis 12/02/19 Unknown Rx oxyCODONE /ACETAMINOPHEN [Percocet 1 tab PO BID PRN #6 tablet 12/02/19 Unknown Rx 5/325 mg] Butalb/Acetaminophen/Caffeine 1 cap PO Q8HR PRN #10 cap 12/15/19 Unknown Rx [Fioricet 50-300-40 mg CAP] Famotidine [Pepcid] 40 mg PO QHS #30 tablet 12/15/19 Unknown Rx Ondansetron [Zofran Odt] 4 mg PO Q8HR PRN #10 tab.rapdis 12/15/19 Unknown Rx amLODIPine 10 mg PO QDAY #30 tablet 12/15/19 Unknown Rx Allergies Allergy/AdvReac Type Severity Reaction Status Date / Time No Known Allergies Allergy Verified 03/25/19 15:18 ED Review of Systems ROS: Stated complaint: EMESIS Other details as noted in HPI Comment: All other systems reviewed and negative ED Past Medical Hx - Past Medical History Hx Hypertension: Yes Hx Heart Attack/AMI: No Hx Congestive Heart Failure: No Hx Diabetes: Yes Hx Liver Disease: No Hx Renal Disease: No Hx Psychiatric Treatment: Yes (DEPRESSION) Hx Asthma: No Hx COPD: No Additional medical history: LUPUS - Surgical History Hx Cholecystectomy: Yes Hx Appendectomy: Yes Additional Surgical History: BREAST / TONSILS / ABD. Hysterectomy, gastric bypass - Social History Smoking Status: Current Some Day Smoker Substance Use Type: None - Medications Home Medications: Home Medications Medication Instructions Recorded Confirmed Last Taken Type Insulin Glargine [Lantus VIAL] 30 units SUB-Q QHS #1 vial 10/17/18 11/22/19 Unknown Rx Baclofen [Lioresal] 5 mg PO TID #90 tablet 11/25/19 Unknown Rx Lispro Insulin [HumaLOG] 5 unit SUB-Q AC 30 Days #1 vial 11/25/19 Unknown Rx Metoclopramide [Reglan TAB] 10 mg PO TID #60 tab 11/25/19 Unknown Rx Oxycodone HCl/Acetaminophen 1 each PO Q6HR PRN #24 tablet 11/25/19 Unknown Rx [Percocet 7.5/325 mg] polyethylene glycoL 3350 [Miralax 17 gm PO QDAY #30 packet 11/25/19 Unknown Rx 3350] Ondansetron [Zofran ODT TAB] 4 mg PO Q8HR PRN #20 tab.rapdis 12/02/19 Unknown Rx oxyCODONE /ACETAMINOPHEN [Percocet 1 tab PO BID PRN #6 tablet 12/02/19 Unknown Rx 5/325 mg] Butalb/Acetaminophen/Caffeine 1 cap PO Q8HR PRN #10 cap 12/15/19 Unknown Rx [Fioricet 50-300-40 mg CAP] Famotidine [Pepcid] 40 mg PO QHS #30 tablet 12/15/19 Unknown Rx Ondansetron [Zofran Odt] 4 mg PO Q8HR PRN #10 tab.rapdis 12/15/19 Unknown Rx amLODIPine 10 mg PO QDAY #30 tablet 12/15/19 Unknown Rx ED Physical Exam - General Limitations: No Limitations General appearance: alert, in no apparent distress - Head Head exam: Present: atraumatic, normocephalic - Eye Eye exam: Present: normal appearance, PERRL, EOMI. Absent: conjunctival injection, nystagmus, periorbital swelling, periorbital tenderness Pupils: Present: normal accommodation - ENT ENT exam: Present: mucous membranes moist - Neck Neck exam: Present: full ROM. Absent: meningismus - Respiratory Respiratory exam: Present: normal lung sounds bilaterally. Absent: respiratory distress, wheezes, rales, rhonchi, stridor, chest wall tenderness, accessory muscle use, decreased breath sounds, prolonged expiratory - Cardiovascular Cardiovascular Exam: Present: regular rate, normal rhythm, normal heart sounds. Absent: systolic murmur, diastolic murmur, rubs, gallop - GI/Abdominal GI/Abdominal exam: Present: soft, normal bowel sounds. Absent: distended, tenderness, guarding, rebound, rigid - Neurological Exam Neurological exam: Present: alert, oriented X3, CN II-XII intact, normal gait, other (normal finger to nose, normal heel to gary, 5/5 muscle strength in the BUE/BLE, sensation intact throughout, no focal neuro deficit). Absent: motor sensory deficit - Psychiatric Psychiatric exam: Present: normal affect, normal mood - Skin Skin exam: Present: warm, dry, intact ED Course Vital Signs 12/15/19 12/15/19 12/15/19 05:10 10:30 11:00 Temperature 98.1 F Pulse Rate 107 H Respiratory 18 20 20 Rate Blood Pressure 193/95 Blood Pressure [Right] O2 Sat by Pulse 97 Oximetry 12/15/19 12/15/19 12/15/19 12:10 13:38 15:00 Temperature 97.9 F Pulse Rate 92 H 90 88 Respiratory 20 20 Rate Blood Pressure 194/110 214/100 Blood Pressure 194/110 [Right] O2 Sat by Pulse 99 Oximetry ED Medical Decision Making - Lab Data Result diagrams: 12/15/19 05:26 12/15/19 05:26 Lab Results 12/15/19 12/15/19 12/15/19 Range/Units 05:26 05:26 Unknown WBC 7.5 (4.5-11.0) K/mm3 RBC 3.74 (3.65-5.03) M/mm3 Hgb 11.9 (10.1-14.3) gm/dl Hct 34.7 (30.3-42.9) % MCV 93 (79-97) fl MCH 32 (28-32) pg MCHC 34 (30-34) % RDW 13.3 (13.2-15.2) % Plt Count 364 (140-440) K/mm3 Lymph % (Auto) 27.6 (13.4-35.0) % [place] % (Auto) 5.9 (0.0-7.3) % Eos % (Auto) 1.6 (0.0-4.3) % Baso % (Auto) 0.8 (0.0-1.8) % Lymph # (Auto) 2.1 (1.2-5.4) K/mm3 [place] # (Auto) 0.4 (0.0-0.8) K/mm3 Eos # (Auto) 0.1 (0.0-0.4) K/mm3 Baso # (Auto) 0.1 (0.0-0.1) K/mm3 Seg Neutrophils % 64.1 (40.0-70.0) % Seg Neutrophils # 4.8 (1.8-7.7) K/mm3 Sodium 136 L (137-145) mmol/L Potassium 3.9 (3.6-5.0) mmol/L Chloride 97.1 L (98-107) mmol/L Carbon Dioxide 25 (22-30) mmol/L Anion Gap 18 mmol/L BUN 14 (7-17) mg/dL Creatinine 0.5 L (0.6-1.2) mg/dL Estimated GFR > 60 ml/min BUN/Creatinine Ratio 28 % Glucose 231 H (65-100) mg/dL Calcium 9.4 (8.4-10.2) mg/dL Total Bilirubin 0.30 (0.1-1.2) mg/dL AST 12 (5-40) units/L ALT 15 (7-56) units/L Alkaline Phosphatase 101 (35-129) units/L Total Protein 6.7 (6.3-8.2) g/dL Albumin 3.7 L (3.9-5) g/dL Albumin/Globulin Ratio 1.2 % Urine Color Straw (Yellow) Urine Turbidity Clear (Clear) Urine pH 7.0 (5.0-7.0) Ur Specific [place] 1.008 (1.003-1.030) Urine Protein <15 mg/dl (Negative) mg/dL Urine Glucose (UA) 50 (Negative) mg/dL Urine Ketones Neg (Negative) mg/dL Urine Blood Neg (Negative) Urine Nitrite Neg (Negative) Urine Bilirubin Neg (Negative) Urine Urobilinogen < 2.0 (<2.0) mg/dL Ur Leukocyte Esterase Tr (Negative) Urine WBC (Auto) 1.0 (0.0-6.0) /HPF Urine RBC (Auto) 1.0 (0.0-6.0) /HPF U Epithel Cells (Auto) 2.0 (0-13.0) /HPF Urine Mucus Few /HPF - Medical Decision Making Patient is a 64-year-old female presents emergency room with complaints of a frontal headache that began yesterday. She states that she has associated nausea and had approximately 2-3 episodes of vomiting. She states that she took some Tylenol with some relief but the headache returned. She denies any diarrhea, fever, neck stiffness, vision changes, numbness, weakness. She states that she had a normal bowel movement yesterday and has been having normal bowel movements. She is able to pass gas without difficulty. She has a past medical history of DM, hypertension, depression, lupus, previous gastric bypass, appendectomy, and cholecystectomy. pt is non complaint with her medications, she states she does not know what she is supposed to take for her blood pressure, in her MAR it states she is on amlodipine 10 mg daily. She denies any allergies to medications. Initial vitals with elevated heart rate and blood pressure which improved upon repeat. No abdominal tenderness on exam, no guarding, no rebound, no rigidity, no normal bowel sounds, no peritoneal signs, no focal neuro deficits. Labs with very mild dehydration, elevated blood glucose at 231. UA without evidence of UTI. Patient given pain medications, antiemetics, antihypertensives and symptoms improved and patient was feeling much better and ready to go home. Appears patient is noncompliant with her home medications. Patient given prescription for her blood pressure medication amlodipine and discussed the importance of taking her medication and of monitoring her blood pressure. Patient also given prescription for Zofran, fioricet and Pepcid. Advised patient Please take medication as prescribed. Increase your fluid intake. Eat a bland liquid diet and slowly advance your diet as tolerated. Follow-up with your primary care doctor. Follow-up with a GI doctor. Return to emergency room for new or worsening symptoms. - Differential Diagnosis migraine, LEONG, gastritis, gastroenteritis, GERD, PUD, dehydration, JAISON, UTI Critical care attestation.: If time is entered above; I have spent that time in minutes in the direct care of this critically ill patient, excluding procedure time. ED Disposition Clinical Impression: Non compliance w medication regimen, Hyperglycemia Headache Qualifiers: Headache type: unspecified Headache chronicity pattern: acute headache Intractability: not intractable Qualified Code(s): R51.9 - Headache, unspecified Nausea and vomiting Qualifiers: Vomiting type: unspecified Vomiting Intractability: non-intractable Qualified Code(s): R11.2 - Nausea with vomiting, unspecified Hypertension Qualifiers: Hypertension type: unspecified Qualified Code(s): I10 - Essential (primary) hypertension Disposition: DC-01 TO HOME OR SELFCARE Is pt being admited?: No Does the pt Need Aspirin: No Condition: Stable Instructions: Acute Headache (ED), Acute Nausea and Vomiting (ED), Hypertension (ED) Additional Instructions: Please take medication as prescribed. Increase your fluid intake. Eat a bland liquid diet and slowly advance your diet as tolerated. Follow-up with your primary care doctor. Follow-up with a GI doctor. Return to emergency room for new or worsening symptoms. Prescriptions: Famotidine [Pepcid] 40 mg PO QHS #30 tablet amLODIPine 10 mg PO QDAY #30 tablet Butalb/Acetaminophen/Caffeine [Fioricet 50-300-40 mg CAP] 1 cap PO Q8HR PRN #10 cap PRN Reason: headache Ondansetron [Zofran Odt] 4 mg PO Q8HR PRN #10 tab.rapdis PRN Reason: Nausea And Vomiting Referrals: PRIMARY CAREMD [Primary Care Provider] - 2-3 Days LEONELA MARIE MD [Staff Physician] - 2-3 Days [facility] [Provider Group] - 2-3 Days [facility] [Provider Group] - 2-3 Days Time of Disposition: 18:04 Print Language: URDU
[2019-12-15] MEDS ORDERED: amLODIPine 5 MG TAB PO ONE (12:14)
[2019-12-15] MEDS ORDERED: ONDANSETRON 4 MG/2 ML INJ IV ONE (12:14)
[2019-12-15] MEDS ORDERED: oxyCODONE /ACETAMINOPHEN 5-325MG TAB PO ONE (14:40)
[2019-12-15 18:54] VITALS: BP 164/92
== END 2019-12-15 18:44 | disposition home or self-care (01) ==
LOC: ED 05:07
DX: R51.9 Headache, unspecified (principal); R11.2 Nausea with vomiting, unspecified; E11.65 Type 2 diabetes mellitus with hyperglycemia; I10 Essential (primary) hypertension; F32.9 Major depressive disorder, single episode, unspecified; F17.200 Nicotine dependence, unspecified, uncomplicated; Z91.14 Patient's other noncompliance with medication regimen; Z90.49 Acquired absence of other specified parts of digestive tract; Z98.890 Other specified postprocedural states; Z90.710 Acquired absence of both cervix and uterus; Z79.4 Long term (current) use of insulin; Z79.899 Other long term (current) drug therapy
CPT/HCPCS: 36415; 80053; 81001; 85025; 96361; 96374; 96375; 96376; 99284; J1200; J1885; J2405; J2765; J7030

== ENCOUNTER 2020-01-04 21:20 | Emergency (ER) | payer MEDICAID ==
[2020-01-05 03:24] VITALS: BP 135/69
== END 2020-01-05 03:35 | disposition left against medical advice (07) ==
LOC: ED 21:20
DX: R10.9 Unspecified abdominal pain (principal); R51.9 Headache, unspecified; Z53.21 Procedure and treatment not carried out due to patient leaving prior to being seen by health care provider

== ENCOUNTER 2020-03-06 21:33 | Emergency (ER) | payer MEDICAID ==
[2020-03-07] MEDS ORDERED: ACETAMINOPHEN 325 MG TAB PO ONE (05:32)
[2020-03-07 06:08] VITALS: BP 138/59
[2020-03-07] MEDS ORDERED: dexAMETHasone 4 MG/ML VIAL IM ONE (10:59)
[2020-03-07] MEDS ORDERED: traMADol 50 MG TAB PO ONE (10:59)
[2020-03-07 11:23] LABS: Basophils % (Auto) 0.6 % (0.0-1.8); Eosinophils # (Auto) 0.1 K/mm3 (0.0-0.4); Eosinophils % (Auto) 1.7 % (0.0-4.3); Hematocrit 29.1 % (30.3-42.9); Hemoglobin 9.9 gm/dl (10.1-14.3); Mean Corpuscular HGB Conc 34 % (30-34); Mean Corpuscular Volume 94 fl (79-97); Monocytes # (Auto) 0.5 K/mm3 (0.0-0.8); Monocytes % (Auto) 7.3 % (0.0-7.3); Platelet Count 365 K/mm3 (140-440); Red Blood Count 3.09 M/mm3 (3.65-5.03); Red Cell Distribution Width 12.5 % (13.2-15.2)
[2020-03-07 11:47] LABS: Alanine Aminotransferase 31 units/L (7-56); Albumin 3.5 g/dL (3.9-5); Blood Urea Nitrogen 15 mg/dL (7-17); Calcium 8.8 mg/dL (8.4-10.2); Hemolysis Index 8
[2020-03-07 11:48] LABS: BUN/Creatinine Ratio 25
--- NOTE | 2020-03-07 12:13 | Emergency Department Report ---
ED General Adult HPI - General Chief complaint: Extremity Injury, Lower Stated complaint: LEG PAIN Time Seen by Provider: 03/07/20 10:58 Source: patient Mode of arrival: Stretcher Limitations: No Limitations - History of Present Illness Initial comments: Patient is a 64-year-old female presents emergency room with complaints of a lupus flare. She states that she has bilateral lower extremity pain that began a couple days ago. She states that she had similar symptoms a few months ago when she had a lupus flare. She is not on any medication for lupus. She denies any fall or injury. She states that she has not noticed any leg swelling. She denies any chest pain or shortness of breath. She denies any fever, cough, vomiting, diarrhea. PMHx DM and HTN. she states her blood glucose has been well controlled on insulin. No allergies to medications. Severity scale (0 -10): 9 - Related Data Previous Rx's Medication Instructions Recorded Last Taken Type Insulin Glargine [Lantus VIAL] 30 units SUB-Q QHS #1 vial 10/17/18 Unknown Rx Baclofen [Lioresal] 5 mg PO TID #90 tablet 11/25/19 Unknown Rx Lispro Insulin [HumaLOG] 5 unit SUB-Q AC 30 Days #1 vial 11/25/19 Unknown Rx Metoclopramide [Reglan TAB] 10 mg PO TID #60 tab 11/25/19 Unknown Rx Oxycodone HCl/Acetaminophen 1 each PO Q6HR PRN #24 tablet 11/25/19 Unknown Rx [Percocet 7.5/325 mg] polyethylene glycoL 3350 [Miralax 17 gm PO QDAY #30 packet 11/25/19 Unknown Rx 3350] Ondansetron [Zofran ODT TAB] 4 mg PO Q8HR PRN #20 tab.rapdis 12/02/19 Unknown Rx oxyCODONE /ACETAMINOPHEN [Percocet 1 tab PO BID PRN #6 tablet 12/02/19 Unknown Rx 5/325 mg] Butalb/Acetaminophen/Caffeine 1 cap PO Q8HR PRN #10 cap 12/15/19 Unknown Rx [Fioricet 50-300-40 mg CAP] Famotidine [Pepcid] 40 mg PO QHS #30 tablet 12/15/19 Unknown Rx Ondansetron [Zofran Odt] 4 mg PO Q8HR PRN #10 tab.rapdis 12/15/19 Unknown Rx amLODIPine 10 mg PO QDAY #30 tablet 12/15/19 Unknown Rx Acetaminophen [Tylenol] 650 mg PO Q8HR PRN #20 capsule 03/07/20 Unknown Rx Furosemide [Lasix TAB] 40 mg PO QDAY #5 tablet 03/07/20 Unknown Rx methOCARBAMOL [Robaxin TAB] 500 mg PO BID PRN #14 tab 03/07/20 Unknown Rx traMADoL [Ultram 50 MG tab] 50 mg PO Q6HR PRN #12 tablet 03/07/20 Unknown Rx Allergies Allergy/AdvReac Type Severity Reaction Status Date / Time No Known Allergies Allergy Verified 03/25/19 15:18 ED Review of Systems ROS: Stated complaint: LEG PAIN Other details as noted in HPI Comment: All other systems reviewed and negative ED Past Medical Hx - Past Medical History Previous Medical History?: Yes Hx Hypertension: Yes Hx Heart Attack/AMI: No Hx Congestive Heart Failure: No Hx Diabetes: Yes Hx Liver Disease: No Hx Renal Disease: No Hx Psychiatric Treatment: Yes (DEPRESSION) Hx Asthma: No Hx COPD: No Additional medical history: LUPUS. Chronic Pain - Surgical History Past Surgical History?: Yes Hx Cholecystectomy: Yes Hx Appendectomy: Yes Additional Surgical History: BREAST / TONSILS / ABD. Hysterectomy, gastric bypass - Social History Smoking Status: Current Every Day Smoker Substance Use Type: None - Medications Home Medications: Home Medications Medication Instructions Recorded Confirmed Last Taken Type Insulin Glargine [Lantus VIAL] 30 units SUB-Q QHS #1 vial 10/17/18 11/22/19 Unknown Rx Baclofen [Lioresal] 5 mg PO TID #90 tablet 11/25/19 Unknown Rx Lispro Insulin [HumaLOG] 5 unit SUB-Q AC 30 Days #1 vial 11/25/19 Unknown Rx Metoclopramide [Reglan TAB] 10 mg PO TID #60 tab 11/25/19 Unknown Rx Oxycodone HCl/Acetaminophen 1 each PO Q6HR PRN #24 tablet 11/25/19 Unknown Rx [Percocet 7.5/325 mg] polyethylene glycoL 3350 [Miralax 17 gm PO QDAY #30 packet 11/25/19 Unknown Rx 3350] Ondansetron [Zofran ODT TAB] 4 mg PO Q8HR PRN #20 tab.rapdis 12/02/19 Unknown Rx oxyCODONE /ACETAMINOPHEN [Percocet 1 tab PO BID PRN #6 tablet 12/02/19 Unknown Rx 5/325 mg] Butalb/Acetaminophen/Caffeine 1 cap PO Q8HR PRN #10 cap 12/15/19 Unknown Rx [Fioricet 50-300-40 mg CAP] Famotidine [Pepcid] 40 mg PO QHS #30 tablet 12/15/19 Unknown Rx Ondansetron [Zofran Odt] 4 mg PO Q8HR PRN #10 tab.rapdis 12/15/19 Unknown Rx amLODIPine 10 mg PO QDAY #30 tablet 12/15/19 Unknown Rx Acetaminophen [Tylenol] 650 mg PO Q8HR PRN #20 capsule 03/07/20 Unknown Rx Furosemide [Lasix TAB] 40 mg PO QDAY #5 tablet 03/07/20 Unknown Rx methOCARBAMOL [Robaxin TAB] 500 mg PO BID PRN #14 tab 03/07/20 Unknown Rx traMADoL [Ultram 50 MG tab] 50 mg PO Q6HR PRN #12 tablet 03/07/20 Unknown Rx ED Physical Exam - General Limitations: No Limitations General appearance: alert, in no apparent distress - Head Head exam: Present: atraumatic, normocephalic - Eye Eye exam: Present: normal appearance - ENT ENT exam: Present: mucous membranes moist - Respiratory Respiratory exam: Present: normal lung sounds bilaterally. Absent: respiratory distress, wheezes, rales, rhonchi, stridor, chest wall tenderness, accessory muscle use, decreased breath sounds, prolonged expiratory - Cardiovascular Cardiovascular Exam: Present: regular rate, normal rhythm, normal heart sounds. Absent: systolic murmur, diastolic murmur, rubs, gallop - Extremities Exam Extremities exam: Present: other (generalized ttp of the BLE, there is mild pitting edema bilaterally, no skin changes, no erythema, no increased warmth, neurovascularly intact) - Neurological Exam Neurological exam: Present: alert, oriented X3 - Psychiatric Psychiatric exam: Present: normal affect, normal mood - Skin Skin exam: Present: warm, dry, intact ED Course Vital Signs 03/07/20 05:24 Temperature 98.6 F Pulse Rate 86 Respiratory 16 Rate Blood Pressure 138/59 O2 Sat by Pulse 96 Oximetry ED Medical Decision Making - Lab Data Result diagrams: 03/07/20 11:10 03/07/20 11:10 Lab Results 03/07/20 03/07/20 03/07/20 Range/Units 11:10 11:10 11:10 WBC 6.8 (4.5-11.0) K/mm3 RBC 3.09 L (3.65-5.03) M/mm3 Hgb 9.9 L (10.1-14.3) gm/dl Hct 29.1 L (30.3-42.9) % MCV 94 (79-97) fl MCH 32 (28-32) pg MCHC 34 (30-34) % RDW 12.5 L (13.2-15.2) % Plt Count 365 (140-440) K/mm3 Lymph % (Auto) 29.0 (13.4-35.0) % [place] % (Auto) 7.3 (0.0-7.3) % Eos % (Auto) 1.7 (0.0-4.3) % Baso % (Auto) 0.6 (0.0-1.8) % Lymph # (Auto) 2.0 (1.2-5.4) K/mm3 [place]er # (Auto) 0.5 (0.0-0.8) K/mm3 Eos # (Auto) 0.1 (0.0-0.4) K/mm3 Baso # (Auto) 0.0 (0.0-0.1) K/mm3 Seg Neutrophils % 61.4 (40.0-70.0) % Seg Neutrophils # 4.2 (1.8-7.7) K/mm3 Sodium 134 L (137-145) mmol/L Potassium 5.2 H (3.6-5.0) mmol/L Chloride 102.0 (98-107) mmol/L Carbon Dioxide 24 (22-30) mmol/L Anion Gap 13 mmol/L BUN 15 (7-17) mg/dL Creatinine 0.6 (0.6-1.2) mg/dL Estimated GFR > 60 ml/min BUN/Creatinine Ratio 25 % Glucose 195 H (65-100) mg/dL Calcium 8.8 (8.4-10.2) mg/dL Total Bilirubin 0.20 (0.1-1.2) mg/dL AST 24 (5-40) units/L ALT 31 (7-56) units/L Alkaline Phosphatase 85 (35-129) units/L C-Reactive Protein 0.10 (0.00-1.30) mg/dL NT-Pro-B Natriuret Pep 222.5 (0-900) pg/mL Total Protein 6.4 (6.3-8.2) g/dL Albumin 3.5 L (3.9-5) g/dL Albumin/Globulin Ratio 1.2 % - Radiology Data Radiology results: report reviewed Doppler ultrasound bilateral lower extremities Impression: No sonographic evidence for DVT in either lower extremity. Radiologist Ivan Pearl MD - Medical Decision Making Patient is a 64-year-old female presents emergency room with complaints of a lupus flare. She states that she has bilateral lower extremity pain that began a couple days ago. She states that she had similar symptoms a few months ago when she had a lupus flare. She is not on any medication for lupus. She denies any fall or injury. She states that she has not noticed any leg swelling. She denies any chest pain or shortness of breath. She denies any fever, cough, vomiting, diarrhea. PMHx DM and HTN. she states her blood glucose has been well controlled on insulin. No allergies to medications. Vitals are stable. On exam:generalized ttp of the BLE, there is mild pitting edema bilaterally, no skin changes, no erythema, no increased warmth, neurovascularly intact. Labs are stable, very mild hyperkalemia at 5.2, CRP is normal. Doppler ultrasound bilateral lower extremities. Impression: No sonographic evidence for DVT in either lower extremity. Discussed all findings with patient and answered questions. She has no signs of septic joint or cellulitis. No signs of significant PAD given that she has normal distal pulses. And dexamethasone IM while in the emergency department and symptoms improved. Patient given short course of Lasix, tramadol, Tylenol, Robaxin. Discussed the importance of follow-up with patient. Discussed return precautions. Advised patient Please take medication as prescribed. Do not drive or operate machinery while taking pain medication. Follow-up with a primary care doctor. Return to emergency room for any new or worsening symptoms. - Differential Diagnosis Arthritis, rheumatoid, lupus, DVT, CHF, PVD Critical care attestation.: If time is entered above; I have spent that time in minutes in the direct care of this critically ill patient, excluding procedure time. ED Disposition Clinical Impression: Bilateral leg pain, Leg swelling Disposition: TO HOME OR SELFCARE Is pt being admited?: No Does the pt Need Aspirin: No Condition: Stable Additional Instructions: Please take medication as prescribed. Do not drive or operate machinery while taking pain medication. Follow-up with a primary care doctor. Return to emergency room for any new or worsening symptoms. Prescriptions: Furosemide [Lasix TAB] 40 mg PO QDAY #5 tablet methOCARBAMOL [Robaxin TAB] 500 mg PO BID PRN #14 tab PRN Reason: pain Acetaminophen [Tylenol] 650 mg PO Q8HR PRN #20 capsule PRN Reason: pain traMADoL [Ultram 50 MG tab] 50 mg PO Q6HR PRN #12 tablet PRN Reason: Pain Referrals: PRIMARY MD JOVAN [Primary Care Provider] - 2-3 Days LEONELA MARIE MD [Staff Physician] - 2-3 Days [facility] [Provider Group] - 2-3 Days [facility] [Outside] - 2-3 Days Time of Disposition: 13:01 Print Language: MALAY
--- NOTE | 2020-03-07 12:53 | Vascular Lab Report ---
DUPLEX DOPPLER LOWER EXTREMITY VEINS, BILATERAL INDICATION / CLINICAL INFORMATION: BLE pain and swelling. TECHNIQUE: Duplex doppler imaging was performed through the veins of both lower extremities using venous shauna xiomara and other maneuvers. COMPARISON: None available. FINDINGS: RIGHT COMMON FEMORAL VEIN: Negative. RIGHT FEMORAL VEIN: Negative. RIGHT POPLITEAL VEIN: Negative. RIGHT CALF VEINS: Negative. LEFT COMMON FEMORAL VEIN: Negative. LEFT FEMORAL VEIN: Negative. LEFT POPLITEAL VEIN: Negative. LEFT CALF VEINS: Negative. ADDITIONAL FINDINGS: None. IMPRESSION: 1. No sonographic evidence for DVT in either lower extremity. Signer Name: Ivan Pearl MD Signed: 03/07/2020 12:49 PM Workstation Name: [id number]
== END 2020-03-07 14:13 | disposition home or self-care (01) ==
LOC: ED 21:33
DX: M79.604 Pain in right leg (principal); M79.605 Pain in left leg; M79.89 Other specified soft tissue disorders; F32.9 Major depressive disorder, single episode, unspecified; I10 Essential (primary) hypertension; E11.9 Type 2 diabetes mellitus without complications; F17.200 Nicotine dependence, unspecified, uncomplicated; Z90.49 Acquired absence of other specified parts of digestive tract; Z98.890 Other specified postprocedural states; Z79.899 Other long term (current) drug therapy; Z90.710 Acquired absence of both cervix and uterus
CPT/HCPCS: 36415; 80053; 83880; 85025; 86140; 93970; 96372; 99284; J1100

== ENCOUNTER 2020-03-18 17:59 | Emergency (ER) | payer MEDICAID ==
[2020-03-18 18:06] VITALS: BP 121/63
--- NOTE | 2020-03-18 18:25 | Event Note ---
ED Screening Note ED Screening Note: Patient presents for a lupus flare that began today States that she has pain in her right thigh and her right knee No fall or injury This initial assessment/diagnostic orders/clinical plan/treatment(s) is/are subject to change based on patients health status, clinical progression and re- assessment by fellow clinical providers in the ED. Further treatment and workup at subsequent clinical providers discretion. Patient/guardian urged not to elope from the ED as their condition may be serious if not clinically assessed and managed. Initial orders include: Labs, UA
[2020-03-18 19:11] LABS: Basophils # (Auto) 0.1 K/mm3 (0.0-0.1); Basophils % (Auto) 1.1 % (0.0-1.8); Eosinophils # (Auto) 0.1 K/mm3 (0.0-0.4); Eosinophils % (Auto) 1.3 % (0.0-4.3); Hematocrit 30.4 % (30.3-42.9); Hemoglobin 10.2 gm/dl (10.1-14.3); Lymphocytes # (Auto) 1.7 K/mm3 (1.2-5.4); Lymphocytes % (Auto) 24.7 % (13.4-35.0); Mean Corpuscular HGB Conc 33 % (30-34); Mean Corpuscular Volume 95 fl (79-97); Monocytes # (Auto) 0.6 K/mm3 (0.0-0.8); Monocytes % (Auto) 8.8 % (0.0-7.3); Platelet Count 299 K/mm3 (140-440); Red Blood Count 3.21 M/mm3 (3.65-5.03); Red Cell Distribution Width 13.2 % (13.2-15.2)
[2020-03-18 19:34] LABS: Alanine Aminotransferase 16 units/L (7-56); Albumin 3.6 g/dL (3.9-5); Blood Urea Nitrogen 17 mg/dL (7-17); Calcium 8.5 mg/dL (8.4-10.2); Hemolysis Index 3
[2020-03-18 19:36] LABS: BUN/Creatinine Ratio 28
[2020-03-18] MEDS ORDERED: dexAMETHasone 20 MG/5 ML VIAL IM ONE (20:48)
[2020-03-18] MEDS ORDERED: traMADol 50 MG TAB PO ONE (21:00)
--- NOTE | 2020-03-18 21:28 | Emergency Department Report ---
ED General Adult HPI - General Chief complaint: Pain General Stated complaint: BODY PAIN Time Seen by Provider: 03/18/20 18:24 Source: patient, EMS Mode of arrival: Wheelchair Limitations: No Limitations - History of Present Illness Initial comments: 64-year-old female presents with complaints of right knee pain x1 week. She states that she has a history of lupus and that she believes she is having a lupus flare. She reports that she normally gets pain in her legs with her lupus flare, however the pain is just tender to her knee today. Patient was seen here with similar complaints 03/06/2020 and had a normal Doppler ultrasound of the legs performed. CRP at that time was also normal. She denies any fever/chills/sweats, redness or warmth to the joint, or recent injuries. Patient rates her current pain as a 10/10 in severity and states it worsens with weightbearing and ambulation. No numbness/tingling/weakness in her leg per pa tient. Severity scale (0 -10): 4 - Related Data Previous Rx's Medication Instructions Recorded Last Taken Type Insulin Glargine [Lantus VIAL] 30 units SUB-Q QHS #1 vial 10/17/18 Unknown Rx Baclofen [Lioresal] 5 mg PO TID #90 tablet 11/25/19 Unknown Rx Lispro Insulin [HumaLOG] 5 unit SUB-Q AC 30 Days #1 vial 11/25/19 Unknown Rx Metoclopramide [Reglan TAB] 10 mg PO TID #60 tab 11/25/19 Unknown Rx Oxycodone HCl/Acetaminophen 1 each PO Q6HR PRN #24 tablet 11/25/19 Unknown Rx [Percocet 7.5/325 mg] polyethylene glycoL 3350 [Miralax 17 gm PO QDAY #30 packet 11/25/19 Unknown Rx 3350] Ondansetron [Zofran ODT TAB] 4 mg PO Q8HR PRN #20 tab.rapdis 12/02/19 Unknown Rx oxyCODONE /ACETAMINOPHEN [Percocet 1 tab PO BID PRN #6 tablet 12/02/19 Unknown Rx 5/325 mg] Butalb/Acetaminophen/Caffeine 1 cap PO Q8HR PRN #10 cap 12/15/19 Unknown Rx [Fioricet 50-300-40 mg CAP] Famotidine [Pepcid] 40 mg PO QHS #30 tablet 12/15/19 Unknown Rx Ondansetron [Zofran Odt] 4 mg PO Q8HR PRN #10 tab.rapdis 12/15/19 Unknown Rx amLODIPine 10 mg PO QDAY #30 tablet 12/15/19 Unknown Rx Acetaminophen [Tylenol] 650 mg PO Q8HR PRN #20 capsule 03/07/20 Unknown Rx Furosemide [Lasix TAB] 40 mg PO QDAY #5 tablet 03/07/20 Unknown Rx methOCARBAMOL [Robaxin TAB] 500 mg PO BID PRN #14 tab 03/07/20 Unknown Rx traMADoL [Ultram 50 MG tab] 50 mg PO Q6HR PRN #12 tablet 03/07/20 Unknown Rx Allergies Allergy/AdvReac Type Severity Reaction Status Date / Time No Known Allergies Allergy Verified 03/18/20 18:04 ED Review of Systems ROS: Stated complaint: BODY PAIN Other details as noted in HPI Constitutional: denies: chills, fever, malaise Respiratory: denies: cough, shortness of breath Gastrointestinal: denies: abdominal pain Genitourinary: denies: urgency, dysuria, frequency, hematuria, discharge Musculoskeletal: arthralgia. denies: back pain, joint swelling Skin: denies: lesions, change in color Neurological: denies: weakness, numbness, paresthesias ED Past Medical Hx - Past Medical History Hx Hypertension: Yes Hx Heart Attack/AMI: No Hx Congestive Heart Failure: No Hx Diabetes: Yes Hx Liver Disease: No Hx Renal Disease: No Hx Psychiatric Treatment: Yes (DEPRESSION) Hx Asthma: No Hx COPD: No Additional medical history: LUPUS. Chronic Pain - Surgical History Hx Cholecystectomy: Yes Hx Appendectomy: Yes Additional Surgical History: BREAST / TONSILS / ABD. Hysterectomy, gastric bypass - Social History Smoking Status: Current Every Day Smoker Substance Use Type: None - Medications Home Medications: Home Medications Medication Instructions Recorded Confirmed Last Taken Type Insulin Glargine [Lantus VIAL] 30 units SUB-Q QHS #1 vial 10/17/18 11/22/19 Unknown Rx Baclofen [Lioresal] 5 mg PO TID #90 tablet 11/25/19 Unknown Rx Lispro Insulin [HumaLOG] 5 unit SUB-Q AC 30 Days #1 vial 11/25/19 Unknown Rx Metoclopramide [Reglan TAB] 10 mg PO TID #60 tab 11/25/19 Unknown Rx Oxycodone HCl/Acetaminophen 1 each PO Q6HR PRN #24 tablet 11/25/19 Unknown Rx [Percocet 7.5/325 mg] polyethylene glycoL 3350 [Miralax 17 gm PO QDAY #30 packet 11/25/19 Unknown Rx 3350] Ondansetron [Zofran ODT TAB] 4 mg PO Q8HR PRN #20 tab.rapdis 12/02/19 Unknown Rx oxyCODONE /ACETAMINOPHEN [Percocet 1 tab PO BID PRN #6 tablet 12/02/19 Unknown Rx 5/325 mg] Butalb/Acetaminophen/Caffeine 1 cap PO Q8HR PRN #10 cap 12/15/19 Unknown Rx [Fioricet 50-300-40 mg CAP] Famotidine [Pepcid] 40 mg PO QHS #30 tablet 12/15/19 Unknown Rx Ondansetron [Zofran Odt] 4 mg PO Q8HR PRN #10 tab.rapdis 12/15/19 Unknown Rx amLODIPine 10 mg PO QDAY #30 tablet 12/15/19 Unknown Rx Acetaminophen [Tylenol] 650 mg PO Q8HR PRN #20 capsule 03/07/20 Unknown Rx Furosemide [Lasix TAB] 40 mg PO QDAY #5 tablet 03/07/20 Unknown Rx methOCARBAMOL [Robaxin TAB] 500 mg PO BID PRN #14 tab 03/07/20 Unknown Rx traMADoL [Ultram 50 MG tab] 50 mg PO Q6HR PRN #12 tablet 03/07/20 Unknown Rx ED Physical Exam - General Limitations: No Limitations General appearance: alert, in no apparent distress - Head Head exam: Present: atraumatic, normocephalic - Eye Eye exam: Present: normal appearance. Absent: scleral icterus - ENT ENT exam: Present: mucous membranes moist - Neck Neck exam: Present: normal inspection, full ROM - Respiratory Respiratory exam: Present: normal lung sounds bilaterally. Absent: respiratory distress - Cardiovascular Cardiovascular Exam: Present: regular rate, normal rhythm - Expanded Lower Extremity Exam Right Knee exam: Present: full ROM, tenderness (Tenderness to palpation noted over the anterior portion of the knee). Absent: swelling, abrasion, laceration, ecchymosis, deformity, dislocation, erythema, effusion Lower Leg exam: Present: full ROM. Absent: tenderness, swelling, ecchymosis Ankle exam: Present: full ROM Neuro vascular tendon exam: Present: no vascular compromise. Absent: pulse deficit, sensory deficit, extremity cold to touch - Back Exam Back exam: Present: full ROM ED Course Vital Signs 03/18/20 18:06 Temperature 97.9 F Pulse Rate 99 H Respiratory 20 Rate Blood Pressure 121/63 O2 Sat by Pulse 98 Oximetry ED Medical Decision Making - Lab Data Result diagrams: 03/18/20 18:42 03/18/20 18:42 - Radiology Data Radiology results: report reviewed EXAMINATION: Right knee radiograph, 3 views, 03/18/2020 CLINICAL INFORMATION: Right knee pain COMPARISON: Right knee radiograph, 10/16/2018 FINDINGS: There is no evidence of acute fracture. Postsurgical changes to the lateral femoral condyle are again noted. There is moderate bony degenerative change. Bony structures appear demineralized. IMPRESSION: 1. Stable postsurgical and degenerative changes of the right knee. - Medical Decision Making 64-year-old female presents with complaints of right knee pain x1 week. She states that she has a history of lupus and that she believes she is having a lupus flare. She reports that she normally gets pain in her legs with her lupus flare, however the pain is just tender to her knee today. Patient was seen here with similar complaints 03/06/2020 and had a normal Doppler ultrasound of the legs performed. CRP at that time was also normal. She denies any fever/chills/sweats, redness or warmth to the joint, or recent injuries. Patient rates her current pain as a 10/10 in severity and states it worsens with weightbearing and ambulation. No numbness/tingling/weakness in her leg per patient. Patient left AGAINST MEDICAL ADVICE prior to x-ray of the knee results, however x-ray does not show any acute bony abnormalities. Patient's pain significantly improved with Decadron and tramadol. She is able to ambulate via help of the wheelchair Critical care attestation.: If time is entered above; I have spent that time in minutes in the direct care of this critically ill patient, excluding procedure time. ED Disposition Clinical Impression: Right knee pain Qualifiers: Chronicity: acute Qualified Code(s): M25.561 - Pain in right knee Disposition: -07 LEFT AGAINST MED ADVICE Is pt being admited?: No Condition: Stable Instructions: Acute Knee Pain, Adult Referrals: PEÑA MODI MD [Primary Care Provider] - 3-5 Days
--- NOTE | 2020-03-18 21:32 | XRay Report ---
EXAMINATION: Right knee radiograph, 3 views, 03/18/2020 CLINICAL INFORMATION: Right knee pain COMPARISON: Right knee radiograph, 10/16/2018 FINDINGS: There is no evidence of acute fracture. Postsurgical changes to the lateral femoral condyle are again noted. There is moderate bony degenerative change. Bony structures appear demineralized. IMPRESSION: 1. Stable postsurgical and degenerative changes of the right knee. Signer Name: Kesha Sawant MD Signed: 03/18/2020 9:28 PM Workstation Name: [id number]
== END 2020-03-18 21:43 | disposition left against medical advice (07) ==
LOC: ED 17:59
DX: M25.561 Pain in right knee (principal); I10 Essential (primary) hypertension; E11.9 Type 2 diabetes mellitus without complications; F32.9 Major depressive disorder, single episode, unspecified; F17.200 Nicotine dependence, unspecified, uncomplicated; Z90.49 Acquired absence of other specified parts of digestive tract; Z79.4 Long term (current) use of insulin; Z79.899 Other long term (current) drug therapy
CPT/HCPCS: 36415; 73564; 80053; 84703; 85025; 96372; 99284; J1100

== ENCOUNTER 2020-03-25 19:33 | Emergency (ER) | payer MEDICAID ==
--- NOTE | 2020-03-25 20:34 | Event Note ---
ED Screening Note Date of service: 03/25/20 Time: 20:29 ED Screening Note: 64-year-old female presents to the emergency room for abdominal pain and just not feeling good. Patient has a history of diabetes chronic epigastric pain. Patient states that she does not have a doctor and does not take any medications. Patient states that she states that a [facility] and she only does what they tell her to do. Patient admits to nausea and vomiting. This initial assessment/diagnostic orders/clinical plan/treatment(s) is/are subject to change based on patients health status, clinical progression and re- assessment by fellow clinical providers in the ED. Further treatment and workup at subsequent clinical providers discretion. Patient/guardian urged not to elope from the ED as their condition may be serious if not clinically assessed and managed. Initial orders include:
[2020-03-25 20:35] VITALS: BP 142/83
[2020-03-25 21:09] LABS: Alanine Aminotransferase 13 units/L (7-56); Albumin 3.6 g/dL (3.9-5); BUN/Creatinine Ratio 30; Blood Urea Nitrogen 12 mg/dL (7-17); Calcium 8.5 mg/dL (8.4-10.2); Hemolysis Index 9
[2020-03-25 21:22] LABS: Basophils # (Auto) 0.1 K/mm3 (0.0-0.1); Basophils % (Auto) 0.8 % (0.0-1.8); Eosinophils # (Auto) 0.1 K/mm3 (0.0-0.4); Eosinophils % (Auto) 1.5 % (0.0-4.3); Hematocrit 29.9 % (30.3-42.9); Lymphocytes # (Auto) 1.7 K/mm3 (1.2-5.4); Lymphocytes % (Auto) 19.5 % (13.4-35.0); Mean Corpuscular HGB Conc 33 % (30-34); Mean Corpuscular Volume 93 fl (79-97); Monocytes # (Auto) 0.6 K/mm3 (0.0-0.8); Monocytes % (Auto) 7.4 % (0.0-7.3); Platelet Count 328 K/mm3 (140-440); Red Cell Distribution Width 12.9 % (13.2-15.2)
--- NOTE | 2020-03-25 21:22 | XRay Report ---
CHEST 2 VIEWS INDICATION / CLINICAL INFORMATION: sob,cough and rales. COMPARISON: 12/01/2019 FINDINGS: SUPPORT DEVICES: None. HEART / MEDIASTINUM: Stable. LUNGS / PLEURA: Mild coarsened interstitial lung markings are stable since prior exam. No confluent i nfiltrates or pleural effusions. No pneumothorax. ADDITIONAL FINDINGS: No significant additional findings. IMPRESSION: 1. No acute findings. No significant interval change since 12/01/2019. Signer Name: Prince Bray MD Signed: 03/25/2020 9:18 PM Workstation Name: [id number]
[2020-03-26] MEDS ORDERED: SODIUM CHLORIDE 0.9% 1000 ML 1,000 ML IV ONE (10:24)
[2020-03-26] MEDS ORDERED: ONDANSETRON 4 MG/2 ML INJ IV ONE (10:24)
[2020-03-26] MEDS ORDERED: MAGNESIUM SULFATE 2 GM/50 ML BAG IV ONE (10:24)
[2020-03-26] MEDS ORDERED: fentaNYL 100 MCG/2 ML INJ IV ONE (10:24)
[2020-03-26] MEDS ORDERED: CYCLOBENZAPRINE 10 MG TAB PO ONE (10:28)
--- NOTE | 2020-03-26 10:30 | Emergency Department Report ---
HPI - General Chief Complaint: Abdominal Pain Time Seen by Provider: 03/26/20 10:15 - HPI HPI: Room 35 The patient is a 64-year-old female present with a chief complaint of abdominal pain and leg pain. The patient states that she came to the emergency department because of pain in both legs and her abdomen. The patient states she has suffered from the pain in her legs initially for the past several weeks. Patient describes the pain as sharp and intermittent the right leg being worse than the left. Patient complains of pain from the knees to the hips on both sides mostly in the thighs. Patient states yesterday she developed intermittent right-sided abdominal pain associated with nausea and vomiting. Patient denies diarrhea, fever, dysuria or hematuria. Patient currently gives her pain a score of 10/10. Patient is not driving ED Past Medical Hx - Past Medical History Previous Medical History?: Yes Hx Hypertension: Yes Hx Diabetes: Yes Hx Psychiatric Treatment: Yes (DEPRESSION) Additional medical history: LUPUS. Chronic Pain - Surgical History Past Surgical History?: Yes Hx Cholecystectomy: Yes Hx Appendectomy: Yes Additional Surgical History: BREAST / TONSILS / ABD. Hysterectomy, gastric bypass - Family History Family history: no significant - Social History Smoking Status: Current Some Day Smoker Substance Use Type: None (Denies illicit drug use) - Medications Home Medications: Home Medications Medication Instructions Recorded Confirmed Last Taken Type Insulin Glargine [Lantus VIAL] 30 units SUB-Q QHS #1 vial 10/17/18 11/22/19 Unknown Rx Baclofen [Lioresal] 5 mg PO TID #90 tablet 11/25/19 Unknown Rx Lispro Insulin [HumaLOG] 5 unit SUB-Q AC 30 Days #1 vial 11/25/19 Unknown Rx Metoclopramide [Reglan TAB] 10 mg PO TID #60 tab 11/25/19 Unknown Rx Oxycodone HCl/Acetaminophen 1 each PO Q6HR PRN #24 tablet 11/25/19 Unknown Rx [Percocet 7.5/325 mg] polyethylene glycoL 3350 [Miralax 17 gm PO QDAY #30 packet 11/25/19 Unknown Rx 3350] Ondansetron [Zofran ODT TAB] 4 mg PO Q8HR PRN #20 tab.rapdis 12/02/19 Unknown Rx oxyCODONE /ACETAMINOPHEN [Percocet 1 tab PO BID PRN #6 tablet 12/02/19 Unknown Rx 5/325 mg] Butalb/Acetaminophen/Caffeine 1 cap PO Q8HR PRN #10 cap 12/15/19 Unknown Rx [Fioricet 50-300-40 mg CAP] Famotidine [Pepcid] 40 mg PO QHS #30 tablet 12/15/19 Unknown Rx Ondansetron [Zofran Odt] 4 mg PO Q8HR PRN #10 tab.rapdis 12/15/19 Unknown Rx amLODIPine 10 mg PO QDAY #30 tablet 12/15/19 Unknown Rx Acetaminophen [Tylenol] 650 mg PO Q8HR PRN #20 capsule 03/07/20 Unknown Rx Furosemide [Lasix TAB] 40 mg PO QDAY #5 tablet 03/07/20 Unknown Rx methOCARBAMOL [Robaxin TAB] 500 mg PO BID PRN #14 tab 03/07/20 Unknown Rx traMADoL [Ultram 50 MG tab] 50 mg PO Q6HR PRN #12 tablet 03/07/20 Unknown Rx HYDROcodone/APAP 5-325 [[place] 1 - 2 each PO Q6HR PRN #10 tablet 03/26/20 Unknown Rx 5/325] Promethazine HCl [Phenergan SUPPOS] 25 mg RC Q6H PRN #5 supp.rect 03/26/20 Unknown Rx Promethazine [Phenergan] 25 mg PO Q6HR PRN #20 tab 03/26/20 Unknown Rx ED Review of Systems ROS: Stated complaint: NAUSEA, GENERAL ILLNESS X'S 1 DAY Other details as noted in HPI Constitutional: denies: fever Eyes: denies: eye pain ENT: denies: throat pain Respiratory: no symptoms reported Cardiovascular: denies: chest pain Endocrine: no symptoms reported Gastrointestinal: abdominal pain, nausea, vomiting. denies: diarrhea Genitourinary: denies: dysuria, hematuria Musculoskeletal: myalgia Skin: denies: rash Neurological: denies: headache Physical Exam - Physical Exam Vital Signs: Vital Signs 03/25/20 19:57 Temperature 99.2 F Pulse Rate 94 H Respiratory 18 Rate Blood Pressure 142/83 O2 Sat by Pulse 99 Oximetry Physical Exam: GENERAL: The patient is well-developed well-nourished female lying on stretcher appearing to be in moderate discomfort [] HEENT: Normocephalic. Atraumatic. Extraocular motions are intact. Patient has moist mucous membranes. NECK: Supple. Trachea midline CHEST/LUNGS: Clear to auscultation. There is no respiratory distress noted. HEART/CARDIOVASCULAR: Regular. There is no tachycardia. There is no gallop rub or murmur. ABDOMEN: Abdomen is soft, with tenderness to palpation in the left upper quadrant and right midabdomen. Patient has normal bowel sounds. There is no abdominal distention. SKIN: There is no rash. There is no edema. There is no diaphoresis. NEURO: The patient is awake, alert, and oriented. The patient is cooperative. T he patient has normal speech MUSCULOSKELETAL: There is no evidence of acute injury. ED Course Vital Signs 03/25/20 19:57 Temperature 99.2 F Pulse Rate 94 H Respiratory 18 Rate Blood Pressure 142/83 O2 Sat by Pulse 99 Oximetry - Consultations Consultation #1: 03/26/20 12:21 Surgery paged 03/26/20 13:[address] Alcantar-states she discussed the case with Dr. Dela Cruz and requests hemoglobin A1c be sent off. Recommend patient be given a p.o. challenge with clear liquids and if able to tolerate by mouth patient may be discharged home with follow-up with Dr. Dela Cruz soon as possible ED Medical Decision Making - Lab Data Result diagrams: 03/25/20 20:36 03/25/20 20:36 Laboratory Tests 03/25/20 03/25/20 03/25/20 20:35 20:36 20:36 WBC 8.5 RBC 3.20 L Hgb 10.0 L Hct 29.9 L MCV 93 MCH 31 MCHC 33 RDW 12.9 L Plt Count 328 Lymph % (Auto) 19.5 Clay % (Auto) 7.4 H Eos % (Auto) 1.5 Baso % (Auto) 0.8 Lymph # (Auto) 1.7 Clay # (Auto) 0.6 Eos # (Auto) 0.1 Baso # (Auto) 0.1 Seg Neutrophils % 70.8 H Seg Neutrophils # 6.1 Sodium 139 Potassium 4.3 Chloride 108.0 H Carbon Dioxide 20 L Anion Gap 15 BUN 12 Creatinine 0.4 L Estimated GFR > 60 BUN/Creatinine Ratio 30 Glucose 154 H Calcium 8.5 Phosphorus 3.30 Magnesium 1.60 L Total Bilirubin 0.20 AST 10 ALT 13 Alkaline Phosphatase 93 Total Protein 5.8 L Albumin 3.6 L Albumin/Globulin Ratio 1.6 Lipase 03/25/20 20:36 WBC RBC Hgb Hct MCV MCH MCHC RDW Plt Count Lymph % (Auto) Clay % (Auto) Eos % (Auto) Baso % (Auto) Lymph # (Auto) Clay # (Auto) Eos # (Auto) Baso # (Auto) Seg Neutrophils % Seg Neutrophils # Sodium Potassium Chloride Carbon Dioxide Anion Gap BUN Creatinine Estimated GFR BUN/Creatinine Ratio Glucose Calcium Phosphorus Magnesium Total Bilirubin AST ALT Alkaline Phosphatase Total Protein Albumin Albumin/Globulin Ratio Lipase 19 - Radiology Data Radiology results: report reviewed (CT abdomen pelvis) Intussusception, benign - Differential Diagnosis Myalgia, electrolyte imbalance, gastritis, UTI, colitis Critical care attestation.: If time is entered above; I have spent that time in minutes in the direct care of this critically ill patient, excluding procedure time. ED Disposition Clinical Impression: Acute abdominal pain, Hypomagnesemia, Intussusception, Leg cramping Disposition: TO HOME OR SELFCARE Is pt being admited?: No Does the pt Need Aspirin: No Condition: Stable Instructions: Abdominal Pain (ED), Muscle Cramps and Spasms, [id number] Additional Instructions: Return to the emergency department should you develop worsening symptoms, inability to tolerate food or liquids, high fever or any other concerns Prescriptions: HYDROcodone/APAP 5-325 [[place] 5/325] 1 - 2 each PO Q6HR PRN #10 tablet PRN Reason: Pain Promethazine [Phenergan] 25 mg PO Q6HR PRN #20 tab PRN Reason: Nausea Promethazine HCl [Phenergan SUPPOS] 25 mg RC Q6H PRN #5 supp.rect PRN Reason: Vomiting Referrals: TJ DELA CRUZ MD [Staff Physician] - [facility] (Dr. Dela Cruz is a surgeon. Please follow-up with her for further evaluation) Time of Disposition: 14:34
--- NOTE | 2020-03-26 12:07 | Cat Scan Report ---
CT ABDOMEN AND PELVIS WITH CONTRAST HISTORY: Right-sided abdominal pain COMPARISON: Prior CT on 12/01/2019 TECHNIQUE: Routine abdominal and pelvic CT exam performed following intravenous contrast administrat ion.. All CT scans at this location are performed using CT dose reduction for ALARA by means of autom ated exposure control. FINDINGS: CT ABDOMEN: Lung Bases: There are small foci of tree-in-bud nodularity in the visualized lung bases. Liver: No significant abnormality. Biliary: Gallbladder is surgically absent. Spleen: No significant abnormality. Unenlarged. Pancreas: No significant abnormality. Adrenals: No significant abnormality. Kidneys: No significant abnormality. Lymphatics: No lymphadenopathy. Vasculature: No significant abnormality. Bowel/Peritoneum: There are postsurgical changes from previous catheter bypass. There is a focal area of small bowel into small bowel intussusception in the mid abdomen, reference image 108 of series #2 . This is not resulting in obstruction. There is no pneumatosis, portal venous gas, or free air. Norm al appendix. CT PELVIC: : The uterus is surgically absent. There are no pelvic masses. Lymphatics: No lymphadenopathy. Osseous Structures: No aggressive appearing osseous lesions. Moderate bilateral hip DJD. Additional Findings: None IMPRESSION: 1. Small foci of tree-in-bud nodularity in the included lung bases. Findings could be secondary to as piration or atypical infectious process. 2. Focus of small bowel and a small bowel intussusception in the mid abdomen without associated obstr uction or other acute abnormality. No appreciable lead point. This is typically a benign, transient f inding in an adult and related to previous surgery. Signer Name: Jasper Carreno MD Signed: 03/26/2020 12:03 PM Workstation Name: [id number]
[2020-03-26] MEDS ORDERED: HYDROmorphone 1 MG/1 ML INJ IV ONE (14:30)
--- NOTE | 2020-03-26 14:45 | Event Note ---
Date: 03/26/[address] Neumann. Patient presented to ER with leg pain for several weeks and chronic upper abdominal pain, nausea. WBC normal. Electrolytes ok except for Mag which is mildly low. Patient with prior hx of gastric bypass, cholecystectomy, hysterectomy, appendectomy. Ct scan A/P images and read reviewed - intussusception without obstruction. Stool and air in colon. No small bowel dilatation. Post surgical changes. Patient was seen by me in Nov 2019 for similar symptoms. Patient was advised to follow up with bariatric surgeon at [place] and appointment was made for her. As patient does not have evidence of obstruction, recommend PO challenge. If patient does ok with sips of clear liquids, she will need follow up with [facility] surgeon to evaluate gastric bypass and possible need for revision. May follow up with Dr. Dela Cruz as outpatient. May return to ER if symptoms worsen.
== END 2020-03-26 15:17 | disposition home or self-care (01) ==
LOC: ED 19:33
DX: K56.1 Intussusception (principal); E83.42 Hypomagnesemia; R10.9 Unspecified abdominal pain; M79.606 Pain in leg, unspecified; I10 Essential (primary) hypertension; E11.9 Type 2 diabetes mellitus without complications; F32.9 Major depressive disorder, single episode, unspecified; Z90.89 Acquired absence of other organs; Z90.49 Acquired absence of other specified parts of digestive tract; Z98.890 Other specified postprocedural states; Z79.4 Long term (current) use of insulin; Z79.899 Other long term (current) drug therapy
CPT/HCPCS: 36415; 71046; 74177; 80053; 83036; 83690; 83735; 84100; 85025; 96365; 96366; 96375; 99285; J2405; J3010; J3475; J7030; Q9967

== ENCOUNTER 2020-04-20 21:49 | Emergency (ER) | payer MEDICAID ==
[2020-04-20] MEDS ORDERED: DEXTROSE 50% IN WATER (25GM) 50 ML SYRINGE IV ONE (21:58)
--- NOTE | 2020-04-20 22:14 | Emergency Department Report ---
ED Altered Mental Status HPI - General Stated Complaint: LOW SUGAR PUI?: No Time Seen by Provider: 04/20/20 22:02 Source: patient, EMS, old records reviewed Mode of arrival: Stretcher Limitations: No Limitations - History of Present Illness Initial Comments: Complaint: Altered mental status, low blood sugar HPI: This is a 64-year-old female with history of insulin-dependent diabetes, hypertension, gastric bypass surgery, depression, chronic back pain, lupus, who presents with lethargy altered mental status. Blood sugar 35 according to EMS. Patient received dextrose here in the emergency department prior to my arrival via IV. EMS was unable to obtain venous access prior to arrival. Patient states that she has chronic pain in her back and legs. Otherwise she was in her normal state of health. Patient was witnessed to be laying on the floor minimally responsive. Patient is a resident at [facility]. Complaint: altered mental status, decreased responsiveness -: Gradual, This evening Severity: moderate Consistency of Symptoms: constant Context: diabetes Associated Symptoms: denies other symptoms, other (Chronic back and leg pain) Treatments Prior to Arrival: other pre-hosp med (EMS transport with multiple attempts to obtain venous access) - Related Data Previous Rx's Medication Instructions Recorded Last Taken Type Insulin Glargine [Lantus VIAL] 30 units SUB-Q QHS #1 vial 10/17/18 Unknown Rx Baclofen [Lioresal] 5 mg PO TID #90 tablet 11/25/19 Unknown Rx Lispro Insulin [HumaLOG] 5 unit SUB-Q AC 30 Days #1 vial 11/25/19 Unknown Rx Metoclopramide [Reglan TAB] 10 mg PO TID #60 tab 11/25/19 Unknown Rx Oxycodone HCl/Acetaminophen 1 each PO Q6HR PRN #24 tablet 11/25/19 Unknown Rx [Percocet 7.5/325 mg] polyethylene glycoL 3350 [Miralax 17 gm PO QDAY #30 packet 11/25/19 Unknown Rx 3350] Ondansetron [Zofran ODT TAB] 4 mg PO Q8HR PRN #20 tab.rapdis 12/02/19 Unknown Rx oxyCODONE /ACETAMINOPHEN [Percocet 1 tab PO BID PRN #6 tablet 12/02/19 Unknown Rx 5/325 mg] Butalb/Acetaminophen/Caffeine 1 cap PO Q8HR PRN #10 cap 12/15/19 Unknown Rx [Fioricet 50-300-40 mg CAP] Famotidine [Pepcid] 40 mg PO QHS #30 tablet 12/15/19 Unknown Rx Ondansetron [Zofran Odt] 4 mg PO Q8HR PRN #10 tab.rapdis 12/15/19 Unknown Rx amLODIPine 10 mg PO QDAY #30 tablet 12/15/19 Unknown Rx Acetaminophen [Tylenol] 650 mg PO Q8HR PRN #20 capsule 03/07/20 Unknown Rx Furosemide [Lasix TAB] 40 mg PO QDAY #5 tablet 03/07/20 Unknown Rx methOCARBAMOL [Robaxin TAB] 500 mg PO BID PRN #14 tab 03/07/20 Unknown Rx traMADoL [Ultram 50 MG tab] 50 mg PO Q6HR PRN #12 tablet 03/07/20 Unknown Rx Cyclobenzaprine [Flexeril] 10 mg PO TID PRN #10 tablet 03/26/20 Unknown Rx Dicyclomine [Bentyl] 10 mg PO QID #30 capsule 03/26/20 Unknown Rx HYDROcodone/APAP 5-325 [[place] 1 - 2 each PO Q6HR PRN #10 tablet 03/26/20 Unknown Rx 5/325] Promethazine HCl [Phenergan SUPPOS] 25 mg RC Q6H PRN #5 supp.rect 03/26/20 Unknown Rx Promethazine [Phenergan] 25 mg PO Q6HR PRN #20 tab 03/26/20 Unknown Rx Allergies Allergy/AdvReac Type Severity Reaction Status Date / Time No Known Allergies Allergy Verified 03/18/20 18:04 ED Review of Systems ROS: Stated complaint: LOW SUGAR Other details as noted in HPI Comment: All other systems reviewed and negative Constitutional: denies: fever, malaise Respiratory: denies: cough, shortness of breath Cardiovascular: denies: chest pain Gastrointestinal: denies: abdominal pain, nausea, vomiting ED Past Medical Hx - Past Medical History Previous Medical History?: Yes Hx Hypertension: Yes Hx Heart Attack/AMI: No Hx Congestive Heart Failure: No Hx Diabetes: Yes Hx Liver Disease: No Hx Renal Disease: No Hx Psychiatric Treatment: Yes (DEPRESSION) Hx Asthma: No Hx COPD: No Additional medical history: LUPUS. Chronic Pain - Surgical History Hx Cholecystectomy: Yes Hx Appendectomy: Yes Additional Surgical History: BREAST / TONSILS / ABD. Hysterectomy, gastric bypass - Social History Smoking Status: Current Some Day Smoker Substance Use Type: None (Denies illicit drug use) - Medications Home Medications: Home Medications Medication Instructions Recorded Confirmed Last Taken Type Insulin Glargine [Lantus VIAL] 30 units SUB-Q QHS #1 vial 10/17/18 11/22/19 Unknown Rx Baclofen [Lioresal] 5 mg PO TID #90 tablet 11/25/19 Unknown Rx Lispro Insulin [HumaLOG] 5 unit SUB-Q AC 30 Days #1 vial 11/25/19 Unknown Rx Metoclopramide [Reglan TAB] 10 mg PO TID #60 tab 11/25/19 Unknown Rx Oxycodone HCl/Acetaminophen 1 each PO Q6HR PRN #24 tablet 11/25/19 Unknown Rx [Percocet 7.5/325 mg] polyethylene glycoL 3350 [Miralax 17 gm PO QDAY #30 packet 11/25/19 Unknown Rx 3350] Ondansetron [Zofran ODT TAB] 4 mg PO Q8HR PRN #20 tab.rapdis 12/02/19 Unknown Rx oxyCODONE /ACETAMINOPHEN [Percocet 1 tab PO BID PRN #6 tablet 12/02/19 Unknown Rx 5/325 mg] Butalb/Acetaminophen/Caffeine 1 cap PO Q8HR PRN #10 cap 12/15/19 Unknown Rx [Fioricet 50-300-40 mg CAP] Famotidine [Pepcid] 40 mg PO QHS #30 tablet 12/15/19 Unknown Rx Ondansetron [Zofran Odt] 4 mg PO Q8HR PRN #10 tab.rapdis 12/15/19 Unknown Rx amLODIPine 10 mg PO QDAY #30 tablet 12/15/19 Unknown Rx Acetaminophen [Tylenol] 650 mg PO Q8HR PRN #20 capsule 03/07/20 Unknown Rx Furosemide [Lasix TAB] 40 mg PO QDAY #5 tablet 03/07/20 Unknown Rx methOCARBAMOL [Robaxin TAB] 500 mg PO BID PRN #14 tab 03/07/20 Unknown Rx traMADoL [Ultram 50 MG tab] 50 mg PO Q6HR PRN #12 tablet 03/07/20 Unknown Rx Cyclobenzaprine [Flexeril] 10 mg PO TID PRN #10 tablet 03/26/20 Unknown Rx Dicyclomine [Bentyl] 10 mg PO QID #30 capsule 03/26/20 Unknown Rx HYDROcodone/APAP 5-325 [[place] 1 - 2 each PO Q6HR PRN #10 tablet 03/26/20 Unknown Rx 5/325] Promethazine HCl [Phenergan SUPPOS] 25 mg RC Q6H PRN #5 supp.rect 03/26/20 Unknown Rx Promethazine [Phenergan] 25 mg PO Q6HR PRN #20 tab 03/26/20 Unknown Rx ED Physical Exam - General General appearance: alert, in no apparent distress - Head Head exam: Present: atraumatic, normocephalic - Eye Eye exam: Present: normal appearance - ENT ENT exam: Present: mucous membranes moist - Neck Neck exam: Present: normal inspection, full ROM - Respiratory Respiratory exam: Present: normal lung sounds bilaterally. Absent: respiratory distress, wheezes, rales, rhonchi - Cardiovascular Cardiovascular Exam: Present: regular rate, normal rhythm, normal heart sounds. Absent: systolic murmur, diastolic murmur, rubs, gallop - GI/Abdominal GI/Abdominal exam: Present: soft, normal bowel sounds. Absent: distended, tenderness, guarding, rebound - Extremities Exam Extremities exam: Present: normal inspection - Back Exam Back exam: Present: normal inspection - Neurological Exam Neurological exam: Present: alert, oriented X3 - Psychiatric Psychiatric exam: Present: normal affect, normal mood - Skin Skin exam: Present: warm, dry, intact, normal color. Absent: rash ED Course Vital Signs 04/20/20 04/21/20 22:11 01:23 Pulse Rate 57 L 65 Respiratory 16 16 Rate Blood Pressure 163/59 126/39 [Left] O2 Sat by Pulse 100 100 Oximetry - Lab Data Result diagrams: 04/20/20 22:21 Lab Results 04/20/20 04/20/20 04/20/20 Range/Units 21:59 22:21 22:44 Sodium 137 (137-145) mmol/L Potassium 3.9 (3.6-5.0) mmol/L Chloride 104.3 (98-107) mmol/L Carbon Dioxide 20 L (22-30) mmol/L Anion Gap 17 mmol/L BUN 21 H (7-17) mg/dL Creatinine 0.6 (0.6-1.2) mg/dL Estimated GFR > 60 ml/min BUN/Creatinine Ratio 35 % Glucose 158 H (65-100) mg/dL POC Glucose 56 L 144 H (70-105) mg/dL Calcium 8.5 (8.4-10.2) mg/dL - Medical Decision Making 1. Acute metabolic encephalopathy due to hypoglycemia: I evaluated patient aft er she received dextrose. Her mental status was normal. She moves all 4 extremities. No obvious neurological deficit. 2. Hyporglycemia: I observe patient here in the emergency department for 3 ho urs. I advised her to increase Accu-Chek frequency at home. I asked her to increase her insulin doses by half until she sees her PCP. Kidney function is at baseline according to BMP obtained here in emergency department. 3. Chronic pain in back legs without neurovascular compromise. No urgent treatment indicated at this time. Patient was given food to eat. She did not have recurrence of hypoglycemia after 4 hours observation. She is discharged home. Critical care attestation.: If time is entered above; I have spent that time in minutes in the direct care o f this critically ill patient, excluding procedure time. ED Disposition Clinical Impression: Acute metabolic encephalopathy, Hypoglycemia due to insulin Disposition: DC-01 TO HOME OR SELFCARE Is pt being admited?: No Does the pt Need Aspirin: No Condition: Stable Instructions: Hypoglycemia, [id number] Referrals: LEONELA MARIE MD [Staff Physician] - 3-5 Days
[2020-04-20 23:00] LABS: Blood Urea Nitrogen 21 mg/dL (7-17); Calcium 8.5 mg/dL (8.4-10.2); Hemolysis Index 6
[2020-04-20 23:18] LABS: BUN/Creatinine Ratio 35
[2020-04-21 01:36] VITALS: BP 126/39
== END 2020-04-21 04:48 | disposition home or self-care (01) ==
LOC: ED 21:49
DX: G93.41 Metabolic encephalopathy (principal); E11.649 Type 2 diabetes mellitus with hypoglycemia without coma; I10 Essential (primary) hypertension; F32.9 Major depressive disorder, single episode, unspecified; F17.200 Nicotine dependence, unspecified, uncomplicated; Z90.49 Acquired absence of other specified parts of digestive tract; Z79.899 Other long term (current) drug therapy
CPT/HCPCS: 36415; 80048; 82962

== ENCOUNTER 2020-05-02 02:52 | Emergency (ER) | payer MEDICAID ==
[2020-05-02] MEDS ORDERED: predniSONE 50 MG TAB PO ONE (03:02)
[2020-05-02] MEDS ORDERED: IBUPROFEN 600 MG TAB PO ONE (03:02)
[2020-05-02] MEDS ORDERED: ONDANSETRON 4 MG ODT TAB PO ONE (03:04)
[2020-05-02] MEDS ORDERED: ACETAMINOPHEN 500 MG TAB PO ONE (03:04)
--- NOTE | 2020-05-02 03:09 | Emergency Department Report ---
ED Extremity Problem HPI - General Chief complaint: Extremity Injury, Lower Stated complaint: LEG PAIN Source: patient Mode of arrival: Ambulatory Limitations: Physical Limitation - History of Present Illness Initial comments: Patient is a 64-year-old white female with a history of SLE, chronic osteoarthritis, hypertension, anxiety and depression and zdo-mhuezgb-stwubdjaj diabetes who presents to the ED with complaint of acute exacerbation of her chronic pain characterized by severe bilateral knee and ankle joint pains for the last 2 days. Patient states that she was initially evaluated in this ED 2 days ago for abdominal pain and her chronic pain and that she has been in the ED waiting room awaiting her transportations for the last 2 days, a process that has not succeeded as transportation has failed to come to pick up and delivery driver and take her back home. Patient states that her pain is typical of her chronic pain with exacerbation. Patient denies fall, traumatic injury, nausea, vomiting, chest pain, shortness of breath, dizziness, syncope, fever, chills, cough, change in vision, back pain, hip pain, abdominal pain, headache, heavy lifting or neck pain. MD Complaint: extremity pain (Bilateral knee and ankle pains), joint paint (Bilateral ankle and knee pains) -: Gradual, year(s) (2) Location: bilateral lower extremity, knee (bilateral) History of Same: No -: Yes arthralgia (Bilateral knee) Severity scale (0 -10): 8 Quality: aching, sharp Consistency: constant Improves with: nothing Worsens with: nothing Associated Symptoms: denies other symptoms, arthralgias (Bilateral knees and ankles). denies: chest pain, shortness of breath - Related Data Previous Rx's Medication Instructions Recorded Last Taken Type Insulin Glargine [Lantus VIAL] 30 units SUB-Q QHS #1 vial 10/17/18 Unknown Rx Baclofen [Lioresal] 5 mg PO TID #90 tablet 11/25/19 Unknown Rx Lispro Insulin [HumaLOG] 5 unit SUB-Q AC 30 Days #1 vial 11/25/19 Unknown Rx Metoclopramide [Reglan TAB] 10 mg PO TID #60 tab 11/25/19 Unknown Rx Oxycodone HCl/Acetaminophen 1 each PO Q6HR PRN #24 tablet 11/25/19 Unknown Rx [Percocet 7.5/325 mg] polyethylene glycoL 3350 [Miralax 17 gm PO QDAY #30 packet 11/25/19 Unknown Rx 3350] Ondansetron [Zofran ODT TAB] 4 mg PO Q8HR PRN #20 tab.rapdis 12/02/19 Unknown Rx oxyCODONE /ACETAMINOPHEN [Percocet 1 tab PO BID PRN #6 tablet 12/02/19 Unknown Rx 5/325 mg] Butalb/Acetaminophen/Caffeine 1 cap PO Q8HR PRN #10 cap 12/15/19 Unknown Rx [Fioricet 50-300-40 mg CAP] Famotidine [Pepcid] 40 mg PO QHS #30 tablet 12/15/19 Unknown Rx Ondansetron [Zofran Odt] 4 mg PO Q8HR PRN #10 tab.rapdis 12/15/19 Unknown Rx amLODIPine 10 mg PO QDAY #30 tablet 12/15/19 Unknown Rx Acetaminophen [Tylenol] 650 mg PO Q8HR PRN #20 capsule 03/07/20 Unknown Rx Furosemide [Lasix TAB] 40 mg PO QDAY #5 tablet 03/07/20 Unknown Rx methOCARBAMOL [Robaxin TAB] 500 mg PO BID PRN #14 tab 03/07/20 Unknown Rx traMADoL [Ultram 50 MG tab] 50 mg PO Q6HR PRN #12 tablet 03/07/20 Unknown Rx Cyclobenzaprine [Flexeril] 10 mg PO TID PRN #10 tablet 03/26/20 Unknown Rx Dicyclomine [Bentyl] 10 mg PO QID #30 capsule 03/26/20 Unknown Rx HYDROcodone/APAP 5-325 [[place] 1 - 2 each PO Q6HR PRN #10 tablet 03/26/20 Unknown Rx 5/325] Promethazine HCl [Phenergan SUPPOS] 25 mg RC Q6H PRN #5 supp.rect 03/26/20 Unknown Rx Promethazine [Phenergan] 25 mg PO Q6HR PRN #20 tab 03/26/20 Unknown Rx Baclofen 20 mg PO Q8H PRN #15 tablet 05/02/20 Unknown Rx Naproxen 500 mg PO Q12H PRN #30 tablet 05/02/20 Unknown Rx Allergies Allergy/AdvReac Type Severity Reaction Status Date / Time No Known Allergies Allergy Verified 03/18/20 18:04 ED Review of Systems ROS: Stated complaint: LEG PAIN Other details as noted in HPI Constitutional: denies: chills, fever Eyes: denies: eye pain, eye discharge, vision change ENT: denies: ear pain, throat pain Respiratory: denies: cough, shortness of breath, wheezing Cardiovascular: denies: chest pain, palpitations Endocrine: no symptoms reported Gastrointestinal: denies: abdominal pain, nausea, diarrhea Genitourinary: denies: urgency, dysuria, discharge Musculoskeletal: back pain, arthralgia (Bilateral knee and ankle pain), myalgia. denies: joint swelling Skin: denies: rash, lesions Neurological: denies: headache, weakness, paresthesias Psychiatric: denies: anxiety, depression Hematological/Lymphatic: denies: easy bleeding, easy bruising ED Past Medical Hx - Past Medical History Previous Medical History?: Yes Hx Hypertension: Yes Hx Heart Attack/AMI: No Hx Congestive Heart Failure: No Hx Diabetes: Yes Hx Liver Disease: No Hx Renal Disease: No Hx Psychiatric Treatment: Yes (DEPRESSION) Hx Asthma: No Hx COPD: No Additional medical history: LUPUS. Chronic Pain - Surgical History Past Surgical History?: Yes Hx Cholecystectomy: Yes Hx Appendectomy: Yes Additional Surgical History: BREAST / TONSILS / ABD. Hysterectomy, gastric bypass - Social History Smoking Status: Current Every Day Smoker Substance Use Type: None - Medications Home Medications: Home Medications Medication Instructions Recorded Confirmed Last Taken Type Insulin Glargine [Lantus VIAL] 30 units SUB-Q QHS #1 vial 10/17/18 11/22/19 Unknown Rx Baclofen [Lioresal] 5 mg PO TID #90 tablet 11/25/19 Unknown Rx Lispro Insulin [HumaLOG] 5 unit SUB-Q AC 30 Days #1 vial 11/25/19 Unknown Rx Metoclopramide [Reglan TAB] 10 mg PO TID #60 tab 11/25/19 Unknown Rx Oxycodone HCl/Acetaminophen 1 each PO Q6HR PRN #24 tablet 11/25/19 Unknown Rx [Percocet 7.5/325 mg] polyethylene glycoL 3350 [Miralax 17 gm PO QDAY #30 packet 11/25/19 Unknown Rx 3350] Ondansetron [Zofran ODT TAB] 4 mg PO Q8HR PRN #20 tab.rapdis 12/02/19 Unknown Rx oxyCODONE /ACETAMINOPHEN [Percocet 1 tab PO BID PRN #6 tablet 12/02/19 Unknown Rx 5/325 mg] Butalb/Acetaminophen/Caffeine 1 cap PO Q8HR PRN #10 cap 12/15/19 Unknown Rx [Fioricet 50-300-40 mg CAP] Famotidine [Pepcid] 40 mg PO QHS #30 tablet 12/15/19 Unknown Rx Ondansetron [Zofran Odt] 4 mg PO Q8HR PRN #10 tab.rapdis 12/15/19 Unknown Rx amLODIPine 10 mg PO QDAY #30 tablet 12/15/19 Unknown Rx Acetaminophen [Tylenol] 650 mg PO Q8HR PRN #20 capsule 03/07/20 Unknown Rx Furosemide [Lasix TAB] 40 mg PO QDAY #5 tablet 03/07/20 Unknown Rx methOCARBAMOL [Robaxin TAB] 500 mg PO BID PRN #14 tab 03/07/20 Unknown Rx traMADoL [Ultram 50 MG tab] 50 mg PO Q6HR PRN #12 tablet 03/07/20 Unknown Rx Cyclobenzaprine [Flexeril] 10 mg PO TID PRN #10 tablet 03/26/20 Unknown Rx Dicyclomine [Bentyl] 10 mg PO QID #30 capsule 03/26/20 Unknown Rx HYDROcodone/APAP 5-325 [[place] 1 - 2 each PO Q6HR PRN #10 tablet 03/26/20 Unknown Rx 5/325] Promethazine HCl [Phenergan SUPPOS] 25 mg RC Q6H PRN #5 supp.rect 03/26/20 Unknown Rx Promethazine [Phenergan] 25 mg PO Q6HR PRN #20 tab 03/26/20 Unknown Rx Baclofen 20 mg PO Q8H PRN #15 tablet 05/02/20 Unknown Rx Naproxen 500 mg PO Q12H PRN #30 tablet 05/02/20 Unknown Rx ED Physical Exam - General Limitations: Physical Limitation General appearance: alert, in no apparent distress - Head Head exam: Present: atraumatic, normocephalic, normal inspection - Eye Eye exam: Present: normal appearance, PERRL, EOMI Pupils: Present: normal accommodation - ENT ENT exam: Present: normal exam, normal orophraynx, mucous membranes moist, TM's normal bilaterally, normal external ear exam - Neck Neck exam: Present: normal inspection, full ROM - Respiratory Respiratory exam: Present: normal lung sounds bilaterally. Absent: respiratory distress, wheezes, rales, rhonchi, chest wall tenderness, accessory muscle use, decreased breath sounds, prolonged expiratory - Cardiovascular Cardiovascular Exam: Present: normal rhythm, tachycardia, normal heart sounds. Absent: systolic murmur, diastolic murmur, rubs, gallop - GI/Abdominal GI/Abdominal exam: Present: soft, normal bowel sounds. Absent: distended, tenderness, guarding, hyperactive bowel sounds, hypoactive bowel sounds, organomegaly - Extremities Exam Extremities exam: Present: normal inspection, full ROM, tenderness (Palpable bilateral knee and ankle joint tenderness), normal capillary refill - Back Exam Back exam: Present: normal inspection, full ROM, tenderness (Palpable bilateral ankle and knee tenderness), muscle spasm, paraspinal tenderness - Neurological Exam Neurological exam: Present: alert, oriented X3, CN II-XII intact, normal gait, reflexes normal - Psychiatric Psychiatric exam: Present: normal affect, normal mood - Skin Skin exam: Present: warm, dry, intact, normal color. Absent: rash ED Course Vital Signs 05/02/20 02:57 Temperature 97.6 F Pulse Rate 105 H Respiratory 17 Rate Blood Pressure 184/80 O2 Sat by Pulse 97 Oximetry ED Medical Decision Making - Medical Decision Making This is a 64-year-old white female with a history of SLE, chronic osteoarthritis, hypertension, anxiety and depression and gvq-lbqyqgc-enwizmwns diabetes who presents to the ED with complaint of acute exacerbation of her chronic pain characterized by severe bilateral knee and ankle joint pains for the last 2 days. Patient states that she was initially evaluated in this ED 2 days ago for abdominal pain and her chronic pain and that she has been in the ED waiting room awaiting her transportations for the last 2 days, a process that has not succeeded as transportation has failed to come to pick up and delivery driver and take her back home. Patient states that her pain is typical of her chronic pain with exacerbation. In the ED, patient is alert and oriented x3 and is not in any distress. Patient is however anxious and appears to be in pain, afebrile and tachycardic. Patient was treated for pain in the ED and on reevaluation, patient's pain is well controlled medications. Patient was discharged home and advised to follow-up with her primary care physician in 5 to 7 days for reevaluation or return to the ED immediately if symptoms get worse. - Differential Diagnosis chronic osteoarthritis; Chronic pain; Muscle spasm; Muscle strain Critical care attestation.: If time is entered above; I have spent that time in minutes in the direct care of this critically ill patient, excluding procedure time. ED Disposition Clinical Impression: Chronic pain syndrome, Chronic osteoarthritis Disposition: TO HOME OR SELFCARE Is pt being admited?: No Does the pt Need Aspirin: No Condition: Stable Instructions: Arthritis, Glgk-tr-Mhxw, Chronic Pain, Adult Additional Instructions: Take medication with food, drink plenty of fluids and follow-up with your primary care physician in 5 to 7 days for reevaluation. Return to the ED immediately if symptoms get worse. Prescriptions: Baclofen 20 mg PO Q8H PRN #15 tablet PRN Reason: Muscle Spasm Naproxen 500 mg PO Q12H PRN #30 tablet PRN Reason: Pain , Severe (7-10) Referrals: PRIMARY CARE, [Primary Care Provider] - 3-5 Days [facility] [Provider Group] - 3-5 Days Time of Disposition: 03:10 Print Language: BENGALI
[2020-05-02] MEDS ORDERED: ACETAMINOPHEN 325 MG TAB PO ONE (04:07)
[2020-05-02 04:59] VITALS: BP 185/86
== END 2020-05-02 05:03 | disposition home or self-care (01) ==
LOC: ED 02:52
DX: M17.0 Bilateral primary osteoarthritis of knee (principal); G89.4 Chronic pain syndrome; I10 Essential (primary) hypertension; E11.9 Type 2 diabetes mellitus without complications; F32.9 Major depressive disorder, single episode, unspecified; F17.200 Nicotine dependence, unspecified, uncomplicated; Z90.49 Acquired absence of other specified parts of digestive tract; Z90.710 Acquired absence of both cervix and uterus; Z79.899 Other long term (current) drug therapy; Z79.4 Long term (current) use of insulin
CPT/HCPCS: 99282; J7512; Q0162

== ENCOUNTER 2020-06-07 20:40 | Emergency (ER) | payer MEDICAID ==
[2020-06-07 21:00] VITALS: BP 123/78
[2020-06-07 21:06] LABS: Basophils # (Auto) 0.1 K/mm3 (0.0-0.1); Basophils % (Auto) 0.6 % (0.0-1.8); Eosinophils # (Auto) 0.2 K/mm3 (0.0-0.4); Eosinophils % (Auto) 2.3 % (0.0-4.3); Hematocrit 27.5 % (30.3-42.9); Hemoglobin 8.9 gm/dl (10.1-14.3); Lymphocytes # (Auto) 1.2 K/mm3 (1.2-5.4); Lymphocytes % (Auto) 12.8 % (13.4-35.0); Mean Corpuscular HGB Conc 32 % (30-34); Mean Corpuscular Volume 89 fl (79-97); Monocytes # (Auto) 0.6 K/mm3 (0.0-0.8); Monocytes % (Auto) 6.2 % (0.0-7.3); Platelet Count 598 K/mm3 (140-440); Red Blood Count 3.08 M/mm3 (3.65-5.03); Red Cell Distribution Width 13.7 % (13.2-15.2)
[2020-06-07 21:27] LABS: BUN/Creatinine Ratio 33; Blood Urea Nitrogen 20 mg/dL (7-17); Calcium 8.5 mg/dL (8.4-10.2); Hemolysis Index 20
== END 2020-06-07 22:54 | disposition left against medical advice (07) ==
LOC: ED 20:40
DX: R10.9 Unspecified abdominal pain (principal); Z53.21 Procedure and treatment not carried out due to patient leaving prior to being seen by health care provider
CPT/HCPCS: 36415; 80048; 85025

== ENCOUNTER 2020-06-11 16:41 | Emergency (ER) | payer MEDICAID ==
--- NOTE | 2020-06-11 17:03 | Event Note ---
ED Screening Note Date of service: 06/11/20 Time: 17:02 ED Screening Note: pt is well known to ED. She comes in via EMS with c/o nausea/vomiting and abd pain. She has frequent visits here in past for similar symptoms. She was recently discharge from the hospital (05/18/20) after having been adm itted for partial bowel obstruction. She ended up having a small bowel resection and lysis. This initial assessment/diagnostic orders/clinical plan/treatment(s) is/are subject to change based on patients health status, clinical progression and re- assessment by fellow clinical providers in the ED. Further treatment and workup at subsequent clinical providers discretion. Patient/guardian urged not to elope from the ED as their condition may be serious if not clinically assessed and managed. Initial orders include: Abdominal pain order set
[2020-06-11 18:15] LABS: Basophils # (Auto) 0.1 K/mm3 (0.0-0.1); Basophils % (Auto) 1.4 % (0.0-1.8); Eosinophils # (Auto) 0.2 K/mm3 (0.0-0.4); Eosinophils % (Auto) 2.2 % (0.0-4.3); Hematocrit 25.6 % (30.3-42.9); Hemoglobin 8.6 gm/dl (10.1-14.3); Lymphocytes # (Auto) 1.5 K/mm3 (1.2-5.4); Lymphocytes % (Auto) 16.2 % (13.4-35.0); Mean Corpuscular HGB Conc 34 % (30-34); Mean Corpuscular Volume 87 fl (79-97); Monocytes # (Auto) 0.5 K/mm3 (0.0-0.8); Monocytes % (Auto) 5.1 % (0.0-7.3); Platelet Count 537 K/mm3 (140-440); Red Blood Count 2.95 M/mm3 (3.65-5.03); Red Cell Distribution Width 13.9 % (13.2-15.2)
[2020-06-11 18:31] LABS: Alanine Aminotransferase 7 units/L (7-56); Albumin 3.2 g/dL (3.9-5); Blood Urea Nitrogen 14 mg/dL (7-17); Calcium 8.6 mg/dL (8.4-10.2); Hemolysis Index 13
[2020-06-11 18:39] LABS: BUN/Creatinine Ratio 23
[2020-06-12] MEDS ORDERED: SODIUM CHLORIDE 0.9% 1000 ML 1,000 ML IV ONE (00:52)
[2020-06-12] MEDS ORDERED: ONDANSETRON 4 MG/2 ML INJ IV ONE (00:52)
[2020-06-12] MEDS ORDERED: HYDROmorphone 1 MG/1 ML INJ IV ONE (00:52)
--- NOTE | 2020-06-12 00:56 | Emergency Department Report ---
HPI - General Chief Complaint: Nausea/Vomiting/Diarrhea Time Seen by Provider: 06/12/20 00:31 - HPI HPI: This is a 64-year-old female presents to the emergency department with complaint of generalized abdominal pain, nausea and vomiting, that has been going on since yesterday. Patient has a past medical history of diabetes, hypertension, lupus. She has a surgical history of previous gastric bypass, hysterectomy, and the patient was just admitted to this hospital last month with a partial small bowel obstruction and intussusception with subsequent partial bowel resection. The patient is unsure whether or not she followed up outpatient with the general surgeon as she says that she lives at a personal half-way and "they just take me to doctors appointments." Patient has not taken anything for symptoms prior to presentation today. She denies any fever, dysuria, diarrhea, constipation, chest pain, shortness of breath. ED Past Medical Hx - Past Medical History Hx Hypertension: Yes Hx Heart Attack/AMI: No Hx Congestive Heart Failure: No Hx Diabetes: Yes Hx Liver Disease: No Hx Renal Disease: No Hx Psychiatric Treatment: Yes (DEPRESSION) Hx Asthma: No Hx COPD: No Hx HIV: No Additional medical history: LUPUS. Chronic Pain - Surgical History Hx Cholecystectomy: Yes Hx Appendectomy: Yes Additional Surgical History: BREAST / TONSILS / ABD. Hysterectomy, gastric bypass - Social History Smoking Status: Current Every Day Smoker Substance Use Type: Alcohol - Medications Home Medications: Home Medications Medication Instructions Recorded Confirmed Last Taken Type Insulin Glargine [Lantus VIAL] 30 units SUB-Q QHS #1 vial 10/17/18 05/14/20 Unknown Rx Baclofen [Lioresal] 5 mg PO TID #90 tablet 11/25/19 05/14/20 Unknown Rx Lispro Insulin [HumaLOG] 5 unit SUB-Q AC 30 Days #1 vial 11/25/19 05/14/20 Unkno wn Rx Metoclopramide [Reglan TAB] 10 mg PO TID #60 tab 11/25/19 05/14/20 Unknown Rx polyethylene glycoL 3350 [Miralax 17 gm PO QDAY #30 packet 11/25/19 05/14/20 Unknown Rx 3350] Butalb/Acetaminophen/Caffeine 1 cap PO Q8HR PRN #10 cap 12/15/19 05/14/20 Unknown Rx [Fioricet 50-300-40 mg CAP] Famotidine [Pepcid] 40 mg PO QHS #30 tablet 12/15/19 05/14/20 Unknown Rx amLODIPine 10 mg PO QDAY #30 tablet 12/15/19 05/14/20 Unknown Rx Acetaminophen [Tylenol] 650 mg PO Q8HR PRN #20 capsule 03/07/20 05/14/20 Unknown Rx Furosemide [Lasix TAB] 40 mg PO QDAY #5 tablet 03/07/20 05/14/20 Unknown Rx Cyclobenzaprine [Flexeril 10 MG 10 mg PO TID PRN #10 tablet 03/26/20 05/14/20 Unknown Rx TAB] Dicyclomine [Bentyl] 10 mg PO QID #30 capsule 03/26/20 05/14/20 Unknown Rx Promethazine [Phenergan] 25 mg PO Q6HR PRN #20 tab 03/26/20 05/14/20 Unknown Rx Baclofen 20 mg PO Q8H PRN #15 tablet 05/02/20 05/14/20 Unknown Rx Naproxen 500 mg PO Q12H PRN #30 tablet 05/02/20 05/14/20 Unknown Rx Ondansetron [Zofran ODT TAB] 4 mg PO Q8HR PRN #20 tab.rapdis 05/18/20 Unknown Rx Oxycodone HCl/Acetaminophen 1 each PO Q6HR PRN #14 tablet 05/18/20 Unknown Rx [Percocet 7.5/325 mg] Promethazine HCl [Phenergan SUPPOS] 25 mg RC Q6H PRN #5 supp.rect 05/18/20 Unknown Rx methOCARBAMOL [Robaxin TAB] 500 mg PO BID PRN #14 tab 05/18/20 Unknown Rx traMADoL [Ultram 50 MG tab] 50 mg PO Q6HR PRN #12 tablet 05/18/20 Unknown Rx Ondansetron [Zofran Odt] 4 mg PO Q8HR PRN #14 tab.rapdis 06/12/20 Unknown Rx ED Review of Systems ROS: Stated complaint: ABD PAIN Other details as noted in HPI Comment: All other systems reviewed and negative Constitutional: denies: chills, fever Eyes: denies: eye pain, vision change ENT: denies: ear pain, throat pain Respiratory: denies: cough, shortness of breath Cardiovascular: denies: chest pain, palpitations Gastrointestinal: abdominal pain, nausea, vomiting. denies: diarrhea, constipation Genitourinary: denies: dysuria, discharge Musculoskeletal: denies: joint swelling, arthralgia Skin: denies: rash, lesions Neurological: denies: headache, weakness Physical Exam - Physical Exam Vital Signs: Vital Signs 06/11/20 16:42 Temperature 98 F Pulse Rate 101 H Respiratory 18 Rate Blood Pressure 171/65 [Right] O2 Sat by Pulse 100 Oximetry Physical Exam: GENERAL: The patient is well-developed well-nourished. HENT: Normocephalic. Atraumatic. Patient has moist mucous membranes. EYES: Extraocular motions are intact. NECK: Supple. Trachea is midline. CHEST/LUNGS: Clear to auscultation. There is no respiratory distress noted. HEART/CARDIOVASCULAR: Regular. There is no tachycardia. There is no murmur. ABDOMEN: Abdomen is soft. There is some generalized abdominal tenderness to palpation. No guarding. Patient has normal bowel sounds. There is no abdominal distention. SKIN: Skin is warm and dry. There is a well-healed lower abdominal incisional scar. No surrounding erythema. No bleeding or purulent discharge. NEURO: The patient is awake, alert, and cooperative. The patient has no focal neurologic deficits. Normal speech. MUSCULOSKELETAL: There is no tenderness or deformity. There is no limitation range of motion. ED Course Vital Signs 06/11/20 16:42 Temperature 98 F Pulse Rate 101 H Respiratory 18 Rate Blood Pressure 171/65 [Right] O2 Sat by Pulse 100 Oximetry ED Medical Decision Making - Lab Data Result diagrams: 06/11/20 17:40 06/11/20 17:40 Lab Results 06/11/20 06/11/20 06/12/20 Range/Units 17:40 17:40 00:50 WBC 9.0 (4.5-11.0) K/mm3 RBC 2.95 L (3.65-5.03) M/mm3 Hgb 8.6 L (10.1-14.3) gm/dl Hct 25.6 L (30.3-42.9) % MCV 87 (79-97) fl MCH 29 (28-32) pg MCHC 34 (30-34) % RDW 13.9 (13.2-15.2) % Plt Count 537 H (140-440) K/mm3 Lymph % (Auto) 16.2 (13.4-35.0) % Alfalfa % (Auto) 5.1 (0.0-7.3) % Eos % (Auto) 2.2 (0.0-4.3) % Baso % (Auto) 1.4 (0.0-1.8) % Lymph # (Auto) 1.5 (1.2-5.4) K/mm3 Alfalfa # (Auto) 0.5 (0.0-0.8) K/mm3 Eos # (Auto) 0.2 (0.0-0.4) K/mm3 Baso # (Auto) 0.1 (0.0-0.1) K/mm3 Seg Neutrophils % 75.1 H (40.0-70.0) % Seg Neutrophils # 6.8 (1.8-7.7) K/mm3 Sodium 137 (137-145) mmol/L Potassium 3.8 (3.6-5.0) mmol/L Chloride 105.4 (98-107) mmol/L Carbon Dioxide 21 L (22-30) mmol/L Anion Gap 14 mmol/L BUN 14 (7-17) mg/dL Creatinine 0.6 (0.6-1.2) mg/dL Estimated GFR > 60 ml/min BUN/Creatinine Ratio 23 % Glucose 221 H (65-100) mg/dL Calcium 8.6 (8.4-10.2) mg/dL Total Bilirubin < 0.20 (0.1-1.2) mg/dL AST 8 (5-40) units/L ALT 7 (7-56) units/L Alkaline Phosphatase 138 H (35-129) units/L Total Protein 6.5 (6.3-8.2) g/dL Albumin 3.2 L (3.9-5) g/dL Albumin/Globulin Ratio 1.0 % Lipase 39 (13-60) units/L Urine Color Yellow (Yellow) Urine Turbidity Clear (Clear) Urine pH 5.0 (5.0-7.0) Ur Specific [place] 1.019 (1.003-1.030) Urine Protein <15 mg/dl (Negative) mg/dL Urine Glucose (UA) Neg (Negative) mg/dL Urine Ketones Neg (Negative) mg/dL Urine Blood Neg (Negative) Urine Nitrite Neg (Negative) Urine Bilirubin Neg (Negative) Urine Urobilinogen < 2.0 (<2.0) mg/dL Ur Leukocyte Esterase Neg (Negative) Urine WBC (Auto) 1.0 (0.0-6.0) /HPF Urine RBC (Auto) 1.0 (0.0-6.0) /HPF U Epithel Cells (Auto) 1.0 (0-13.0) /HPF Urine Mucus Few /HPF - Radiology Data Radiology results: report reviewed, image reviewed interpreted by me: Abdominal x-ray shows nonspecific nonobstructive bowel gas. No free air. CT ABDOMEN AND PELVIS WITHOUT CONTRAST INDICATION / CLINICAL INFORMATION: Abd pain, hx of recent SBO with surgery. TECHNIQUE: Axial CT images were obtained through the abdomen and pelvis without IV contrast. All CT scans at this location are performed using CT dose reduction for ALARA by means of automated exposure control. COMPARISON: CT scan dated 05/14/2020 FINDINGS: LOWER CHEST: No acute abnormality LIVER: No significant abnormality. GALLBLADDER: Cholecystectomy. BILE DUCTS: No significant abnormality. PANCREAS: No significant abnormality. SPLEEN: No significant abnormality. ADRENALS: Fat- containing left adrenal nodule appears unchanged. RIGHT KIDNEY / URETER: No significant abnormality. LEFT KIDNEY / URETER: No significant abnormality. STOMACH / SMALL BOWEL: Prior gastric surgery. COLON: No significant abnormality. APPENDIX: No significant abnormality. PERITONEUM: No free fluid. No free air. No fluid collection. LYMPH NODES: No significant adenopathy. AORTA / ARTERIES: Mild atherosclerotic calcification without acute abnormality. IVC / VEINS: No significant abnormality. URINARY BLADDER: No significant abnormality. REPRODUCTIVE ORGANS: No significant abnormality. ADDITIONAL FINDINGS: None. SK ELETAL SYSTEM: No acute abnormality IMPRESSION: 1. There is no obstruction, inflammation, or free air. There are no abnormal fluid collections. - Medical Decision Making This patient presents with the complaint of a 1 to 2-day history of generalized abdominal pain, nausea with vomiting. The abdomen is soft, nondistended and nontoxic in appearance. She does have some generalized abdominal reproducible tenderness to palpation. Patient's labs have been mostly unremarkable. There is some anemia with a hemoglobin of about 8.6 but this is consistent with previous visits. Patient has no complaints of any vaginal or rectal bleeding. The patient also has some hyperglycemia with a blood sugar of 220. However, there is no significant elevation in the anion gap and this does not appear consistent with diabetic ketoacidosis. Patient was given a dose of antiemetic and IV analgesia. She had a CT scan of the abdomen and pelvis that did not show any acute process. Vital signs have been reassuring throughout her ED course. For all these reasons the patient appears safe for discharge home at this time. She has been given a prescription for Zofran ODT. However, the patient does not had any episodes of vomiting while in the emergency department. She was also given an outpatient referral for Dr. Dela Cruz, the general surgeon who did her surgery last month for the partial bowel obstruction. The patient has been instructed to return to the emergency department with any worsening of her symptoms or with any acute distress. Critical Care Time: No Critical care attestation.: If time is entered above; I have spent that time in minutes in the direct care of this critically ill patient, excluding procedure time. ED Disposition Clinical Impression: Abdominal pain Qualifiers: Abdominal location: generalized Qualified Code(s): R10.84 - Generalized abdominal pain Nausea & vomiting Qualifiers: Vomiting type: unspecified Vomiting Intractability: unspecified Qualified Code(s): R11.2 - Nausea with vomiting, unspecified Disposition: DC-01 TO HOME OR SELFCARE Is pt being admited?: No Condition: Stable Instructions: Abdominal Pain, Adult, Nausea and Vomiting, Adult Additional Instructions: Please follow-up with a primary care physician in the next few days. I have given you the referral for your general surgeon, Dr. Dela Cruz, in case you have not yet had your postoperative follow-up. Return to the emergency department with any worsening of your symptoms, new or concerning symptoms not addressed during this current emergency department visit, or with any acute distress. Prescriptions: Ondansetron [Zofran Odt] 4 mg PO Q8HR PRN #14 tab.rapdis PRN Reason: Nausea Referrals: PRIMARY CARE, [Primary Care Provider] - 3-5 Days TJ DELA CRUZ MD [Staff Physician] - 3-5 Days Time of Disposition: 03:35
[2020-06-12 00:59] LABS: Bilirubin,Urine NEG (Negative); Blood,Urine NEG (Negative); Color,Urine Yellow (Yellow); Mucus,Urine FEW /HPF; Protein,Urine <15 mg/dL mg/dL (Negative); Urobilinogen,Urine < 2.0 mg/dL (<2.0)
--- NOTE | 2020-06-12 01:58 | XRay Report ---
ABDOMEN 2 VIEWS INDICATION / CLINICAL INFORMATION: Abd pain. COMPARISON: CT scan dated 05/14/2020 FINDINGS: TUBES / LINES: None. BOWEL GAS PATTERN: No significant abnormality. FREE AIR / EXTRALUMINAL GAS: None seen. ADDITIONAL FINDINGS: Multiple surgical staple lines are noted in the left abdomen CHEST: Visualized chest shows no significant abnormality. IMPRESSION: 1. No acute abnormality Signer Name: Miguel Mosher MD Signed: 06/12/2020 1:54 AM Workstation Name: [id number]
--- NOTE | 2020-06-12 03:34 | Cat Scan Report ---
CT ABDOMEN AND PELVIS WITHOUT CONTRAST INDICATION / CLINICAL INFORMATION: Abd pain, hx of recent SBO with surgery. TECHNIQUE: Axial CT images were obtained through the abdomen and pelvis without IV contrast. All CT scans at this location are performed using CT dose reduction for ALARA by means of automated exposure control. COMPARISON: CT scan dated 05/14/2020 FINDINGS: LOWER CHEST: No acute abnormality LIVER: No significant abnormality. GALLBLADDER: Cholecystectomy. BILE DUCTS: No significant abnormality. PANCREAS: No significant abnormality. SPLEEN: No significant abnormality. ADRENALS: Fat-containing left adrenal nodule appears unchanged. RIGHT KIDNEY / URETER: No significant abnormality. LEFT KIDNEY / URETER: No significant abnormality. STOMACH / SMALL BOWEL: Prior gastric surgery. COLON: No significant abnormality. APPENDIX: No significant abnormality. PERITONEUM: No free fluid. No free air. No fluid collection. LYMPH NODES: No significant adenopathy. AORTA / ARTERIES: Mild atherosclerotic calcification without acute abnormality. IVC / VEINS: No significant abnormality. URINARY BLADDER: No significant abnormality. REPRODUCTIVE ORGANS: No significant abnormality. ADDITIONAL FINDINGS: None. SKELETAL SYSTEM: No acute abnormality IMPRESSION: 1. There is no obstruction, inflammation, or free air. There are no abnormal fluid collections. Signer Name: Miguel Mosher MD Signed: 06/12/2020 3:29 AM Workstation Name: [id number]
[2020-06-12 04:12] VITALS: BP 145/70
== END 2020-06-12 04:09 | disposition home or self-care (01) ==
LOC: ED 16:41
DX: R10.84 Generalized abdominal pain (principal); R11.2 Nausea with vomiting, unspecified; I10 Essential (primary) hypertension; E11.9 Type 2 diabetes mellitus without complications; F32.9 Major depressive disorder, single episode, unspecified; F17.200 Nicotine dependence, unspecified, uncomplicated; Z90.49 Acquired absence of other specified parts of digestive tract; Z98.890 Other specified postprocedural states; Z79.4 Long term (current) use of insulin; Z79.899 Other long term (current) drug therapy
CPT/HCPCS: 36415; 74019; 74176; 80053; 81001; 83690; 85025; 96361; 96374; 96375; 99285; J1170; J2405; J7030

== ENCOUNTER 2020-07-05 19:20 | Emergency (ER) | payer MEDICAID ==
[2020-07-05 19:55] VITALS: BP 136/76
[2020-07-05] MEDS ORDERED: MORPHINE 4 MG/1 ML INJ IV ONE (22:30)
[2020-07-05] MEDS ORDERED: SODIUM CHLORIDE 0.9% 1000 ML 1,000 ML IV ONE (22:30)
[2020-07-05] MEDS ORDERED: ONDANSETRON 4 MG/2 ML INJ IV ONE (22:30)
[2020-07-05] MEDS ORDERED: FAMOTIDINE 20 MG/2 ML INJ IV ONE (22:30)
--- NOTE | 2020-07-05 22:42 | Emergency Department Report ---
ED Abdominal Pain HPI - General Chief Complaint: Abdominal Pain Stated Complaint: NAUSEA Source: patient, EMS Mode of arrival: Ambulatory Limitations: Physical Limitation - History of Present Illness Initial Comments: Patient is a 64-year-old female with a history of anxiety and depression, SLE, chronic pain, hypertension and [id number]-[id number] diabetes who presents to the ED with complaint of acute onset persistent diffuse abdominal pain with nausea and vomiting for the last 2 days. Patient also complains of persistent headache following several episodes of vomiting. Patient states that she has not been able to keep anything down in the last 2 days especially in the last 12 hours. Patient describes the pain as cramping, sharp and persistent and that gets worse with vomiting episodes. Patient denies diarrhea, fever, chills, dysuria, urinary frequency and urgency, chest pain, shortness of breath, cough, dizziness, syncope, vaginal bleeding, vaginal d ischarge, hematemesis, palpitations or change in vision. MD Complaint: abdominal pain, other (Nausea and vomiting) -: Sudden, days(s) (2) Location: diffuse Radiation: none Migration to: no migration Severity: severe Severity scale (0 -10): 8 Quality: cramping, aching, sharp Consistency: constant Improves With: nothing Worsens With: nothing Context: possible food poisoning Associated Symptoms: denies other symptoms, nausea, vomiting. denies: diarrhea, fever, chills, constipation, dysuria, hematemesis, melena, hematuria, anorexia, syncope, other - Related Data Previous Rx's Medication Instructions Recorded Last Taken Type Metoclopramide [Reglan TAB] 10 mg PO TID #60 tab 11/25/19 Unknown Rx polyethylene glycoL 3350 [Miralax 17 gm PO QDAY #30 packet 11/25/19 Unknown Rx 3350] Famotidine [Pepcid] 40 mg PO QHS #30 tablet 12/15/19 Unknown Rx amLODIPine 10 mg PO QDAY #30 tablet 12/15/19 Unknown Rx Acetaminophen [Tylenol] 650 mg PO Q8HR PRN #20 capsule 03/07/20 Unknown Rx Furosemide [Lasix TAB] 40 mg PO QDAY #5 tablet 03/07/20 Unknown Rx Cyclobenzaprine [Flexeril 10 MG 10 mg PO TID PRN #10 tablet 03/26/20 Unknown Rx TAB] Dicyclomine [Bentyl] 10 mg PO QID #30 capsule 03/26/20 Unknown Rx Promethazine [Phenergan] 25 mg PO Q6HR PRN #20 tab 03/26/20 Unknown Rx oxyCODONE /ACETAMINOPHEN [Percocet 1 tab PO Q6H PRN #20 tablet 07/03/20 Unknown Rx 5/325 mg] Insulin Glargine [Lantus VIAL] 22 units SUB-Q QHS 30 Days 07/04/20 Unknown Rx Insulin Glargine [Lantus VIAL] 25 units SUB-Q QHS units 07/04/20 Unknown Rx Insulin Regular, Human [HumuLIN R] 0 units SUB-Q ACHS 30 Days 07/04/20 Unknown Rx Dicyclomine [Bentyl] 20 mg PO Q6H PRN #30 tablet 07/06/20 Unknown Rx Famotidine [Pepcid] 20 mg PO Q12H #60 tablet 07/06/20 Unknown Rx Ondansetron [Zofran Odt] 4 mg PO Q6HR PRN #20 tab.rapdis 07/06/20 Unknown Rx Allergies Allergy/AdvReac Type Severity Reaction Status Date / Time No Known Allergies Allergy Verified 06/11/20 16:41 ED Review of Systems ROS: Stated complaint: NAUSEA Other details as noted in HPI Constitutional: malaise. denies: chills, fever Eyes: denies: eye pain, eye discharge, vision change ENT: denies: ear pain, throat pain Respiratory: denies: cough, shortness of breath, wheezing Cardiovascular: denies: chest pain, palpitations Endocrine: no symptoms reported Gastrointestinal: abdominal pain, nausea, vomiting. denies: diarrhea, hematemesis, melena, hematochezia Genitourinary: denies: urgency, dysuria, discharge Musculoskeletal: denies: back pain, joint swelling, arthralgia Skin: denies: rash, lesions Neurological: headache. denies: weakness, paresthesias Psychiatric: denies: anxiety, depression Hematological/Lymphatic: denies: easy bleeding, easy bruising ED Past Medical Hx - Past Medical History Previous Medical History?: Yes Hx Hypertension: Yes Hx Heart Attack/AMI: No Hx Congestive Heart Failure: No Hx Diabetes: Yes Hx Liver Disease: No Hx Renal Disease: No Hx Psychiatric Treatment: Yes (DEPRESSION) Hx Asthma: No Hx COPD: No Hx HIV: No Additional medical history: LUPUS. Chronic Pain - Surgical History Past Surgical History?: Yes Hx Cholecystectomy: Yes Hx Appendectomy: Yes Additional Surgical History: BREAST / TONSILS / ABD. Hysterectomy, gastric bypass - Social History Smoking Status: Current Every Day Smoker Substance Use Type: None - Medications Home Medications: Home Medications Medication Instructions Recorded Confirmed Last Taken Type Metoclopramide [Reglan TAB] 10 mg PO TID #60 tab 11/25/19 06/25/20 Unknown Rx polyethylene glycoL 3350 [Miralax 17 gm PO QDAY #30 packet 11/25/19 06/25/20 Unknown Rx 3350] Famotidine [Pepcid] 40 mg PO QHS #30 tablet 12/15/19 06/25/20 Unknown Rx amLODIPine 10 mg PO QDAY #30 tablet 12/15/19 06/25/20 Unknown Rx Acetaminophen [Tylenol] 650 mg PO Q8HR PRN #20 capsule 03/07/20 06/25/20 Unknown Rx Furosemide [Lasix TAB] 40 mg PO QDAY #5 tablet 03/07/20 06/25/20 Unknown Rx Cyclobenzaprine [Flexeril 10 MG 10 mg PO TID PRN #10 tablet 03/26/20 06/25/20 Unknown Rx TAB] Dicyclomine [Bentyl] 10 mg PO QID #30 capsule 03/26/20 06/25/20 Unknown Rx Promethazine [Phenergan] 25 mg PO Q6HR PRN #20 tab 03/26/20 06/25/20 Unknown Rx oxyCODONE /ACETAMINOPHEN [Percocet 1 tab PO Q6H PRN #20 tablet 07/03/20 Unknown Rx 5/325 mg] Insulin Glargine [Lantus VIAL] 22 units SUB-Q QHS 30 Days 07/04/20 Unknown Rx Insulin Glargine [Lantus VIAL] 25 units SUB-Q QHS units 07/04/20 Unknown Rx Insulin Regular, Human [HumuLIN R] 0 units SUB-Q ACHS 30 Days 07/04/20 Unknown Rx Dicyclomine [Bentyl] 20 mg PO Q6H PRN #30 tablet 07/06/20 Unknown Rx Famotidine [Pepcid] 20 mg PO Q12H #60 tablet 07/06/20 Unknown Rx Ondansetron [Zofran Odt] 4 mg PO Q6HR PRN #20 tab.rapdis 07/06/20 Unknown Rx ED Physical Exam - General Limitations: Physical Limitation General appearance: alert, in no apparent distress - Head Head exam: Present: atraumatic, normocephalic, normal inspection - Eye Eye exam: Present: normal appearance, PERRL, EOMI - ENT ENT exam: Present: normal exam, normal orophraynx, mucous membranes moist, TM's normal bilaterally, normal external ear exam - Neck Neck exam: Present: normal inspection, full ROM - Respiratory Respiratory exam: Present: normal lung sounds bilaterally. Absent: respiratory distress, wheezes, rales, stridor, chest wall tenderness, accessory muscle use, decreased breath sounds, prolonged expiratory - Cardiovascular Cardiovascular Exam: Present: normal rhythm, tachycardia, normal heart sounds. Absent: systolic murmur, diastolic murmur, rubs, gallop - GI/Abdominal GI/Abdominal exam: Present: soft, tenderness (Palpable diffuse abdominal tenderness with guarding), guarding, normal bowel sounds, hyperactive bowel sounds. Absent: rebound, rigid - Extremities Exam Extremities exam: Present: normal inspection, full ROM, normal capillary refill - Back Exam Back exam: Present: normal inspection, full ROM. Absent: tenderness, CVA tenderness (R), CVA tenderness (L), muscle spasm, paraspinal tenderness, vertebral tenderness, rash noted - Neurological Exam Neurological exam: Present: alert, oriented X3, CN II-XII intact, normal gait, reflexes normal - Psychiatric Psychiatric exam: Present: normal affect, normal mood - Skin Skin exam: Present: warm, dry, intact, normal color. Absent: rash ED Course Vital Signs 07/05/20 19:49 Temperature 97.9 F Pulse Rate 106 H Respiratory 18 Rate Blood Pressure 136/76 O2 Sat by Pulse 93 Oximetry ED Medical Decision Making - Lab Data Result diagrams: 07/05/20 23:08 07/05/20 23:08 - Radiology Data Radiology results: report reviewed, image reviewed [facility] [address] [place] [address] XRay Report Signed Patient: JOEL HODGE MR#: [id number] : 1955 Acct:[id number] Age/Sex: 64 / F ADM Date: 07/05/20 Loc: ED Attending Dr: Ordering Physician: JUAN PABLO TIWARI Date of Service: 07/05/20 Procedure(s): XR chest 1V ap Accession Number(s): [id number] cc: JUAN PABLO TIWARI Fluoro Time In Minutes: CHEST 1 VIEW 07/05/2020 10:40 PM INDICATION / CLINICAL INFORMATION: Cough. COMPARISON: 03/25/20. FINDINGS: SUPPORT DEVICES: None. HEART / MEDIASTINUM: The heart size and pulmonary vasculature are normal for technique. LUNGS / PLEURA: No significant pulmonary or pleural abnormality. No pneumothorax. ADDITIONAL FINDINGS: Internal fixation of a comminuted fracture of the proximal right humerus. Surgical clips overlying the lower chest and right upper abdomen. IMPRESSION: No acute findings. Signer Name: Sandip Huertas MD Signed: 07/05/2020 11:42 PM Workstation Name: [id number] Transcribed By: RT Dictated By: Sandip Huertas MD Electronically Authenticated By: Sandip Huertas MD Signed Date/Time: 07/05/202341 DD/ 40 TD/TT: [facility] [address] [place] [address] Cat Scan Report Signed Patient: JOEL HODGE MR#: [id number] : 1955 Acct:[id number] Age/Sex: 64 / F ADM Date: 07/05/20 Loc: ED Attending Dr: Ordering Physician: JUAN PABLO TIWARI Date of Service: 07/05/20 Procedure(s): CT abdomen pelvis w con Accession Number(s): [id number] cc: JUAN PABLO TIWARI CT OF THE ABDOMEN AND PELVIS WITH INTRAVENOUS CONTRAST INDICATION / CLINICAL INFORMATION: Diffuse abdominal pain with nausea and vomiting for 2 days. TECHNIQUE: The patient received 100 cc Omnipaque [address] scans at this location are performed using CT dose reduction for ALARA by means of automated exposure control. COMPARISON: 06/25/20. FINDINGS: ABDOMEN: The gallbladder is surgically absent. Mild bile duct prominence in a postcholecystectomy patient is present without a cause seen. The liver, spleen, pancreas, right adrenal gland, kidneys and bowel are unremarkable. Low density nodularity involving the left adrenal gland is stable. The lung bases are clear.. PELVIS: The distal ureters and urinary bladder are normal. The uterus and ovaries are not identified. There is no evidence of appendicitis or diverticulitis. No abnormal mass or fluid collection is present. There are healing fractures of the right sacral alae and left symphysis. No new fracture is seen. There is lower lumbar spondylosis. IMPRESSION: No acute abnormality or significant change. Signer Name: Sandip Huertas MD Signed: 07/06/2020 3:13 AM Workstation Name: [id number] Transcribed By: RT Dictated By: Sandip Huertas MD Electronically Authenticated By: Sandip Huertas MD Signed Date/Time: 07/06/20312 DD/ 030 TD/TT: - Medical Decision Making This is a 64-year-old female with a history of anxiety and depression, SLE, chronic pain, hypertension and kdm-mcxzvyj-olvqfcluk diabetes who presents to the ED with complaint of acute onset persistent diffuse abdominal pain with nausea and vomiting for the last 2 days. Patient also complains of persistent headache following several episodes of vomiting. Patient states that she has not been able to keep anything down in the last 2 days especially in the last 12 hours. Patient describes the pain as cramping, sharp and persistent and that gets worse with vomiting episodes. In the ED, patient is alert and oriented x3 and is not in any distress but anxious and appears to be in significant pain. Patient is however afebrile and tachycardic in triage. Patient was treated in the ED for nausea and vomiting and also given pain medications, also given antacids and normal saline 1 L IV bolus x1. Abdomen pelvis CT scan with IV contrast showed no acute abnormalities. Chest x-ray showed no acute cardiopulmonary abnormalities or pneumonitis. On reevaluation, patient's pain is well controlled medications. Patient has not had any nausea or vomiting while in the ED. Patient is hemodynamically stable patient is able to keep all oral fluids in the ED and has been asking for food in the ED. Based on the patient's history, physical exam findings, lab test results and imaging report, the patient's symptoms are likely due to viral gastroenteritis and or GERD. Patient was therefore discharged home on antiemetics, antacids and antispasmodic medications and was advised to follow-up with her primary care physician in 3 to 5 days for reevaluation or return to the ED immediately if symptoms get worse. - Differential Diagnosis Pancreatitis; gastroparesis; UTI; GERD; colitis; gastroenteritis; Critical care attestation.: If time is entered above; I have spent that time in minutes in the direct care of this critically ill patient, excluding procedure time. ED Disposition Clinical Impression: Acute generalized abdominal pain, Nausea and vomiting in adult patient, Viral gastroenteritis GERD (gastroesophageal reflux disease) Qualifiers: Esophagitis presence: esophagitis presence not specified Qualified Code(s): K21.9 - Gastro-esophageal reflux disease without esophagitis Disposition: DC- TO HOME OR SELFCARE Is pt being admited?: No Does the pt Need Aspirin: No Condition: Stable Instructions: Abdominal Pain (ED), Viral Gastroenteritis, Adult, [id number], Abdominal Pain, Adult, [id number]-Ribz, Gastroesophageal Reflux Disease, Adult, Zxvy-oo-[id number], Nausea and Vomiting, Adult, Rahh-nb-Wran Additional Instructions: All lab test results were reviewed and are all nonactionable. Chest x-ray showed no acute cardiopulmonary abnormalities or pneumonitis. Abdomen pelvis CT scan with contrast showed no acute abnormalities. Your symptoms are likely due to a viral syndrome possibly viral gastroenteritis or GERD complications. Therefore maintain a clear liquid diet for 12 to 24 hours, drink plenty of fluids, take medications as advised for nausea and vomiting and for pain and fo llow-up with your primary care physician in 3 to 5 days for reevaluation. Return to the ED immediately if symptoms get worse. Prescriptions: Dicyclomine [Bentyl] 20 mg PO Q6H PRN #30 tablet PRN Reason: abdominal pain Famotidine [Pepcid] 20 mg PO Q12H #60 tablet Ondansetron [Zofran Odt] 4 mg PO Q6HR PRN #20 tab.rapdis PRN Reason: Nausea Referrals: [facility] [Provider Group] - 3-5 Days Time of Disposition: 05:34 Print Language: SLOVENIAN
[2020-07-05 23:27] LABS: Basophils % (Auto) 0.4 % (0.0-1.8); Eosinophils # (Auto) 0.1 K/mm3 (0.0-0.4); Eosinophils % (Auto) 0.7 % (0.0-4.3); Hematocrit 24.8 % (30.3-42.9); Hemoglobin 8.3 gm/dl (10.1-14.3); Lymphocytes # (Auto) 0.8 K/mm3 (1.2-5.4); Lymphocytes % (Auto) 8.7 % (13.4-35.0); Mean Corpuscular HGB Conc 33 % (30-34); Mean Corpuscular Volume 85 fl (79-97); Monocytes # (Auto) 0.5 K/mm3 (0.0-0.8); Platelet Count 651 K/mm3 (140-440); Red Blood Count 2.93 M/mm3 (3.65-5.03); Red Cell Distribution Width 15.1 % (13.2-15.2)
--- NOTE | 2020-07-05 23:46 | XRay Report ---
CHEST 1 VIEW 07/05/2020 10:40 PM INDICATION / CLINICAL INFORMATION: Cough. COMPARISON: 03/25/20. FINDINGS: SUPPORT DEVICES: None. HEART / MEDIASTINUM: The heart size and pulmonary vasculature are normal for technique. LUNGS / PLEURA: No significant pulmonary or pleural abnormality. No pneumothorax. ADDITIONAL FINDINGS: Internal fixation of a comminuted fracture of the proximal right humerus. Surgic al clips overlying the lower chest and right upper abdomen. IMPRESSION: No acute findings. Signer Name: Sandip Huertas MD Signed: 07/05/2020 11:42 PM Workstation Name: [id number]
[2020-07-05 23:55] LABS: Alanine Aminotransferase 16 units/L (7-56); Albumin 3.5 g/dL (3.9-5); Blood Urea Nitrogen 23 mg/dL (7-17); Calcium 8.4 mg/dL (8.4-10.2); Hemolysis Index 5
[2020-07-05 23:59] LABS: BUN/Creatinine Ratio 38
[2020-07-06] MEDS ORDERED: FAMOTIDINE 20 MG TAB PO ONE (00:16)
[2020-07-06] MEDS ORDERED: MORPHINE 4 MG/1 ML INJ IM ONE (00:16)
[2020-07-06] MEDS: ONDANSETRON 4 MG ODT TAB PO ONE ×2 (00:20→05:31)
[2020-07-06 00:28] LABS: Bacteria,Urine 1+ /HPF (Negative); Bilirubin,Urine NEG (Negative); Blood,Urine NEG (Negative); Color,Urine Yellow (Yellow); Mucus,Urine FEW /HPF; Protein,Urine <15 mg/dL mg/dL (Negative)
[2020-07-06] MEDS ORDERED: FAMOTIDINE 20 MG/2 ML INJ IV ONE (00:35)
--- NOTE | 2020-07-06 03:17 | Cat Scan Report ---
CT OF THE ABDOMEN AND PELVIS WITH INTRAVENOUS CONTRAST INDICATION / CLINICAL INFORMATION: Diffuse abdominal pain with nausea and vomiting for 2 days. TECHNIQUE: The patient received 100 cc Omnipaque [address] scans at this location are performed using CT dose reduction for ALARA by means of automated exposure control. COMPARISON: 06/25/20. FINDINGS: ABDOMEN: The gallbladder is surgically absent. Mild bile duct prominence in a postcholecystectomy pat ient is present without a cause seen. The liver, spleen, pancreas, right adrenal gland, kidneys and b owel are unremarkable. Low density nodularity involving the left adrenal gland is stable. The lung ba ses are clear.. PELVIS: The distal ureters and urinary bladder are normal. The uterus and ovaries are not identified. There is no evidence of appendicitis or diverticulitis. No abnormal mass or fluid collection is pres ent. There are healing fractures of the right sacral alae and left symphysis. No new fracture is seen. The re is lower lumbar spondylosis. IMPRESSION: No acute abnormality or significant change. Signer Name: Sandip Huertas MD Signed: 07/06/2020 3:13 AM Workstation Name: [email or web address]
[2020-07-06] MEDS ORDERED: DICYCLOMINE 20 MG/2 ML INJ IM ONE (05:27)
[2020-07-06] MEDS ORDERED: ONDANSETRON 4 MG ODT TAB PO ONE (05:28)
== END 2020-07-06 18:35 | disposition home or self-care (01) ==
LOC: ED 19:20
DX: K21.9 Gastro-esophageal reflux disease without esophagitis (principal); A08.4 Viral intestinal infection, unspecified; R10.84 Generalized abdominal pain; R11.2 Nausea with vomiting, unspecified; I10 Essential (primary) hypertension; E11.9 Type 2 diabetes mellitus without complications; F32.9 Major depressive disorder, single episode, unspecified; F17.200 Nicotine dependence, unspecified, uncomplicated; Z90.49 Acquired absence of other specified parts of digestive tract; Z98.890 Other specified postprocedural states; Z79.4 Long term (current) use of insulin; Z79.899 Other long term (current) drug therapy
CPT/HCPCS: 36415; 71045; 74177; 80053; 81001; 82140; 83690; 84484; 85025; 87040; 87086; 96361; 96372; 96374; 99285; J0500; J2270; J7030; Q9967; 80320; G0480; Q0162

== ENCOUNTER 2021-01-02 22:29 | Emergency (ER) | payer MEDICARE ==
--- NOTE | 2021-01-02 23:39 | Event Note ---
ED Screening Note Date of service: 01/02/21 Time: 23:38 ED Screening Note: Patient states that she has lupus and diabetes. Patient states that she is not sure why she is here, who called ambulance to bring her here for her she got here. She states that she feels very confused. This initial assessment/diagnostic orders/clinical plan/treatment(s) is/are subject to change based on patients health status, clinical progression and re- assessment by fellow clinical providers in the ED. Further treatment and workup at subsequent clinical providers discretion. Patient/guardian urged not to elope from the ED as their condition may be serious if not clinically assessed and managed. Initial orders include: cbc cmp
[2021-01-03 00:26] LABS: Basophils % (Auto) 0.7 % (0.0-1.8); Eosinophils % (Auto) 0.5 % (0.0-4.3); Hematocrit 26.1 % (30.3-42.9); Hemoglobin 8.3 gm/dl (10.1-14.3); Lymphocytes # (Auto) 0.7 K/mm3 (1.2-5.4); Lymphocytes % (Auto) 11.7 % (13.4-35.0); Mean Corpuscular HGB Conc 32 % (30-34); Mean Corpuscular Volume 99 fl (79-97); Monocytes # (Auto) 0.5 K/mm3 (0.0-0.8); Monocytes % (Auto) 7.4 % (0.0-7.3); Platelet Count 356 K/mm3 (140-440); Red Blood Count 2.64 M/mm3 (3.65-5.03); Red Cell Distribution Width 17.9 % (13.2-15.2)
[2021-01-03 00:48] LABS: Alanine Aminotransferase 40 units/L (7-56); Albumin 3.3 g/dL (3.9-5); Blood Urea Nitrogen 29 mg/dL (7-17); Calcium 7.5 mg/dL (8.4-10.2); Hemolysis Index 7
[2021-01-03 00:53] LABS: BUN/Creatinine Ratio 48
[2021-01-03] MEDS ORDERED: KETOROLAC 60 MG/2 ML INJ IM ONE (01:20)
[2021-01-03] MEDS ORDERED: methylPREDNISolone Sod Succinate 125 MG/2 ML INJ IM ONE (01:20)
[2021-01-03] MEDS ORDERED: ONDANSETRON 4 MG ODT TAB PO ONE ×2 (01:20→05:33)
--- NOTE | 2021-01-03 01:25 | Emergency Department Report ---
ED General Adult HPI - General Chief complaint: Medical Clearance Stated complaint: MEDICAL SCREENING Time Seen by Provider: 01/02/21 23:47 Source: patient, EMS Mode of arrival: Stretcher Limitations: No Limitations - History of Present Illness Initial comments: Patient presents to the emergency department the chief complaint of body pain. Patient states she has a history of lupus and thinks she is having a flare. She describes her pain as sharp in nature and consistent with prior flareups of her lupus. She denies sandra chest pain, shortness breath, or abdominal pain. -: unknown Severity scale (0 -10): 6 Quality: aching, sharp Consistency: constant Improves with: none Worsens with: none Associated Symptoms: denies other symptoms Treatments Prior to Arrival: none - Related Data Previous Rx's Medication Instructions Recorded Last Taken Type Metoclopramide [Reglan TAB] 10 mg PO TID #60 tab 11/25/19 Unknown Rx polyethylene glycoL 3350 [Miralax 17 gm PO QDAY #30 packet 11/25/19 Unknown Rx 3350] Famotidine [Pepcid] 40 mg PO QHS #30 tablet 12/15/19 Unknown Rx amLODIPine 10 mg PO QDAY #30 tablet 12/15/19 Unknown Rx Acetaminophen [Tylenol] 650 mg PO Q8HR PRN #20 capsule 03/07/20 Unknown Rx Furosemide [Lasix TAB] 40 mg PO QDAY #5 tablet 03/07/20 Unknown Rx Cyclobenzaprine [Flexeril 10 MG 10 mg PO TID PRN #10 tablet 03/26/20 Unknown Rx TAB] Dicyclomine [Bentyl] 10 mg PO QID #30 capsule 03/26/20 Unknown Rx Promethazine [Phenergan] 25 mg PO Q6HR PRN #20 tab 03/26/20 Unknown Rx oxyCODONE /ACETAMINOPHEN [Percocet 1 tab PO Q6H PRN #20 tablet 07/03/20 Unknown Rx 5/325 mg] Insulin Glargine [Lantus VIAL] 22 units SUB-Q QHS 30 Days 07/04/20 Unknown Rx Insulin Glargine [Lantus VIAL] 25 units SUB-Q QHS units 07/04/20 Unknown Rx Insulin Regular, Human [HumuLIN R] 0 units SUB-Q ACHS 30 Days 07/04/20 Unknown Rx Dicyclomine [Bentyl] 20 mg PO Q6H PRN #30 tablet 07/06/20 Unknown Rx Famotidine [Pepcid] 20 mg PO Q12H #60 tablet 07/06/20 Unknown Rx Ondansetron [Zofran Odt] 4 mg PO Q6HR PRN #20 tab.rapdis 07/06/20 Unknown Rx Ibuprofen [Motrin] 800 mg PO Q8HR PRN #30 tablet 01/03/21 Unknown Rx Prednisone [predniSONE 5 mg (6-Day 5 mg PO .TAPER #1 tab.ds.pk 01/03/21 Unknown Rx Pack, 21 Tabs)] Allergies Allergy/AdvReac Type Severity Reaction Status Date / Time No Known Allergies Allergy Verified 06/11/20 16:41 ED Review of Systems ROS: Stated complaint: MEDICAL SCREENING Other details as noted in HPI Comment: All other systems reviewed and negative Constitutional: denies: chills, fever Eyes: denies: eye pain, eye discharge, vision change ENT: denies: ear pain, throat pain Respiratory: denies: cough, shortness of breath, wheezing Cardiovascular: denies: chest pain, palpitations Endocrine: no symptoms reported Gastrointestinal: denies: abdominal pain, nausea, diarrhea Genitourinary: denies: urgency, dysuria, discharge Musculoskeletal: denies: back pain, joint swelling, arthralgia Skin: denies: rash, lesions Neurological: denies: headache, weakness, paresthesias Psychiatric: denies: anxiety, depression Hematological/Lymphatic: denies: easy bleeding, easy bruising ED Past Medical Hx - Past Medical History Previous Medical History?: Yes Hx Hypertension: Yes Hx Heart Attack/AMI: No Hx Congestive Heart Failure: No Hx Diabetes: Yes Hx Liver Disease: No Hx Renal Disease: No Hx Psychiatric Treatment: Yes (DEPRESSION) Hx Asthma: No Hx COPD: No Hx HIV: No Additional medical history: LUPUS. Chronic Pain - Surgical History Past Surgical History?: Yes Hx Cholecystectomy: Yes Hx Appendectomy: Yes Additional Surgical History: BREAST / TONSILS / ABD. Hysterectomy, gastric bypass - Social History Smoking Status: Current Every Day Smoker Substance Use Type: None - Medications Home Medications: Home Medications Medication Instructions Recorded Confirmed Last Taken Type Metoclopramide [Reglan TAB] 10 mg PO TID #60 tab 11/25/19 06/25/20 Unknown Rx polyethylene glycoL 3350 [Miralax 17 gm PO QDAY #30 packet 11/25/19 06/25/20 Unknown Rx 3350] Famotidine [Pepcid] 40 mg PO QHS #30 tablet 12/15/19 06/25/20 Unknown Rx amLODIPine 10 mg PO QDAY #30 tablet 12/15/19 06/25/20 Unknown Rx Acetaminophen [Tylenol] 650 mg PO Q8HR PRN #20 capsule 03/07/20 06/25/20 Unknown Rx Furosemide [Lasix TAB] 40 mg PO QDAY #5 tablet 03/07/20 06/25/20 Unknown Rx Cyclobenzaprine [Flexeril 10 MG 10 mg PO TID PRN #10 tablet 03/26/20 06/25/20 Unknown Rx TAB] Dicyclomine [Bentyl] 10 mg PO QID #30 capsule 03/26/20 06/25/20 Unknown Rx Promethazine [Phenergan] 25 mg PO Q6HR PRN #20 tab 03/26/20 06/25/20 Unknown Rx oxyCODONE /ACETAMINOPHEN [Percocet 1 tab PO Q6H PRN #20 tablet 07/03/20 Unknown Rx 5/325 mg] Insulin Glargine [Lantus VIAL] 22 units SUB-Q QHS 30 Days 07/04/20 Unknown Rx Insulin Glargine [Lantus VIAL] 25 units SUB-Q QHS units 07/04/20 Unknown Rx Insulin Regular, Human [HumuLIN R] 0 units SUB-Q ACHS 30 Days 07/04/20 Unknown Rx Dicyclomine [Bentyl] 20 mg PO Q6H PRN #30 tablet 07/06/20 Unknown Rx Famotidine [Pepcid] 20 mg PO Q12H #60 tablet 07/06/20 Unknown Rx Ondansetron [Zofran Odt] 4 mg PO Q6HR PRN #20 tab.rapdis 07/06/20 Unknown Rx Ibuprofen [Motrin] 800 mg PO Q8HR PRN #30 tablet 01/03/21 Unknown Rx Prednisone [predniSONE 5 mg (6-Day 5 mg PO .TAPER #1 tab.ds.pk 01/03/21 Unknown Rx Pack, 21 Tabs)] ED Physical Exam - General Limitations: No Limitations General appearance: alert, in no apparent distress - Head Head exam: Present: atraumatic, normocephalic - Eye Eye exam: Present: normal appearance, PERRL, EOMI - ENT ENT exam: Present: mucous membranes moist - Neck Neck exam: Present: normal inspection - Respiratory Respiratory exam: Present: normal lung sounds bilaterally. Absent: respiratory distress - Cardiovascular Cardiovascular Exam: Present: regular rate, normal rhythm. Absent: systolic murmur, diastolic murmur, rubs, gallop - GI/Abdominal GI/Abdominal exam: Present: soft, normal bowel sounds. Absent: distended, tenderness - Extremities Exam Extremities exam: Present: normal inspection - Back Exam Back exam: Present: normal inspection - Neurological Exam Neurological exam: Present: alert, oriented X3, CN II-XII intact, motor sensory deficit - Psychiatric Psychiatric exam: Present: normal affect, normal mood - Skin Skin exam: Present: warm, dry, intact, normal color. Absent: rash ED Course Vital Signs 01/02/21 22:30 Temperature 98.1 F Pulse Rate 89 Respiratory 18 Rate Blood Pressure 123/63 [Left] O2 Sat by Pulse 99 Oximetry ED Medical Decision Making - Lab Data Result diagrams: 01/03/21 00:12 01/03/21 00:12 Lab Results 01/03/21 01/03/21 Range/Units 00:12 00:12 WBC 6.2 (4.5-11.0) K/mm3 RBC 2.64 L (3.65-5.03) M/mm3 Hgb 8.3 L (10.1-14.3) gm/dl Hct 26.1 L (30.3-42.9) % MCV 99 H (79-97) fl MCH 32 (28-32) pg MCHC 32 (30-34) % RDW 17.9 H (13.2-15.2) % Plt Count 356 (140-440) K/mm3 Lymph % (Auto) 11.7 L (13.4-35.0) % [place] % (Auto) 7.4 H (0.0-7.3) % Eos % (Auto) 0.5 (0.0-4.3) % Baso % (Auto) 0.7 (0.0-1.8) % Lymph # (Auto) 0.7 L (1.2-5.4) K/mm3 [place] # (Auto) 0.5 (0.0-0.8) K/mm3 Eos # (Auto) 0.0 (0.0-0.4) K/mm3 Baso # (Auto) 0.0 (0.0-0.1) K/mm3 Seg Neutrophils % 79.7 H (40.0-70.0) % Seg Neutrophils # 5.0 (1.8-7.7) K/mm3 Sodium 137 (137-145) mmol/L Potassium 3.9 (3.6-5.0) mmol/L Chloride 105.4 (98-107) mmol/L Carbon Dioxide 18 L (22-30) mmol/L Anion Gap 18 mmol/L BUN 29 H (7-17) mg/dL Creatinine 0.6 (0.6-1.2) mg/dL Estimated GFR > 60 ml/min BUN/Creatinine Ratio 48 % Glucose 254 H (65-100) mg/dL Calcium 7.5 L (8.4-10.2) mg/dL Total Bilirubin < 0.20 (0.1-1.2) mg/dL AST 29 (5-40) units/L ALT 40 (7-56) units/L Alkaline Phosphatase 165 H (35-129) units/L Total Protein 5.9 L (6.3-8.2) g/dL Albumin 3.3 L (3.9-5) g/dL Albumin/Globulin Ratio 1.3 % - Medical Decision Making Discussed results with patient Critical care attestation.: If time is entered above; I have spent that time in minutes in the direct care of this critically ill patient, excluding procedure time. ED Disposition Clinical Impression: Myalgia, Lupus Disposition: 01 HOME / SELF CARE / HOMELESS Is pt being admited?: No Does the pt Need Aspirin: No Condition: Stable Additional Instructions: return if worse Prescriptions: Ibuprofen [Motrin] 800 mg PO Q8HR PRN #30 tablet PRN Reason: Pain Prednisone [predniSONE 5 mg (6-Day Pack, 21 Tabs)] 5 mg PO .TAPER #1 tab.ds.pk Referrals: PRIMARY CARE, [Primary Care Provider] - 3-5 Days LEONELA MARIE MD [Staff Physician] - 3-5 Days Time of Disposition: 01:23
[2021-01-03] MEDS ORDERED: ALUM-MAG HYDROXIDE-SIMETHICONE 200-200-20MG/5ML ORAL LIQD 30 ML PO ONE (05:33)
[2021-01-03] MEDS ORDERED: LIDOCAINE VISCOUS 2% 15 ML ORAL LIQD PO ONE (05:33)
[2021-01-03] MEDS ORDERED: oxyCODONE /ACETAMINOPHEN 5-325MG TAB PO ONE (05:33)
[2021-01-03] MEDS ORDERED: FAMOTIDINE 20 MG/2 ML INJ IV ONE (05:33)
[2021-01-03] MEDS ORDERED: FAMOTIDINE 20 MG TAB PO ONE (05:38)
[2021-01-03 12:24] VITALS: BP 151/93
== END 2021-01-03 14:25 | disposition home or self-care (01) ==
LOC: ED 22:29
DX: M79.10 Myalgia, unspecified site (principal); M32.9 Systemic lupus erythematosus, unspecified; I10 Essential (primary) hypertension; E11.8 Type 2 diabetes mellitus with unspecified complications; F17.200 Nicotine dependence, unspecified, uncomplicated; Z90.89 Acquired absence of other organs; Z90.49 Acquired absence of other specified parts of digestive tract
CPT/HCPCS: 36415; 80053; 82962; 85025; 96372; 99284; J1885; J2930; Q0162

== ENCOUNTER 2021-01-03 22:14 | Emergency (ER) | payer MEDICARE ==
[2021-01-03 22:23] VITALS: BP 130/60
[2021-01-04] MEDS ORDERED: ACETAMINOPHEN 500 MG TAB PO ONE (00:37)
[2021-01-04] MEDS ORDERED: ONDANSETRON 4 MG ODT TAB PO ONE (00:37)
[2021-01-04] MEDS ORDERED: DICYCLOMINE 10 MG CAP PO ONE (00:37)
--- NOTE | 2021-01-04 01:35 | Emergency Department Report ---
ED General Adult HPI - General Chief complaint: Abdominal Pain Stated complaint: ABD PAIN Time Seen by Provider: 01/04/21 00:34 Source: patient, EMS Mode of arrival: Stretcher Limitations: No Limitations - History of Present Illness Initial comments: Patient 65-year-old female who presents with generalized abdominal pain. Patient was seen and treated in the ED today for same problem. Requested patient states pain remains. Has been no fevers no chills no nausea vomiting. Patient is tolerating p.o. intake at this time. Patient states she is taking no medications as discharged. Patient states this is a chronic problem for the past 3 years. Severity scale (0 -10): 10 - Related Data Previous Rx's Medication Instructions Recorded Last Taken Type Metoclopramide [Reglan TAB] 10 mg PO TID #60 tab 11/25/19 Unknown Rx polyethylene glycoL 3350 [Miralax 17 gm PO QDAY #30 packet 11/25/19 Unknown Rx 3350] Famotidine [Pepcid] 40 mg PO QHS #30 tablet 12/15/19 Unknown Rx amLODIPine 10 mg PO QDAY #30 tablet 12/15/19 Unknown Rx Acetaminophen [Tylenol] 650 mg PO Q8HR PRN #20 capsule 03/07/20 Unknown Rx Furosemide [Lasix TAB] 40 mg PO QDAY #5 tablet 03/07/20 Unknown Rx Cyclobenzaprine [Flexeril 10 MG 10 mg PO TID PRN #10 tablet 03/26/20 Unknown Rx TAB] Dicyclomine [Bentyl] 10 mg PO QID #30 capsule 03/26/20 Unknown Rx Promethazine [Phenergan] 25 mg PO Q6HR PRN #20 tab 03/26/20 Unknown Rx oxyCODONE /ACETAMINOPHEN [Percocet 1 tab PO Q6H PRN #20 tablet 07/03/20 Unknown Rx 5/325 mg] Insulin Glargine [Lantus VIAL] 22 units SUB-Q QHS 30 Days 07/04/20 Unknown Rx Insulin Glargine [Lantus VIAL] 25 units SUB-Q QHS units 07/04/20 Unknown Rx Insulin Regular, Human [HumuLIN R] 0 units SUB-Q ACHS 30 Days 07/04/20 Unknown Rx Dicyclomine [Bentyl] 20 mg PO Q6H PRN #30 tablet 07/06/20 Unknown Rx Famotidine [Pepcid] 20 mg PO Q12H #60 tablet 07/06/20 Unknown Rx Ondansetron [Zofran Odt] 4 mg PO Q6HR PRN #20 tab.rapdis 07/06/20 Unknown Rx Ibuprofen [Motrin] 800 mg PO Q8HR PRN #30 tablet 01/03/21 Unknown Rx Prednisone [predniSONE 5 mg (6-Day 5 mg PO .TAPER #1 tab.ds.pk 01/03/21 Unknown Rx Pack, 21 Tabs)] Ondansetron [Zofran Odt] 4 mg PO Q8HR PRN #30 tab.rapdis 01/04/21 Unknown Rx Allergies Allergy/AdvReac Type Severity Reaction Status Date / Time No Known Allergies Allergy Verified 06/11/20 16:41 ED Review of Systems ROS: Stated complaint: ABD PAIN Other details as noted in HPI Constitutional: no symptoms reported Eyes: denies: eye pain, eye discharge, vision change ENT: denies: ear pain, throat pain Respiratory: denies: cough, shortness of breath, wheezing Cardiovascular: denies: chest pain, palpitations Endocrine: no symptoms reported Gastrointestinal: abdominal pain. denies: nausea, vomiting, diarrhea, constipation, melena Genitourinary: denies: urgency, dysuria, frequency, discharge Musculoskeletal: denies: back pain, joint swelling, arthralgia Skin: denies: rash, lesions Neurological: as per HPI. denies: vertigo Psychiatric: denies: anxiety, depression Hematological/Lymphatic: denies: easy bleeding, easy bruising ED Past Medical Hx - Past Medical History Hx Hypertension: Yes Hx Heart Attack/AMI: No Hx Congestive Heart Failure: No Hx Diabetes: Yes Hx Liver Disease: No Hx Renal Disease: No Hx Psychiatric Treatment: Yes (DEPRESSION) Hx Asthma: No Hx COPD: No Hx HIV: No Additional medical history: LUPUS. Chronic Pain - Surgical History Hx Cholecystectomy: Yes Hx Appendectomy: Yes Additional Surgical History: BREAST / TONSILS / ABD. Hysterectomy, gastric bypass - Social History Smoking Status: Current Every Day Smoker Substance Use Type: None - Medications Home Medications: Home Medications Medication Instructions Recorded Confirmed Last Taken Type Metoclopramide [Reglan TAB] 10 mg PO TID #60 tab 11/25/19 06/25/20 Unknown Rx polyethylene glycoL 3350 [Miralax 17 gm PO QDAY #30 packet 11/25/19 06/25/20 Unknown Rx 3350] Famotidine [Pepcid] 40 mg PO QHS #30 tablet 12/15/19 06/25/20 Unknown Rx amLODIPine 10 mg PO QDAY #30 tablet 12/15/19 06/25/20 Unknown Rx Acetaminophen [Tylenol] 650 mg PO Q8HR PRN #20 capsule 03/07/20 06/25/20 Unknown Rx Furosemide [Lasix TAB] 40 mg PO QDAY #5 tablet 03/07/20 06/25/20 Unknown Rx Cyclobenzaprine [Flexeril 10 MG 10 mg PO TID PRN #10 tablet 03/26/20 06/25/20 Unknown Rx TAB] Dicyclomine [Bentyl] 10 mg PO QID #30 capsule 03/26/20 06/25/20 Unknown Rx Promethazine [Phenergan] 25 mg PO Q6HR PRN #20 tab 03/26/20 06/25/20 Unknown Rx oxyCODONE /ACETAMINOPHEN [Percocet 1 tab PO Q6H PRN #20 tablet 07/03/20 Unknown Rx 5/325 mg] Insulin Glargine [Lantus VIAL] 22 units SUB-Q QHS 30 Days 07/04/20 Unknown Rx Insulin Glargine [Lantus VIAL] 25 units SUB-Q QHS units 07/04/20 Unknown Rx Insulin Regular, Human [HumuLIN R] 0 units SUB-Q ACHS 30 Days 07/04/20 Unknown Rx Dicyclomine [Bentyl] 20 mg PO Q6H PRN #30 tablet 07/06/20 Unknown Rx Famotidine [Pepcid] 20 mg PO Q12H #60 tablet 07/06/20 Unknown Rx Ondansetron [Zofran Odt] 4 mg PO Q6HR PRN #20 tab.rapdis 07/06/20 Unknown Rx Ibuprofen [Motrin] 800 mg PO Q8HR PRN #30 tablet 01/03/21 Unknown Rx Prednisone [predniSONE 5 mg (6-Day 5 mg PO .TAPER #1 tab.ds.pk 01/03/21 Unknown Rx Pack, 21 Tabs)] Ondansetron [Zofran Odt] 4 mg PO Q8HR PRN #30 tab.rapdis 01/04/21 Unknown Rx ED Physical Exam - General Limitations: No Limitations General appearance: alert, in no apparent distress - Head Head exam: Present: normocephalic, normal inspection - Eye Eye exam: Present: normal appearance, EOMI Pupils: Present: normal accommodation - ENT ENT exam: Present: normal orophraynx, mucous membranes moist - Neck Neck exam: Present: normal inspection, full ROM. Absent: tenderness, meningismus - Respiratory Respiratory exam: Present: normal lung sounds bilaterally, rales. Absent: respiratory distress, wheezes, rhonchi - Cardiovascular Cardiovascular Exam: Present: regular rate, normal rhythm, normal heart sounds. Absent: systolic murmur, diastolic murmur, rubs, gallop - GI/Abdominal GI/Abdominal exam: Present: soft, normal bowel sounds. Absent: distended, tenderness, guarding, rebound, rigid, bruit, hernia - Rectal Rectal exam: Present: deferred - Extremities Exam Extremities exam: Present: normal inspection, full ROM, normal capillary refill. Absent: tenderness, pedal edema, joint swelling, calf tenderness - Back Exam Back exam: Present: normal inspection, full ROM. Absent: CVA tenderness (R), CVA tenderness (L) - Expanded Back Exam Expanded Back exam: Absent: saddle anesthesia Back exam: Negative Straight Leg Raising: Left, Right - Neurological Exam Neurological exam: Present: alert, oriented X3, CN II-XII intact, normal gait - Psychiatric Psychiatric exam: Present: normal affect, normal mood, agitated - Skin Skin exam: Present: warm, dry, intact, normal color. Absent: erythema ED Course Vital Signs 01/03/21 01/04/21 22:17 01:34 Temperature 98.6 F Pulse Rate 92 H Respiratory 18 18 Rate Blood Pressure 130/60 [Left] O2 Sat by Pulse 98 Oximetry ED Medical Decision Making - Medical Decision Making Physical exam does not repeat abdominal pain. Abdomen is soft nontender no sounds are normal there are no bruits no thrills. pt denies pain at this time , is actively drinking po liquids without symptoms? Ms. Stephenson appears well well-nourished with no acute distress. Patient will be DC'd in stable condition at this time, will return to emergency if symptoms worsen. Critical care attestation.: If time is entered above; I have spent that time in minutes in the direct care of this critically ill patient, excluding procedure time. ED Disposition Clinical Impression: Abdominal pain Qualifiers: Abdominal location: generalized Qualified Code(s): R10.84 - Generalized abdominal pain Disposition: HOME / SELF CARE / HOMELESS Is pt being admited?: No Does the pt Need Aspirin: No Condition: Stable Instructions: Abdominal Pain, Adult, [id number], Abdominal Pain (ED) Additional Instructions: Take all medications as prescribed, follow-up with [employer] in 2 to 3 days. Turn to emergency department is unable to tolerate p.o. Prescriptions: Ondansetron [Zofran Odt] 4 mg PO Q8HR PRN #30 tab.rapdis PRN Reason: Vomiting Referrals: [facility] [Provider Group] - 3-5 Days Forms: Work/School Release Form(ED)
== END 2021-01-04 02:47 | disposition home or self-care (01) ==
LOC: ED 22:14
DX: R10.84 Generalized abdominal pain (principal); I10 Essential (primary) hypertension; E11.8 Type 2 diabetes mellitus with unspecified complications; Z90.49 Acquired absence of other specified parts of digestive tract; Z98.890 Other specified postprocedural states; F17.200 Nicotine dependence, unspecified, uncomplicated
CPT/HCPCS: 99283; Q0162

== ENCOUNTER 2021-01-05 21:36 | Emergency (ER) | payer MEDICARE ==
--- NOTE | 2021-01-05 22:01 | Emergency Department Report ---
ED General Adult HPI - General Stated complaint: EVALUATION Time Seen by Provider: 01/05/21 21:38 - History of Present Illness Initial comments: Patient presents by ambulance because she wanted to be checked out. She requested to come here. She had requested crackers at her halfway. She states that she was threatened. She states that the staff there told her that they were not in a feed her and that she would be hungrier later. When I speak with the patient, she tells me that the halfway staff said that she needed to be here and that she would be better off. The paramedics correct her and then she tells me the remainder of the story. Patient states that she does not want to be hungry. - Related Data Previous Rx's Medication Instructions Recorded Last Taken Type Metoclopramide [Reglan TAB] 10 mg PO TID #60 tab 11/25/19 Unknown Rx polyethylene glycoL 3350 [Miralax 17 gm PO QDAY #30 packet 11/25/19 Unknown Rx 3350] Famotidine [Pepcid] 40 mg PO QHS #30 tablet 12/15/19 Unknown Rx amLODIPine 10 mg PO QDAY #30 tablet 12/15/19 Unknown Rx Acetaminophen [Tylenol] 650 mg PO Q8HR PRN #20 capsule 03/07/20 Unknown Rx Furosemide [Lasix TAB] 40 mg PO QDAY #5 tablet 03/07/20 Unknown Rx Cyclobenzaprine [Flexeril 10 MG 10 mg PO TID PRN #10 tablet 03/26/20 Unknown Rx TAB] Dicyclomine [Bentyl] 10 mg PO QID #30 capsule 03/26/20 Unknown Rx Promethazine [Phenergan] 25 mg PO Q6HR PRN #20 tab 03/26/20 Unknown Rx oxyCODONE /ACETAMINOPHEN [Percocet 1 tab PO Q6H PRN #20 tablet 07/03/20 Unknown Rx 5/325 mg] Insulin Glargine [Lantus VIAL] 22 units SUB-Q QHS 30 Days 07/04/20 Unknown Rx Insulin Glargine [Lantus VIAL] 25 units SUB-Q QHS units 07/04/20 Unknown Rx Insulin Regular, Human [HumuLIN R] 0 units SUB-Q ACHS 30 Days 07/04/20 Unknown Rx Dicyclomine [Bentyl] 20 mg PO Q6H PRN #30 tablet 07/06/20 Unknown Rx Famotidine [Pepcid] 20 mg PO Q12H #60 tablet 07/06/20 Unknown Rx Ondansetron [Zofran Odt] 4 mg PO Q6HR PRN #20 tab.rapdis 07/06/20 Unknown Rx Ibuprofen [Motrin] 800 mg PO Q8HR PRN #30 tablet 01/03/21 Unknown Rx Prednisone [predniSONE 5 mg (6-Day 5 mg PO .TAPER #1 tab.ds.pk 01/03/21 Unknown Rx Pack, 21 Tabs)] Ondansetron [Zofran Odt] 4 mg PO Q8HR PRN #30 tab.rapdis 01/04/21 Unknown Rx Allergies Allergy/AdvReac Type Severity Reaction Status Date / Time No Known Allergies Allergy Verified 06/11/20 16:41 ED Review of Systems ROS: Stated complaint: EVALUATION Other details as noted in HPI Comment: All other systems reviewed and negative Constitutional: denies: fever Eyes: denies: eye pain ENT: denies: throat pain Respiratory: denies: cough Cardiovascular: denies: chest pain Endocrine: denies: unexplained weight loss Gastrointestinal: denies: abdominal pain Genitourinary: denies: dysuria Musculoskeletal: denies: back pain Skin: denies: rash Neurological: denies: headache Hematological/Lymphatic: denies: easy bruising ED Past Medical Hx - Past Medical History Hx Hypertension: Yes Hx Heart Attack/AMI: No Hx Congestive Heart Failure: No Hx Diabetes: Yes Hx Liver Disease: No Hx Renal Disease: No Hx Psychiatric Treatment: Yes (DEPRESSION) Hx Asthma: No Hx COPD: No Hx HIV: No Additional medical history: LUPUS. Chronic Pain - Surgical History Hx Cholecystectomy: Yes Hx Appendectomy: Yes Additional Surgical History: BREAST / TONSILS / ABD. Hysterectomy, gastric bypass - Family History Family history: diabetes - Social History Smoking Status: Current Every Day Smoker Substance Use Type: None - Medications Home Medications: Home Medications Medication Instructions Recorded Confirmed Last Taken Type Metoclopramide [Reglan TAB] 10 mg PO TID #60 tab 11/25/19 06/25/20 Unknown Rx polyethylene glycoL 3350 [Miralax 17 gm PO QDAY #30 packet 11/25/19 06/25/20 Unknown Rx 3350] Famotidine [Pepcid] 40 mg PO QHS #30 tablet 12/15/19 06/25/20 Unknown Rx amLODIPine 10 mg PO QDAY #30 tablet 12/15/19 06/25/20 Unknown Rx Acetaminophen [Tylenol] 650 mg PO Q8HR PRN #20 capsule 03/07/20 06/25/20 Unknown Rx Furosemide [Lasix TAB] 40 mg PO QDAY #5 tablet 03/07/20 06/25/20 Unknown Rx Cyclobenzaprine [Flexeril 10 MG 10 mg PO TID PRN #10 tablet 03/26/20 06/25/20 Unknown Rx TAB] Dicyclomine [Bentyl] 10 mg PO QID #30 capsule 03/26/20 06/25/20 Unknown Rx Promethazine [Phenergan] 25 mg PO Q6HR PRN #20 tab 03/26/20 06/25/20 Unknown Rx oxyCODONE /ACETAMINOPHEN [Percocet 1 tab PO Q6H PRN #20 tablet 07/03/20 Unknown Rx 5/325 mg] Insulin Glargine [Lantus VIAL] 22 units SUB-Q QHS 30 Days 07/04/20 Unknown Rx Insulin Glargine [Lantus VIAL] 25 units SUB-Q QHS units 07/04/20 Unknown Rx Insulin Regular, Human [HumuLIN R] 0 units SUB-Q ACHS 30 Days 07/04/20 Unknown Rx Dicyclomine [Bentyl] 20 mg PO Q6H PRN #30 tablet 07/06/20 Unknown Rx Famotidine [Pepcid] 20 mg PO Q12H #60 tablet 07/06/20 Unknown Rx Ondansetron [Zofran Odt] 4 mg PO Q6HR PRN #20 tab.rapdis 07/06/20 Unknown Rx Ibuprofen [Motrin] 800 mg PO Q8HR PRN #30 tablet 01/03/21 Unknown Rx Prednisone [predniSONE 5 mg (6-Day 5 mg PO .TAPER #1 tab.ds.pk 01/03/21 Unknown Rx Pack, 21 Tabs)] Ondansetron [Zofran Odt] 4 mg PO Q8HR PRN #30 tab.rapdis 01/04/21 Unknown Rx ED Physical Exam - General Limitations: No Limitations, Other (Pulse ox noted and normal. She is frail) General appearance: alert, in no apparent distress - Head Head exam: Present: atraumatic, normocephalic, normal inspection - Eye Eye exam: Present: normal appearance, EOMI. Absent: scleral icterus - ENT ENT exam: Present: normal exam, normal orophraynx - Neck Neck exam: Present: normal inspection. Absent: meningismus - Respiratory Respiratory exam: Present: normal lung sounds bilaterally. Absent: respiratory distress - Cardiovascular Cardiovascular Exam: Present: regular rate, normal rhythm - GI/Abdominal GI/Abdominal exam: Present: soft. Absent: tenderness - Extremities Exam Extremities exam: Present: normal capillary refill - Back Exam Back exam: Absent: CVA tenderness (R), CVA tenderness (L) - Neurological Exam Neurological exam: Present: alert, oriented X3, CN II-XII intact - Psychiatric Psychiatric exam: Present: normal affect, normal mood - Skin Skin exam: Present: warm, dry ED Course - Reevaluation(s) Reevaluation #1: 01/05/21 22:11 Patient was given food and discharged. ED Medical Decision Making - Medical Decision Making Patient presents from a halfway because she was hungry and she was scared that somebody was going to be mean to her. She is not suicidal homicidal. She is not delusional. There is no physical sign of trauma or violence. There is no indication that the patient is malnourished. Her glucose was elevated. She was discharged and referred to her PCP for recheck. Critical Care Time: No Critical care attestation.: If time is entered above; I have spent that time in minutes in the direct care of this critically ill patient, excluding procedure time. ED Disposition Clinical Impression: Hunger Qualifiers: Encounter type: initial encounter Qualified Code(s): T73.0XXA - Starvation, initial encounter Disposition: HOME / SELF CARE / HOMELESS Is pt being admited?: No Condition: Stable Additional Instructions: Drink plenty water. Eat regularly. Continue home medication. Follow-up with your regular doctor. Return for problems. Referrals: PRIMARY CARE,MD [Referring] - 3-5 Days
[2021-01-05 23:14] VITALS: BP 156/66
== END 2021-01-06 00:14 | disposition home or self-care (01) ==
LOC: ED 21:36
DX: T73.0XXA Starvation, initial encounter (principal); I10 Essential (primary) hypertension; F32.9 Major depressive disorder, single episode, unspecified; E11.9 Type 2 diabetes mellitus without complications; Z90.49 Acquired absence of other specified parts of digestive tract; Z90.710 Acquired absence of both cervix and uterus; F17.200 Nicotine dependence, unspecified, uncomplicated; Z79.4 Long term (current) use of insulin; Z79.899 Other long term (current) drug therapy; X58.XXXA Exposure to other specified factors, initial encounter
CPT/HCPCS: 99282

== ENCOUNTER 2021-01-07 01:37 | Emergency (ER) | payer MEDICARE ==
[2021-01-07 02:27] VITALS: BP 130/80
--- NOTE | 2021-01-07 04:50 | Event Note ---
ED Screening Note Date of service: 01/07/21 Time: 04:48 ED Screening Note: Patient is a 65-year-old white female with a history of [id number]-[id number] diabetes who presents to the ED with diffuse low abdominal pain discomfort, and stating that she has not eaten any food in the last 2 days. Patient has been in the ED literally signing in and being discharged for the last 2 days and has been extensively worked up. Patient was discharged home about 6 hours ago but called back by EMS to bring her back to the ED after she disagreed with her roommates. Patient denies chest pain, shortness of breath, dizziness, syncope, nausea and vomiting or diarrhea, urinary frequency and urgency. Patient states that she would like to talk to a social organization professor to help sort out her living arrangements. This initial assessment/diagnostic orders/clinical plan/treatment(s) is/are subject to change based on patients health status, clinical progression and re- assessment by fellow clinical providers in the ED. Further treatment and workup at subsequent clinical providers discretion. Patient/guardian urged not to elope from the ED as their condition may be serious if not clinically assessed and managed. Initial orders include: Urinalysis
== END 2021-01-07 05:30 | disposition left against medical advice (07) ==
LOC: ED 01:37
DX: R10.9 Unspecified abdominal pain (principal); Z53.21 Procedure and treatment not carried out due to patient leaving prior to being seen by health care provider